=== PATIENT | male | born 1955 | race Hispanic/Latino ===

== ENCOUNTER 2016-05-21 12:16 | Observation (INO) | payer MEDICAID ==
[2016-05-21 12:16] VITALS: BMI 30.2
--- NOTE | 2016-05-21 13:26 | ED PDOC ---
HPI: Abdomen Time Seen by Provider: 05/21/16 12:35 Chief Complaint (Nursing): Abdominal Pain Chief Complaint (Provider): Abdominal Pain History Per: Patient History/Exam Limitations: no limitations Onset/Duration Of Symptoms: Days Current Symptoms Are (Timing): Still Present Severity: Moderate Location Of Pain/Discomfort: Diffuse Quality Of Discomfort: "Pain" Associated Symptoms: denies: Fever, Nausea, Vomiting Exacerbating Factors: None Additional Complaint(s): Patient is a 60 year old male with a history of liver cirrhosis, presents to ED with son for diffuse abdominal pain and swelling for 1 week. As per son symptoms started suddenly 1 week ago, last paracentisis was 3 weeks ago. Patient denies nausea, vomiting, diarrhea, urinary changes or back pain. Past Medical History Reviewed: Historical Data, Nursing Documentation, Vital Signs Vital Signs: Last Vital Signs Temp 98.3 F 05/22/16 08:06 Pulse 96 H 05/22/16 08:48 Resp 20 05/22/16 08:06 BP 118/71 05/22/16 08:48 Pulse Ox 98 05/22/16 08:06 - Medical History PMH: Anemia, CVA, Diabetes, HTN, Hypercholesterolemia, Chronic Kidney Disease Denies: HIV - Surgical History Surgical History: Hernia Repair (umbilical ) - Family History Family History: States: Unknown Family Hx - Living Arrangements Living Arrangements: With Family - Immunization History Hx Tetanus Toxoid Vaccination: Yes Hx Influenza Vaccination: Yes Hx Pneumococcal Vaccination: Yes - Home Medications Home Medications: Ambulatory Orders Medication Instructions Recorded Dipyridamole [Persantine] 50 mg PO DAILY 05/15/15 GlipiZIDE [Glucotrol] 10 mg PO DAILY 05/15/15 Insulin Glargine, Recombina 25 units SC HS 05/15/15 [Lantus] Insulin Lispro [Humalog] 50 units PO BID 05/15/15 Omeprazole [Prilosec] 20 mg PO DAILY 05/15/15 Sucralfate [Carafate] 1 gm PO BID 05/15/15 Ergocalciferol (Vitamin D2) 50,000 unit PO QWK 12/03/15 [Vitamin D2] Folic Acid 1 mg PO DAILY 12/03/15 Metoprolol Succinate [Toprol XL] 50 mg PO DAILY 12/03/15 Simvastatin 10 mg PO DAILY 12/03/15 Lactulose [Generlac] 30 ml PO BID 05/21/16 Spironolactone [Aldactone] 25 mg PO TID 05/21/16 - Allergies Allergies/Adverse Reactions: Allergies Allergy/AdvReac Type Severity Reaction Status Date / Time No Known Allergies Allergy Verified 04/12/16 07:16 Review of Systems ROS Statement: Except As Marked, All Systems Reviewed And Found Negative Constitutional: Negative for: Fever, Chills Cardiovascular: Negative for: Chest Pain, Palpitations Respiratory: Negative for: Shortness of Breath Gastrointestinal: Positive for: Abdominal Pain. Negative for: Nausea, Vomiting , Diarrhea, Constipation Genitourinary Male: Negative for: Dysuria Physical Exam - Reviewed Nursing Documentation Reviewed: Yes Vital Signs Reviewed: Yes - Physical Exam Appears: Positive for: Non-toxic, No Acute Distress Skin: Positive for: Normal Color, Warm Eye Exam: Positive for: Normal appearance Neck: Positive for: Normal, Painless ROM Cardiovascular/Chest: Positive for: Regular Rate, Rhythm. Negative for: Murmur Respiratory: Positive for: Normal Breath Sounds. Negative for: Respiratory Distress Gastrointestinal/Abdominal: Positive for: Tenderness (mild diffuse ), Distended , Asicites. Negative for: Guarding, Rebound Back: Positive for: Normal Inspection Extremity: Positive for: Normal ROM Neurologic/Psych: Positive for: Alert, Oriented - Laboratory Results Result Diagrams: 05/22/16 10:40 05/22/16 10:40 - ECG O2 Sat by Pulse Oximetry: 99 (RA) Pulse Ox Interpretation: Normal Medical Decision Making Medical Decision Making: Time: 1320 Initial impression: Abdominal distention Initial plan: -- CMP -- CBC -- PT/PTT -- Paracentesis Time: 1328 Case discussed with IR who agrees to perform Paracentesis at this time. Plan: -- ED obs Scribe Attestation: Documented by Milly Trujillo acting as a scribe for Jazmin Carreno MD MD Scribe Attestation: All medical record entries made by the Scribe were at my direction and personally dictated by me. I have reviewed the chart and agree that the record accurately reflects my personal performance of the history, physical exam, medical decision making, and the department course for this patient. I have also personally directed, reviewed, and agree with the discharge instructions and disposition. ED OBSERVATION Date of observation admission: 05/21/16 Time of observation admission: 13:30 - Observation admission statement Patient is being placed in observation because:: Pending Paracentesis - Progress Note Progress Note: 05/21/16 15:01 5.6 liters of fluid drained. 05/21/16 17:16 Case discussed with maria del rosario farah covering Dr. Grace, aware of pt with acute anemia and hyperglycemia s/p pericentesis. Patient to be admitted under Dr. Grace 05/21/16 17:51 Pt consent obtained, will give 2 units of blood. 05/21/16 17:54 Pt reports hx of prior surgery few weeks ago by Dr. Tabor, will page Dr. tabor for further consult. dr tabor made aware of patient. dx acute anemia, hyperglycemia, abdominal distention 05/26/16 05:08 Disposition - Clinical Impression Clinical Impression: Abdominal discomfort, Diabetes type 2, uncontrolled, Acute GI bleeding - Patient ED Disposition Is Patient to be Admitted: Yes - Disposition Disposition Time: 14:00 Condition: FAIR
[2016-05-21] MEDS ORDERED: Lidocaine 1% Inj (20ml) ONE (14:06)
[2016-05-21 14:09] LABS: POTASSIUM 4.9 MMOL/L (3.6-5.0)
[2016-05-21 14:12] LABS: ALB/GLOB RATIO 0.7 (1.0-2.1); CALCIUM 8.1 mg/dL (8.4-10.2); TOTAL PROTEIN 6.9 G/DL (6.3-8.2)
[2016-05-21 14:14] LABS: BASO % 0.3 % (0.0-2.0); EOS # 0.2 K/uL (0.0-0.7); EOS % 3.2 % (0.0-4.0); HEMATOCRIT 22.8 % (35.0-51.0); LYMPH # 0.7 K/uL (1.0-4.3); LYMPH % 11.9 % (20.0-40.0); MEAN CELL VOLUME 88.4 fl (80.0-94.0); MEAN CORPUSCULAR HEMOGLOBIN 26.9 pg (27.0-31.0); MEAN CORPUSCULAR HGB CONC 30.4 g/dL (33.0-37.0); MONO # 0.8 K/uL (0.0-0.8); MONO % 13.3 % (0.0-10.0); NEUT # 4.3 K/uL (1.8-7.0); NEUT % 71.3 % (50.0-75.0); RED CELL DISTRIBUTION WIDTH 17.6 % (11.5-14.5); WHITE BLOOD COUNT 6.1 K/uL (4.8-10.8)
[2016-05-21] MEDS ORDERED: Insulin Regular 100 units/ml SC STA ×2 (14:19→18:34)
[2016-05-21 14:26] LABS: PARTIAL THROMBOPLASTIN TIME 25.2 SECONDS (23.3-32.5)
--- NOTE | 2016-05-21 15:10 | PCM.SURG1 ---
Surgeon's Initial Post Op Note - Surgeon's Notes Surgeon: Helena Reliability Technicians: None Type of Anesthesia: Local Pre-Operative Diagnosis: Ascites Operative Findings: Ascites Post-Operative Diagnosis: Ascites Operation Performed: Paracentesis Specimen/Specimens Removed: Approx 5.6L of clear pale yellow fluid aspirated. Estimated Blood Loss: EBL {In ML}: 1 Date of Surgery/Procedure: 05/21/16 Time of Surgery/Procedure: 15:00
[2016-05-21] MEDS ORDERED: Sodium Chloride 0.9% 1,000 ML IV STA (15:23)
[2016-05-21] MEDS ORDERED: Ergocalciferol 50,000 Intl Units Cap PO SCH (18:00)
[2016-05-21] MEDS ORDERED: Insulin Lispro (humaLOG) 100 Units/ml Inj SC STA (18:24)
[2016-05-21] MEDS ORDERED: Insulin Detemir 100 Units/ml Inj SC SCH (22:00)
[2016-05-21] MEDS: Insulin Lispro (humaLOG) 100 Units/ml Inj SC SCH (22:30)
[2016-05-22 08:07] VITALS: BP 118/71; PULSE 96; RESP 20; TEMP 98.3
[2016-05-22] MEDS: Insulin Lispro (humaLOG) 100 Units/ml Inj SC SCH ×2 (08:46→12:39)
[2016-05-22] MEDS ORDERED: Insulin Lispro (humaLOG) 100 Units/ml Inj SC SCH (09:00)
[2016-05-22] MEDS ORDERED: Metoprolol Succinate 50 mg XL Tab PO SCH (09:00)
[2016-05-22] MEDS ORDERED: Pravastatin Sodium 20 MG TAB PO SCH (09:00)
[2016-05-22] MEDS ORDERED: Pantoprazole 40 mg EC Tab PO SCH (09:00)
--- NOTE | 2016-05-22 09:12 | CP.PCM.HP ---
History of Present Illness - History of Present Illness History of Present Illness: admitted for anemia-acute on chronic w/o source and hyperglycemia. has not been compliant w/ meds fo rmd2. recent hernia serugery but is not having any occult bleeding, refused FRANCIA for stool guiac. is now s/p 2 units prb and had paracentesis w/ 5 l removed in ER. no obv bleeding in abd. no pain/distress/ complaints at present. wishes to be dc home. Present on Admission - Present on Admission Any Indicators Present on Admission: Yes History of Uncontrolled Diabetes: Yes Review of Systems - Gastrointestinal Gastrointestinal: As Per HPI, Bloating - Genitourinary Additional comments: scrotal edema-chronic Past Patient History - Infectious Disease Hx of Infectious Diseases: None - Past Medical History & Family History Past Medical History?: Yes - Past Social History Smoking Status: Light Smoker < 10 Cigarettes Daily - CARDIAC Hx Cardiac Disorders: Yes Hx Hypercholesterolemia: Yes Hx Hypertension: Yes - PULMONARY Hx Respiratory Disorders: No - NEUROLOGICAL Hx Neurological Disorder: Yes HX Cerebrovascular Accident: Yes (2006 rt side weak) - HEENT Hx HEENT Problems: No Other/Comment: hard of hearing left ear - RENAL Hx Chronic Kidney Disease: Yes - ENDOCRINE/METABOLIC Hx Endocrine Disorders: Yes - HEMATOLOGICAL/ONCOLOGICAL Hx Blood Disorders: Yes Hx Anemia: Yes Hx Human Immunodeficiency Virus (HIV): No - INTEGUMENTARY Hx Dermatological Problems: No - MUSCULOSKELETAL/RHEUMATOLOGICAL Hx Musculoskeletal Disorders: No Hx Falls: No - GASTROINTESTINAL Hx Gastrointestinal Disorders: Yes Hx Esophageal Varices: Yes Hx Liver Failure: Yes Other/Comment: CIRRHOSIS. ASCITIS - GENITOURINARY/GYNECOLOGICAL Hx Genitourinary Disorders: No - PSYCHIATRIC Hx Psychophysiologic Disorder: No Hx Emotional Abuse: No Hx Physical Abuse: No Hx Substance Use: No - SURGICAL HISTORY Hx Surgeries: Yes Other/Comment: umbilical hernia repair. PARACENTESIS - ANESTHESIA Hx Anesthesia: Yes Hx Anesthesia Reactions: No Meds Allergies/Adverse Reactions: Allergies Allergy/AdvReac Type Severity Reaction Status Date / Time No Known Allergies Allergy Verified 04/12/16 07:16 Physical Exam - Constitutional Appears: Well, Non-toxic, No Acute Distress Additional comments: pale - Head Exam Head Exam: ATRAUMATIC, NORMAL INSPECTION, NORMOCEPHALIC - Eye Exam Eye Exam: EOMI, Normal appearance, PERRL Pupil Exam: NORMAL ACCOMODATION, PERRL - ENT Exam ENT Exam: Mucous Membranes Moist, Normal Exam - Neck Exam Neck exam: Positive for: Normal Inspection - Respiratory Exam Respiratory Exam: Clear to Auscultation Bilateral, NORMAL BREATHING PATTERN - Cardiovascular Exam Cardiovascular Exam: REGULAR RHYTHM, RRR, +S1, +S2 - GI/Abdominal Exam GI & Abdominal Exam: Distended, Normal Bowel Sounds, Soft. absent: Tenderness - Extremities Exam Extremities exam: Positive for: full ROM, normal capillary refill, normal inspection, pedal pulses present - Neurological Exam Neurological exam: Alert, CN II-XII Intact, Normal Gait, Oriented x3, Reflexes Normal - Psychiatric Exam Psychiatric exam: Normal Affect, Normal Mood - Skin Skin Exam: Dry, Intact, Normal Color, Warm Results - Vital Signs Recent Vital Signs: Last Vital Signs Temp 98.3 F 05/22/16 08:06 Pulse 96 H 05/22/16 08:48 Resp 20 05/22/16 08:06 BP 118/71 05/22/16 08:48 Pulse Ox 98 05/22/16 08:06 - Labs Result Diagrams: 05/22/16 10:40 05/22/16 10:40 Labs: Laboratory Results - last 24 hr 05/21/16 05/21/16 05/21/16 13:45 18:06 18:08 WBC 6.1 RBC 2.58 L Hgb 6.9 L D Hct 22.8 L MCV 88.4 D MCH 26.9 L MCHC 30.4 L RDW 17.6 H Plt Count 132 MPV 10.0 Neut % (Auto) 71.3 Lymph % (Auto) 11.9 L [place] % (Auto) 13.3 H Eos % (Auto) 3.2 Baso % (Auto) 0.3 Neut # 4.3 Lymph # 0.7 L [place] # 0.8 Eos # 0.2 Baso # 0.0 PT 13.8 H INR 1.33 H APTT 25.2 Sodium 137 Potassium 4.9 Chloride 107 Carbon Dioxide 19 L Anion Gap 16 BUN 23 H Creatinine 1.7 H Est GFR ( Amer) 50 Est GFR (Non-Af Amer) 41 POC Glucose (mg/dL) 385 H Random Glucose 449 H* D Calcium 8.1 L Total Bilirubin 1.0 AST 30 ALT 26 Alkaline Phosphatase 91 Total Protein 6.9 Albumin 2.9 L Globulin 4.1 H Albumin/Globulin Ratio 0.7 L Blood Type A POSITIVE Antibody Screen Negative Crossmatch See Detail BBK History Checked Patient has bt 05/21/16 05/21/16 05/22/16 20:30 23:06 05:38 WBC RBC Hgb Hct MCV MCH MCHC RDW Plt Count MPV Neut % (Auto) Lymph % (Auto) [place] % (Auto) Eos % (Auto) Baso % (Auto) Neut # Lymph # Noble # Eos # Baso # PT INR APTT Sodium Potassium Chloride Carbon Dioxide Anion Gap BUN Creatinine Est GFR ( Amer) Est GFR (Non-Af Amer) POC Glucose (mg/dL) 347 H 290 H 174 H Random Glucose Calcium Total Bilirubin AST ALT Alkaline Phosphatase Total Protein Albumin Globulin Albumin/Globulin Ratio Blood Type Antibody Screen Crossmatch BBK History Checked Assessment & Plan (1) Anemia Assessment and Plan: s/p 2 units prbc. stool guiac pending hgb now 8.5 will f/u outpt further work up outpt Status: Acute (2) Ascites Assessment and Plan: s/p paracenteis f/u gi outpt Status: Acute (3) DVT prophylaxis Assessment and Plan: scd nad aehose no anticoag r/t anemia Status: Acute (4) Liver cirrhosis Assessment and Plan: chronic-cont meds, outpt f/u Status: Chronic (5) Scrotal edema Assessment and Plan: chronic refused drainaged by surgery Status: Chronic (6) Type 2 diabetes mellitus with hyperglycemia Assessment and Plan: more controleld today pt had not been taking meds as ordered cont home meds fsbg, riss Status: Acute (7) CKD (chronic kidney disease) Status: Chronic - Assessment and Plan (Free Text) Assessment: pt was seen/cleared by surgery Decision To Admit - Pt Status Changed To: Hospital Disposition Of: Observation - . Bed Request Type: Med/Surg Admitting Physician: Helder Grace
[2016-05-22 11:01] LABS: HEMATOCRIT 25.6 % (35.0-51.0); MEAN CELL VOLUME 84.5 fl (80.0-94.0); MEAN CORPUSCULAR HEMOGLOBIN 27.4 pg (27.0-31.0); MEAN CORPUSCULAR HGB CONC 32.4 g/dL (33.0-37.0); RED CELL DISTRIBUTION WIDTH 16.5 % (11.5-14.5); WHITE BLOOD COUNT 6.4 K/uL (4.8-10.8)
[2016-05-22 11:02] LABS: CALCIUM 7.9 mg/dL (8.4-10.2)
--- NOTE | 2016-05-22 18:17 | CP.PCM.DIS ---
Provider - Provider Date of Admission: 05/21/16 13:34 Attending physician: Helder Grace MD Time Spent in preparation of Discharge (in minutes): 15 Diagnosis - Discharge Diagnosis (1) Anemia Status: Acute (2) Ascites Status: Acute (3) DVT prophylaxis Status: Acute (4) Liver cirrhosis Status: Chronic (5) Scrotal edema Status: Chronic (6) Type 2 diabetes mellitus with hyperglycemia Status: Acute (7) CKD (chronic kidney disease) Status: Chronic Hospital Course - Lab Results Lab Results: Most Recent Lab Values WBC 6.4 K/uL (4.8-10.8) 05/22/16 10:40 RBC 3.03 Mil/uL (4.40-5.90) L 05/22/16 10:40 Hgb 8.3 g/dL (12.0-18.0) L 05/22/16 10:40 Hct 25.6 % (35.0-51.0) L 05/22/16 10:40 MCV 84.5 fl (80.0-94.0) D 05/22/16 10:40 MCH 27.4 pg (27.0-31.0) 05/22/16 10:40 MCHC 32.4 g/dL (33.0-37.0) L 05/22/16 10:40 RDW 16.5 % (11.5-14.5) H 05/22/16 10:40 Plt Count 131 K/uL (130-400) 05/22/16 10:40 MPV 10.0 fl (7.2-11.7) 05/21/16 13:45 Neut % (Auto) 71.3 % (50.0-75.0) 05/21/16 13:45 Lymph % (Auto) 11.9 % (20.0-40.0) L 05/21/16 13:45 [place] % (Auto) 13.3 % (0.0-10.0) H 05/21/16 13:45 Eos % (Auto) 3.2 % (0.0-4.0) 05/21/16 13:45 Baso % (Auto) 0.3 % (0.0-2.0) 05/21/16 13:45 Neut # 4.3 K/uL (1.8-7.0) 05/21/16 13:45 Lymph # 0.7 K/uL (1.0-4.3) L 05/21/16 13:45 [place] # 0.8 K/uL (0.0-0.8) 05/21/16 13:45 Eos # 0.2 K/uL (0.0-0.7) 05/21/16 13:45 Baso # 0.0 K/uL (0.0-0.2) 05/21/16 13:45 PT 13.8 SECONDS (9.6-11.2) H 05/21/16 13:45 INR 1.33 (0.92-1.08) H 05/21/16 13:45 APTT 25.2 SECONDS (23.3-32.5) 05/21/16 13:45 Sodium 137 mmol/l (132-148) 05/22/16 10:40 Potassium 4.0 MMOL/L (3.6-5.0) 05/22/16 10:40 Chloride 108 mmol/L (98-107) H 05/22/16 10:40 Carbon Dioxide 22 mmol/L (22-30) 05/22/16 10:40 Anion Gap 11 (10-20) 05/22/16 10:40 BUN 20 mg/dl (9-20) 05/22/16 10:40 Creatinine 1.6 mg/dL (0.8-1.5) H 05/22/16 10:40 Est GFR ( Amer) 53 05/22/16 10:40 Est GFR (Non-Af Amer) 44 05/22/16 10:40 POC Glucose (mg/dL) 166 mg/dL (65-110) H 05/22/16 10:57 Random Glucose 169 mg/dL (75-110) H 05/22/16 10:40 Calcium 7.9 mg/dL (8.4-10.2) L 05/22/16 10:40 Total Bilirubin 1.0 mg/dl (0.2-1.3) 05/21/16 13:45 AST 30 U/L (17-59) 05/21/16 13:45 ALT 26 U/L (21-72) 05/21/16 13:45 Alkaline Phosphatase 91 U/L (38-126) 05/21/16 13:45 Total Protein 6.9 G/DL (6.3-8.2) 05/21/16 13:45 Albumin 2.9 g/dL (3.5-5.0) L 05/21/16 13:45 Globulin 4.1 gm/dL (2.2-3.9) H 05/21/16 13:45 Albumin/Globulin Ratio 0.7 (1.0-2.1) L 05/21/16 13:45 Stool Occult Blood Negative (NEGATIVE) 05/22/16 12:15 Blood Type A POSITIVE 05/21/16 18:06 Antibody Screen Negative 05/21/16 18:06 Crossmatch See Detail 05/21/16 18:06 BBK History Checked Patient has bt 05/21/16 18:06 Discharge Exam - Head Exam Head Exam: ATRAUMATIC, NORMAL INSPECTION, NORMOCEPHALIC Discharge Plan - Follow Up Plan Condition: FAIR Disposition: HOME/ ROUTINE Instructions: Abdominal Paracentesis (DC), Ascites (GEN) Additional Instructions: pt doing well, stool guiac negative. anemia ?? acute on chronic related to anemia of chronic disease spoke to pts primary to f/u in am, rted prn, meds per med rec pt to take all meds as directed f/u gi and surgery fianl [id number] on chronic, uncontrolled dm2 Referrals: Helder Grace MD [Staff Provider] -
--- NOTE | 2016-05-25 16:27 | US ---
Ultrasound guided paracentesis. Clinical History: Ascites with abdominal pain and distension. Technique: The relative risks and indications for the procedure were explained to the patient and informed written consent obtained. Sonography of the abdomen was performed in a supine position. This revealed a small amount of non-loculated ascites, greatest in the right lower quadrant. A puncture site was selected and the area was prepped and draped in the usual sterile fashion. 1% lidocaine was used to anesthetize the skin and soft tissues. A 5 [place] paracentesis catheter was trocared into the right lower quadrant under real time ultrasound guidance. A permanent image was stored. Approximately 5600 cc of gabriela fluid aspirated. Impression: Ultrasound-guided paracentesis in the right lower quadrant. Approximately 5600 cc of gabriela colored fluid was aspirated.
[2016-05-26 05:10] VITALS: O2SAT 99
== END 2016-05-22 14:58 | disposition home or self-care (01) ==
LOC: H.ER 12:16 → H.EROBSV 13:34 → H.ERHOLD 17:33 → H.MEDSURG1 19:08
PROVIDERS: ADMIT Family Medicine; ATTEND Family Medicine
DX: K74.60 Unspecified cirrhosis of liver (principal); R18.8 Other ascites; E11.22 Type 2 diabetes mellitus with diabetic chronic kidney disease; I12.9 Hypertensive chronic kidney disease with stage 1 through stage 4 chronic kidney disease, or unspecified chronic kidney disease; N18.9 Chronic kidney disease, unspecified; D64.9 Anemia, unspecified; E11.65 Type 2 diabetes mellitus with hyperglycemia; K92.2 Gastrointestinal hemorrhage, unspecified; E78.00 Pure hypercholesterolemia, unspecified; N50.89 Other specified disorders of the male genital organs; Z86.73 Personal history of transient ischemic attack (TIA), and cerebral infarction without residual deficits

== ENCOUNTER 2016-06-15 09:39 | Emergency (ER) | payer MEDICAID ==
[2016-06-15 09:39] VITALS: BMI 30.2
[2016-06-15 11:29] LABS: PARTIAL THROMBOPLASTIN TIME 25.9 SECONDS (23.3-32.5)
[2016-06-15 11:33] LABS: ALB/GLOB RATIO 0.6 (1.0-2.1); BILIRUBIN,TOTAL 1.3 mg/dl (0.2-1.3); TOTAL PROTEIN 7.3 G/DL (6.3-8.2)
[2016-06-15 11:36] LABS: BASO % 0.7 % (0.0-2.0); EOS # 0.2 K/uL (0.0-0.7); EOS % 3.8 % (0.0-4.0); HEMATOCRIT 25.8 % (35.0-51.0); LYMPH # 0.8 K/uL (1.0-4.3); LYMPH % 13.7 % (20.0-40.0); MEAN CELL VOLUME 83.3 fl (80.0-94.0); MEAN CORPUSCULAR HEMOGLOBIN 26.1 pg (27.0-31.0); MEAN CORPUSCULAR HGB CONC 31.4 g/dL (33.0-37.0); MONO # 0.8 K/uL (0.0-0.8); NEUT # 3.8 K/uL (1.8-7.0); NEUT % 66.8 % (50.0-75.0); RED CELL DISTRIBUTION WIDTH 18.4 % (11.5-14.5); WHITE BLOOD COUNT 5.6 K/uL (4.8-10.8)
[2016-06-15 11:38] LABS: POTASSIUM 5.3 MMOL/L (3.6-5.0)
--- NOTE | 2016-06-15 11:53 | RAD ---
HISTORY: SOB COMPARISON: Comparison chest 04/24/2016 FINDINGS: LUNGS: Poor inspiration with low lung volumes, mild crowded bronchovascular markings and mild bibasilar atelectasis. PLEURA: No significant pleural effusion identified, no pneumothorax apparent. CARDIOVASCULAR: Normal. OSSEOUS STRUCTURES: No significant abnormalities. VISUALIZED UPPER ABDOMEN: Normal. OTHER FINDINGS: None. IMPRESSION: Poor inspiration with low lung volumes, mild crowded bronchovascular markings and mild bibasilar atelectasis.
[2016-06-15] MEDS ORDERED: Lidocaine 1% Inj (20ml) ONE (13:47)
[2016-06-15 14:12] VITALS: TEMP 97.6
--- NOTE | 2016-06-15 14:17 | PCM.SURG1 ---
Surgeon's Initial Post Op Note - Surgeon's Notes Surgeon: Stewart Salvador MD Fingerprint Expert: NONE Type of Anesthesia: Local Pre-Operative Diagnosis: Ascites, abdominal pain Operative Findings: US showed a large amount of ascites Post-Operative Diagnosis: Ascites, abdominal pain Operation Performed: US guided paracentesis. Specimen/Specimens Removed: 11 liters of clear fluid Estimated Blood Loss: EBL {In ML}: 0 Blood Products Given: N/A Drains Used: No Drains Post-Op Condition: Fair Date of Surgery/Procedure: 06/15/16 Time of Surgery/Procedure: 15:00
[2016-06-15 16:10] VITALS: BP 141/72; PULSE 98; RESP 19
--- NOTE | 2016-06-15 16:22 | ED PDOC ---
HPI: General Adult Time Seen by Provider: 06/15/16 10:05 Chief Complaint (Nursing): Abdominal Pain Chief Complaint (Provider): Abdominal distension Past Medical History Vital Signs: Last Vital Signs Temp 97.6 F 06/15/16 14:11 Pulse 96 H 06/15/16 15:03 Resp 18 06/15/16 15:03 BP 156/76 H 06/15/16 15:03 Pulse Ox 99 06/15/16 15:03 - Medical History PMH: Anemia, CVA, Diabetes, HTN, Hypercholesterolemia, Chronic Kidney Disease Denies: HIV - Surgical History Surgical History: Hernia Repair (umbilical ) - Family History Family History: States: Unknown Family Hx - Immunization History Hx Tetanus Toxoid Vaccination: Yes Hx Influenza Vaccination: Yes Hx Pneumococcal Vaccination: Yes - Home Medications Home Medications: Ambulatory Orders Medication Instructions Recorded Dipyridamole [Persantine] 50 mg PO DAILY 05/15/15 GlipiZIDE [Glucotrol] 10 mg PO DAILY 05/15/15 Insulin Glargine, Recombina 25 units SC HS 05/15/15 [Lantus] Insulin Lispro [Humalog] 50 units PO BID 05/15/15 Omeprazole [Prilosec] 20 mg PO DAILY 05/15/15 Sucralfate [Carafate] 1 gm PO BID 05/15/15 Ergocalciferol (Vitamin D2) 50,000 unit PO QWK 12/03/15 [Vitamin D2] Folic Acid 1 mg PO DAILY 12/03/15 Metoprolol Succinate [Toprol XL] 50 mg PO DAILY 12/03/15 Simvastatin 10 mg PO DAILY 12/03/15 Lactulose [Generlac] 30 ml PO BID 05/21/16 Spironolactone [Aldactone] 25 mg PO TID 05/21/16 - Allergies Allergies/Adverse Reactions: Allergies Allergy/AdvReac Type Severity Reaction Status Date / Time No Known Allergies Allergy Verified 06/15/16 10:04 - Laboratory Results Result Diagrams: 06/15/16 11:07 06/15/16 11:07 - ECG O2 Sat by Pulse Oximetry: 99 Disposition - Clinical Impression Clinical Impression: Ascites - Patient ED Disposition Is Patient to be Admitted: No Counseled Patient/Family Regarding: Diagnosis, Need For Followup - Disposition Referrals: Jovany Shankar, [facility], [employer] [Advanced Practice Nurse] - Disposition: Routine/Home Disposition Time: 16:10 Condition: GOOD Additional Instructions: Please f/u with pmd. Instructions: Ascites (ED) Print Language: LAO
[2016-06-15 16:26] VITALS: O2SAT 100
--- NOTE | 2016-06-16 11:34 | US ---
Date of Procedure: 06/15/2016 PROCEDURE: Ultrasound-guided paracentesis, CPT 26565 Medications: 1% Lidocaine HISTORY: Ascites, abdominal pain, cirrhosis TECHNIQUE: Following informed consent , the patient was placed supine on the stretcher and the site was marked. A limited abdominal ultrasound was performed that showed a large amount of intra-abdominal fluid. Procedural time out was called and the Pt's abdomen was marked and prepped and draped in the usual sterile fashion. Ultrasound-guided large volume paracentesis performed. A total of 11 liters of straw colored fluid was removed without complication. IMPRESSION: Ultrasound-guided large volume paracentesis.
--- NOTE | 2016-06-16 20:30 | CARD ---
APPROVED REPORT EKG Measurement Heart [id number] <Conclusion> Sinus tachycardia Otherwise normal ECG
== END 2016-06-15 16:22 | disposition home or self-care (01) ==
LOC: H.ER 09:39
DX: R18.8 Other ascites (principal)

== ENCOUNTER 2016-06-29 09:14 | Emergency (ER) | payer MEDICAID ==
[2016-06-29 09:21] VITALS: BMI 29.2
[2016-06-29] MEDS ORDERED: Sodium Chloride 0.9% 500 ML IV STA (09:39)
--- NOTE | 2016-06-29 09:42 | ED PDOC ---
HPI: Abdomen Time Seen by Provider: 06/29/16 09:30 Chief Complaint (Nursing): Abdominal Pain Chief Complaint (Provider): Abdominal Pain History Per: Patient History/Exam Limitations: no limitations Onset/Duration Of Symptoms: Days Current Symptoms Are (Timing): Still Present Severity: Mild Location Of Pain/Discomfort: Diffuse Quality Of Discomfort: "Pain" Associated Symptoms: denies: Fever, Nausea, Vomiting Exacerbating Factors: None Additional Complaint(s): Patient is a 60 year old male with a history of liver cirrhosis, presents to ED for abdominal pain and distention for 10-12 days. Patient had a paracentesis performed 10 days ago with only mild relief. Denies nausea, vomiting or fever. States he took no medication at home. No chest pain, headaches, dyspnea. Past Medical History Reviewed: Historical Data, Nursing Documentation, Vital Signs Vital Signs: Last Vital Signs Temp 97.7 F 06/29/16 13:06 Pulse 116 H 06/29/16 13:06 Resp 20 06/29/16 13:06 BP 140/82 06/29/16 13:06 Pulse Ox 98 06/29/16 14:11 - Medical History PMH: Anemia, CVA, Diabetes, HTN, Hypercholesterolemia, Chronic Kidney Disease Denies: HIV Other PMH: liver cirrhosis - Surgical History Surgical History: Hernia Repair (umbilical ) - Family History Family History: States: Unknown Family Hx - Social History Alcohol: None Drugs: Denies - Immunization History Hx Tetanus Toxoid Vaccination: Yes Hx Influenza Vaccination: Yes Hx Pneumococcal Vaccination: Yes - Home Medications Home Medications: Ambulatory Orders Medication Instructions Recorded Dipyridamole [Persantine] 50 mg PO DAILY 05/15/15 GlipiZIDE [Glucotrol] 10 mg PO DAILY 05/15/15 Insulin Glargine, Recombina 25 units SC HS 05/15/15 [Lantus] Insulin Lispro [Humalog] 50 units PO BID 05/15/15 Omeprazole [Prilosec] 20 mg PO DAILY 05/15/15 Sucralfate [Carafate] 1 gm PO BID 05/15/15 Ergocalciferol (Vitamin D2) 50,000 unit PO QWK 12/03/15 [Vitamin D2] Folic Acid 1 mg PO DAILY 12/03/15 Metoprolol Succinate [Toprol XL] 50 mg PO DAILY 12/03/15 Simvastatin 10 mg PO DAILY 12/03/15 Lactulose [Generlac] 30 ml PO BID 05/21/16 Spironolactone [Aldactone] 25 mg PO TID 05/21/16 - Allergies Allergies/Adverse Reactions: Allergies Allergy/AdvReac Type Severity Reaction Status Date / Time No Known Allergies Allergy Verified 06/15/16 10:04 Review of Systems ROS Statement: Except As Marked, All Systems Reviewed And Found Negative Cardiovascular: Negative for: Chest Pain, Palpitations Respiratory: Negative for: Shortness of Breath, Hemoptysis Gastrointestinal: Positive for: Abdominal Pain. Negative for: Nausea, Vomiting , Diarrhea Musculoskeletal: Negative for: Back Pain Neurological: Negative for: Weakness, Numbness Physical Exam - Reviewed Nursing Documentation Reviewed: Yes Vital Signs Reviewed: Yes - Physical Exam Appears: Positive for: Non-toxic, No Acute Distress Skin: Positive for: Normal Color, Warm Eye Exam: Positive for: Normal appearance ENT: Negative for: Nasal Congestion, Pharyngeal Erythema Neck: Positive for: Normal, Painless ROM, Supple Cardiovascular/Chest: Positive for: Regular Rate, Rhythm. Negative for: Edema, Murmur Respiratory: Positive for: Normal Breath Sounds. Negative for: Respiratory Distress Gastrointestinal/Abdominal: Positive for: Tenderness (mild diffuse ), Distended. Negative for: Guarding, Rebound Back: Positive for: Normal Inspection. Negative for: L CVA Tenderness, R CVA Tenderness Extremity: Positive for: Normal ROM. Negative for: Tenderness, Pedal Edema Neurologic/Psych: Positive for: Alert, Oriented - Laboratory Results Result Diagrams: 06/29/16 10:02 06/29/16 10:02 Interpretation Of Abn Labs: 12.1wbc, elevated glucose, elevated bun/cr - ECG O2 Sat by Pulse Oximetry: 98 (RA) Pulse Ox Interpretation: Normal - Progress ED Course And Treament: 1412: Pt. refusing to stay for further treatment, evaluation, and admission. States the sugar we have is incorrect. Pt. aaox3. Pain free. Got ascites drained. Pt. will go against medical advice. Has capacity to make decision. Mini mental status exam intact. Aware of high risk of or decreased functioning from his elevated blood sugar and other findings seen in the ER. Pt. is aware and is taking his own risk. Sugar reduced some with fluids and insulin given in ED. Ambulated with no issues. Medical Decision Making Medical Decision Making: Time: 929 Initial impression: Abdominal distention Initial plan: -- Ammonia -- CMP -- CBC -- PT/PTT -- NSF and Morphine Dr. Salvador contacted will take patient to IR for paracentisis Scribe Attestation: Documented by Milly Trujillo acting as a scribe for Farzad Guzman MD MD Scribe Attestation: All medical record entries made by the Scribe were at my direction and personally dictated by me. I have reviewed the chart and agree that the record accurately reflects my personal performance of the history, physical exam, medical decision making, and the department course for this patient. I have also personally directed, reviewed, and agree with the discharge instructions and disposition. Disposition - Clinical Impression Clinical Impression: Acute hyperglycemia, Ascites, Renal insufficiency Counseled Patient/Family Regarding: Studies Performed, Diagnosis - Disposition Referrals: Helder Grace MD [Staff Provider] - 06/30/16 Disposition: Against Medical Advice Disposition Time: 14:16 Condition: FAIR Additional Instructions: You are going against medical advice. You are aware of possible or decreased functioning from your high blood sugar, kidney having decreased functioning, and other findings seen in the ER. You are taking your own risk and going home. You are refusing any further treatment or care/admission. Return soon as possible for further evaluation and treatment. Instructions: Abdominal Paracentesis (DC), Ascites (ED), Diabetic Hyperglycemia (ED), Impaired Kidney Function (ED)
[2016-06-29 10:05] VITALS: RESP 20
[2016-06-29 10:11] LABS: BASO # 0.1 K/uL (0.0-0.2); BASO % 0.6 % (0.0-2.0); EOS # 0.2 K/uL (0.0-0.7); EOS % 1.4 % (0.0-4.0); HEMATOCRIT 29.7 % (35.0-51.0); LYMPH # 0.8 K/uL (1.0-4.3); LYMPH % 6.5 % (20.0-40.0); MEAN CELL VOLUME 82.9 fl (80.0-94.0); MEAN CORPUSCULAR HEMOGLOBIN 26.1 pg (27.0-31.0); MEAN CORPUSCULAR HGB CONC 31.5 g/dL (33.0-37.0); MEAN PLATELET VOLUME 10.3 fl (7.2-11.7); MONO # 1.1 K/uL (0.0-0.8); MONO % 8.8 % (0.0-10.0); NEUT % 82.7 % (50.0-75.0); PLATELET COUNT 209 K/uL (130-400); RED CELL DISTRIBUTION WIDTH 21.1 % (11.5-14.5); WHITE BLOOD COUNT 12.1 K/uL (4.8-10.8)
[2016-06-29 10:22] LABS: PARTIAL THROMBOPLASTIN TIME 26.8 SECONDS (23.3-32.5)
[2016-06-29 10:34] LABS: ALB/GLOB RATIO 0.6 (1.0-2.1); BILIRUBIN,TOTAL 1.6 mg/dl (0.2-1.3); CALCIUM 8.4 mg/dL (8.4-10.2); TOTAL PROTEIN 7.4 G/DL (6.3-8.2)
[2016-06-29] MEDS ORDERED: Lidocaine 1% Inj (20ml) ONE (11:19)
[2016-06-29] MEDS ORDERED: Sodium Chloride 0.9% 1,000 ML IV STA (12:57)
[2016-06-29 13:07] VITALS: BP 140/82; PULSE 116; TEMP 97.7
[2016-06-29 14:05] LABS: NEUTROPHIL 91 % (42-75); TOTAL CELLS COUNTED 100
[2016-06-29 14:12] VITALS: O2SAT 98
--- NOTE | 2016-06-29 14:15 | PCM.SURG1 ---
Surgeon's Initial Post Op Note - Surgeon's Notes Surgeon: Stewart Salvador MD Tool Sharpener: NONE Type of Anesthesia: Local Pre-Operative Diagnosis: Ascites Operative Findings: US showed large ascites Post-Operative Diagnosis: Ascites Operation Performed: US guided paracentesis. Specimen/Specimens Removed: 8.4 liters of clear fluid Estimated Blood Loss: EBL {In ML}: 1 Blood Products Given: N/A Drains Used: No Drains Post-Op Condition: Fair Date of Surgery/Procedure: 06/29/16 Time of Surgery/Procedure: 14:05
--- NOTE | 2016-06-29 14:37 | US ---
Date of Procedure: 06/26/2016 PROCEDURE: Ultrasound-guided paracentesis, CPT 40127 Medications: 8cc 1% Lidocaine HISTORY: Ascites, abdominal pain TECHNIQUE: Following informed consent , the patient was placed supine on the stretcher and the site was marked. A limited abdominal ultrasound was performed that showed a large amount of intra-abdominal fluid. Procedural time out was called and the Pt's abdomen was marked and prepped and draped in the usual sterile fashion. Ultrasound-guided large volume paracentesis performed. A total of 8.4 liters of straw colored fluid was removed without complication. IMPRESSION: Ultrasound-guided large volume paracentesis.
--- NOTE | 2016-06-30 08:30 | CARD ---
APPROVED REPORT EKG Measurement Heart [id number] <Conclusion> Sinus tachycardia Otherwise normal ECG
== END 2016-06-29 14:53 | disposition left against medical advice (07) ==
LOC: H.ER 09:14
DX: E11.22 Type 2 diabetes mellitus with diabetic chronic kidney disease (principal); I12.9 Hypertensive chronic kidney disease with stage 1 through stage 4 chronic kidney disease, or unspecified chronic kidney disease; N18.9 Chronic kidney disease, unspecified; R18.8 Other ascites; Z86.73 Personal history of transient ischemic attack (TIA), and cerebral infarction without residual deficits; E78.00 Pure hypercholesterolemia, unspecified; Z79.4 Long term (current) use of insulin

== ENCOUNTER 2016-07-01 09:37 | Inpatient (IN) | payer MEDICAID ==
--- NOTE | 2016-07-01 09:47 | ED PDOC ---
HPI:STROKE - Time Time: 09:40 - Historian Historian: Patient, EMS - Onset Date: 07/01/16 Time: 09:05 Onset: Just prior to presenting (35 minutes prior to arrival per EMS) - Notes: Notes:: 60yo male w/ Hx CVA & right sided weakness is brought in by EMS and Police after being found on the ground outside unresponsive. Per EMS report, a bystander saw patient walking his dog when he collapsed and became unresponsive. On EMS arrival patient was responsive. Patient states the last thing he remembers was being at home and denies walking his dog. No abdominal pain, headache, shortness of breath, chest pain, weakness, numbness, tingling, headache, visual changes. No nausea, vomit. Here several days ago for ascites drainage. NIHSS Stroke Scale - Date/Time Evaluation Performed Date Performed: 07/01/16 Time Performed: 09:44 When Was NIHSS Performed: Baseline - How Severe is the Stroke Level of Consciousness: 0=Alert LOC to Questions: 0=Both comments correct LOC to commands: 0=Obeys both correctly Best Gaze: 0=Normal Visual: 0=No visual loss Facial: 0=Normal Motor Arm - Left: 0=No drift Motor Arm - Right: 0=No drift Motor Leg - Left: 2=Falls before 5 sec Motor Leg - Right: 2=Falls before 5 sec Limb Ataxia: 1=Present Upper or Lower Sensory: 0=Normal Best Language: 0=No aphasia Dysarthia: 0=Normal articulation Extinction & Inattention (Neglect): 0=Normal, no object Score: 5 rTPA Inclusion/Exclusion - Refusal of Treatment Patient Refused Treatment: No - Inclusion Criteria for Altepase Patient is 18 years or Older: Yes The Clinical Diagnosis of Ischemic Stroke That is Causing a Potentially Disabling Neurological Deficit: No Time of Onset is Well Established to be Less Than 270 Minute Before Treatment Would Begin: Yes Risk/Benefit Discussed With Patient/Family Member Present: No - Exclusion Criteria for Altepase Evidence of Major Acute Infarct With Signs Greater Than 1/3 MCA Territory: Yes - Warning to TPA With Conditions Condition: Increase Risk of Bleed Due to Comorbid Condition Past Medical History Reviewed: Historical Data, Nursing Documentation, Vital Signs Vital Signs: Last Vital Signs Temp 98.2 F 07/01/16 09:40 Pulse 135 H 07/01/16 09:40 Resp 24 07/01/16 09:40 BP 138/114 H 07/01/16 09:40 Pulse Ox 100 07/01/16 09:40 - Medical History PMH: Anemia, CVA, Diabetes, HTN, Hypercholesterolemia, Chronic Kidney Disease Denies: HIV Other PMH: liver cirrhosis - Surgical History Surgical History: Hernia Repair (umbilical ) - Family History Family History: States: Unknown Family Hx - Social History Current smoker - smoking cessation education provided: No Alcohol: None Drugs: Denies - Immunization History Hx Tetanus Toxoid Vaccination: Yes Hx Influenza Vaccination: Yes Hx Pneumococcal Vaccination: Yes - Home Medications Home Medications: Ambulatory Orders Medication Instructions Recorded Dipyridamole [Persantine] 50 mg PO DAILY 05/15/15 GlipiZIDE [Glucotrol] 10 mg PO DAILY 05/15/15 Insulin Glargine, Recombina 25 units SC HS 05/15/15 [Lantus] Insulin Lispro [Humalog] 50 units PO BID 05/15/15 Omeprazole [Prilosec] 20 mg PO DAILY 05/15/15 Sucralfate [Carafate] 1 gm PO BID 05/15/15 Ergocalciferol (Vitamin D2) 50,000 unit PO QWK 12/03/15 [Vitamin D2] Folic Acid 1 mg PO DAILY 12/03/15 Metoprolol Succinate [Toprol XL] 50 mg PO DAILY 12/03/15 Simvastatin 10 mg PO DAILY 12/03/15 Lactulose [Generlac] 30 ml PO BID 05/21/16 Spironolactone [Aldactone] 25 mg PO TID 05/21/16 - Allergies Allergies/Adverse Reactions: Allergies Allergy/AdvReac Type Severity Reaction Status Date / Time No Known Allergies Allergy Verified 06/15/16 10:04 Review of Systems ROS Statement: Except As Marked, All Systems Reviewed And Found Negative Eyes: Negative for: Vision Change Cardiovascular: Negative for: Chest Pain Respiratory: Negative for: Shortness of Breath Gastrointestinal: Negative for: Abdominal Pain Neurological: Negative for: Weakness, Numbness, Headache Physical Exam - Reviewed Nursing Documentation Reviewed: Yes Vital Signs Reviewed: Yes - Physical Exam Appears: Positive for: Uncomfortable Head Exam: Negative for: ATRAUMATIC (+small abrasion posterior scalp) Skin: Positive for: Warm, Dry Eye Exam: Positive for: Normal appearance, EOMI, PERRL ENT: Positive for: Normal ENT Inspection. Negative for: Nasal Congestion, Pharyngeal Erythema Neck: Positive for: Normal, Painless ROM, Supple Cardiovascular/Chest: Positive for: Tachycardia. Negative for: Edema Respiratory: Positive for: Normal Breath Sounds. Negative for: Rales, Rhonchi, Wheezing Gastrointestinal/Abdominal: Positive for: Normal Exam, Soft. Negative for: Tenderness Back: Positive for: Normal Inspection. Negative for: L CVA Tenderness, R CVA Tenderness Extremity: Positive for: Other (3/5 strength to all extremities. Moving all extremities. ). Negative for: Tenderness, Pedal Edema Neurologic/Psych: Positive for: Alert, respiratory care practitioner II-XII (intact), Oriented, Other ( Following commands. See NIH Stroke scale. ). Negative for: Facial Droop - Laboratory Results Result Diagrams: 07/01/16 10:00 07/01/16 11:25 - ECG ECG: Positive for: Interpreted By Me, Viewed By Me ECG Rhythm: Positive for: Sinus Tachycardia O2 Sat by Pulse Oximetry: 100 (RA) Pulse Ox Interpretation: Normal - Radiology X-Ray: Read By Radiologist X-Ray Interpretation: No Acute Disease - CT Scan/US ct Other Rad Studies (CT/US): Read By Radiologist Other Rad Interpretation: no acute - Progress ED Course And Treament: 0944: code stroke called. CT Head w/o, accuchek, EKG, CXR, Labs, IV Fluids, swallow screen ordered. 0944: old charts reviewed. Patient was seen by contract technical writer 2 days ago in this ED for US guided paracentesis. At the time patient had abnormal labs including blood glucose >400 however patient refused to stay in the hospital and left against medical advice insisting lab values obtained here were not accurate. 1038: Stable. Spoke with neurologist Dr. Mackenzie. Pt. does not meet criteria for admit as pt. had head injury, liver issues causing increased chance to bleed, ? high risk of sz and could of had that. Pt. back to baseline compared to last visit. Will give keppra, lactulose. 1201: Pt. elevated wbc likely from seizure or acute episode. EKG is sinus tachy. Will need admit for further evaluation. Is not septic and has worsening renal functioning. 1209: Stable. Spoke with Jovany Machadoide. Will admit ICU. AAOx3. New findings today. - Core Measure Core Measure Indicators: Code Stroke - Critical Care Total Time (In Min): 30 Documented Critical Care: Time excludes all time spent performint seperately billable procedures Disposition - Clinical Impression Clinical Impression: Renal insufficiency, Seizure, Syncope, Hepatic encephalopathy, Hyperkalemia - Patient ED Disposition Is Patient to be Admitted: Yes Counseled Patient/Family Regarding: Studies Performed, Diagnosis - Disposition Disposition Time: 12:00 Condition: GUARDED - Pt Status Changed To: Hospital Disposition Of: Inpatient - Admit Certification Admit to Inpatient:: After my assessment, the patient will require hospitalization for at least two midnights. This is because of the severity of symptoms shown, intensity of services needed, and/or the medical risk in this patient being treated as an outpatient. - POA Present On Arrival: Falls Or Trauma, Poor Glycemic Control Additional Comments - Additional Comments Additional Comments: Scribe Attestation: Documented by Jimy Francisco acting as a scribe for Willian Angelo MD. Provider Scribe Attestation: All medical record entries made by the Scribe were at my direction and personally dictated by me. I have reviewed the chart and agree that the record accurately reflects my personal performance of the history, physical exam, medical decision making, and the department course for this patient. I have also personally directed, reviewed, and agree with the discharge instructions and disposition.
[2016-07-01 09:56] VITALS: BMI 30.9
[2016-07-01] MEDS ORDERED: Sodium Chloride 0.9% 500 ML IV SCH (10:00)
[2016-07-01 10:12] LABS: BASO # 0.1 K/uL (0.0-0.2); BASO % 0.4 % (0.0-2.0); EOS # 0.2 K/uL (0.0-0.7); EOS % 0.9 % (0.0-4.0); HEMATOCRIT 32.3 % (35.0-51.0); LYMPH # 1.3 K/uL (1.0-4.3); LYMPH % 6.1 % (20.0-40.0); MEAN CELL VOLUME 83.9 fl (80.0-94.0); MEAN CORPUSCULAR HEMOGLOBIN 25.8 pg (27.0-31.0); MEAN CORPUSCULAR HGB CONC 30.7 g/dL (33.0-37.0); MEAN PLATELET VOLUME 9.4 fl (7.2-11.7); MONO # 1.3 K/uL (0.0-0.8); NEUT # 18.3 K/uL (1.8-7.0); NEUT % 86.6 % (50.0-75.0); RED CELL DISTRIBUTION WIDTH 21.7 % (11.5-14.5)
[2016-07-01 10:13] LABS: WHITE BLOOD COUNT 21.2 K/uL (4.8-10.8)
--- NOTE | 2016-07-01 10:24 | CT ---
PROCEDURE: CT HEAD WITHOUT CONTRAST. HISTORY: code stroke COMPARISON: 12/02/2012 TECHNIQUE: Axial computed tomography images were obtained through the head/brain without intravenous contrast. Radiation dose: Total exam DLP = 880.70 mGy-cm. This CT exam was performed using one or more of the following dose reduction techniques: Automated exposure control, adjustment of the mA and/or kV according to patient size, and/or use of iterative reconstruction technique. FINDINGS: HEMORRHAGE: No intracranial hemorrhage. BRAIN: No mass effect or edema. Old left frontal infarct unchanged in appearance. No evidence of acute infarct. Mild diffuse cerebral atrophy. Mild periventricular patchy deep white matter low attenuation consistent with age-related microvascular ischemic change. VENTRICLES: Unremarkable. No hydrocephalus. CALVARIUM: Unremarkable. PARANASAL SINUSES: Unremarkable as visualized. No significant inflammatory changes. MASTOID AIR CELLS: Unremarkable as visualized. No inflammatory changes. OTHER FINDINGS: None. IMPRESSION: No intracranial mass, hemorrhage or evidence of acute infarct. Old left frontal infarct, unchanged from 12/02/2012. Mild age-appropriate atrophy and chronic white matter ischemic change. The findings in this examination were discussed, by telephone, with Dr. Angelo at 10:15 a.m. on 07/01/2016.
[2016-07-01 10:26] LABS: ALB/GLOB RATIO 0.6 (1.0-2.1); BILIRUBIN,TOTAL 1.5 mg/dl (0.2-1.3); CALCIUM 8.7 mg/dL (8.4-10.2); TOTAL PROTEIN 7.9 G/DL (6.3-8.2)
[2016-07-01 10:27] LABS: POTASSIUM 5.9 MMOL/L (3.6-5.0)
[2016-07-01 10:31] LABS: PARTIAL THROMBOPLASTIN TIME 29.2 SECONDS (23.3-32.5)
[2016-07-01 10:32] LABS: TROPONIN I 0.016 ng/mL (0.00-0.120)
[2016-07-01] MEDS ORDERED: levETIRAcetam 500 MG in Sodium Chloride 0.9% 100 ML IVPB STA (10:33)
--- NOTE | 2016-07-01 11:30 | RAD ---
HISTORY: code stroke COMPARISON: 06/15/2016 FINDINGS: LUNGS: No active pulmonary disease. PLEURA: No significant pleural effusion identified, no pneumothorax apparent. CARDIOVASCULAR: Normal. OSSEOUS STRUCTURES: No significant abnormalities. VISUALIZED UPPER ABDOMEN: Normal. OTHER FINDINGS: None. IMPRESSION: No active disease.
[2016-07-01] MEDS ORDERED: Insulin Regular 100 units/ml SC STA (12:02)
[2016-07-01] MEDS ORDERED: Sod Polystyrene Sulf 15 gm/60 ml Oral Susp PO STA (12:02)
[2016-07-01] MEDS ORDERED: Dextrose 50% SYRINGE Inj (50 ml) IVP STA (12:03)
[2016-07-01] MEDS ORDERED: Dextrose 50% SYRINGE Inj (50 ml) ONE (12:07)
[2016-07-01] MEDS ORDERED: Sod Polystyrene Sulf 15 gm/60 ml Oral Susp ONE (12:08)
--- NOTE | 2016-07-01 13:54 | CP.CCUPN ---
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 Patient stated he remember he was walking with dog however he doesnt remember and recall what happen. Patient was visited [facility] 06/29/2016 for abdominal pain and had paracentesis removed about 8.4 L fluids and sign out AMA. Patient was alert, oriented and answer all the questions and no acute distress upon arrival ER and code stroke was activated. Patient had NIHSS score of 5 no new neurological deficit. Patient is admitted ICU for closed monitor his syncope, hyperkalemia and azotemia.Patient is Afebrile, tachy with HR of 135, BP139/114, RR 24 and Sat O2 100 % room air. Patient denies any Chest pain,no SOB, no fevers, no chills. There is no nausea , no emesis, no diarrhea, no hematochezia, no melena, no dysuria, no frequency or urgency. There are no complaints of myalgia or arthralgias, no URI symptoms , no numbness or tingling or limb weakness. ROS: pertinent positives in HPI, all other 10 ROS are negative by me PMD: PMH: CVA ( 2006) and DM type 2, alcohol abuse, ESLD with cirrhosis PSH: hernia repairment MEDICATIONS: ALLERGIES: NKDA FH: Denies any FH of CAD/NE, HTN, CVA, Cancer, DM II SH: Tobacco cigarettes EtOH - former drinker quit7 years ago Drugs - denies Occupation: [employer]/Surrogate: Son LABS: CBC: WBC/Hg/Hct/Plt: 21.2/9.9/32.3/252 BMP: Na/K/Cl/CO2/BUN/Cr/Gluc: 138/5.9/104/17/37/2.1 COAGULATION: PT/PTT/INR: 15.3/29.2/1.47 CXR: no acute finding ECG: sinus tachycardia with HR of 134 bpm, no ST changes and no T inversion CCU Objective - Vital Signs / Intake & Output Vital Signs (Last 4 hours): Vital Signs Temp Pulse Resp BP Pulse Ox 07/01/16 13:50 97.9 F 102 H 23 108/70 98 07/01/16 13:27 97.9 F 07/01/16 13:25 103 H 22 109/71 99 07/01/16 12:59 102 H 21 109/71 100 07/01/16 12:35 101 H 22 112/72 99 07/01/16 12:25 100 07/01/16 12:21 104 H 20 112/64 99 - Physical Exam Physical Exam Limitations: Positive for: Other (alert and wake, mild difficulty speech) Head: Positive for: Abrasion (posterior occiput) Pupils: Positive for: PERRL Extroacular Muscles: Positive for: EOMI Conjunctiva: Positive for: Normal Mouth: Positive for: Dry, Normal Tounge. Negative for: Drooling Pharnyx: Positive for: Normal Neck: Positive for: Normal Range of Motion, MIDLINE TENDERNESS Respiratory/Chest: Positive for: Clear to Auscultation, Good Air Exchange. Negative for: Respiratory Distress, Accessory Muscle Use Cardiovascular: Positive for: Regular Rate and Rhythm, Normal S1, S2, Tachycardic Abdomen: Positive for: Tenderness (mild tenderness diffusely upon palpation), Normal Bowel Sounds. Negative for: Peritoneal Signs, Rebound Upper Extremity: Positive for: Normal ROM, NORMAL PULSES, Capillary Refill < 2s , Other (3/5 motor strength upper extremities, amuptation on left 4th finger) Lower Extremity: Positive for: Normal Inspection, NORMAL PULSES, Normal ROM, Neurovascularly Intact. Negative for: Edema Neurological: Positive for: Normal Sensory Function. Negative for: Speech Normal (speech not clear) Skin: Positive for: Warm, Dry, Normal Color - Medications Active Medications: Active Medications Generic Name Dose Route Start Last Admin Trade Name Freq PRN Reason Stop Dose Admin Sodium Chloride 500 mls @ 500 mls/hr 07/01/16 10:00 07/01/16 10:25 Sodium Chloride 0.9% IV 500 mls/hr .Q1H FAVIAN Administration - Patient Studies Fingerstick Blood Sugar Results: 328 Assessment/Plan (1) Syncope Current Visit: Yes Status: Acute Comment: -etiology possible from seizure vs syncope (vasovagal vs cardio vs neuro) -CT of head was reviewed and showed No intracranial mass, hemorrhage or evidence of acute infarct. Old left frontal infarct, unchanged from 12/02/2012. Mild age-appropriate atrophy and chronic white matter ischemic change -hx of CVA -consider MRI and EEG -received keppra from ER -continue with keppra -neuro check q4h -HOB elevated (2) Hepatic encephalopathy Current Visit: Yes Status: Acute Comment: -ammonia 106 -hx of alcohol abuse and cirrhosis -continue with lactulose -monitor ammonia (3) Hyperkalemia Current Visit: Yes Status: Acute Comment: -K: 5.9 -Kayexalate was given at ER -f/u BMP (4) Metabolic acidosis Current Visit: Yes Status: Acute Comment: -etiology possible from DKA -anion gap with 23 -bicarb 17 -glucose 417 -f/u serum osmolaity, urine osmolaity, ABG, lactic acid -accucheck ACHS (5) Diabetes type 2, uncontrolled Current Visit: No Status: Acute Comment: -f/u HgA1C -accucheck ACHS -sliding scale insulin (6) Ascites Current Visit: No Status: Acute Comment: -removed 8.4L paracentesis on 2016 -stable -ammonia 106 -continue with spirolactone -continue with lactulose (7) Renal insufficiency Current Visit: Yes Status: Acute Comment: -BUN/Cr: 37/2.1 -monitor I&O -NS IV 100ml/hr (8) DVT prophylaxis Current Visit: No Status: Acute Comment: -SCD for now <SkyChuy Susanna - Last Filed: 07/01/16 23:22> CCU Subjective - Physician Review Subjective (Free Text): Attestation: Patient seen and examined at the bedside with Resident Dr. Christiano Marshall; and I agree with her outline of plans and management documented below as discussed at the bedside, reflecting my review of all applicable clinical data, and participation in the care of the patient throughout the day in ICU; today, July 01, 2016.
[2016-07-01] MEDS: Sodium Chloride 0.9% 1,000 ML IV SCH (14:45)
[2016-07-01 15:51] LABS: VENOUS BLOOD GAS BASE EXCESS -5.4 mmol/L (0.0-2.0); VENOUS BLOOD GAS PCO2 38 mmHg (40-60); VENOUS BLOOD PH 7.33 (7.32-7.43)
--- NOTE | 2016-07-01 16:34 | CP.PCM.CON ---
History of Present Illness - History of Present Illness History of Present Illness: Mr. Clarke is a 60-year-old man with a past medical history of a previous left MCA distribution stroke and multiple previous admissions pertaining to alcoholic hepatic cirrhosis, hepatic encephalopathy and associated co-morbid medical problems, who was brought in to the ED after having an episode of loss of consciousness and subsequent confusion with memory loss. According to the report received by a bystander, the patient was walking his dog, when he suddenly collapsed and became unresponsive. There is no information regarding whether or not the patient had any abnormal movements, tongue biting, or bowel or urinary incontinence. Currently, the patient is at his baseline and denies headache, nausea, chest pain, shortness of breath, new weakness or sensory changes. Review of Systems - Review of Systems All systems: reviewed and no additional remarkable complaints except Past Patient History - Infectious Disease Hx of Infectious Diseases: None - Past Medical History & Family History Past Medical History?: Yes - Past Social History Smoking Status: Light Smoker < 10 Cigarettes Daily - CARDIAC Hx Cardiac Disorders: Yes Hx Hypercholesterolemia: Yes Hx Hypertension: Yes - PULMONARY Hx Respiratory Disorders: No - NEUROLOGICAL Hx Neurological Disorder: Yes HX Cerebrovascular Accident: Yes (2007 rt side weak) - HEENT Hx HEENT Problems: No - RENAL Hx Chronic Kidney Disease: Yes - ENDOCRINE/METABOLIC Hx Endocrine Disorders: Yes Hx Diabetes Mellitus Type 2: Yes - HEMATOLOGICAL/ONCOLOGICAL Hx Anemia: Yes - INTEGUMENTARY Hx Dermatological Problems: No - MUSCULOSKELETAL/RHEUMATOLOGICAL Hx Falls: Yes - GASTROINTESTINAL Hx Gastrointestinal Disorders: Yes Hx Esophageal Varices: Yes Hx Liver Failure: Yes Hx Pancreatitis: Yes - GENITOURINARY/GYNECOLOGICAL Hx Genitourinary Disorders: No - PSYCHIATRIC Hx Substance Use: No - SURGICAL HISTORY Hx Surgeries: Yes Hx Carotid Endarterectomy: Yes Hx Herniorrhaphy: Yes Other/Comment: Paracentesis - ANESTHESIA Hx Anesthesia: Yes Hx Anesthesia Reactions: No Meds Allergies/Adverse Reactions: Allergies Allergy/AdvReac Type Severity Reaction Status Date / Time No Known Allergies Allergy Verified 06/15/16 10:04 - Medications Medications: Current Medications Sodium Chloride (Sodium Chloride 0.9%) 1,000 mls @ 100 mls/hr IV .Q10H [facility] Stop: 07/02/16 14:45 Levetiracetam (Keppra) 250 mg PO Q12 [facility] Physical Exam - Constitutional Appears: Chronically Ill - Head Exam Head Exam: ATRAUMATIC, NORMAL INSPECTION, NORMOCEPHALIC - Eye Exam Eye Exam: EOMI, PERRL, Scleral icterus Pupil Exam: NORMAL ACCOMODATION, PERRL - ENT Exam ENT Exam: Mucous Membranes Moist, Normal Exam - Neck Exam Neck exam: Positive for: Normal Inspection - Respiratory Exam Respiratory Exam: Clear to Auscultation Bilateral, NORMAL BREATHING PATTERN - Cardiovascular Exam Cardiovascular Exam: REGULAR RHYTHM - GI/Abdominal Exam GI & Abdominal Exam: Distended, Organomegaly - Rectal Exam Rectal Exam: Deferred - Neurological Exam Neurological exam: Alert, CN II-XII Intact, Normal Gait, Oriented x3, Reflexes Normal - Expanded Neurological Exam Expanded Neurological exam: Ataxia Patient oriented to: person, place, time Cranial nerves: Gag Reflex: Normal, Nystagmus: Normal Ataxia: Yes Cerebellar Function: Finger to Nose: Abnormal Left, Abnormal Right, Heel to Hernandez : Abnormal Left, Abnormal Right Upper motor neuron: Babinski Sign: Abnormal Right, Pronator Drift: Abnormal Right Sensory exam: Lower Extremity 2 Point Discrimination: Normal, Lower Extremity Light Touch: Normal, Upper Extremity 2 Point Discrimination: Normal, Upper Extremity Light Touch: Normal Neuro motor strength exam: Left Upper Extremity: 5, Right Upper Extremity: 4, Left Lower Extremity: 4, Right Lower Extremity: 5 DTR: Bicep Left: 2+, Bicep Right: 3+, Patellar Left: 2+, Patellar Right: 3+ - Psychiatric Exam Psychiatric exam: Normal Affect, Normal Mood Results - Vital Signs Recent Vital Signs: Last Vital Signs Temp 97.9 F 07/01/16 13:50 Pulse 102 H 07/01/16 13:50 Resp 23 07/01/16 13:50 BP 108/70 07/01/16 13:50 Pulse Ox 98 07/01/16 13:50 - Labs Result Diagrams: 07/01/16 10:00 07/01/16 11:25 Labs: Laboratory Results - last 24 hr 07/01/16 15:35 pO2 21 L VBG pH 7.33 VBG pCO2 38 L VBG HCO3 18.9 VBG Total CO2 21.2 L VBG O2 Sat (Calc) 36.0 L VBG Base Excess -5.4 L VBG Potassium 4.9 Sodium 133.0 Chloride 107.0 Glucose 323 H Lactate 3.1 H FiO2 21.0 Venous Blood Potassium 4.9 - Imaging and Cardiology CT scan - head Status: Image reviewed by me, Report reviewed by me Additional comment: Previous area of left MCA encephalomalacia, no acute findings. Assessment & Plan (1) Hepatic encephalopathy Assessment and Plan: The patient's ammonia level is elevated and he does not seem to be fully lucid, but he may be at his baseline now. Continue medical management per the primary team. Status: Acute (2) Seizure Assessment and Plan: It is difficult to determine by the history if the patient had a seizure; however, the area of cerebral damage from the previous stroke puts him at a higher risk and this is exacerbated by the metabolic derangements. Will start Keppra by loading 500 mg IV today and continuing with 250 mg BID (lower dose due to renal failure). Will obtain an EEG and follow-up. Thank you very much for this consultation. Status: Acute
--- NOTE | 2016-07-01 18:25 | CP.PCM.CON ---
History of Present Illness - History of Present Illness History of Present Illness: I was asked to see patient by Dr. Grace and Jovany Shankar APN. Patient is a 60 year old male with a history of liver failure CVA, HTN who presents with syncope. The patient is a poor historian, and noted to get dizzy and fall. He did not sustain facial trauma. He is unsure if he had palpitations preceding. Review of Systems - Constitutional Constitutional: absent: As Per HPI, Anorexia, Chills, Daytime Sleepiness, Excessive Sweating, Fatigue, Fever, Frequent Falls, Headache, Increased Appetite , Lethargy, Malaise, Night Sweats, Snoring, Sleep Apnea, Weight Gain, Weight Loss, Weakness, Other - EENT Eyes: absent: As Per HPI, Blind Spots, Blurred Vision, Change in Vision, Decreased Night Vision, Diplopia, Discharge, Dry Eye, Exophthalmos, Floaters, Irritation, Itchy Eyes, Loss of Peripheral Vision, Pain, Photophobia, Requires Corrective Lenses, Sees Flashes, Spots in Vision, Tunnel Vision, Other Visual Disturbances, Loss of Vision, Other Ears: absent: As Per HPI, Decreased Hearing, Ear Discharge, Ear Pain, Tinnitus, Abnormal Hearing, Disequilibrium, Dizziness, Other Nose/Mouth/Throat: absent: As Per HPI, Epistaxis, Nasal Congestion, Nasal Discharge, Nasal Obstruction, Nasal Trauma, Nose Pain, Post Nasal Drip, Sinus Pain, Sinus Pressure, Bleeding Gums, Change in Voice, Dental Pain, Dry Mouth, Dysphagia, Halitosis, Hoarsness, Lip Swelling, Mouth Lesions, Mouth Pain, Odynophagia, Sore Throat, Throat Swelling, Tongue Swelling, Facial Pain, Neck Pain, Neck Mass, Other - Cardiovascular Cardiovascular: Syncope - Respiratory Respiratory: absent: As Per HPI, Cough, Dyspnea, Hemoptysis, Dyspnea on Exertion , Wheezing, Snoring, Stridor, Pain on Inspiration, Chest Congestion, Excessive Mucous Production, Change in Mucous Color, Pain with Coughing, Other - Gastrointestinal Gastrointestinal: absent: As Per HPI, Abdominal Pain, Belching, Bloating, Change in Bowel Habits, Change in Stool Character, Coffee Ground Emesis, Constipation, Cramping, Diarrhea, Dyspepsia, Dysphagia, Early Satiety, Excessive Flatus, Fecal Incontinence, Heartburn, Hematemesis, Hematochezia, Loose Stools, Melena, Nausea, Odynophagia, Temesmus, Vomiting, Other - Genitourinary Genitourinary: absent: As Per HPI, Change in Urinary Stream, Difficulty Urinating, Dysuria, Flank Pain, Hematuria, Pyuria, Nocturia, Urinary Incontinence, Urinary Frequency, Urinary Hesitance, Urinary Urgency, Voiding Freq/Small Amts, Freq UTI, Hx Renal/Bladder Calculi, Hx /Renal Surgery, Bladder Distension, Other - Musculoskeletal Musculoskeletal: absent: As Per HPI, Abnormal Gait, Arthralgias, Atrophy, Back Pain, Deformity, Joint Swelling, Limited Range of Motion, Loss of Height, Muscle Cramps, Muscle Weakness, Myalgias, Neck Pain, Numbness, Radiating Pain into Limb, Stiffness, Tingling, Other - Integumentary Integumentary: absent: As Per HPI, Acne, Alopecia, Bleeding Lesions, Change in Hair, Change in Nails, Change in Pigmentation, Changing Lesions, Dry Skin, Erythema, Furuncle, Hirsutism, Lesions, New Lesions, Non-Healing Lesions, Photosensitivity, Pruritus, Rash, Skin Pain, Skin Ulcer, Sores, Striae, Swelling , Unusual Bruising, Wounds, Jaundice, Other - Neurological Neurological: absent: As Per HPI, Abnormal Gait, Abnormal Hearing, Abnormal Movements, Abnormal Speech, Behavioral Changes, Burning Sensations, Confusion, Convulsions, Disequilibrium, Dizziness, Numbness, Focal Weakness, Frequent Falls , Headaches, Lack of Coordination, Loss of Vision, Memory Loss, Paresthesias, Radicular Pain, Restless Legs, Sensory Deficit, Syncope, Tingling, Tremor, Vertigo, Weakness, Other Visual Disturbances, Other - Psychiatric Psychiatric: absent: As Per HPI, Abnormal Sleep Pattern, Anhedonia, Anxiety, Auditory Hallucinations, Behavioral Changes, Change in Appetite, Change in Libido, Confusion, Depression, Difficulty Concentrating, Hallucinations, Homicidal Ideation, Hopelessness, Irritability, Memory Loss, Mood Swings, Panic Attacks, Paranoia, Suicidal Ideation, Visual Hallucinations, Tactile Hallucinations, Other - Endocrine Endocrine: absent: As Per HPI, Change in Body Appearance, Change in Libido, Cold Intolorance, Deepening of Voice, Excessive Sweating, Fatigue, Flushing, Heat Intolorance, Increase in Ring/Shoe/Hat Size, Palpitations, Polydipsia, Polyphagia, Polyuria, Other - Hematologic/Lymphatic Hematologic: absent: As Per HPI, Easy Bleeding, Easy Bruising, Lymphadenopathy, Other Past Patient History - Infectious Disease Hx of Infectious Diseases: None - Past Medical History & Family History Past Medical History?: Yes - Past Social History Smoking Status: Light Smoker < 10 Cigarettes Daily - CARDIAC Hx Cardiac Disorders: Yes Hx Hypercholesterolemia: Yes Hx Hypertension: Yes - PULMONARY Hx Respiratory Disorders: No - NEUROLOGICAL Hx Neurological Disorder: Yes HX Cerebrovascular Accident: Yes (2006 rt side weak) - HEENT Hx HEENT Problems: No - RENAL Hx Chronic Kidney Disease: Yes - ENDOCRINE/METABOLIC Hx Endocrine Disorders: Yes Hx Diabetes Mellitus Type 2: Yes - HEMATOLOGICAL/ONCOLOGICAL Hx Anemia: Yes - INTEGUMENTARY Hx Dermatological Problems: No - MUSCULOSKELETAL/RHEUMATOLOGICAL Hx Falls: Yes - GASTROINTESTINAL Hx Gastrointestinal Disorders: Yes Hx Esophageal Varices: Yes Hx Liver Failure: Yes Hx Pancreatitis: Yes - GENITOURINARY/GYNECOLOGICAL Hx Genitourinary Disorders: No - PSYCHIATRIC Hx Substance Use: No - SURGICAL HISTORY Hx Surgeries: Yes Hx Carotid Endarterectomy: Yes Hx Herniorrhaphy: Yes Other/Comment: Paracentesis - ANESTHESIA Hx Anesthesia: Yes Hx Anesthesia Reactions: No Meds Allergies/Adverse Reactions: Allergies Allergy/AdvReac Type Severity Reaction Status Date / Time No Known Allergies Allergy Verified 06/15/16 10:04 - Medications Medications: Current Medications Aspirin (Ecotrin) 325 mg PO DAILY [facility] Dipyridamole (Persantine) 50 mg PO DAILY [facility] Ergocalciferol (Drisdol 50,000 Intl Units Cap) 1 cap PO QWK [facility] Folic Acid (Folic Acid) 1 mg PO DAILY [facility] Sodium Chloride (Sodium Chloride 0.9%) 1,000 mls @ 100 mls/hr IV .Q10H [facility] Stop: 07/02/16 14:45 Last Admin: 07/01/16 14:45 Dose: 100 mls/hr Insulin Detemir (Levemir) 25 units SC HS [facility] Insulin Human Lispro (Humalog) 50 units SC BID [facility] Levetiracetam (Keppra) 250 mg PO Q12 [facility] Metoprolol Succinate (Toprol Xl) 50 mg PO DAILY [facility] Nicotine (Nicoderm Cq) 1 patch TD DAILY [facility] Pantoprazole Sodium (Protonix Ec Tab) 40 mg PO DAILY [facility] Pravastatin Sodium (Pravachol) 20 mg PO DAILY@1800 [facility] Physical Exam - Constitutional Appears: Non-toxic - Head Exam Head Exam: NORMAL INSPECTION - Eye Exam Eye Exam: Normal appearance - ENT Exam ENT Exam: Mucous Membranes Moist - Neck Exam Neck exam: Positive for: Full Rom - Respiratory Exam Respiratory Exam: Decreased Breath Sounds - Cardiovascular Exam Cardiovascular Exam: REGULAR RHYTHM - GI/Abdominal Exam GI & Abdominal Exam: Normal Bowel Sounds - Rectal Exam Rectal Exam: Deferred - Extremities Exam Extremities exam: Positive for: pedal edema - Back Exam Back exam: NORMAL INSPECTION - Neurological Exam Neurological exam: Alert - Psychiatric Exam Psychiatric exam: Normal Affect - Skin Skin Exam: Normal Color Results - Vital Signs Recent Vital Signs: Last Vital Signs Temp 98.2 F 07/01/16 17:26 Pulse 101 H 07/01/16 17:26 Resp 23 07/01/16 17:26 BP 110/67 07/01/16 17:26 Pulse Ox 100 07/01/16 17:26 - Labs Result Diagrams: 07/01/16 10:00 07/01/16 11:25 Labs: Laboratory Results - last 24 hr 07/01/16 07/01/16 15:35 17:17 pO2 21 L VBG pH 7.33 VBG pCO2 38 L VBG HCO3 18.9 VBG Total CO2 21.2 L VBG O2 Sat (Calc) 36.0 L VBG Base Excess -5.4 L VBG Potassium 4.9 Sodium 133.0 Chloride 107.0 Glucose 323 H Lactate 3.1 H FiO2 21.0 POC Glucose (mg/dL) 325 H Venous Blood Potassium 4.9 - EKG Data EKG Interpreted by: Myself Assessment & Plan (1) Syncope Assessment and Plan: unclear etiology. recommend telemetry monitoring. check echocardiogram. Status: Acute (2) Hepatic encephalopathy Assessment and Plan: monitor LFTs Status: Acute
[2016-07-01] MEDS ORDERED: Ergocalciferol 50,000 Intl Units Cap PO SCH (19:00)
[2016-07-01] MEDS: Pravastatin Sodium 20 MG TAB PO SCH (19:30)
[2016-07-01] MEDS: Insulin Detemir 100 Units/ml Inj SC SCH (21:02)
[2016-07-02] MEDS: Sodium Chloride 0.9% 1,000 ML IV SCH (00:49)
--- NOTE | 2016-07-02 06:51 | CP.PCM.HP ---
History of Present Illness - History of Present Illness History of Present Illness: pt admitted for syncope r/o sz and hepatic encephalopathy w/ arf. pt states was walking down street then passed out. pt is at baseline at present. no f/c, nv//d. all bw and imaging noted. consults appriciated. Present on Admission - Present on Admission Any Indicators Present on Admission: Yes History of Uncontrolled Diabetes: Yes Review of Systems - Gastrointestinal Gastrointestinal: As Per HPI, Bloating Past Patient History - Infectious Disease Hx of Infectious Diseases: None - Past Medical History & Family History Past Medical History?: Yes - Past Social History Smoking Status: Light Smoker < 10 Cigarettes Daily - CARDIAC Hx Cardiac Disorders: Yes Hx Hypercholesterolemia: Yes Hx Hypertension: Yes - PULMONARY Hx Respiratory Disorders: No - NEUROLOGICAL Hx Neurological Disorder: Yes HX Cerebrovascular Accident: Yes (2006 rt side weak) - HEENT Hx HEENT Problems: No - RENAL Hx Chronic Kidney Disease: Yes - ENDOCRINE/METABOLIC Hx Endocrine Disorders: Yes Hx Diabetes Mellitus Type 2: Yes - HEMATOLOGICAL/ONCOLOGICAL Hx Anemia: Yes - INTEGUMENTARY Hx Dermatological Problems: No - MUSCULOSKELETAL/RHEUMATOLOGICAL Hx Falls: Yes - GASTROINTESTINAL Hx Gastrointestinal Disorders: Yes Hx Esophageal Varices: Yes Hx Liver Failure: Yes Hx Pancreatitis: Yes - GENITOURINARY/GYNECOLOGICAL Hx Genitourinary Disorders: No - PSYCHIATRIC Hx Substance Use: No - SURGICAL HISTORY Hx Surgeries: Yes Hx Carotid Endarterectomy: Yes Hx Herniorrhaphy: Yes Other/Comment: Paracentesis - ANESTHESIA Hx Anesthesia: Yes Hx Anesthesia Reactions: No Meds Allergies/Adverse Reactions: Allergies Allergy/AdvReac Type Severity Reaction Status Date / Time No Known Allergies Allergy Verified 06/15/16 10:04 Physical Exam - Constitutional Appears: Well, Non-toxic, No Acute Distress - Head Exam Head Exam: ATRAUMATIC, NORMAL INSPECTION, NORMOCEPHALIC - Eye Exam Eye Exam: EOMI, Normal appearance, PERRL Pupil Exam: NORMAL ACCOMODATION, PERRL - ENT Exam ENT Exam: Mucous Membranes Moist, Normal Exam - Neck Exam Neck exam: Positive for: Normal Inspection - Respiratory Exam Respiratory Exam: Clear to Auscultation Bilateral, NORMAL BREATHING PATTERN - Cardiovascular Exam Cardiovascular Exam: REGULAR RHYTHM, RRR, +S1, +S2 - GI/Abdominal Exam GI & Abdominal Exam: Distended, Normal Bowel Sounds, Soft. absent: Tenderness - Extremities Exam Extremities exam: Positive for: full ROM, normal capillary refill, normal inspection, pedal pulses present - Back Exam Back exam: NORMAL INSPECTION - Neurological Exam Neurological exam: Alert, CN II-XII Intact, Normal Gait, Oriented x3, Reflexes Normal - Psychiatric Exam Psychiatric exam: Normal Affect, Normal Mood - Skin Skin Exam: Dry, Intact, Normal Color, Warm Results - Vital Signs Recent Vital Signs: Last Vital Signs Temp 98.7 F 07/02/16 04:00 Pulse 102 H 07/02/16 06:00 Resp 25 H 07/02/16 06:00 BP 110/70 07/02/16 06:00 Pulse Ox 98 07/02/16 06:00 - Labs Result Diagrams: 07/02/16 06:35 07/02/16 06:35 Labs: Laboratory Results - last 24 hr 07/01/16 07/01/16 07/01/16 13:01 15:35 17:17 pO2 21 L VBG pH 7.33 VBG pCO2 38 L VBG HCO3 18.9 VBG Total CO2 21.2 L VBG O2 Sat (Calc) 36.0 L VBG Base Excess -5.4 L VBG Potassium 4.9 Sodium 133.0 Chloride 107.0 Glucose 323 H Lactate 3.1 H FiO2 21.0 POC Glucose (mg/dL) 328 H 325 H Venous Blood Potassium 4.9 07/01/16 07/02/16 21:56 06:00 pO2 VBG pH VBG pCO2 VBG HCO3 VBG Total CO2 VBG O2 Sat (Calc) VBG Base Excess VBG Potassium Sodium Chloride Glucose Lactate FiO2 POC Glucose (mg/dL) 334 H 208 H Venous Blood Potassium Assessment & Plan (1) Hepatic encephalopathy Assessment and Plan: gi, neuro lactulose monitor ammonia Status: Acute (2) Hyperkalemia Assessment and Plan: lactulose likely r/t hepatorenal syndrome nephro Status: Acute (3) Metabolic acidosis Assessment and Plan: nephro trend cmp Status: Acute (4) Renal insufficiency Status: Acute (5) Seizure Status: Acute (6) Syncope Status: Acute (7) DVT prophylaxis Status: Acute (8) Diabetes type 2, uncontrolled Status: Acute Decision To Admit - Pt Status Changed To: Hospital Disposition Of: Inpatient - Admit Certification Admit to Inpatient:: After my assessment, the patient will require hospitalization for at least two midnights. This is because of the severity of symptoms shown, intensity of services needed, and/or the medical risk in this patient being treated as an outpatient. - . Bed Request Type: Intensive Care Admitting Physician: Helder Grace
[2016-07-02 07:16] LABS: ALB/GLOB RATIO 0.5 (1.0-2.1); BASO % 0.2 % (0.0-2.0); BILIRUBIN,TOTAL 1.2 mg/dl (0.2-1.3); CALCIUM 7.9 mg/dL (8.4-10.2); EOS # 0.2 K/uL (0.0-0.7); EOS % 1.5 % (0.0-4.0); HEMATOCRIT 26.4 % (35.0-51.0); LYMPH # 0.9 K/uL (1.0-4.3); LYMPH % 6.3 % (20.0-40.0); MEAN CELL VOLUME 80.6 fl (80.0-94.0); MEAN CORPUSCULAR HEMOGLOBIN 26.3 pg (27.0-31.0); MEAN CORPUSCULAR HGB CONC 32.6 g/dL (33.0-37.0); MEAN PLATELET VOLUME 8.9 fl (7.2-11.7); MONO # 1.2 K/uL (0.0-0.8); MONO % 8.6 % (0.0-10.0); NEUT # 11.7 K/uL (1.8-7.0); NEUT % 83.4 % (50.0-75.0); POTASSIUM 4.1 MMOL/L (3.6-5.0); RED CELL DISTRIBUTION WIDTH 21.4 % (11.5-14.5); TOTAL PROTEIN 6.4 G/DL (6.3-8.2)
[2016-07-02 07:19] LABS: PARTIAL THROMBOPLASTIN TIME 27.1 SECONDS (23.3-32.5)
[2016-07-02] MEDS: Aspirin 325 mg EC Tablets PO SCH (08:33)
[2016-07-02] MEDS: Pantoprazole 40 mg EC Tab PO SCH (08:33)
[2016-07-02] MEDS: Metoprolol Succinate 50 mg XL Tab PO SCH (08:34)
[2016-07-02] MEDS: Insulin Lispro (humaLOG) 100 Units/ml Inj SC SCH ×2 (08:38→17:01)
--- NOTE | 2016-07-02 08:51 | CARD ---
APPROVED REPORT EKG Measurement Heart [id number] <Conclusion> Sinus tachycardia Nonspecific ST abnormality Abnormal ECG
--- NOTE | 2016-07-02 11:12 | CP.PCM.CON ---
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 Renal consult is requested because of elevated BUN/Creat & hyperkalemia Past Patient History - Infectious Disease Hx of Infectious Diseases: None - Past Medical History & Family History Past Medical History?: Yes - Past Social History Smoking Status: Light Smoker < 10 Cigarettes Daily - CARDIAC Hx Cardiac Disorders: Yes Hx Hypercholesterolemia: Yes Hx Hypertension: Yes - PULMONARY Hx Respiratory Disorders: No - NEUROLOGICAL Hx Neurological Disorder: Yes HX Cerebrovascular Accident: Yes (2007 rt side weak) - HEENT Hx HEENT Problems: No - RENAL Hx Chronic Kidney Disease: Yes - ENDOCRINE/METABOLIC Hx Endocrine Disorders: Yes Hx Diabetes Mellitus Type 2: Yes - HEMATOLOGICAL/ONCOLOGICAL Hx Anemia: Yes - INTEGUMENTARY Hx Dermatological Problems: No - MUSCULOSKELETAL/RHEUMATOLOGICAL Hx Falls: Yes - GASTROINTESTINAL Hx Gastrointestinal Disorders: Yes Hx Esophageal Varices: Yes Hx Liver Failure: Yes Hx Pancreatitis: Yes - GENITOURINARY/GYNECOLOGICAL Hx Genitourinary Disorders: No - PSYCHIATRIC Hx Substance Use: No - SURGICAL HISTORY Hx Surgeries: Yes Hx Carotid Endarterectomy: Yes Hx Herniorrhaphy: Yes Other/Comment: Paracentesis - ANESTHESIA Hx Anesthesia: Yes Hx Anesthesia Reactions: No Meds Allergies/Adverse Reactions: Allergies Allergy/AdvReac Type Severity Reaction Status Date / Time No Known Allergies Allergy Verified 06/15/16 10:04 - Medications Medications: Current Medications Aspirin (Ecotrin) 325 mg PO DAILY [facility] Last Admin: 07/02/16 08:33 Dose: 325 mg Dipyridamole (Persantine) 50 mg PO DAILY [facility] Last Admin: 07/02/16 08:32 Dose: 50 mg Ergocalciferol (Drisdol 50,000 Intl Units Cap) 1 cap PO QWK [facility] Folic Acid (Folic Acid) 1 mg PO DAILY [facility] Last Admin: 07/02/16 08:33 Dose: 1 mg Insulin Detemir (Levemir) 25 units SC HS [facility] Last Admin: 07/01/16 21:02 Dose: 25 units Insulin Human Lispro (Humalog) 50 units SC BID [facility] Last Admin: 07/02/16 08:38 Dose: 50 units Levetiracetam (Keppra) 250 mg PO Q12 [facility] Last Admin: 07/02/16 08:34 Dose: 250 mg Metoprolol Succinate (Toprol Xl) 50 mg PO DAILY [facility] Last Admin: 07/02/16 08:34 Dose: 50 mg Nicotine (Nicoderm Cq) 1 patch TD DAILY [facility] Last Admin: 07/02/16 08:34 Dose: 1 patch Pantoprazole Sodium (Protonix Ec Tab) 40 mg PO DAILY [facility] Last Admin: 07/02/16 08:33 Dose: 40 mg Pravastatin Sodium (Pravachol) 20 mg PO DAILY@1800 [facility] Last Admin: 07/01/16 19:30 Dose: 20 mg Physical Exam - Constitutional Additional comments: Appears weak but no acute distress - Head Exam Head Exam: ATRAUMATIC, NORMOCEPHALIC - Eye Exam Additional comments: No icterus - ENT Exam ENT Exam: Mucous Membranes Dry - Respiratory Exam Additional comments: Lungs clear - Cardiovascular Exam Cardiovascular Exam: REGULAR RHYTHM - GI/Abdominal Exam Additional comments: Large ascitis Nontender - Extremities Exam Additional comments: No edema Results - Vital Signs Recent Vital Signs: Last Vital Signs Temp 98.3 F 07/02/16 08:00 Pulse 103 H 07/02/16 10:00 Resp 24 07/02/16 10:00 BP 136/65 07/02/16 10:00 Pulse Ox 94 L 07/02/16 10:00 - Labs Result Diagrams: 07/02/16 06:35 07/02/16 06:35 Labs: Laboratory Results - last 24 hr 07/01/16 07/01/16 07/01/16 13:01 15:35 17:17 WBC RBC Hgb Hct MCV MCH MCHC RDW Plt Count MPV Neut % (Auto) Lymph % (Auto) Wells % (Auto) Eos % (Auto) Baso % (Auto) Neut # Lymph # Wells # Eos # Baso # PT INR APTT pO2 21 L VBG pH 7.33 VBG pCO2 38 L VBG HCO3 18.9 VBG Total CO2 21.2 L VBG O2 Sat (Calc) 36.0 L VBG Base Excess -5.4 L VBG Potassium 4.9 Sodium 133.0 Chloride 107.0 Glucose 323 H Lactate 3.1 H FiO2 21.0 Potassium Carbon Dioxide Anion Gap BUN Creatinine Est GFR ( Amer) Est GFR (Non-Af Amer) POC Glucose (mg/dL) 328 H 325 H Random Glucose Lactic Acid Calcium Total Bilirubin AST ALT Alkaline Phosphatase Ammonia Total Creatine Kinase Total Protein Albumin Globulin Albumin/Globulin Ratio Venous Blood Potassium 4.9 07/01/16 07/02/16 07/02/16 21:56 06:00 06:35 WBC RBC Hgb Hct MCV MCH MCHC RDW Plt Count MPV Neut % (Auto) Lymph % (Auto) Wells % (Auto) Eos % (Auto) Baso % (Auto) Neut # Lymph # Wells # Eos # Baso # PT INR APTT pO2 VBG pH VBG pCO2 VBG HCO3 VBG Total CO2 VBG O2 Sat (Calc) VBG Base Excess VBG Potassium Sodium Chloride Glucose Lactate FiO2 Potassium Carbon Dioxide Anion Gap BUN Creatinine Est GFR ( Amer) Est GFR (Non-Af Amer) POC Glucose (mg/dL) 334 H 208 H Random Glucose Lactic Acid Calcium Total Bilirubin AST ALT Alkaline Phosphatase Ammonia 34 D Total Creatine Kinase Total Protein Albumin Globulin Albumin/Globulin Ratio Venous Blood Potassium 07/02/16 07/02/16 07/02/16 06:35 06:35 06:35 WBC 14.0 H RBC 3.28 L Hgb 8.6 L Hct 26.4 L MCV 80.6 D MCH 26.3 L MCHC 32.6 L RDW 21.4 H Plt Count 192 MPV 8.9 Neut % (Auto) 83.4 H Lymph % (Auto) 6.3 L Wells % (Auto) 8.6 Eos % (Auto) 1.5 Baso % (Auto) 0.2 Neut # 11.7 H Lymph # 0.9 L Wells # 1.2 H Eos # 0.2 Baso # 0.0 PT INR APTT pO2 VBG pH VBG pCO2 VBG HCO3 VBG Total CO2 VBG O2 Sat (Calc) VBG Base Excess VBG Potassium Sodium 136 Chloride 105 Glucose Lactate FiO2 Potassium 4.1 Carbon Dioxide 20 L Anion Gap 15 BUN 38 H Creatinine 1.9 H Est GFR ( Amer) 44 Est GFR (Non-Af Amer) 36 POC Glucose (mg/dL) Random Glucose 203 H Lactic Acid 1.8 Calcium 7.9 L Total Bilirubin 1.2 AST 53 ALT 24 Alkaline Phosphatase 122 Ammonia Total Creatine Kinase 58 Total Protein 6.4 Albumin 2.3 L Globulin 4.2 H Albumin/Globulin Ratio 0.5 L Venous Blood Potassium 07/02/16 06:35 WBC RBC Hgb Hct MCV MCH MCHC RDW Plt Count MPV Neut % (Auto) Lymph % (Auto) Wells % (Auto) Eos % (Auto) Baso % (Auto) Neut # Lymph # Wells # Eos # Baso # PT 15.4 H INR 1.48 H APTT 27.1 pO2 VBG pH VBG pCO2 VBG HCO3 VBG Total CO2 VBG O2 Sat (Calc) VBG Base Excess VBG Potassium Sodium Chloride Glucose Lactate FiO2 Potassium Carbon Dioxide Anion Gap BUN Creatinine Est GFR ( Amer) Est GFR (Non-Af Amer) POC Glucose (mg/dL) Random Glucose Lactic Acid Calcium Total Bilirubin AST ALT Alkaline Phosphatase Ammonia Total Creatine Kinase Total Protein Albumin Globulin Albumin/Globulin Ratio Venous Blood Potassium Assessment & Plan - Assessment and Plan (Free Text) Assessment: Acute kidney injury improving May be secondary to intravascular volume depletion Hyperkalemia resolved. Pt is on Aldactone which may have contributed to hyperkalemia Syncopy Hx/o CVA Liver cirrhosis & portal hypertension Plan: Continue current Mx Aldactone is temporarily held & pt was given gentle hydration Renal US, urine lytes
--- NOTE | 2016-07-02 14:42 | CARD ---
APPROVED REPORT EXAM: Two-dimensional and M-mode echocardiogram with Doppler and color Doppler. Other Information Quality : FairRhythm : NSR Technically limited study due to Asites INDICATION Syncope 2D DIMENSIONS IVSd1.13 (0.7-1.1cm)LVDd3.97 (3.9-5.9cm) LVOT Diameter2.12 (1.8-2.4cm)PWd0.90 (0.7-1.1cm) IVSs1.06 (0.8-1.2cm)LVDs2.57 (2.5-4.0cm) FS (%) 35.1 %PWs1.19 (0.8-1.2cm) M-Mode DIMENSIONS Left Atrium (MM)4.47 (2.5-4.0cm)Aortic Root3.94 (2.2-3.7cm) Aortic Cusp Exc.2.32 (1.5-2.0cm) Mitral Valve E/A ratio0.0 TDI E/Lateral E'0.0E/Medial E'0.0 LEFT VENTRICLE The left ventricle is normal size. There is normal left ventricular wall thickness. Left ventricle systolic function is normal. The Ejection Fraction is 60-65%. There is normal LV segmental wall motion. An adequate doppler evaluation of the mitral inflow could not be done. RIGHT VENTRICLE The right ventricle is mildly dilated. There is normal right ventricular wall thickness. The right ventricular systolic function is normal. ATRIA The left atrium is mildly dilated. The right atrium size is normal. AORTIC VALVE The aortic valve is normal in structure and function. No aortic regurgitation is present. There is no aortic valvular stenosis. MITRAL VALVE The mitral valve is normal in structure and function. There is no evidence of mitral valve prolapse. There is no mitral valve stenosis. There is no mitral valve regurgitation noted. TRICUSPID VALVE The tricuspid valve is normal in structure and function. There is no tricuspid valve regurgitation noted. PULMONIC VALVE The pulmonic valve is not well visualized. There is no pulmonic valvular regurgitation. GREAT VESSELS The aortic root is mildly to moderately enlarged.(AO root diameter was 4.47cm.) Due to poor image quality, the IVC could not be assessed. PERICARDIAL EFFUSION The pericardium appears normal. <Conclusion> Quality of images was poor due to poor echo window. The left ventricle is normal size. There is normal left ventricular wall thickness. There is normal LV segmental wall motion. Left ventricle systolic function is normal. The Ejection Fraction is 60-65%. The aortic root is mildly to moderately enlarged. The aortic root is mildly to moderately enlarged.(AO root diameter was 4.47cm.)
[2016-07-02 16:11] LABS: RBC URINE 2 /hpf (0-3); URINE BILIRUBIN NEGATIVE (NEGATIVE); URINE BLOOD NEGATIVE (NEGATIVE); URINE COLOR YELLOW (YELLOW); URINE GLUCOSE (UA) NEG (Normal); URINE KETONE NEGATIVE (NEGATIVE); URINE LEUKOCYTE ESTERASE TRACE Leu/uL (Negative); URINE PROTEIN NEGATIVE (NEGATIVE); WBC URINE 11 /hpf (0-5)
[2016-07-02 16:20] LABS: CREATININE, RANDOM URINE 185.7 mg/dL
[2016-07-02] MEDS: Pravastatin Sodium 20 MG TAB PO SCH (17:04)
[2016-07-02] MEDS: Insulin Detemir 100 Units/ml Inj SC SCH (21:23)
--- NOTE | 2016-07-03 07:01 | CON ---
DATE: 07/02/2016 REFERRING PHYSICIAN: Dr. Shankar. REASON FOR CONSULTATION: Near syncope, encephalopathy. HISTORY OF PRESENT ILLNESS: This is a pleasant 60-year-old male with history of encephalopathy in e past, brought in for near syncope and almost passed out. He feels better at this point and has no pain, no ____ symptoms, no lethargy, at baseline, lying in bed, comfortable, in no apparent distress. PAST MEDICAL HISTORY: As above. PAST SURGICAL HISTORY: As above. MEDICATIONS: Have been reviewed. REVIEW OF SYSTEMS: All other systems have been reviewed and negative apart from the HPI. PHYSICAL EXAMINATION: VITAL SIGNS: Here in the hospital are grossly unremarkable. GENERAL: A pleasant ____ no apparent distress. HEAD: Normocephalic, atraumatic. EYES: Pupils equally reactive to light bilaterally. No conjunctival pallor or icterus. NECK: Supple, normal range of motion. No lymphadenopathy appreciated. LUNGS: Coarse breath sounds bilaterally. HEART: S1, S2. Regular rate and rhythm. No murmurs appreciated. ABDOMEN: Soft, nontender, ____. Bowel sounds present. No ____. RECTAL: Deferred. EXTREMITIES: Pulses present bilaterally. SKIN: Warm, dry and intact. NEUROLOGIC: Alert and oriented x 3. LABORATORY DATA AND RADIOLOGY: Have been reviewed. WBC is ____, hemoglobin 8.6, hematocrit ____ INR 1.5. Ammonia was 106, now normal. ASSESSMENT AND PLAN: This is a 60-year-old with cirrhosis. Ultrasound to rule out ascites ____ for now. Thank you for the consult. Chencho Guzman MD, PhD cc:Kalpesh Shankar DPM [id number] TT: 07/02/2016 16:43:12 Confirmation # [id number] Dictation # [id number] cullen
--- NOTE | 2016-07-03 07:48 | CP.PCM.PN ---
Subjective - Date & Time of Evaluation Date of Evaluation: 07/03/16 Time of Evaluation: 07:47 - Subjective Subjective: pt in EEG at time of eval. cont all meds and consults, downgrade to m/s per icu. will follow pt Objective - Vital Signs/Intake and Output Vital Signs (last 24 hours): Temp Pulse Resp BP Pulse Ox 98.4 F 77 21 99/67 L 98 07/03/16 05:00 07/03/16 05:00 07/03/16 05:00 07/03/16 05:00 07/03/16 05:00 Intake and Output: 07/03/16 07/03/16 06:59 18:59 Intake Total 50 Output Total 250 Balance -200 - Medications Medications: Current Medications Aspirin (Ecotrin) 325 mg PO DAILY [facility] Last Admin: 07/02/16 08:33 Dose: 325 mg Dipyridamole (Persantine) 50 mg PO DAILY [facility] Last Admin: 07/02/16 08:32 Dose: 50 mg Ergocalciferol (Drisdol 50,000 Intl Units Cap) 1 cap PO QWK [facility] Folic Acid (Folic Acid) 1 mg PO DAILY [facility] Last Admin: 07/02/16 08:33 Dose: 1 mg Insulin Detemir (Levemir) 25 units SC HS [facility] Last Admin: 07/02/16 21:23 Dose: 25 units Insulin Human Lispro (Humalog) 50 units SC BID [facility] Last Admin: 07/02/16 17:01 Dose: 50 units Levetiracetam (Keppra) 250 mg PO Q12 [facility] Last Admin: 07/02/16 21:23 Dose: 250 mg Metoprolol Succinate (Toprol Xl) 50 mg PO DAILY [facility] Last Admin: 07/02/16 08:34 Dose: 50 mg Morphine Sulfate (Morphine) 2 mg IVP Q4 PRN PRN Reason: Pain, Mild (1-3) Nicotine (Nicoderm Cq) 1 patch TD DAILY [facility] Last Admin: 07/02/16 08:34 Dose: 1 patch Pantoprazole Sodium (Protonix Ec Tab) 40 mg PO DAILY [facility] Last Admin: 07/02/16 08:33 Dose: 40 mg Pravastatin Sodium (Pravachol) 20 mg PO DAILY@1800 [facility] Last Admin: 07/02/16 17:04 Dose: 20 mg Spironolactone (Aldactone) 25 mg PO TID [facility] - Labs Labs: 07/02/16 06:35 07/02/16 06:35 PT 15.4 SECONDS (9.6-11.2) H 07/02/16 06:35 INR 1.48 (0.92-1.08) H 07/02/16 06:35 APTT 27.1 SECONDS (23.3-32.5) 07/02/16 06:35 Assessment and Plan (1) Hepatic encephalopathy Status: Acute (2) Hyperkalemia Status: Acute (3) Metabolic acidosis Status: Acute (4) Renal insufficiency Status: Acute (5) Seizure Status: Acute (6) Syncope Status: Acute (7) DVT prophylaxis Status: Acute (8) Diabetes type 2, uncontrolled Status: Acute
[2016-07-03] MEDS: Aspirin 325 mg EC Tablets PO SCH (09:59)
[2016-07-03] MEDS: Metoprolol Succinate 50 mg XL Tab PO SCH (09:59)
[2016-07-03] MEDS: Pantoprazole 40 mg EC Tab PO SCH (09:59)
[2016-07-03] MEDS: Insulin Lispro (humaLOG) 100 Units/ml Inj SC SCH ×2 (10:00→17:28)
--- NOTE | 2016-07-03 11:43 | US ---
HISTORY: Intra-abdominal ascites. COMPARISON: 04/06/2016. CT abdomen and pelvis. TECHNIQUE: Sonographic evaluation of the abdomen. FINDINGS: LIVER: Measures 14.1 cm. Lobular contour. Patent portal vein. Portal venous flow: Hepatopetal. Unremarkeable Echogenicity of the liver parenchyma. No mass. No intrahepatic bile duct dilatation. GALLBLADDER: Cholelithiasis. Negative study for gallbladder wall thickening, pericholecystic fluid, sonographic Patterson's sign. COMMON BILE DUCT: Obscured by overlying bowel gas. Non diagnostic assessment of common bile duct diameter PANCREAS: Obscured by overlying bowel gas. RIGHT KIDNEY: Measures 4.9 x 10.1cm. Normal echogenicity. No calculus, mass, or hydronephrosis. LEFT KIDNEY: Measures 5.5 x 11.1cm. Normal echogenicity. No calculus, mass, or hydronephrosis. SPLEEN: Splenomegaly. Orthogonal measurements 19.1 x 7.5 cm. AORTA: No aneurysmal dilatation. IVC: Unremarkable. OTHER FINDINGS: None. IMPRESSION: Cirrhotic liver without focal abnormality. Massive splenomegaly. Cholelithiasis. No sonographic evidence of acute cholecystitis. Large volume ascites incompletely visualize. .
--- NOTE | 2016-07-03 13:35 | PQF ANEMIA ---
This form is a permanent part of the medical record 07/03/16 Jovany Shankar APN, Please clarify the type of anemia if known. Documentation of a history of Anemia. H&H 9.9/32.3, MCV 83.9, MCH 25.8 . Treated with folic acid. Clarification of your documentation is requested to better reflect the severity of illness and intensity of treatment of your patient. Indicators present [x] Anemia [] Drop in H&H from []___ to []___ [] Hypotension [] GI Bleed [] Transfusion(s) [] Acute bleed other sites [] Tachycardia [] Surgical Procedure Blood Loss (expected not a complication) Other:[] Location in the medical record that reflects the above clinical findings: [] Treatment Provided: [x] PHYSICIAN'S RESPONSE Based on your medical judgment of the clinical indicators outlined above, are you treating this patient for a known or suspected: [] Acute blood loss anemia [] Chronic blood loss anemia [x] Acute on Chronic anemia r/t liver disease [] Anemia due to malignancy [] Anemia due to chemotherapy or radiation therapy [] Anemia of Chronic Disease, please specify: [] [] Other, please indicate type of anemia []____ [] If Unable to Determine, please check the box, sign and date. Present On Admission (POA) Indicator: [] Present at the time of admission [] Not present at the time of admission [] Clinically Undetermined In responding to this query, please exercise your independent professional judgment. The fact that a question is asked does not imply that any particular answer is desired or expected. Thank you for your clarification on this documentation. If you have any questions please call:[phone] * Thank you, Dinora Carcamo RN CDMP MTDD
--- NOTE | 2016-07-03 15:12 | CP.PCM.PN ---
Subjective - Date & Time of Evaluation Date of Evaluation: 07/03/16 Time of Evaluation: 15:05 - Subjective Subjective: PT. appeared confotable no new event noted eating well Objective - Vital Signs/Intake and Output Vital Signs (last 24 hours): Temp Pulse Resp BP Pulse Ox 98.4 F 92 H 18 123/67 100 07/03/16 05:00 07/03/16 09:59 07/03/16 13:00 07/03/16 09:00 07/03/16 09:00 Intake and Output: 07/03/16 07/03/16 06:59 18:59 Intake Total 50 Output Total 250 Balance -200 - Medications Medications: Current Medications Aspirin (Ecotrin) 325 mg PO DAILY [facility] Last Admin: 07/03/16 09:59 Dose: 325 mg Dipyridamole (Persantine) 50 mg PO DAILY [facility] Last Admin: 07/03/16 09:59 Dose: 50 mg Ergocalciferol (Drisdol 50,000 Intl Units Cap) 1 cap PO QWK [facility] Folic Acid (Folic Acid) 1 mg PO DAILY [facility] Last Admin: 07/03/16 09:59 Dose: 1 mg Insulin Detemir (Levemir) 25 units SC HS [facility] Last Admin: 07/02/16 21:23 Dose: 25 units Insulin Human Lispro (Humalog) 25 units SC BID [facility] Levetiracetam (Keppra) 250 mg PO Q12 [facility] Last Admin: 07/03/16 09:59 Dose: 250 mg Metoprolol Succinate (Toprol Xl) 50 mg PO DAILY [facility] Last Admin: 07/03/16 09:59 Dose: 50 mg Morphine Sulfate (Morphine) 2 mg IVP Q4 PRN PRN Reason: Pain, Mild (1-3) Last Admin: 07/03/16 12:07 Dose: 2 mg Nicotine (Nicoderm Cq) 1 patch TD DAILY [facility] Last Admin: 07/03/16 09:59 Dose: 1 patch Pantoprazole Sodium (Protonix Ec Tab) 40 mg PO DAILY [facility] Last Admin: 07/03/16 09:59 Dose: 40 mg Pravastatin Sodium (Pravachol) 20 mg PO DAILY@1800 [facility] Last Admin: 07/02/16 17:04 Dose: 20 mg Spironolactone (Aldactone) 25 mg PO TID [facility] Last Admin: 07/03/16 13:08 Dose: 25 mg - Labs Labs: 07/02/16 06:35 07/02/16 06:35 PT 15.4 SECONDS (9.6-11.2) H 07/02/16 06:35 INR 1.48 (0.92-1.08) H 07/02/16 06:35 APTT 27.1 SECONDS (23.3-32.5) 07/02/16 06:35 - Constitutional Appears: No Acute Distress - Eye Exam Eye Exam: Normal appearance - ENT Exam ENT Exam: Mucous Membranes Moist - Respiratory Exam Respiratory Exam: NORMAL BREATHING PATTERN. absent: Chest Wall Tenderness - Cardiovascular Exam Cardiovascular Exam: REGULAR RHYTHM. absent: Rubs - GI/Abdominal Exam GI & Abdominal Exam: Normal Bowel Sounds - Extremities Exam Extremities Exam: absent: Calf Tenderness - Back Exam Back Exam: absent: CVA tenderness (L), CVA tenderness (R) - Neurological Exam Neurological Exam: Alert Assessment and Plan (1) VICENTE (acute kidney injury) Assessment & Plan: recovering from VICENTE no new test available repeat BMP f/up lytes Status: Acute
[2016-07-03 16:10] LABS: CALCIUM 7.8 mg/dL (8.4-10.2); POTASSIUM 4.4 MMOL/L (3.6-5.0)
[2016-07-03] MEDS: Pravastatin Sodium 20 MG TAB PO SCH (18:57)
[2016-07-03] MEDS: Insulin Detemir 100 Units/ml Inj SC SCH (21:56)
--- NOTE | 2016-07-04 07:09 | CP.PCM.PN ---
Subjective - Date & Time of Evaluation Date of Evaluation: 07/04/16 Time of Evaluation: 07:09 - Subjective Subjective: no complaints/distress had eeg and abd us yesterday. mental status at baseline. route specialist and strenght at baseline (slight weakness to right from cva) no distress. pendign labs. Objective - Vital Signs/Intake and Output Vital Signs (last 24 hours): Temp Pulse Resp BP Pulse Ox 97.8 F 87 18 114/73 100 07/03/16 20:51 07/03/16 20:51 07/03/16 20:51 07/03/16 20:51 07/03/16 20:51 - Medications Medications: Current Medications Aspirin (Ecotrin) 325 mg PO DAILY [facility] Last Admin: 07/03/16 09:59 Dose: 325 mg Dipyridamole (Persantine) 50 mg PO DAILY [facility] Last Admin: 07/03/16 09:59 Dose: 50 mg Ergocalciferol (Drisdol 50,000 Intl Units Cap) 1 cap PO QWK [facility] Folic Acid (Folic Acid) 1 mg PO DAILY [facility] Last Admin: 07/03/16 09:59 Dose: 1 mg Insulin Detemir (Levemir) 25 units SC HS [facility] Last Admin: 07/03/16 21:56 Dose: 25 units Insulin Human Lispro (Humalog) 25 units SC BID [facility] Last Admin: 07/03/16 17:28 Dose: 25 units Levetiracetam (Keppra) 250 mg PO Q12 [facility] Last Admin: 07/03/16 21:55 Dose: 250 mg Metoprolol Succinate (Toprol Xl) 50 mg PO DAILY [facility] Last Admin: 07/03/16 09:59 Dose: 50 mg Morphine Sulfate (Morphine) 2 mg IVP Q4 PRN PRN Reason: Pain, Mild (1-3) Last Admin: 07/03/16 12:07 Dose: 2 mg Nicotine (Nicoderm Cq) 1 patch TD DAILY [facility] Last Admin: 07/03/16 09:59 Dose: 1 patch Pantoprazole Sodium (Protonix Ec Tab) 40 mg PO DAILY [facility] Last Admin: 07/03/16 09:59 Dose: 40 mg Pravastatin Sodium (Pravachol) 20 mg PO DAILY@1800 [facility] Last Admin: 07/03/16 18:57 Dose: 20 mg Spironolactone (Aldactone) 25 mg PO TID [facility] Last Admin: 07/03/16 17:28 Dose: 25 mg - Labs Labs: 07/02/16 06:35 07/03/16 15:35 PT 15.4 SECONDS (9.6-11.2) H 07/02/16 06:35 INR 1.48 (0.92-1.08) H 07/02/16 06:35 APTT 27.1 SECONDS (23.3-32.5) 07/02/16 06:35 - Constitutional Appears: Well, Non-toxic, No Acute Distress - Head Exam Head Exam: ATRAUMATIC, NORMAL INSPECTION, NORMOCEPHALIC - Eye Exam Eye Exam: EOMI, Normal appearance, PERRL Pupil Exam: NORMAL ACCOMODATION, PERRL - ENT Exam ENT Exam: Mucous Membranes Moist, Normal Exam - Neck Exam Neck Exam: Full ROM, Normal Inspection. absent: Lymphadenopathy - Respiratory Exam Respiratory Exam: Clear to Ausculation Bilateral, NORMAL BREATHING PATTERN - Cardiovascular Exam Cardiovascular Exam: REGULAR RHYTHM, RRR, +S1, +S2. absent: Murmur - GI/Abdominal Exam GI & Abdominal Exam: Soft, Normal Bowel Sounds. absent: Tenderness - Extremities Exam Extremities Exam: Full ROM, Normal Capillary Refill, Normal Inspection. absent : Joint Swelling, Pedal Edema - Back Exam Back Exam: Full ROM, NORMAL INSPECTION - Neurological Exam Neurological Exam: Alert, Awake, CN II-XII Intact, Normal Gait, Oriented x3 - Psychiatric Exam Psychiatric exam: Normal Affect, Normal Mood - Skin Skin Exam: Dry, Intact, Normal Color, Warm Assessment and Plan (1) Hepatic encephalopathy Assessment & Plan: ammiona trending down neuro and gi monitor eeg Status: Acute (2) Hyperkalemia Assessment & Plan: trend k, am labs pending Status: Acute (3) Metabolic acidosis Assessment & Plan: nephro, trend labs ivf Status: Acute (4) Renal insufficiency Assessment & Plan: hepatorenal syndrome matheus nd nephro trend labs, ivf Status: Acute (5) Seizure Assessment & Plan: ?? if proven zahraa adkins for now neuro eeg completed pending results Status: Acute (6) Syncope Assessment & Plan: unkn etiology likley hepatic encephalopathy, ammonia normal now, neuro and cardio Status: Acute (7) DVT prophylaxis Assessment & Plan: scd nad aehose Status: Acute (8) Diabetes type 2, uncontrolled Assessment & Plan: riss, home meds, dietary r/t obesity-diet/exercise Status: Acute
[2016-07-04 09:40] LABS: BASO # 0.1 K/uL (0.0-0.2); BASO % 0.4 % (0.0-2.0); EOS # 0.2 K/uL (0.0-0.7); EOS % 1.2 % (0.0-4.0); HEMATOCRIT 30.6 % (35.0-51.0); LYMPH % 6.7 % (20.0-40.0); MEAN CORPUSCULAR HEMOGLOBIN 25.4 pg (27.0-31.0); MEAN CORPUSCULAR HGB CONC 30.4 g/dL (33.0-37.0); MEAN PLATELET VOLUME 9.2 fl (7.2-11.7); MONO # 1.4 K/uL (0.0-0.8); MONO % 9.3 % (0.0-10.0); NEUT # 12.6 K/uL (1.8-7.0); NEUT % 82.4 % (50.0-75.0); RED CELL DISTRIBUTION WIDTH 21.9 % (11.5-14.5); WHITE BLOOD COUNT 15.2 K/uL (4.8-10.8)
[2016-07-04 09:44] LABS: MEAN CELL VOLUME 83.7 fl (80.0-94.0)
[2016-07-04 09:46] LABS: ALB/GLOB RATIO 0.5 (1.0-2.1); BILIRUBIN,TOTAL 1.3 mg/dl (0.2-1.3); CALCIUM 8.1 mg/dL (8.4-10.2); POTASSIUM 4.5 MMOL/L (3.6-5.0); TOTAL PROTEIN 6.9 G/DL (6.3-8.2)
[2016-07-04] MEDS: Aspirin 325 mg EC Tablets PO SCH (09:58)
[2016-07-04] MEDS: Metoprolol Succinate 50 mg XL Tab PO SCH (09:58)
[2016-07-04] MEDS: Pantoprazole 40 mg EC Tab PO SCH (09:58)
[2016-07-04] MEDS: Insulin Lispro (humaLOG) 100 Units/ml Inj SC SCH ×3 (09:59→18:26)
[2016-07-04] MEDS: Pravastatin Sodium 20 MG TAB PO SCH (18:25)
[2016-07-04] MEDS: Insulin Detemir 100 Units/ml Inj SC SCH (22:57)
[2016-07-05] MEDS: Metoprolol Succinate 50 mg XL Tab PO SCH (08:34)
[2016-07-05] MEDS: Pantoprazole 40 mg EC Tab PO SCH (08:34)
[2016-07-05] MEDS: Aspirin 325 mg EC Tablets PO SCH (08:34)
[2016-07-05] MEDS: Insulin Lispro (humaLOG) 100 Units/ml Inj SC SCH ×2 (08:36→17:35)
--- NOTE | 2016-07-05 09:19 | CP.PCM.PN ---
Subjective - Date & Time of Evaluation Date of Evaluation: 07/05/16 Time of Evaluation: 09:19 - Subjective Subjective: pt calm and cooperative. no distress/complaints. no sz/syncope. pending sw for mayuri tomorrow. bw noted. ammonia pending Objective - Vital Signs/Intake and Output Vital Signs (last 24 hours): Temp Pulse Resp BP Pulse Ox 98.9 F 90 20 108/72 99 07/05/16 08:05 07/05/16 08:34 07/05/16 08:05 07/05/16 08:34 07/05/16 08:05 Intake and Output: 07/05/16 07/05/16 06:59 18:59 Intake Total 50 Output Total 200 Balance -150 - Medications Medications: Current Medications Aspirin (Ecotrin) 325 mg PO DAILY [facility] Last Admin: 07/05/16 08:34 Dose: 325 mg Dipyridamole (Persantine) 50 mg PO DAILY [facility] Last Admin: 07/05/16 08:34 Dose: 50 mg Ergocalciferol (Drisdol 50,000 Intl Units Cap) 1 cap PO QWK [facility] Folic Acid (Folic Acid) 1 mg PO DAILY [facility] Last Admin: 07/05/16 08:34 Dose: 1 mg Insulin Detemir (Levemir) 25 units SC HS [facility] Last Admin: 07/04/16 22:57 Dose: 25 units Insulin Human Lispro (Humalog) 25 units SC BID [facility] Last Admin: 07/05/16 08:36 Dose: 25 units Levetiracetam (Keppra) 250 mg PO Q12 [facility] Last Admin: 07/05/16 08:34 Dose: 250 mg Metoprolol Succinate (Toprol Xl) 50 mg PO DAILY [facility] Last Admin: 07/05/16 08:34 Dose: 50 mg Morphine Sulfate (Morphine) 2 mg IVP Q4 PRN PRN Reason: Pain, Mild (1-3) Last Admin: 07/04/16 13:27 Dose: 2 mg Nicotine (Nicoderm Cq) 1 patch TD DAILY [facility] Last Admin: 07/05/16 08:34 Dose: 1 patch Pantoprazole Sodium (Protonix Ec Tab) 40 mg PO DAILY [facility] Last Admin: 07/05/16 08:34 Dose: 40 mg Pravastatin Sodium (Pravachol) 20 mg PO DAILY@1800 [facility] Last Admin: 07/04/16 18:25 Dose: 20 mg Spironolactone (Aldactone) 25 mg PO TID [facility] Last Admin: 07/05/16 08:33 Dose: 25 mg - Labs Labs: 07/04/16 09:00 07/04/16 09:00 PT 15.4 SECONDS (9.6-11.2) H 07/02/16 06:35 INR 1.48 (0.92-1.08) H 07/02/16 06:35 APTT 27.1 SECONDS (23.3-32.5) 07/02/16 06:35 - Constitutional Appears: Well, Non-toxic, No Acute Distress - Head Exam Head Exam: ATRAUMATIC, NORMAL INSPECTION, NORMOCEPHALIC - Eye Exam Eye Exam: EOMI, Normal appearance, PERRL Pupil Exam: NORMAL ACCOMODATION, PERRL - ENT Exam ENT Exam: Mucous Membranes Moist, Normal Exam - Neck Exam Neck Exam: Full ROM, Normal Inspection. absent: Lymphadenopathy - Respiratory Exam Respiratory Exam: Clear to Ausculation Bilateral, NORMAL BREATHING PATTERN - Cardiovascular Exam Cardiovascular Exam: REGULAR RHYTHM, RRR, +S1, +S2. absent: Murmur - GI/Abdominal Exam GI & Abdominal Exam: Soft, Normal Bowel Sounds. absent: Tenderness - Extremities Exam Extremities Exam: Full ROM, Normal Capillary Refill, Normal Inspection. absent : Joint Swelling, Pedal Edema - Back Exam Back Exam: NORMAL INSPECTION - Neurological Exam Neurological Exam: Alert, Awake, CN II-XII Intact, Normal Gait, Oriented x3 - Psychiatric Exam Psychiatric exam: Normal Affect, Normal Mood - Skin Skin Exam: Dry, Intact, Normal Color, Warm Assessment and Plan (1) Hepatic encephalopathy Status: Acute (2) Hyperkalemia Status: Acute (3) Metabolic acidosis Status: Acute (4) Renal insufficiency Status: Acute (5) Seizure Status: Acute (6) Syncope Status: Acute (7) DVT prophylaxis Status: Acute (8) Diabetes type 2, uncontrolled Status: Acute - Assessment and Plan (Free Text) Assessment: (1) Hepatic encephalopathy Assessment & Plan: ammiona trending down neuro and gi monitor eeg Status: Acute (2) Hyperkalemia Assessment & Plan: trend k, am labs pending Status: Acute (3) Metabolic acidosis Assessment & Plan: nephro, trend labs ivf Status: Acute (4) Renal insufficiency Assessment & Plan: hepatorenal syndrome matheus nd nephro trend labs, ivf Status: Acute (5) Seizure Assessment & Plan: ?? if proven zahraa adkins for now neuro eeg completed pending results Status: Acute (6) Syncope Assessment & Plan: unkn etiology likley hepatic encephalopathy, ammonia normal now, neuro and cardio Status: Acute (7) DVT prophylaxis Assessment & Plan: scd nad aehose Status: Acute (8) Diabetes type 2, uncontrolled Assessment & Plan: riss, home meds, dietary r/t obesity-diet/exercise Status: Acute
[2016-07-05 11:02] LABS: ALB/GLOB RATIO 0.5 (1.0-2.1); BILIRUBIN,TOTAL 1.7 mg/dl (0.2-1.3); CALCIUM 8.2 mg/dL (8.4-10.2); POTASSIUM 4.4 MMOL/L (3.6-5.0); TOTAL PROTEIN 6.9 G/DL (6.3-8.2)
[2016-07-05 11:09] LABS: BASO # 0.1 K/uL (0.0-0.2); BASO % 0.4 % (0.0-2.0); EOS # 0.1 K/uL (0.0-0.7); EOS % 0.9 % (0.0-4.0); HEMATOCRIT 30.8 % (35.0-51.0); LYMPH # 0.7 K/uL (1.0-4.3); LYMPH % 4.7 % (20.0-40.0); MEAN CORPUSCULAR HEMOGLOBIN 25.9 pg (27.0-31.0); MEAN CORPUSCULAR HGB CONC 31.8 g/dL (33.0-37.0); MEAN PLATELET VOLUME 9.2 fl (7.2-11.7); MONO # 1.5 K/uL (0.0-0.8); MONO % 9.6 % (0.0-10.0); NEUT # 12.8 K/uL (1.8-7.0); NEUT % 84.4 % (50.0-75.0); PLATELET COUNT 165 K/uL (130-400); RED CELL DISTRIBUTION WIDTH 21.3 % (11.5-14.5); WHITE BLOOD COUNT 15.2 K/uL (4.8-10.8)
[2016-07-05 11:11] LABS: MEAN CELL VOLUME 81.6 fl (80.0-94.0)
[2016-07-05 12:32] LABS: NEUTROPHIL 87 % (42-75); TOTAL CELLS COUNTED 100
[2016-07-05 12:33] LABS: LARGE PLATELETS PRESENT; PLATELET CLUMPS PRESENT
--- NOTE | 2016-07-05 17:43 | CP.PCM.PN ---
Subjective - Date & Time of Evaluation Date of Evaluation: 07/05/16 Time of Evaluation: 11:30 - Subjective Subjective: no overnight events Objective - Vital Signs/Intake and Output Vital Signs (last 24 hours): Temp Pulse Resp BP Pulse Ox 98.9 F 90 20 108/72 99 07/05/16 08:05 07/05/16 08:34 07/05/16 08:05 07/05/16 08:34 07/05/16 08:05 Intake and Output: 07/05/16 07/05/16 06:59 18:59 Intake Total 50 Output Total 200 Balance -150 - Medications Medications: Current Medications Aspirin (Ecotrin) 325 mg PO DAILY [facility] Last Admin: 07/05/16 08:34 Dose: 325 mg Dipyridamole (Persantine) 50 mg PO DAILY [facility] Last Admin: 07/05/16 08:34 Dose: 50 mg Ergocalciferol (Drisdol 50,000 Intl Units Cap) 1 cap PO QWK [facility] Folic Acid (Folic Acid) 1 mg PO DAILY [facility] Last Admin: 07/05/16 08:34 Dose: 1 mg Insulin Detemir (Levemir) 25 units SC HS [facility] Last Admin: 07/04/16 22:57 Dose: 25 units Insulin Human Lispro (Humalog) 25 units SC BID [facility] Last Admin: 07/05/16 08:36 Dose: 25 units Levetiracetam (Keppra) 250 mg PO Q12 [facility] Last Admin: 07/05/16 08:34 Dose: 250 mg Metoprolol Succinate (Toprol Xl) 50 mg PO DAILY [facility] Last Admin: 07/05/16 08:34 Dose: 50 mg Nicotine (Nicoderm Cq) 1 patch TD DAILY [facility] Last Admin: 07/05/16 08:34 Dose: 1 patch Pantoprazole Sodium (Protonix Ec Tab) 40 mg PO DAILY [facility] Last Admin: 07/05/16 08:34 Dose: 40 mg Pravastatin Sodium (Pravachol) 20 mg PO DAILY@1800 [facility] Last Admin: 07/04/16 18:25 Dose: 20 mg Spironolactone (Aldactone) 25 mg PO TID [facility] Last Admin: 07/05/16 13:03 Dose: 25 mg - Labs Labs: 07/05/16 10:45 07/05/16 10:45 PT 15.4 SECONDS (9.6-11.2) H 07/02/16 06:35 INR 1.48 (0.92-1.08) H 07/02/16 06:35 APTT 27.1 SECONDS (23.3-32.5) 07/02/16 06:35 - Head Exam Head Exam: NORMAL INSPECTION - Respiratory Exam Respiratory Exam: Clear to Ausculation Bilateral - GI/Abdominal Exam GI & Abdominal Exam: Soft, Normal Bowel Sounds Assessment and Plan - Assessment and Plan (Free Text) Assessment: 60 yo with cirrhosis doing well dc planning 40 mg lasix/100 mg aldactone daily if potassium and Cr can tolerate
[2016-07-05] MEDS: Pravastatin Sodium 20 MG TAB PO SCH (18:10)
[2016-07-05] MEDS: Insulin Detemir 100 Units/ml Inj SC SCH (22:20)
--- NOTE | 2016-07-06 07:18 | CP.PCM.PN ---
Subjective - Date & Time of Evaluation Date of Evaluation: 07/06/16 Time of Evaluation: 07:18 - Subjective Subjective: pt remains as assessed. no f/c, n/v/d. ammonia wnl. no seizure activity no distress. for dispo Objective - Vital Signs/Intake and Output Vital Signs (last 24 hours): Temp Pulse Resp BP Pulse Ox 98.2 F 89 20 103/69 97 07/05/16 17:50 07/05/16 17:50 07/05/16 17:50 07/05/16 17:50 07/05/16 17:50 - Medications Medications: Current Medications Aspirin (Ecotrin) 325 mg PO DAILY [facility] Last Admin: 07/05/16 08:34 Dose: 325 mg Dipyridamole (Persantine) 50 mg PO DAILY [facility] Last Admin: 07/05/16 08:34 Dose: 50 mg Ergocalciferol (Drisdol 50,000 Intl Units Cap) 1 cap PO QWK [facility] Folic Acid (Folic Acid) 1 mg PO DAILY [facility] Last Admin: 07/05/16 08:34 Dose: 1 mg Insulin Detemir (Levemir) 25 units SC HS [facility] Last Admin: 07/05/16 22:20 Dose: 25 units Insulin Human Lispro (Humalog) 25 units SC BID [facility] Last Admin: 07/05/16 17:35 Dose: 25 units Levetiracetam (Keppra) 250 mg PO Q12 [facility] Last Admin: 07/05/16 22:20 Dose: 250 mg Metoprolol Succinate (Toprol Xl) 50 mg PO DAILY [facility] Last Admin: 07/05/16 08:34 Dose: 50 mg Nicotine (Nicoderm Cq) 1 patch TD DAILY [facility] Last Admin: 07/05/16 08:34 Dose: 1 patch Pantoprazole Sodium (Protonix Ec Tab) 40 mg PO DAILY [facility] Last Admin: 07/05/16 08:34 Dose: 40 mg Pravastatin Sodium (Pravachol) 20 mg PO DAILY@1800 [facility] Last Admin: 07/05/16 18:10 Dose: 20 mg Spironolactone (Aldactone) 25 mg PO TID [facility] Last Admin: 07/05/16 18:11 Dose: 25 mg - Labs Labs: 07/05/16 10:45 07/05/16 10:45 PT 15.4 SECONDS (9.6-11.2) H 07/02/16 06:35 INR 1.48 (0.92-1.08) H 07/02/16 06:35 APTT 27.1 SECONDS (23.3-32.5) 07/02/16 06:35 - Constitutional Appears: Well, Non-toxic, No Acute Distress - Head Exam Head Exam: ATRAUMATIC, NORMAL INSPECTION, NORMOCEPHALIC - Eye Exam Eye Exam: EOMI, Normal appearance, PERRL Pupil Exam: NORMAL ACCOMODATION, PERRL - ENT Exam ENT Exam: Mucous Membranes Moist, Normal Exam - Neck Exam Neck Exam: Full ROM, Normal Inspection. absent: Lymphadenopathy - Respiratory Exam Respiratory Exam: Clear to Ausculation Bilateral, NORMAL BREATHING PATTERN - Cardiovascular Exam Cardiovascular Exam: REGULAR RHYTHM, RRR, +S1, +S2. absent: Murmur - GI/Abdominal Exam GI & Abdominal Exam: Soft, Normal Bowel Sounds. absent: Tenderness - Extremities Exam Extremities Exam: Full ROM, Normal Capillary Refill, Normal Inspection. absent : Joint Swelling, Pedal Edema - Back Exam Back Exam: NORMAL INSPECTION - Neurological Exam Neurological Exam: Alert, Awake, CN II-XII Intact, Normal Gait, Oriented x3 - Psychiatric Exam Psychiatric exam: Normal Affect, Normal Mood - Skin Skin Exam: Dry, Intact, Normal Color, Warm Assessment and Plan (1) Hepatic encephalopathy Status: Acute (2) Hyperkalemia Status: Acute (3) Metabolic acidosis Status: Acute (4) Renal insufficiency Status: Acute (5) Seizure Status: Acute (6) Syncope Status: Acute (7) DVT prophylaxis Status: Acute (8) Diabetes type 2, uncontrolled Status: Acute - Assessment and Plan (Free Text) Assessment: (1) Hepatic encephalopathy Assessment & Plan: ammiona trending down neuro and gi monitor eeg Status: Acute (2) Hyperkalemia Assessment & Plan: trend k, am labs pending Status: Acute (3) Metabolic acidosis Assessment & Plan: nephro, trend labs ivf Status: Acute (4) Renal insufficiency Assessment & Plan: hepatorenal syndrome matheus nd nephro trend labs, ivf Status: Acute (5) Seizure Assessment & Plan: ?? if proven zahraa adkins for now neuro eeg completed pending results Status: Acute (6) Syncope Assessment & Plan: unkn etiology likley hepatic encephalopathy, ammonia normal now, neuro and cardio Status: Acute (7) DVT prophylaxis Assessment & Plan: scd nad aehose Status: Acute (8) Diabetes type 2, uncontrolled Assessment & Plan: riss, home meds, dietary r/t obesity-diet/exercise Status: Acute pendign am labs. for dispo today
[2016-07-06 07:43] LABS: BASO % 0.3 % (0.0-2.0); EOS # 0.2 K/uL (0.0-0.7); EOS % 1.4 % (0.0-4.0); LYMPH # 0.7 K/uL (1.0-4.3); LYMPH % 5.7 % (20.0-40.0); MEAN CELL VOLUME 81.7 fl (80.0-94.0); MEAN CORPUSCULAR HEMOGLOBIN 25.7 pg (27.0-31.0); MEAN CORPUSCULAR HGB CONC 31.4 g/dL (33.0-37.0); MEAN PLATELET VOLUME 9.3 fl (7.2-11.7); MONO # 1.2 K/uL (0.0-0.8); MONO % 8.8 % (0.0-10.0); NEUT % 83.8 % (50.0-75.0); RED CELL DISTRIBUTION WIDTH 21.7 % (11.5-14.5); WHITE BLOOD COUNT 13.1 K/uL (4.8-10.8)
[2016-07-06 08:08] LABS: ALB/GLOB RATIO 0.5 (1.0-2.1); BILIRUBIN,TOTAL 1.8 mg/dl (0.2-1.3); CALCIUM 8.3 mg/dL (8.4-10.2); TOTAL PROTEIN 6.9 G/DL (6.3-8.2)
[2016-07-06] MEDS: Aspirin 325 mg EC Tablets PO SCH (09:16)
[2016-07-06] MEDS: Pantoprazole 40 mg EC Tab PO SCH (09:16)
[2016-07-06] MEDS: Metoprolol Succinate 50 mg XL Tab PO SCH (09:16)
[2016-07-06] MEDS: Insulin Lispro (humaLOG) 100 Units/ml Inj SC SCH ×2 (09:16→17:41)
[2016-07-06] MEDS: Insulin Regular 100 units/ml SC SCH ×2 (17:00→22:53)
[2016-07-06] MEDS: Pravastatin Sodium 20 MG TAB PO SCH (17:42)
--- NOTE | 2016-07-06 21:55 | EEG ---
DATE: 07/06/2016 INTRODUCTION: This is a digitally recorded EEG monitoring using standard EEG montages. BACKGROUND RHYTHM: The EEG shows a background activity of 8-9 Hz alpha activity in parietooccipital region. The EEG activity is bilaterally symmetrical and synchronous. There is attenuation of the ba ckground activity on eye opening. No sleep recording was noted. PHOTIC STIMULATION AND HYPERVENTILATION: Photic stimulation did not reveal any abnormality. Hyperve ntilation was not performed. IMPRESSION: Normal EEG. No epileptiform activity seen in this EEG recording. Haydee Urias MD cc: [id number] TT: 07/06/2016 21:55:20 Confirmation # [id number] Dictation # [id number]
--- NOTE | 2016-07-06 22:55 | CP.PCM.PN ---
Subjective - Date & Time of Evaluation Date of Evaluation: 07/06/16 Time of Evaluation: 10:00 - Subjective Subjective: no new event reported over night cret. still about 2 will need f/up as outpatient Objective - Vital Signs/Intake and Output Vital Signs (last 24 hours): Temp Pulse Resp BP Pulse Ox 98.5 F 82 18 104/67 99 07/06/16 17:01 07/06/16 17:01 07/06/16 17:01 07/06/16 17:01 07/06/16 17:01 - Medications Medications: Current Medications Aspirin (Ecotrin) 325 mg PO DAILY [facility] Last Admin: 07/06/16 09:16 Dose: 325 mg Dipyridamole (Persantine) 50 mg PO DAILY [facility] Last Admin: 07/06/16 09:16 Dose: 50 mg Ergocalciferol (Drisdol 50,000 Intl Units Cap) 1 cap PO QWK [facility] Folic Acid (Folic Acid) 1 mg PO DAILY [facility] Last Admin: 07/06/16 09:16 Dose: 1 mg Insulin Detemir (Levemir) 25 units SC HS [facility] Last Admin: 07/05/16 22:20 Dose: 25 units Insulin Human Lispro (Humalog) 25 units SC BID [facility] Last Admin: 07/06/16 17:41 Dose: 25 units Insulin Human Regular (Humulin R) 0 units SC ACHS [facility] PRN Reason: Protocol Last Admin: 07/06/16 22:53 Dose: Not Given Levetiracetam (Keppra) 250 mg PO Q12 [facility] Last Admin: 07/06/16 09:15 Dose: 250 mg Metoprolol Succinate (Toprol Xl) 50 mg PO DAILY [facility] Last Admin: 07/06/16 09:16 Dose: 50 mg Nicotine (Nicoderm Cq) 1 patch TD DAILY [facility] Last Admin: 07/06/16 09:16 Dose: 1 patch Pantoprazole Sodium (Protonix Ec Tab) 40 mg PO DAILY [facility] Last Admin: 07/06/16 09:16 Dose: 40 mg Pravastatin Sodium (Pravachol) 20 mg PO DAILY@1800 [facility] Last Admin: 07/06/16 17:42 Dose: 20 mg Spironolactone (Aldactone) 25 mg PO TID [facility] Last Admin: 07/06/16 17:41 Dose: 25 mg - Labs Labs: 07/06/16 07:20 07/06/16 07:20 PT 15.4 SECONDS (9.6-11.2) H 07/02/16 06:35 INR 1.48 (0.92-1.08) H 07/02/16 06:35 APTT 27.1 SECONDS (23.3-32.5) 07/02/16 06:35 Assessment and Plan (1) VICENTE (acute kidney injury) Status: Acute
[2016-07-06] MEDS: Insulin Detemir 100 Units/ml Inj SC SCH (23:02)
[2016-07-07] MEDS: Insulin Regular 100 units/ml SC SCH ×3 (06:39→16:56)
--- NOTE | 2016-07-07 07:23 | CP.PCM.PN ---
Subjective - Date & Time of Evaluation Date of Evaluation: 07/07/16 Time of Evaluation: 07:23 - Subjective Subjective: no complaints/distress no distress/compalitns. no f/c, n/v/d. bw noted Objective - Vital Signs/Intake and Output Vital Signs (last 24 hours): Temp Pulse Resp BP Pulse Ox 98.7 F 85 18 105/65 98 07/07/16 00:15 07/07/16 00:15 07/07/16 00:15 07/07/16 00:15 07/07/16 00:15 - Medications Medications: Current Medications Aspirin (Ecotrin) 325 mg PO DAILY [facility] Last Admin: 07/06/16 09:16 Dose: 325 mg Dipyridamole (Persantine) 50 mg PO DAILY [facility] Last Admin: 07/06/16 09:16 Dose: 50 mg Ergocalciferol (Drisdol 50,000 Intl Units Cap) 1 cap PO QWK [facility] Folic Acid (Folic Acid) 1 mg PO DAILY [facility] Last Admin: 07/06/16 09:16 Dose: 1 mg Insulin Detemir (Levemir) 25 units SC HS [facility] Last Admin: 07/06/16 23:02 Dose: 25 units Insulin Human Lispro (Humalog) 25 units SC BID [facility] Last Admin: 07/06/16 17:41 Dose: 25 units Insulin Human Regular (Humulin R) 0 units SC ACHS [facility] PRN Reason: Protocol Last Admin: 07/07/16 06:39 Dose: 2 units Levetiracetam (Keppra) 250 mg PO Q12 [facility] Last Admin: 07/06/16 23:02 Dose: 250 mg Metoprolol Succinate (Toprol Xl) 50 mg PO DAILY [facility] Last Admin: 07/06/16 09:16 Dose: 50 mg Nicotine (Nicoderm Cq) 1 patch TD DAILY [facility] Last Admin: 07/06/16 09:16 Dose: 1 patch Pantoprazole Sodium (Protonix Ec Tab) 40 mg PO DAILY [facility] Last Admin: 07/06/16 09:16 Dose: 40 mg Pravastatin Sodium (Pravachol) 20 mg PO DAILY@1800 [facility] Last Admin: 07/06/16 17:42 Dose: 20 mg Spironolactone (Aldactone) 25 mg PO TID [facility] Last Admin: 07/06/16 17:41 Dose: 25 mg - Labs Labs: 07/06/16 07:20 07/06/16 07:20 PT 15.4 SECONDS (9.6-11.2) H 07/02/16 06:35 INR 1.48 (0.92-1.08) H 07/02/16 06:35 APTT 27.1 SECONDS (23.3-32.5) 07/02/16 06:35 - Constitutional Appears: Well, Non-toxic, No Acute Distress - Head Exam Head Exam: ATRAUMATIC, NORMAL INSPECTION, NORMOCEPHALIC - Eye Exam Eye Exam: EOMI, Normal appearance, PERRL Pupil Exam: NORMAL ACCOMODATION, PERRL - ENT Exam ENT Exam: Mucous Membranes Moist, Normal Exam - Neck Exam Neck Exam: Full ROM, Normal Inspection. absent: Lymphadenopathy - Respiratory Exam Respiratory Exam: Clear to Ausculation Bilateral, NORMAL BREATHING PATTERN - Cardiovascular Exam Cardiovascular Exam: REGULAR RHYTHM, +S1, +S2. absent: Murmur - GI/Abdominal Exam GI & Abdominal Exam: Soft, Normal Bowel Sounds. absent: Tenderness - Extremities Exam Extremities Exam: Full ROM, Normal Capillary Refill, Normal Inspection. absent : Joint Swelling, Pedal Edema - Back Exam Back Exam: NORMAL INSPECTION - Neurological Exam Neurological Exam: Abnormal Gait, Alert, Awake, CN II-XII Intact, Oriented x3 - Psychiatric Exam Psychiatric exam: Normal Affect, Normal Mood - Skin Skin Exam: Dry, Intact, Normal Color, Warm Assessment and Plan (1) Hepatic encephalopathy Status: Acute (2) Hyperkalemia Status: Acute (3) Metabolic acidosis Status: Acute (4) Renal insufficiency Status: Acute (5) Seizure Status: Acute (6) Syncope Status: Acute (7) DVT prophylaxis Status: Acute (8) Diabetes type 2, uncontrolled Status: Acute - Assessment and Plan (Free Text) Assessment: (1) Hepatic encephalopathy Assessment & Plan: ammiona trending down neuro and gi monitor eeg Status: Acute (2) Hyperkalemia Assessment & Plan: trend k, am labs pending Status: Acute (3) Metabolic acidosis Assessment & Plan: nephro, trend labs ivf Status: Acute (4) Renal insufficiency Assessment & Plan: hepatorenal syndrome matheus nd nephro trend labs, ivf Status: Acute (5) Seizure Assessment & Plan: ?? if proven zahraa adkins for now neuro eeg completed pending results Status: Acute (6) Syncope Assessment & Plan: unkn etiology likley hepatic encephalopathy, ammonia normal now, neuro and cardio Status: Acute (7) DVT prophylaxis Assessment & Plan: scd nad aehose Status: Acute (8) Diabetes type 2, uncontrolled Assessment & Plan: riss, home meds, dietary r/t obesity-diet/exercise Status: Acute
[2016-07-07 08:04] LABS: BASO % 0.3 % (0.0-2.0); EOS # 0.2 K/uL (0.0-0.7); EOS % 1.8 % (0.0-4.0); HEMATOCRIT 30.4 % (35.0-51.0); LYMPH # 0.9 K/uL (1.0-4.3); LYMPH % 6.6 % (20.0-40.0); MEAN CELL VOLUME 81.9 fl (80.0-94.0); MEAN CORPUSCULAR HEMOGLOBIN 26.3 pg (27.0-31.0); MEAN CORPUSCULAR HGB CONC 32.2 g/dL (33.0-37.0); MEAN PLATELET VOLUME 9.2 fl (7.2-11.7); MONO # 1.1 K/uL (0.0-0.8); MONO % 8.7 % (0.0-10.0); NEUT # 10.7 K/uL (1.8-7.0); NEUT % 82.6 % (50.0-75.0); RED CELL DISTRIBUTION WIDTH 21.9 % (11.5-14.5); WHITE BLOOD COUNT 12.9 K/uL (4.8-10.8)
[2016-07-07 08:13] LABS: ALB/GLOB RATIO 0.5 (1.0-2.1); BILIRUBIN,TOTAL 1.6 mg/dl (0.2-1.3); CALCIUM 8.2 mg/dL (8.4-10.2); POTASSIUM 4.9 MMOL/L (3.6-5.0); TOTAL PROTEIN 6.8 G/DL (6.3-8.2)
[2016-07-07 08:32] VITALS: O2SAT 99
[2016-07-07] MEDS: Aspirin 325 mg EC Tablets PO SCH (10:30)
[2016-07-07] MEDS: Insulin Lispro (humaLOG) 100 Units/ml Inj SC SCH ×2 (10:30→16:55)
[2016-07-07] MEDS: Metoprolol Succinate 50 mg XL Tab PO SCH (10:33)
[2016-07-07] MEDS: Pantoprazole 40 mg EC Tab PO SCH (10:33)
[2016-07-07 16:29] VITALS: BP 119/68; PULSE 88; RESP 18; TEMP 99.3
[2016-07-07] MEDS: Pravastatin Sodium 20 MG TAB PO SCH (16:59)
--- NOTE | 2016-07-07 18:34 | CP.PCM.DIS ---
Provider - Provider Date of Admission: 07/01/16 12:20 Attending physician: Helder Grace MD Time Spent in preparation of Discharge (in minutes): 15 Diagnosis - Discharge Diagnosis (1) Hepatic encephalopathy Status: Acute (2) Hyperkalemia Status: Acute (3) Metabolic acidosis Status: Acute (4) Renal insufficiency Status: Acute (5) Seizure Status: Acute (6) Syncope Status: Acute (7) DVT prophylaxis Status: Acute (8) Diabetes type 2, uncontrolled Status: Acute Hospital Course - Lab Results Lab Results: Micro Results 07/03/16 07:20 Naris MRSA Culture (Admit) - Final MRSA NOT DETECTED Most Recent Lab Values WBC 12.9 K/uL (4.8-10.8) H 07/07/16 07:30 RBC 3.71 Mil/uL (4.40-5.90) L 07/07/16 07:30 Hgb 9.8 g/dL (12.0-18.0) L 07/07/16 07:30 Hct 30.4 % (35.0-51.0) L 07/07/16 07:30 MCV 81.9 fl (80.0-94.0) 07/07/16 07:30 MCH 26.3 pg (27.0-31.0) L 07/07/16 07:30 MCHC 32.2 g/dL (33.0-37.0) L 07/07/16 07:30 RDW 21.9 % (11.5-14.5) H 07/07/16 07:30 Plt Count 142 K/uL (130-400) 07/07/16 07:30 MPV 9.2 fl (7.2-11.7) 07/07/16 07:30 Neut % (Auto) 82.6 % (50.0-75.0) H 07/07/16 07:30 Lymph % (Auto) 6.6 % (20.0-40.0) L 07/07/16 07:30 [place] % (Auto) 8.7 % (0.0-10.0) 07/07/16 07:30 Eos % (Auto) 1.8 % (0.0-4.0) 07/07/16 07:30 Baso % (Auto) 0.3 % (0.0-2.0) 07/07/16 07:30 Neut # 10.7 K/uL (1.8-7.0) H 07/07/16 07:30 Lymph # 0.9 K/uL (1.0-4.3) L 07/07/16 07:30 [place] # 1.1 K/uL (0.0-0.8) H 07/07/16 07:30 Eos # 0.2 K/uL (0.0-0.7) 07/07/16 07:30 Baso # 0.0 K/uL (0.0-0.2) 07/07/16 07:30 Total Counted Cancelled 07/04/16 09:00 Neutrophils % (Manual) 87 % (42-75) H 07/05/16 10:45 Band Neutrophils % 1 % (0-2) 07/05/16 10:45 Lymphocytes % (Manual) 4 % (20-50) L 07/05/16 10:45 Reactive Lymphs % Cancelled 07/04/16 09:00 Monocytes % (Manual) 8 % (0-10) 07/05/16 10:45 Eosinophils % (Manual) Cancelled 07/04/16 09:00 Basophils % (Manual) Cancelled 07/04/16 09:00 Metamyelocytes % Cancelled 07/04/16 09:00 Myelocytes % Cancelled 07/04/16 09:00 Promyelocytes % Cancelled 07/04/16 09:00 Blast Cells % Cancelled 07/04/16 09:00 Plasma Cell % (Manual) Cancelled 07/04/16 09:00 Nucleated RBC % Cancelled 07/04/16 09:00 Hypersegmented Polys Cancelled 07/04/16 09:00 Smudge Cells Cancelled 07/04/16 09:00 Toxic Granulation Present 07/05/16 10:45 Dohle Bodies Cancelled 07/04/16 09:00 Moise Rods Cancelled 07/04/16 09:00 Platelet Estimate Normal (NORMAL) 07/05/16 10:45 Plt Clumps, EDTA Present 07/05/16 10:45 Large Platelets Present 07/05/16 10:45 Giant Platelets Cancelled 07/04/16 09:00 RBC Morphology Cancelled 07/04/16 09:00 Polychromasia Cancelled 07/04/16 09:00 Hypochromasia (manual) Slight 07/05/16 10:45 Poikilocytosis (manual Slight 07/05/16 10:45 Basophilic Stippling Cancelled 07/04/16 09:00 Anisocytosis (manual) Marked 07/05/16 10:45 Microcytosis (manual) Cancelled 07/04/16 09:00 Macrocytosis (manual) Cancelled 07/04/16 09:00 Spherocytes Cancelled 07/04/16 09:00 Sickle Cells Cancelled 07/04/16 09:00 Target Cells Cancelled 07/04/16 09:00 Tear Drop Cells Slight 07/05/16 10:45 Ovalocytes Slight 07/05/16 10:45 Stomatocytes Cancelled 07/04/16 09:00 Helmet Cells Cancelled 07/04/16 09:00 [place] Bodies Cancelled 07/04/16 09:00 [place] Cells Cancelled 07/04/16 09:00 Acanthocytes (Spur) Cancelled 07/04/16 09:00 Rouleaux Cancelled 07/04/16 09:00 Schistocytes Slight 07/05/16 10:45 PT 15.4 SECONDS (9.6-11.2) H 07/02/16 06:35 INR 1.48 (0.92-1.08) H 07/02/16 06:35 APTT 27.1 SECONDS (23.3-32.5) 07/02/16 06:35 pO2 21 mm/Hg (30-55) L 07/01/16 15:35 VBG pH 7.33 (7.32-7.43) 07/01/16 15:35 VBG pCO2 38 mmHg (40-60) L 07/01/16 15:35 VBG HCO3 18.9 mmol/L 07/01/16 15:35 VBG Total CO2 21.2 mmol/L (22-28) L 07/01/16 15:35 VBG O2 Sat (Calc) 36.0 % (40-65) L 07/01/16 15:35 VBG Base Excess -5.4 mmol/L (0.0-2.0) L 07/01/16 15:35 VBG Potassium 4.9 mmol/L (3.6-5.2) 07/01/16 15:35 Sodium 133.0 mmol/L (132-148) 07/01/16 15:35 Chloride 107.0 mmol/L (98-107) 07/01/16 15:35 Glucose 323 mg/dL (75-110) H 07/01/16 15:35 Lactate 3.1 mmol/L (0.7-2.1) H 07/01/16 15:35 FiO2 21.0 % 07/01/16 15:35 Sodium 135 mmol/l (132-148) 07/07/16 07:30 Potassium 4.9 MMOL/L (3.6-5.0) 07/07/16 07:30 Chloride 106 mmol/L (98-107) 07/07/16 07:30 Carbon Dioxide 21 mmol/L (22-30) L 07/07/16 07:30 Anion Gap 13 (10-20) 07/07/16 07:30 BUN 49 mg/dl (9-20) H 07/07/16 07:30 Creatinine 2.0 mg/dL (0.8-1.5) H 07/07/16 07:30 Est GFR ( Amer) 41 07/07/16 07:30 Est GFR (Non-Af Amer) 34 07/07/16 07:30 POC Glucose (mg/dL) 131 mg/dL (65-110) H 07/07/16 15:46 Random Glucose 145 mg/dL (75-110) H 07/07/16 07:30 Hemoglobin A1c 9.2 % (4.2-6.5) H 07/01/16 10:02 Serum Osmolality 308 mosm/kg (272-300) H 07/01/16 03:00 Lactic Acid 1.8 MMOL/L (0.7-2.1) 07/02/16 06:35 Calcium 8.2 mg/dL (8.4-10.2) L 07/07/16 07:30 Total Bilirubin 1.6 mg/dl (0.2-1.3) H 07/07/16 07:30 AST 32 U/L (17-59) 07/07/16 07:30 ALT 22 U/L (21-72) 07/07/16 07:30 Alkaline Phosphatase 131 U/L (38-126) H 07/07/16 07:30 Ammonia 28 umo/L (16-60) 07/05/16 10:45 Total Creatine Kinase 58 U/L (55-170) 07/02/16 06:35 Troponin I 0.0160 ng/mL (0.00-0.120) 07/01/16 10:02 NT-Pro-B Natriuret Pep 2260 pg/ml (0-900) H 07/01/16 10:02 Total Protein 6.8 G/DL (6.3-8.2) 07/07/16 07:30 Albumin 2.4 g/dL (3.5-5.0) L 07/07/16 07:30 Globulin 4.5 gm/dL (2.2-3.9) H 07/07/16 07:30 Albumin/Globulin Ratio 0.5 (1.0-2.1) L 07/07/16 07:30 Triglycerides 134 mg/DL (0-149) D 07/01/16 10:02 Cholesterol 87 mg/dL (0-199) 07/01/16 10:02 LDL Cholesterol Direct 45 mg/dL (0-129) 07/01/16 10:02 HDL Cholesterol 17 MG/DL (30-70) L 07/01/16 10:02 Alpha Fetoprotein 1.1 IU/mL (0.0-7.22) 07/03/16 04:20 Venous Blood Potassium 4.9 mmol/L (3.6-5.2) 07/01/16 15:35 Urine Color Yellow (YELLOW) 07/02/16 15:00 Urine Clarity Clear (Clear) 07/02/16 15:00 Urine pH 5.0 (5.0-8.0) 07/02/16 15:00 Ur Specific [place] 1.020 (1.003-1.030) 07/02/16 15:00 Urine Protein Negative mg/dL (NEGATIVE) 07/02/16 15:00 Urine Glucose (UA) Neg mg/dL (Normal) 07/02/16 15:00 Urine Ketones Negative mg/dL (NEGATIVE) 07/02/16 15:00 Urine Blood Negative (NEGATIVE) 07/02/16 15:00 Urine Nitrate Negative (NEGATIVE) 07/02/16 15:00 Urine Bilirubin Negative (NEGATIVE) 07/02/16 15:00 Urine Urobilinogen 2.0 mg/dL (0.2-1.0) 07/02/16 15:00 Ur Leukocyte Esterase Trace Inna/uL (Negative) 07/02/16 15:00 Urine RBC (Auto) 2 /hpf (0-3) 07/02/16 15:00 Urine Microscopic WBC 11 /hpf (0-5) H 07/02/16 15:00 Ur Squamous Epith Cells < 1 /hpf (0-5) 07/02/16 15:00 Ur Random Creatinine 185.7 mg/dL 07/02/16 15:15 Ur Random Sodium 7 mmol/L 07/02/16 15:15 Urine Opiates Screen Negative (NEGATIVE) 07/02/16 15:15 Urine Methadone Screen Negative (NEGATIVE) 07/02/16 15:15 Ur Barbiturates Screen Negative (NEGATIVE) 07/02/16 15:15 Ur Phencyclidine Scrn Negative (NEGATIVE) 07/02/16 15:15 Ur Amphetamines Screen Negative (NEGATIVE) 07/02/16 15:15 U Benzodiazepines Scrn Negative (NEGATIVE) 07/02/16 15:15 U Oth Cocaine Metabols Negative (NEGATIVE) 07/02/16 15:15 U Cannabinoids Screen Negative (NEGATIVE) 07/02/16 15:15 Serum Ketones Negative (NEGATIVE) 07/01/16 14:25 Blood Type A POSITIVE 07/01/16 11:32 Antibody Screen Negative 07/01/16 11:32 BBK History Checked Patient has bt 07/01/16 11:32 Discharge Exam - Head Exam Head Exam: ATRAUMATIC, NORMAL INSPECTION, NORMOCEPHALIC - Eye Exam Eye Exam: EOMI, Normal appearance, PERRL Pupil Exam: NORMAL ACCOMODATION, PERRL - Respiratory Exam Respiratory Exam: Clear to PA & Lateral, NORMAL BREATHING PATTERN, UNREMARKABLE - Cardiovascular Exam Cardiovascular Exam: REGULAR RHYTHM, RRR, +S1, +S2 - GI/Abdominal Exam GI & Abdominal Exam: Distended, Normal Bowel Sounds, Soft, Unremarkable - Neurological Exam Neurological exam: Abnormal Gait, Alert, CN II-XII Intact, Oriented x3, Reflexes Normal - Psychiatric Exam Psychiatric exam: Normal Affect, Normal Mood - Skin Skin Exam: Dry, Intact, Normal Color, Warm Discharge Plan - Follow Up Plan Condition: GUARDED Disposition: HOME/ ROUTINE Additional Instructions: pt doing well, for dc home as insurance lapsed, will be transported home by hvac. fianl dx-syncope, hepatic encephalopathy. f/u rmg 1-2 days, rted prn, meds per med rec
== END 2016-07-07 20:00 | disposition home or self-care (01) | DRG 557 ==
LOC: H.ER 09:37 → H.ERHOLD 12:20 → H.ICU/CCU 14:14 → H.MEDSURG1 07-03 11:56
PROVIDERS: ADMIT Family Medicine; ATTEND Family Medicine
DX: K72.00 Acute and subacute hepatic failure without coma (principal); N17.9 Acute kidney failure, unspecified; E87.2 Acidosis; K70.31 Alcoholic cirrhosis of liver with ascites; E11.22 Type 2 diabetes mellitus with diabetic chronic kidney disease; E11.65 Type 2 diabetes mellitus with hyperglycemia; E87.5 Hyperkalemia; R56.9 Unspecified convulsions; N18.9 Chronic kidney disease, unspecified; K76.6 Portal hypertension; D63.8 Anemia in other chronic diseases classified elsewhere; I12.9 Hypertensive chronic kidney disease with stage 1 through stage 4 chronic kidney disease, or unspecified chronic kidney disease; I69.351 Hemiplegia and hemiparesis following cerebral infarction affecting right dominant side; F10.10 Alcohol abuse, uncomplicated; E78.00 Pure hypercholesterolemia, unspecified; E66.9 Obesity, unspecified; Z68.30 Body mass index [BMI] 30.0-30.9, adult; F17.210 Nicotine dependence, cigarettes, uncomplicated; Z79.4 Long term (current) use of insulin

== ENCOUNTER 2016-07-15 21:52 | Inpatient (IN) | payer MEDICAID ==
[2016-07-15 22:30] LABS: ABG ALLEN TEST YES; ARTERIAL BLOOD GAS HCO3 9.8 mmol/L (21-28); ARTERIAL BLOOD GAS PH 7.13 (7.35-7.45); ARTERIAL BLOOD GAS PO2 57 mm/Hg (80-100)
[2016-07-15] MEDS ORDERED: Sodium Chloride 0.9% 2,000 ML IV STA (22:37)
[2016-07-15] MEDS ORDERED: Dextrose 50% SYRINGE Inj (50 ml) IV PRN (22:39)
[2016-07-15] MEDS ORDERED: Glucagon Recombinant 1 mg Inj IM PRN (22:39)
[2016-07-15] MEDS ORDERED: Insulin Regular 100 UNITS in Sodium Chloride 0.9% 100 ML IV SCH ×2 (22:45→23:00)
[2016-07-15] MEDS ORDERED: Sodium Bicarbonate 7.5% (0.9 MEQ/ML) 50ML INJ IV ONE (23:05)
[2016-07-15 23:25] LABS: ALB/GLOB RATIO 0.6 (1.0-2.1); BILIRUBIN,TOTAL 2.1 mg/dl (0.2-1.3); CALCIUM 9.1 mg/dL (8.4-10.2); MAGNESIUM 2.7 MG/DL (1.6-2.3); PHOSPHOROUS 7.3 mg/dl (2.5-4.5); TOTAL PROTEIN 6.7 G/DL (6.3-8.2)
[2016-07-15 23:35] LABS: POTASSIUM 6.8 MMOL/L (3.6-5.0)
[2016-07-15 23:36] LABS: TROPONIN I 0.029 ng/mL (0.00-0.120)
[2016-07-15 23:39] LABS: PARTIAL THROMBOPLASTIN TIME 35.1 SECONDS (23.3-32.5)
[2016-07-15 23:53] LABS: BASO % 0.1 % (0.0-2.0); EOS # 0.1 K/uL (0.0-0.7); EOS % 0.3 % (0.0-4.0); HEMATOCRIT 38.6 % (35.0-51.0); LYMPH # 0.4 K/uL (1.0-4.3); LYMPH % 1.7 % (20.0-40.0); MEAN CELL VOLUME 91.4 fl (80.0-94.0); MEAN CORPUSCULAR HEMOGLOBIN 26.1 pg (27.0-31.0); MEAN CORPUSCULAR HGB CONC 28.6 g/dL (33.0-37.0); MEAN PLATELET VOLUME 10.7 fl (7.2-11.7); MONO # 1.7 K/uL (0.0-0.8); MONO % 7.6 % (0.0-10.0); NEUT # 20.6 K/uL (1.8-7.0); NEUT % 90.3 % (50.0-75.0); NRBC % 0.1 % (0.0-0.0); PLATELET COUNT 119 K/uL (130-400); WHITE BLOOD COUNT 22.9 K/uL (4.8-10.8)
--- NOTE | 2016-07-16 00:08 | ED PDOC ---
HPI: Altered Mental Status Time Seen by Provider: 07/15/16 21:58 Chief Complaint (Nursing): Altered Mental Status Chief Complaint (Provider): altered mental status History Per: Family (son) History/Exam Limitations: Clinical Condition Additional Complaint(s): Altered mental status for 2 days, constant, worsening since onset Pt recently admitted to hospital for encephalopathy. Discharged home and has not been up out of bed since then. Over the last 2 days pt has only been moaning and not eating. Not taking meds for 2 days due to markedly altered mental status. Past Medical History Reviewed: Historical Data, Nursing Documentation, Vital Signs Vital Signs: Last Vital Signs Temp 99.1 F 07/15/16 22:12 Pulse 128 H 07/15/16 21:54 Resp 20 07/15/16 21:54 BP 113/56 L 07/15/16 21:54 Pulse Ox 78 L 07/15/16 21:54 - Medical History PMH: Anemia, CVA, Diabetes, HTN, Hypercholesterolemia, Pancreatitis, Chronic Kidney Disease Denies: HIV - Surgical History Surgical History: Carotid Endarterectomy, Hernia Repair (umbilical ) - Family History Family History: States: Unknown Family Hx - Immunization History Hx Tetanus Toxoid Vaccination: Yes Hx Influenza Vaccination: Yes Hx Pneumococcal Vaccination: Yes - Home Medications Home Medications: Ambulatory Orders Medication Instructions Recorded Dipyridamole [Persantine] 50 mg PO DAILY 05/15/15 GlipiZIDE [Glucotrol] 10 mg PO DAILY 05/15/15 Omeprazole [Prilosec] 20 mg PO DAILY 05/15/15 Sucralfate [Carafate] 1 gm PO BID 05/15/15 Folic Acid 1 mg PO DAILY 12/03/15 Metoprolol Succinate [Toprol XL] 50 mg PO DAILY 12/03/15 Simvastatin 10 mg PO DAILY 12/03/15 Spironolactone [Aldactone] 25 mg PO TID 05/21/16 - Allergies Allergies/Adverse Reactions: Allergies Allergy/AdvReac Type Severity Reaction Status Date / Time No Known Allergies Allergy Verified 07/15/16 23:10 Review of Systems Review Of Systems: ROS cannot be obtained secondary to pt's inabilty to answer questions. Physical Exam - Reviewed Nursing Documentation Reviewed: Yes Vital Signs Reviewed: Yes - Physical Exam Appears: Positive for: In Acute Distress (obtunded) Head Exam: Positive for: ATRAUMATIC, NORMOCEPHALIC Skin: Positive for: Warm, Dry, Pallor Eye Exam: Positive for: EOMI, Scleral icterus ENT: Positive for: Other (dry muc membranes, +gag) Neck: Positive for: Trachea Midline Cardiovascular/Chest: Positive for: Chest Non Tender, Edema, Tachycardia. Negative for: Murmur Respiratory: Positive for: Rhonchi (diffusely), Respiratory Distress (tachypnea) Gastrointestinal/Abdominal: Positive for: Soft, Tenderness (diffuse), Distended Male Genital Exam: Positive for: other (severe scrotal edema with hemostatic abrasion) Back: Positive for: Normal Inspection. Negative for: Decreased ROM Extremity: Positive for: Pedal Edema. Negative for: Deformity Lymphatic: Negative for: Adenopathy Neurologic/Psych: Positive for: Motor/Sensory Deficits. Negative for: Alert ( only moans to painful stimuli, localizing pain), Oriented - Laboratory Results Result Diagrams: 07/21/16 04:50 07/21/16 04:50 Interpretation Of Abn Labs: NOTE: ABOVE LABS ARE NOT LABS AT TIME OF ER EVALUATION. In ER pt demonstrated marked metabolic acidosis, lactic acidosis and diabetic ketoacidosis. Worsening renal insufficiency. Anemia and leukocytosis. Elevated ammonia c/w severe hepatic encephalopathy. - ECG ECG Rhythm: Positive for: Sinus Rhythm, Sinus Tachycardia, Nonspecific Changes O2 Sat by Pulse Oximetry: 78 Pulse Ox Interpretation: Abnormal (improved with 100 NRBM) - Radiology X-Ray Interpretation: Infiltrates (RIGHT side opacities: pneumonia v fluid ( third spacing with dependent RIGHT side preference)) Disposition - Clinical Impression Clinical Impression: Renal insufficiency, Metabolic acidosis, Liver cirrhosis, Scrotal edema, Hepatic encephalopathy Discussed With : Frank Carrillo Comment: Initially d/w Jovanysendy Shankar for pt was hospitalized under Dr Grace previously, as he was a patient of [facility]. However due to insurance lapse, pt is now unassigned a PMD and placed under hospitalist. D/w Dr Carrillo also for ICU placement. Counseled Patient/Family Regarding: Studies Performed, Diagnosis - Disposition Disposition Time: 22:00 Condition: CRITICAL - Pt Status Changed To: Hospital Disposition Of: Inpatient - Admit Certification Admit to Inpatient:: After my assessment, the patient will require hospitalization for at least two midnights. This is because of the severity of symptoms shown, intensity of services needed, and/or the medical risk in this patient being treated as an outpatient. - POA Present On Arrival: Falls Or Trauma, Poor Glycemic Control, Pressure Ulcer
--- NOTE | 2016-07-16 00:49 | CT ---
EXAM: CT Head Without Intravenous Contrast CLINICAL HISTORY: 60 years old, male; Signs and symptoms; Altered mental status/memory loss; Additional info: AMS TECHNIQUE: Axial computed tomography images of the head/brain without intravenous contrast. This CT exam was performed using one or more of the following dose reduction techniques: automated exposure control, adjustment of the mA and/or kV according to patient size, and/or use of iterative reconstruction technique. Coronal and sagittal reformatted images were created and reviewed. COMPARISON: CT - HEAD W/O (CODE STROKE) 07/01/2016 9:52:59 AM FINDINGS: Limitations: Motion artifact - mild. Brain: [id number] atrophy. No definite intracranial hemorrhage. Small subdural, predominantly CSF density, hygroma along RIGHT frontal parietal convexity, new in interval. Apparent minimally increased density along posterior aspect of hygroma vs artifact. Moderate encephalomalacia within LEFT frontal temporal parietal region. Few scattered foci of decreased attenuation within periventricular/subcortical white matter. No definite edema. Ventricles: No hydrocephalus. Bones/joints: No acute fracture. Soft tissues: Unremarkable. Vasculature: Mild atherosclerotic disease of intracranial arteries. Sinuses: No acute sinusitis. Mastoid air cells: No mastoid effusion. Orbits: Unremarkable as visualized. IMPRESSION: 1. RIGHT subdural hygroma. Component of acute or subacute hemorrhage not excluded. Followup is recommended. 2. Nonspecific white matter changes. Acute infarction may be CT occult within first 24 hours. If a focal deficit persists, consider followup CT or MRI for further evaluation. 3. Incidental/non-acute findings are described above.
[2016-07-16 01:25] LABS: MYELOCYTE 1 % (0-0); NEUTROPHIL 80 % (42-75); TOTAL CELLS COUNTED 100
[2016-07-16 01:26] LABS: ACANTHOCYTES SLIGHT
[2016-07-16] MEDS ORDERED: Glucagon Recombinant 1 mg Inj IM PRN ×2 (02:10→22:09)
[2016-07-16] MEDS ORDERED: Dextrose 50% SYRINGE Inj (50 ml) IV PRN ×3 (02:10→22:09)
[2016-07-16] MEDS ORDERED: Sodium Chloride 3% for Inhalation 4 ML VIAL.NEB IH PRN ×2 (02:10→02:59)
[2016-07-16] MEDS ORDERED: Insulin Regular 100 UNITS in Sodium Chloride 0.9% 100 ML IV SCH (02:15)
[2016-07-16] MEDS ORDERED: Midazolam 50 MG in Dextrose 5% In Water 50 ML IV ONE (03:20)
--- NOTE | 2016-07-16 03:21 | PCM.ANES ---
Anesthesia Emergent Intubation - Diagnosis Working Diagnosis:: Sepsis, ARF, DKA - Intubation Attempts Previous Number of Intubation Attempts:: 110 - Pre-Intubation Vital Signs Blood Pressure: 110/60 Heart Rate: 113 Respiratory Rate: 30 O2 Sat: 99 Oxygen Delivery Method: Mask Level Of Consciousness: Lethargic Intubation Meds Given: Propofol - Airway Management PreOxygenation: 5 Inhalation: No (No) Rapid Sequence: No (NO) Cricoid Pressure: Yes (NO) Possible Aspiration: No (NO) - Method of Intubation Intubation Method: Oral ETT ETT Size: 7.5 Easy: Yes (yes) Atramatic: Yes (yes) - Intubation Devices Rosa Blade Size Used: 3 Li Forcepts Used: No (No) [place] Scope Used: No (No) Fiber Optic Scope: No (No) - Placement Confirmation Breath Sounds Present & Equal Bilaterally: Yes (Yes) Positive EtCO2: Yes (Yes) Recommendations: Chest X Ray, ABG - Post-Intubation Vital Signs Blood Pressure: 93/59 Heart Rate: 110 Respiratory Rate: 24 O2 Sat: 100 FIO2: 100
[2016-07-16] MEDS ORDERED: Dextrose 5%/0.9% NS 1,000 ML IV SCH (03:45)
[2016-07-16] MEDS ORDERED: Sodium Chloride 0.9% 1,000 ML IV ONE (04:15)
[2016-07-16] MEDS ORDERED: Midazolam 5 MG/ML 50 MG in Dextrose 5% In Water 90 ML IV ONE (04:30)
[2016-07-16 05:44] LABS: EOS % 0.1 % (0.0-4.0); HEMATOCRIT 37.4 % (35.0-51.0); LYMPH # 0.8 K/uL (1.0-4.3); LYMPH % 4.2 % (20.0-40.0); MEAN CORPUSCULAR HGB CONC 28.3 g/dL (33.0-37.0); MEAN PLATELET VOLUME 10.3 fl (7.2-11.7); MONO # 0.6 K/uL (0.0-0.8); MONO % 3.2 % (0.0-10.0); NEUT % 92.5 % (50.0-75.0); RED CELL DISTRIBUTION WIDTH 23.6 % (11.5-14.5); WHITE BLOOD COUNT 19.4 K/uL (4.8-10.8)
[2016-07-16 05:46] LABS: VENOUS BLOOD GAS BASE EXCESS -17.9 mmol/L (0.0-2.0); VENOUS BLOOD GAS MODE A/C; VENOUS BLOOD GAS PCO2 30 mmHg (40-60); VENOUS BLOOD PH 7.13 (7.32-7.43)
[2016-07-16 05:56] LABS: ALB/GLOB RATIO 0.6 (1.0-2.1); ALKALINE PHOSPHATASE 108 U/L (38-126); ALT/SGPT 36 U/L (21-72); AST/SGOT 109 U/L (17-59); BILIRUBIN,TOTAL 2.1 mg/dl (0.2-1.3); BLOOD UREA NITROGEN 72 mg/dl (9-20); CALCIUM 8.5 mg/dL (8.4-10.2); CHLORIDE 113 mmol/L (98-107); CHOLESTEROL 52 mg/dL (0-199); GFR AFRICAN-AMERICAN 27; GLUCOSE,RANDOM 239 mg/dL (75-110); MAGNESIUM 2.4 MG/DL (1.6-2.3); PHOSPHOROUS 5.2 mg/dl (2.5-4.5); POTASSIUM 5.1 MMOL/L (3.6-5.0); SODIUM 145 mmol/l (132-148); TOTAL PROTEIN 6.2 G/DL (6.3-8.2)
[2016-07-16 05:57] LABS: ABG ALLEN TEST YES; ABG MECHANICAL RATE 12; ARTERIAL BLOOD GAS HCO3 10.9 mmol/L (21-28); ARTERIAL BLOOD GAS MODE A/C; ARTERIAL BLOOD GAS O2 CAPACITY 14.4 mL/dL (16-24); ARTERIAL BLOOD GAS O2 CONTENT 14.2 ML/dL (15-23); ARTERIAL BLOOD GAS PH 7.15 (7.35-7.45); ARTERIAL BLOOD GAS PO2 100 mm/Hg (80-100); CARBOXYHEMOGLOBIN 1.9 % (0.5-1.5); HHB 1.2 % (0.0-5.0); METHEMOGLOBIN 1.9 % (0.0-3.0)
[2016-07-16] MEDS ORDERED: Sodium Bicarbonate 7.5% (0.9 MEQ/ML) 50ML INJ IV ONE (06:17)
[2016-07-16 06:20] LABS: CARBON DIOXIDE 10 mmol/L (22-30)
[2016-07-16 06:22] LABS: PARTIAL THROMBOPLASTIN TIME 44.2 SECONDS (23.3-32.5)
[2016-07-16 06:30] VITALS: BMI 26.4
--- NOTE | 2016-07-16 08:12 | RAD ---
HISTORY: intubation COMPARISON: Comparison is made to 07/15/2016 FINDINGS: LUNGS: Status post intubation. Interval improvement in the right lung since the previous exam. PLEURA: Interval decrease in the size of the right pleural effusion. CARDIOVASCULAR: Normal. OSSEOUS STRUCTURES: No significant abnormalities. VISUALIZED UPPER ABDOMEN: Normal. OTHER FINDINGS: None. IMPRESSION: Status post intubation. The ET tube is seen appropriate position. Interval moderate improvement in the right chest.
--- NOTE | 2016-07-16 08:26 | CP.PCM.HP ---
History of Present Illness - History of Present Illness History of Present Illness: Chief Complaint: AMS/ Labored breathing HPI: PT is a 60 yo gentleman with a pmhx of ESLD with elevated INR, CVA (MCA distribution), DM, HTN, h/o pancreatitis, CKD who comes in after having been found unresponsive and with labored breathing according to the son who was present in the ER. PT in ER was found to be in DKA with an elevated lactic acid and "code Sepsis" called. Pt also has an elevated ammonia levels and found to be "gurgly/congested" in ER with infiltrate in chest xray. PT hypotensive in ED, transferred to ICU where the Pt was intubated and Central Line placed for stabilization. PT of note was recently discharged from Hospital. Pt is uncooperative with taking medication at home. He was hypoxic in the ED. Vital Signs: Last Vital Signs Temp 99.1 F 07/15/16 22:12 Pulse 128 H 07/15/16 21:54 Resp 20 07/15/16 21:54 BP 113/56 L 07/15/16 21:54 Pulse Ox 78 L 07/15/16 21:54 PMH: Anemia, CVA, Diabetes, HTN, Hypercholesterolemia, Pancreatitis, Chronic Kidney Disease, ESLD, Gi Bleeding Surgical History: Carotid Endarterectomy, Hernia Repair (umbilical ) Family History: Unknown at this time Home Medications: Ambulatory Orders Medication Instructions Recorded Dipyridamole [Persantine] 50 mg PO DAILY 05/15/15 GlipiZIDE [Glucotrol] 10 mg PO DAILY 05/15/15 Omeprazole [Prilosec] 20 mg PO DAILY 05/15/15 Sucralfate [Carafate] 1 gm PO BID 05/15/15 Folic Acid 1 mg PO DAILY 12/03/15 Metoprolol Succinate [Toprol XL] 50 mg PO DAILY 12/03/15 Simvastatin 10 mg PO DAILY 12/03/15 Spironolactone [Aldactone] 25 mg PO TID 05/21/16 Allergies/Adverse Reactions: Allergies Allergy/AdvReac Type Severity Reaction Status Date / Time No Known Allergies Allergy Verified 07/15/16 23:10 Review Of Systems: ROS cannot be obtained secondary to pt's inabilty to answer questions. Present on Admission - Present on Admission Any Indicators Present on Admission: No History of DVT/PE: No History of Uncontrolled Diabetes: Yes Urinary Catheter: Yes Decubitus Ulcer Present: Yes Decubitus Ulcer Stage: II Review of Systems - Review of Systems Systems not reviewed;Unavailable: Unstable Vital Signs, Respiratory Distress, Dementia, Altered Mental Status, Intoxicated, Uncooperative, Intubated - Constitutional Constitutional: Lethargy - EENT Eyes: As Per HPI Ears: As Per HPI Nose/Mouth/Throat: As Per HPI - Cardiovascular Cardiovascular: As Per HPI - Respiratory Respiratory: Excessive Mucous Production - Gastrointestinal Gastrointestinal: absent: As Per HPI, Abdominal Pain, Belching, Bloating, Change in Bowel Habits, Change in Stool Character, Coffee Ground Emesis, Constipation, Cramping, Diarrhea, Dyspepsia, Dysphagia, Early Satiety, Excessive Flatus, Fecal Incontinence, Heartburn, Hematemesis, Hematochezia, Loose Stools, Melena, Nausea, Odynophagia, Temesmus, Vomiting, Other - Genitourinary Genitourinary: absent: As Per HPI, Change in Urinary Stream, Difficulty Urinating, Dysuria, Flank Pain, Hematuria, Pyuria, Nocturia, Urinary Incontinence, Urinary Frequency, Urinary Hesitance, Urinary Urgency, Voiding Freq/Small Amts, Freq UTI, Hx Renal/Bladder Calculi, Hx /Renal Surgery, Bladder Distension, Other - Musculoskeletal Musculoskeletal: As Per HPI - Integumentary Integumentary: As Per HPI - Neurological Neurological: absent: As Per HPI, Abnormal Gait, Abnormal Hearing, Abnormal Movements, Abnormal Speech, Behavioral Changes, Burning Sensations, Confusion, Convulsions, Disequilibrium, Dizziness, Numbness, Focal Weakness, Frequent Falls , Headaches, Lack of Coordination, Loss of Vision, Memory Loss, Paresthesias, Radicular Pain, Restless Legs, Sensory Deficit, Syncope, Tingling, Tremor, Vertigo, Weakness, Other Visual Disturbances, Other - Psychiatric Psychiatric: absent: As Per HPI, Abnormal Sleep Pattern, Anhedonia, Anxiety, Auditory Hallucinations, Behavioral Changes, Change in Appetite, Change in Libido, Confusion, Depression, Difficulty Concentrating, Hallucinations, Homicidal Ideation, Hopelessness, Irritability, Memory Loss, Mood Swings, Panic Attacks, Paranoia, Suicidal Ideation, Visual Hallucinations, Tactile Hallucinations, Other - Endocrine Endocrine: absent: As Per HPI, Change in Body Appearance, Change in Libido, Cold Intolorance, Deepening of Voice, Excessive Sweating, Fatigue, Flushing, Heat Intolorance, Increase in Ring/Shoe/Hat Size, Palpitations, Polydipsia, Polyphagia, Polyuria, Other - Hematologic/Lymphatic Hematologic: As Per HPI Past Patient History - Infectious Disease Hx of Infectious Diseases: None - Past Medical History & Family History Past Medical History?: Yes Past Family History: Reviewed and not pertinent - Past Social History Smoking Status: Unknown If Ever Smoked Chewing Tobacco Use: No Cigar Use: No - CARDIAC Hx Hypercholesterolemia: Yes Hx Hypertension: Yes - PULMONARY Hx Respiratory Disorders: No - NEUROLOGICAL Hx Neurological Disorder: Yes - HEENT Hx HEENT Problems: No - RENAL Hx Chronic Kidney Disease: Yes - ENDOCRINE/METABOLIC Hx Endocrine Disorders: Yes - HEMATOLOGICAL/ONCOLOGICAL Hx Anemia: Yes Hx Human Immunodeficiency Virus (HIV): No - INTEGUMENTARY Hx Dermatological Problems: No - MUSCULOSKELETAL/RHEUMATOLOGICAL Hx Falls: Yes - GASTROINTESTINAL Hx Pancreatitis: Yes - GENITOURINARY/GYNECOLOGICAL Hx Genitourinary Disorders: No - PSYCHIATRIC Hx Substance Use: No - SURGICAL HISTORY Hx Carotid Endarterectomy: Yes - ANESTHESIA Hx Anesthesia: Yes Hx Anesthesia Reactions: No Has any member of the family had a problem w/ anesthesia?: No Meds Allergies/Adverse Reactions: Allergies Allergy/AdvReac Type Severity Reaction Status Date / Time No Known Allergies Allergy Verified 07/15/16 23:10 Physical Exam - Constitutional Appears: Toxic, In Acute Distress, Confused - Head Exam Head Exam: ATRAUMATIC, NORMAL INSPECTION, NORMOCEPHALIC - Eye Exam Pupil Exam: Irregular - ENT Exam ENT Exam: Mucous Membranes Dry - Respiratory Exam Respiratory Exam: Accessory Muscle Use, Rales, Rhonchi - Cardiovascular Exam Cardiovascular Exam: REGULAR RHYTHM, +S1, +S2 - GI/Abdominal Exam GI & Abdominal Exam: Normal Bowel Sounds, Soft - Exam Exam: Scrotal Swelling, Bladder Distension - Back Exam Back exam: NORMAL INSPECTION - Neurological Exam Neurological exam: Altered - Skin Skin Exam: Diaphoretic, Intact, Normal Color Results - Vital Signs Recent Vital Signs: Last Vital Signs Temp 97.4 F L 07/16/16 01:55 Pulse 117 H 07/16/16 07:00 Resp 22 07/16/16 07:00 BP 93/53 L 07/16/16 07:00 Pulse Ox 99 07/16/16 07:00 - Labs Result Diagrams: 07/16/16 04:35 07/16/16 04:35 Labs: Laboratory Results - last 24 hr 07/16/16 07/16/16 07/16/16 02:30 04:07 04:35 WBC RBC Hgb Hct MCV MCH MCHC RDW Plt Count MPV Neut % (Auto) Lymph % (Auto) Amelia % (Auto) Eos % (Auto) Baso % (Auto) Neut # Lymph # Amelia # Eos # Baso # PT INR APTT pCO2 pO2 HCO3 ABG pH ABG Total CO2 ABG O2 Saturation ABG O2 Content ABG Base Excess ABG Hemoglobin ABG Carboxyhemoglobin POC ABG HHb (Measured) ABG Methemoglobin ABG O2 Capacity [place] Test VBG pH VBG pCO2 VBG HCO3 VBG Total CO2 VBG O2 Sat (Calc) VBG Base Excess VBG Potassium A-a O2 Difference Hgb O2 Saturation Glucose Lactate Vent Mode Mechanical Rate FiO2 Tidal Volume Crit Value Called To Crit Value Called By Crit Value Read Back Blood Gas Notified Time Sodium 145 Potassium 5.1 H Chloride 113 H Carbon Dioxide 10 L* D Anion Gap 27 H BUN 72 H Creatinine 2.9 H Est GFR ( Amer) 27 Est GFR (Non-Af Amer) 22 POC Glucose (mg/dL) 238 H 235 H Random Glucose 239 H Lactic Acid Calcium 8.5 Phosphorus 5.2 H Magnesium 2.4 H Total Bilirubin 2.1 H AST 109 H D ALT 36 Alkaline Phosphatase 108 Troponin I 0.0500 Total Protein 6.2 L Albumin 2.3 L Globulin 3.9 Albumin/Globulin Ratio 0.6 L Triglycerides 101 D Cholesterol 52 LDL Cholesterol Direct < 30 HDL Cholesterol 11 L Venous Blood Potassium 07/16/16 07/16/16 07/16/16 04:35 04:35 04:35 WBC 19.4 H RBC 4.07 L Hgb 10.6 L Hct 37.4 MCV 92.0 MCH 26.0 L MCHC 28.3 L RDW 23.6 H Plt Count 71 L D MPV 10.3 Neut % (Auto) 92.5 H Lymph % (Auto) 4.2 L Amelia % (Auto) 3.2 Eos % (Auto) 0.1 Baso % (Auto) 0.0 Neut # 18.0 H Lymph # 0.8 L Amelia # 0.6 Eos # 0.0 Baso # 0.0 PT 30.4 H* D INR 2.92 H APTT 44.2 H pCO2 pO2 HCO3 ABG pH ABG Total CO2 ABG O2 Saturation ABG O2 Content ABG Base Excess ABG Hemoglobin ABG Carboxyhemoglobin POC ABG HHb (Measured) ABG Methemoglobin ABG O2 Capacity [place] Test VBG pH VBG pCO2 VBG HCO3 VBG Total CO2 VBG O2 Sat (Calc) VBG Base Excess VBG Potassium A-a O2 Difference Hgb O2 Saturation Glucose Lactate Vent Mode Mechanical Rate FiO2 Tidal Volume Crit Value Called To Crit Value Called By Crit Value Read Back Blood Gas Notified Time Sodium Potassium Chloride Carbon Dioxide Anion Gap BUN Creatinine Est GFR ( Amer) Est GFR (Non-Af Amer) POC Glucose (mg/dL) Random Glucose Lactic Acid 14.3 H* Calcium Phosphorus Magnesium Total Bilirubin AST ALT Alkaline Phosphatase Troponin I Total Protein Albumin Globulin Albumin/Globulin Ratio Triglycerides Cholesterol LDL Cholesterol Direct HDL Cholesterol Venous Blood Potassium 07/16/16 07/16/16 07/16/16 05:17 05:29 05:40 WBC RBC Hgb Hct MCV MCH MCHC RDW Plt Count MPV Neut % (Auto) Lymph % (Auto) Amelia % (Auto) Eos % (Auto) Baso % (Auto) Neut # Lymph # Amelia # Eos # Baso # PT INR APTT pCO2 27 L pO2 100 55 HCO3 10.9 L ABG pH 7.15 L* ABG Total CO2 10.2 L ABG O2 Saturation 98.8 H ABG O2 Content 14.2 L ABG Base Excess -18.0 L ABG Hemoglobin 10.5 L ABG Carboxyhemoglobin 1.9 H POC ABG HHb (Measured) 1.2 ABG Methemoglobin 1.9 ABG O2 Capacity 14.4 L [place] Test Yes VBG pH 7.13 L* VBG pCO2 30 L VBG HCO3 10.4 VBG Total CO2 10.9 L VBG O2 Sat (Calc) 89.1 H VBG Base Excess -17.9 L VBG Potassium 5.3 H A-a O2 Difference 294.0 Hgb O2 Saturation 95.0 Glucose 258 H Lactate 14.6 H* Vent Mode A/c Mechanical Rate 12 FiO2 60.0 50.0 Tidal Volume 500 Crit Value Called To Frank dean md Crit Value Called By 333 333 Crit Value Read Back Y Y Blood Gas Notified Time 555 550 Sodium 143.0 Potassium Chloride 110.0 H Carbon Dioxide Anion Gap BUN Creatinine Est GFR ( Amer) Est GFR (Non-Af Amer) POC Glucose (mg/dL) 228 H Random Glucose Lactic Acid Calcium Phosphorus Magnesium Total Bilirubin AST ALT Alkaline Phosphatase Troponin I Total Protein Albumin Globulin Albumin/Globulin Ratio Triglycerides Cholesterol LDL Cholesterol Direct HDL Cholesterol Venous Blood Potassium 5.3 H 07/16/16 06:27 WBC RBC Hgb Hct MCV MCH MCHC RDW Plt Count MPV Neut % (Auto) Lymph % (Auto) Amelia % (Auto) Eos % (Auto) Baso % (Auto) Neut # Lymph # Amelia # Eos # Baso # PT INR APTT pCO2 pO2 HCO3 ABG pH ABG Total CO2 ABG O2 Saturation ABG O2 Content ABG Base Excess ABG Hemoglobin ABG Carboxyhemoglobin POC ABG HHb (Measured) ABG Methemoglobin ABG O2 Capacity [place] Test VBG pH VBG pCO2 VBG HCO3 VBG Total CO2 VBG O2 Sat (Calc) VBG Base Excess VBG Potassium A-a O2 Difference Hgb O2 Saturation Glucose Lactate Vent Mode Mechanical Rate FiO2 Tidal Volume Crit Value Called To Crit Value Called By Crit Value Read Back Blood Gas Notified Time Sodium Potassium Chloride Carbon Dioxide Anion Gap BUN Creatinine Est GFR ( Amer) Est GFR (Non-Af Amer) POC Glucose (mg/dL) 261 H Random Glucose Lactic Acid Calcium Phosphorus Magnesium Total Bilirubin AST ALT Alkaline Phosphatase Troponin I Total Protein Albumin Globulin Albumin/Globulin Ratio Triglycerides Cholesterol LDL Cholesterol Direct HDL Cholesterol Venous Blood Potassium Assessment & Plan - Assessment and Plan (Free Text) Assessment: PT who comes in with AMS with ESLD and elevated INR with DKA and in respiratory failure and "code sepsis" being hypotensive. Plan: Admit to MICU 1) Code sepsis- pt started on Zosyn with loading dose of vanco - Central Line started in ICU - ID consult to be called - repeat lactic acid levels increasing - pancultures pending 2) DKA- pt started on insulin Drip - 2 Liter Fluid bolus with agressive fluid hydration 3) respiratory failure- intubated in the MICU - accessory muscle use and hypoxic - AMS unable to clear secretions 4) AMS secondary to acute infection and elevated Ammonia levels - pt has hygroma on ct scan findings 5) Hyperammonemia- secondary to ESLD and CKD 6) acute on chronic renal failure- worsening renal functions nephrology- pt septic started on iv fluids agressive 7) elevated INR- secondary to ESLD 8) Hypotension- currently normotensive after 3 liter bolus 9)GI prophylxis with protonix and Anticoagulation held secondary to elevated INR 10) Liver Cirrhosis-ascites present, pt on iv abx - gi consult to be called - Date & Time Date: 07/16/16 Time: 08:53
[2016-07-16] MEDS ORDERED: Phytonadione 10 mg/ml Inj (Adult) IV ONE (08:31)
--- NOTE | 2016-07-16 08:53 | CP.CCUPN ---
CCU Subjective - Physician Review Subjective (Free Text): BUSINESS INTELLIGENCE ANALYST PROCEDURE NOTE CENTRAL LINE INSERTION Indications: Poor peripheral IV access Under emergent conditions in ICU: After standard Time-Out procedure / protocol, using sterile technique and full barrier precautions, attempts to cannulate R IJ vein and R subclavian vein unsuccessful. Multiple fluids and drips presently running thru L EJ vein line. Arrow Triple Lumen Catheter inserted into Right Femoral Vein without any complications. All ports with good venous blood return and flushed with sterile saline. Patient tolerated the procedure well. Femoral site chosen under other following conditions including coagulopathy and thrombocytopenia.
[2016-07-16] MEDS ORDERED: PHYTONADIONE IV ONE (09:15)
[2016-07-16] MEDS ORDERED: DEXTROSE 5% IV ONE (09:15)
[2016-07-16] MEDS ORDERED: WATER IV ONE (09:15)
[2016-07-16 09:20] LABS: METAMYELOCYTE 1 % (0-0); NEUTROPHIL 74 % (42-75); TOTAL CELLS COUNTED 100
[2016-07-16 09:23] LABS: GIANT PLATELETS PRESENT; LARGE PLATELETS PRESENT
[2016-07-16 09:41] LABS: PLATELET COUNT 71 K/uL (130-400)
--- NOTE | 2016-07-16 10:03 | CARD ---
APPROVED REPORT EKG Measurement Heart [id number] <Conclusion> Sinus tachycardia Otherwise normal ECG
--- NOTE | 2016-07-16 10:05 | CARD ---
APPROVED REPORT EKG Measurement Heart [id number] <Conclusion> Sinus tachycardia Possible Left atrial enlargement Low voltage EKG Abnormal ECG
[2016-07-16] MEDS: Dextrose 5%/0.45% NS 1,000 ML IV SCH ×2 (10:06→16:31)
--- NOTE | 2016-07-16 10:46 | RAD ---
HISTORY: sob COMPARISON: Comparison is made to 07/01/2016 FINDINGS: LUNGS: Interval appearance of diffuse heterogeneous opacity at the right chest since the previous exam PLEURA: Suspicious for small to moderate size right pleural effusion. CARDIOVASCULAR: Normal. OSSEOUS STRUCTURES: No significant abnormalities. VISUALIZED UPPER ABDOMEN: Normal. OTHER FINDINGS: None. IMPRESSION: Heterogeneous opacity at the right lung likely associated with moderate pleural effusion.
--- NOTE | 2016-07-16 11:37 | CP.CCUPN ---
CCU Subjective - Physician Review Subjective (Free Text): DOCK PUMPER PROGRESS NOTE Patient examined, interim events reviewed, discussed with Night Hospitalist: No information obntainable from patient nor Son, 60M with PMH: DM II, ETOH abuse but quit 2009, ESLD, chronic ascites, testicular swelling/enlargement, Anemia with UGIBs, CVA with R hemiparesis, smoker In ER, admitted overnight for AMS for 2 days [employer] according to son, mostly sleeping but responsive to tactile stimuli from paramedics, brought into ER disoriented with labored breathing, subsequently orally intubated and placed on MV support. Initial eval in ER noted for treatment for DKA, remains on insulin drip and IVFs, recd 3 liters in ER before transfer to ICU, now on 100ml/hr [id number]. H is sedated on versed infusion. Hemodynamics appear stable, on no vasopressors, elevated lactate of 14 noted. vitals T max so far= 99.1F, BP 100/60, HR 119, RR 22. SPo2 97% on AC12, 60%. 500ml TV and PEEP 5. ROS: All pertinent Nursing notes, 10+ systems review unobtainable: otherwise as above. PMSFH: No other new pertinent information relative to current medical problems; otherwise as noted in Nursing documentation. EXAM- HEENT: no icterus, pupils midline, equal and reactive, no nystagmus NECK: no visible JVD, supple, carotids equal upstroke bilat/no bruits CHEST: decreased BS bases, no wheezes audible. HEART: regular, distant, S1S2, no murmur audible, no rubs. ABD: soft, + fluid wave, no increased distention, no tenderness, no guarding ; no HSM. BS hypoactive. GENITALIA: +marked scrotal edema with redness and firmness over dependent testicular skin areas. No signs of [place] gangrene. EXT: ++LE edema, no peripheral/ digital cyanosis, no calf tenderness or palpable cords, distal pulses intact and symmetrical NEURO: flaccid x 4 extremities SKIN: no rashes LABS: Lactate = 14.6 WBC= 19.4 HGB= 10.6 PLTs = 71K PT/INR/PTT= 30.4/29.2/44.2 ABG= 7.15/27/100 Na= 145 K= 5.1 HCO3= 10 BUN/Cr= 72/2.9 BS= 239 AST / ALT/ Alk Phos = 179/339/301 TBili= 2.1 Lipase= 55 CXR: asymmetric haziness with Infiltrative interstitial changes R lung worse than L. ETT position ok above william. (my interp) Assessment: 1. Acute resp insuff 2 Pneumonitis -underwent Code Sepsis eval in ER. 2. DKA, r/o HHS. 3. Chronic ascites 4. AMS 2 Occult Seizure activity, r/o recurrent CVA vs. Toxic / Metabolic Encephalopathy 5. Acute on Chronic Kidney Disease III, r/I ATN / Dehydration 6. Chronic Disease Anemia 7. Chronic Thrombocytopenia 8. Chronic Coagulopathy. PLAN: 1. MV support, sputum C&S, check repeat ABG, keep present vent settings, empiric abx coverage , to also cover for [id number] organisms; and cover for possible scrotal infection. ( Zosyn / Clinda / Vanco 2. Will change Versed drip to Ativan / morphine prn. 3. IVF hydration , maintain insulin drip for now, keep NPO. Monitor anion gap for resolution. 4. Check serum osmo. 5. Serial lactates or unless normalized. 6. Scrotal CT imaging, consider Urology eval. 7. Reverse INR a bit with FFP, give Vit K. 8. Clarify any Advance Directives
[2016-07-16 12:55] LABS: BASO % 0.1 % (0.0-2.0); LYMPH # 0.9 K/uL (1.0-4.3); LYMPH % 4.1 % (20.0-40.0)
[2016-07-16 13:05] LABS: EOS % 0.1 % (0.0-4.0); HEMATOCRIT 32.2 % (35.0-51.0); MEAN CORPUSCULAR HEMOGLOBIN 26.5 pg (27.0-31.0); MEAN CORPUSCULAR HGB CONC 30.3 g/dL (33.0-37.0); MEAN PLATELET VOLUME 10.1 fl (7.2-11.7); MONO # 1.1 K/uL (0.0-0.8); MONO % 5.1 % (0.0-10.0); NEUT # 19.5 K/uL (1.8-7.0); NEUT % 90.6 % (50.0-75.0); NRBC % 0.1 % (0.0-0.0); RED CELL DISTRIBUTION WIDTH 23.2 % (11.5-14.5); WHITE BLOOD COUNT 21.5 K/uL (4.8-10.8)
[2016-07-16 13:06] LABS: ALB/GLOB RATIO 0.5 (1.0-2.1); BILIRUBIN,TOTAL 1.9 mg/dl (0.2-1.3); CALCIUM 8.4 mg/dL (8.4-10.2); POTASSIUM 5.2 MMOL/L (3.6-5.0); TOTAL PROTEIN 5.7 G/DL (6.3-8.2)
[2016-07-16 13:09] LABS: MEAN CELL VOLUME 87.5 fl (80.0-94.0)
[2016-07-16] MEDS ORDERED: Sod Polystyrene Sulf 15 gm/60 ml Oral Susp GT ONE (13:42)
[2016-07-16 15:06] LABS: ABG ALLEN TEST YES; ABG MECHANICAL RATE 12; ARTERIAL BLOOD GAS HCO3 15.7 mmol/L (21-28); ARTERIAL BLOOD GAS MODE A/C; ARTERIAL BLOOD GAS O2 CAPACITY 13.9 mL/dL (16-24); ARTERIAL BLOOD GAS O2 CONTENT 13.7 ML/dL (15-23); ARTERIAL BLOOD GAS PH 7.24 (7.35-7.45); ARTERIAL BLOOD GAS PO2 87 mm/Hg (80-100); ARTERIAL BLOOD HGB O2 SAT 95.3 % (95.0-98.0); CARBOXYHEMOGLOBIN 1.9 % (0.5-1.5); HHB 1.3 % (0.0-5.0); METHEMOGLOBIN 1.5 % (0.0-3.0)
--- NOTE | 2016-07-16 15:30 | CP.PCM.CON ---
History of Present Illness - History of Present Illness History of Present Illness: Mr. Clarke is a 60-year-old man with a past medical history of a previous left MCA distribution stroke and multiple previous admissions pertaining to alcoholic hepatic cirrhosis, hepatic encephalopathy. associated co-morbid medical problems and non-compliance with medications. The patient is currently admitted for altered mental status from his baseline. I had seen him for a similar episode in the past, at which point there was concern for epileptiform activity and he was started on Keppra 250 mg BID. The patient has not been taking his medications, and presents with elevated ammonia levels, encephalopathy and respiratory distress requiring intubation and ventilator support. He is currently unresponsive and unable to provide any more information. Review of Systems - Review of Systems Systems not reviewed;Unavailable: Acuity of Condition, Unstable Vital Signs, Respiratory Distress, Altered Mental Status, Intubated All systems: reviewed and no additional remarkable complaints except Past Patient History - Infectious Disease Hx of Infectious Diseases: None - Past Medical History & Family History Past Medical History?: Yes Past Family History: Reviewed and not pertinent - Past Social History Smoking Status: Unknown If Ever Smoked Chewing Tobacco Use: No Cigar Use: No - CARDIAC Hx Hypercholesterolemia: Yes Hx Hypertension: Yes - PULMONARY Hx Respiratory Disorders: No - NEUROLOGICAL Hx Neurological Disorder: Yes - HEENT Hx HEENT Problems: No - RENAL Hx Chronic Kidney Disease: Yes - ENDOCRINE/METABOLIC Hx Endocrine Disorders: Yes - HEMATOLOGICAL/ONCOLOGICAL Hx Anemia: Yes Hx Human Immunodeficiency Virus (HIV): No - INTEGUMENTARY Hx Dermatological Problems: No - MUSCULOSKELETAL/RHEUMATOLOGICAL Hx Falls: Yes - GASTROINTESTINAL Hx Pancreatitis: Yes - GENITOURINARY/GYNECOLOGICAL Hx Genitourinary Disorders: No - PSYCHIATRIC Hx Substance Use: No - SURGICAL HISTORY Hx Carotid Endarterectomy: Yes - ANESTHESIA Hx Anesthesia: Yes Hx Anesthesia Reactions: No Has any member of the family had a problem w/ anesthesia?: No Meds Allergies/Adverse Reactions: Allergies Allergy/AdvReac Type Severity Reaction Status Date / Time No Known Allergies Allergy Verified 07/15/16 23:10 - Medications Medications: Current Medications Dextrose (Dextrose 50% Inj) 0 ml IV STAT PRN; Protocol PRN Reason: Hyglycemia Protocol Dextrose (Glutose 15) 0 gm PO ONCE PRN; Protocol PRN Reason: Hypoglycemia Protocol Dextrose (Dextrose 50% Inj) 0 ml IV STAT PRN; Protocol PRN Reason: Hyglycemia Protocol Dextrose (Glutose 15) 0 gm PO ONCE PRN; Protocol PRN Reason: Hypoglycemia Protocol Glucagon (Glucagen Diagnostic Kit) 0 mg IM STAT PRN; Protocol PRN Reason: Hypoglycemia Protocol Glucagon (Glucagen Diagnostic Kit) 0 mg IM STAT PRN; Protocol PRN Reason: Hypoglycemia Protocol Insulin Human Regular 100 (units/ Sodium Chloride) 101 mls @ 10.53 mls/hr IV .Q9H36M [facility]; 0.1 UNITS/KG/HR PRN Reason: Protocol Piperacillin Sod/Tazobactam (Sod 2.25 gm/ Sodium Chloride) 100 mls @ 100 mls/ hr IVPB Q6 [facility] Last Admin: 07/16/16 10:10 Dose: 100 mls/hr Dextrose/Sodium Chloride (Dextrose 5%/0.45% Ns 1000 Ml) 1,000 mls @ 200 mls/hr IV .Q5H [facility] Stop: 07/17/16 08:56 Last Admin: 07/16/16 10:06 Dose: 200 mls/hr Clindamycin Phosphate 600 mg/ (Sodium Chloride) 104 mls @ 104 mls/hr IVPB Q8 [facility] Vancomycin HCl 1 gm/ Sodium (Chloride) 250 mls @ 166.667 mls/hr IVPB DAILY [facility] Lactulose (Enulose) 20 gm PO BID [facility] Last Admin: 07/16/16 10:08 Dose: 20 gm Lorazepam (Ativan) 1 mg IVP Q4 PRN PRN Reason: Agitation Morphine Sulfate (Morphine) 4 mg IVP Q4 PRN PRN Reason: Pain, Mild (1-3) Pantoprazole Sodium (Protonix Inj) 40 mg IVP DAILY [facility] Last Admin: 07/16/16 10:09 Dose: 40 mg Physical Exam - Constitutional Appears: Toxic, In Acute Distress, Cachectic - Head Exam Head Exam: ATRAUMATIC, NORMAL INSPECTION, NORMOCEPHALIC - Eye Exam Eye Exam: PERRL, Scleral icterus Pupil Exam: PERRL - ENT Exam ENT Exam: Mucous Membranes Moist, Normal Exam - Neck Exam Neck exam: Positive for: Normal Inspection - Respiratory Exam Respiratory Exam: Accessory Muscle Use, Prolonged Expiratory Phase, Rhonchi, Wheezes, Respiratory Distress, Stridor - Cardiovascular Exam Cardiovascular Exam: +S1, +S2 - GI/Abdominal Exam GI & Abdominal Exam: Distended, Organomegaly, Soft. absent: Tenderness - Rectal Exam Rectal Exam: Deferred - Neurological Exam Additional comments: Intubated, off sedation, not following commands, brainstem responses are intact , withdraws to pain in all extremities, reflexes are brisk, plantar responses are upgoing: GCS= 6T - Skin Skin Exam: Dry, Intact, Normal Color, Warm Results - Vital Signs Recent Vital Signs: Last Vital Signs Temp 96.7 F L 07/16/16 12:00 Pulse 121 H 07/16/16 14:00 Resp 24 07/16/16 14:00 BP 98/56 L 07/16/16 14:00 Pulse Ox 100 07/16/16 14:00 - Labs Result Diagrams: 07/16/16 12:15 07/16/16 12:15 Labs: Laboratory Results - last 24 hr 07/16/16 07/16/16 07/16/16 02:30 04:07 04:35 WBC RBC Hgb Hct MCV MCH MCHC RDW Plt Count MPV Neut % (Auto) Lymph % (Auto) Mills % (Auto) Eos % (Auto) Baso % (Auto) Neut # Lymph # Mills # Eos # Baso # Total Counted Neutrophils % (Manual) Band Neutrophils % Lymphocytes % (Manual) Reactive Lymphs % Monocytes % (Manual) Eosinophils % (Manual) Basophils % (Manual) Metamyelocytes % Myelocytes % Promyelocytes % Blast Cells % Plasma Cell % (Manual) Nucleated RBC % Hypersegmented Polys Smudge Cells Toxic Granulation Dohle Bodies Moise Rods Platelet Estimate Plt Clumps, EDTA Large Platelets Giant Platelets RBC Morphology Polychromasia Hypochromasia (manual) Poikilocytosis (manual Basophilic Stippling Anisocytosis (manual) Microcytosis (manual) Macrocytosis (manual) Spherocytes Sickle Cells Target Cells Tear Drop Cells Ovalocytes Stomatocytes Helmet Cells Garcia-[place] Bodies Michael Cells Acanthocytes (Spur) Rouleaux Schistocytes PT INR APTT pCO2 pO2 HCO3 ABG pH ABG Total CO2 ABG O2 Saturation ABG O2 Content ABG Base Excess ABG Hemoglobin ABG Carboxyhemoglobin POC ABG HHb (Measured) ABG Methemoglobin ABG O2 Capacity [place] Test VBG pH VBG pCO2 VBG HCO3 VBG Total CO2 VBG O2 Sat (Calc) VBG Base Excess VBG Potassium A-a O2 Difference Hgb O2 Saturation Glucose Lactate Vent Mode Mechanical Rate FiO2 Tidal Volume Crit Value Called To Crit Value Called By Crit Value Read Back Blood Gas Notified Time Sodium 145 Potassium 5.1 H Chloride 113 H Carbon Dioxide 10 L* D Anion Gap 27 H BUN 72 H Creatinine 2.9 H Est GFR ( Amer) 27 Est GFR (Non-Af Amer) 22 POC Glucose (mg/dL) 238 H 235 H Random Glucose 239 H Serum Osmolality Lactic Acid Calcium 8.5 Phosphorus 5.2 H Magnesium 2.4 H Total Bilirubin 2.1 H AST 109 H D ALT 36 Alkaline Phosphatase 108 Total Creatine Kinase Troponin I 0.0500 Total Protein 6.2 L Albumin 2.3 L Globulin 3.9 Albumin/Globulin Ratio 0.6 L Triglycerides 101 D Cholesterol 52 LDL Cholesterol Direct < 30 HDL Cholesterol 11 L Venous Blood Potassium 07/16/16 07/16/16 07/16/16 04:35 04:35 04:35 WBC 19.4 H RBC 4.07 L Hgb 10.6 L Hct 37.4 MCV 92.0 MCH 26.0 L MCHC 28.3 L RDW 23.6 H Plt Count 71 L D MPV 10.3 Neut % (Auto) 92.5 H Lymph % (Auto) 4.2 L Mills % (Auto) 3.2 Eos % (Auto) 0.1 Baso % (Auto) 0.0 Neut # 18.0 H Lymph # 0.8 L Mills # 0.6 Eos # 0.0 Baso # 0.0 Total Counted Neutrophils % (Manual) 74 Band Neutrophils % 19 H* Lymphocytes % (Manual) 1 L Reactive Lymphs % Monocytes % (Manual) 5 Eosinophils % (Manual) Basophils % (Manual) Metamyelocytes % 1 H Myelocytes % Promyelocytes % Blast Cells % Plasma Cell % (Manual) Nucleated RBC % Hypersegmented Polys Smudge Cells Toxic Granulation Dohle Bodies Moise Rods Platelet Estimate Decreased L Plt Clumps, EDTA Large Platelets Present Giant Platelets Present RBC Morphology Polychromasia Hypochromasia (manual) Poikilocytosis (manual Moderate Basophilic Stippling Anisocytosis (manual) Slight Microcytosis (manual) Macrocytosis (manual) Spherocytes Sickle Cells Target Cells Tear Drop Cells Slight Ovalocytes Stomatocytes Helmet Cells Garcia-[place] Bodies Michael Cells Moderate Acanthocytes (Spur) Rouleaux Schistocytes Slight PT 30.4 H* D INR 2.92 H APTT 44.2 H pCO2 pO2 HCO3 ABG pH ABG Total CO2 ABG O2 Saturation ABG O2 Content ABG Base Excess ABG Hemoglobin ABG Carboxyhemoglobin POC ABG HHb (Measured) ABG Methemoglobin ABG O2 Capacity [place] Test VBG pH VBG pCO2 VBG HCO3 VBG Total CO2 VBG O2 Sat (Calc) VBG Base Excess VBG Potassium A-a O2 Difference Hgb O2 Saturation Glucose Lactate Vent Mode Mechanical Rate FiO2 Tidal Volume Crit Value Called To Crit Value Called By Crit Value Read Back Blood Gas Notified Time Sodium Potassium Chloride Carbon Dioxide Anion Gap BUN Creatinine Est GFR ( Amer) Est GFR (Non-Af Amer) POC Glucose (mg/dL) Random Glucose Serum Osmolality Lactic Acid 14.3 H* Calcium Phosphorus Magnesium Total Bilirubin AST ALT Alkaline Phosphatase Total Creatine Kinase Troponin I Total Protein Albumin Globulin Albumin/Globulin Ratio Triglycerides Cholesterol LDL Cholesterol Direct HDL Cholesterol Venous Blood Potassium 07/16/16 07/16/16 07/16/16 05:17 05:29 05:40 WBC RBC Hgb Hct MCV MCH MCHC RDW Plt Count MPV Neut % (Auto) Lymph % (Auto) Mills % (Auto) Eos % (Auto) Baso % (Auto) Neut # Lymph # Mills # Eos # Baso # Total Counted Neutrophils % (Manual) Band Neutrophils % Lymphocytes % (Manual) Reactive Lymphs % Monocytes % (Manual) Eosinophils % (Manual) Basophils % (Manual) Metamyelocytes % Myelocytes % Promyelocytes % Blast Cells % Plasma Cell % (Manual) Nucleated RBC % Hypersegmented Polys Smudge Cells Toxic Granulation Dohle Bodies Moise Rods Platelet Estimate Plt Clumps, EDTA Large Platelets Giant Platelets RBC Morphology Polychromasia Hypochromasia (manual) Poikilocytosis (manual Basophilic Stippling Anisocytosis (manual) Microcytosis (manual) Macrocytosis (manual) Spherocytes Sickle Cells Target Cells Tear Drop Cells Ovalocytes Stomatocytes Helmet Cells Garcia-[place] Bodies Michael Cells Acanthocytes (Spur) Rouleaux Schistocytes PT INR APTT pCO2 27 L pO2 100 55 HCO3 10.9 L ABG pH 7.15 L* ABG Total CO2 10.2 L ABG O2 Saturation 98.8 H ABG O2 Content 14.2 L ABG Base Excess -18.0 L ABG Hemoglobin 10.5 L ABG Carboxyhemoglobin 1.9 H POC ABG HHb (Measured) 1.2 ABG Methemoglobin 1.9 ABG O2 Capacity 14.4 L [place] Test Yes VBG pH 7.13 L* VBG pCO2 30 L VBG HCO3 10.4 VBG Total CO2 10.9 L VBG O2 Sat (Calc) 89.1 H VBG Base Excess -17.9 L VBG Potassium 5.3 H A-a O2 Difference 294.0 Hgb O2 Saturation 95.0 Glucose 258 H Lactate 14.6 H* Vent Mode A/c Mechanical Rate 12 FiO2 60.0 50.0 Tidal Volume 500 Crit Value Called To Frank dean md Crit Value Called By 333 333 Crit Value Read Back Y Y Blood Gas Notified Time 555 550 Sodium 143.0 Potassium Chloride 110.0 H Carbon Dioxide Anion Gap BUN Creatinine Est GFR ( Amer) Est GFR (Non-Af Amer) POC Glucose (mg/dL) 228 H Random Glucose Serum Osmolality Lactic Acid Calcium Phosphorus Magnesium Total Bilirubin AST ALT Alkaline Phosphatase Total Creatine Kinase Troponin I Total Protein Albumin Globulin Albumin/Globulin Ratio Triglycerides Cholesterol LDL Cholesterol Direct HDL Cholesterol Venous Blood Potassium 5.3 H 07/16/16 07/16/16 07/16/16 06:27 08:10 08:33 WBC RBC Hgb Hct MCV MCH MCHC RDW Plt Count MPV Neut % (Auto) Lymph % (Auto) Mills % (Auto) Eos % (Auto) Baso % (Auto) Neut # Lymph # Mills # Eos # Baso # Total Counted Neutrophils % (Manual) Band Neutrophils % Lymphocytes % (Manual) Reactive Lymphs % Monocytes % (Manual) Eosinophils % (Manual) Basophils % (Manual) Metamyelocytes % Myelocytes % Promyelocytes % Blast Cells % Plasma Cell % (Manual) Nucleated RBC % Hypersegmented Polys Smudge Cells Toxic Granulation Dohle Bodies Moise Rods Platelet Estimate Plt Clumps, EDTA Large Platelets Giant Platelets RBC Morphology Polychromasia Hypochromasia (manual) Poikilocytosis (manual Basophilic Stippling Anisocytosis (manual) Microcytosis (manual) Macrocytosis (manual) Spherocytes Sickle Cells Target Cells Tear Drop Cells Ovalocytes Stomatocytes Helmet Cells Garcia-[place] Bodies Michael Cells Acanthocytes (Spur) Rouleaux Schistocytes PT INR APTT pCO2 pO2 HCO3 ABG pH ABG Total CO2 ABG O2 Saturation ABG O2 Content ABG Base Excess ABG Hemoglobin ABG Carboxyhemoglobin POC ABG HHb (Measured) ABG Methemoglobin ABG O2 Capacity [place] Test VBG pH VBG pCO2 VBG HCO3 VBG Total CO2 VBG O2 Sat (Calc) VBG Base Excess VBG Potassium A-a O2 Difference Hgb O2 Saturation Glucose Lactate Vent Mode Mechanical Rate FiO2 Tidal Volume Crit Value Called To Crit Value Called By Crit Value Read Back Blood Gas Notified Time Sodium Potassium Chloride Carbon Dioxide Anion Gap BUN Creatinine Est GFR ( Amer) Est GFR (Non-Af Amer) POC Glucose (mg/dL) 261 H 257 H 241 H Random Glucose Serum Osmolality Lactic Acid Calcium Phosphorus Magnesium Total Bilirubin AST ALT Alkaline Phosphatase Total Creatine Kinase Troponin I Total Protein Albumin Globulin Albumin/Globulin Ratio Triglycerides Cholesterol LDL Cholesterol Direct HDL Cholesterol Venous Blood Potassium 07/16/16 07/16/16 07/16/16 08:46 09:31 12:15 WBC 21.5 H RBC 3.68 L Hgb 9.7 L Hct 32.2 L MCV 87.5 D MCH 26.5 L MCHC 30.3 L RDW 23.2 H Plt Count 67 L MPV 10.1 Neut % (Auto) 90.6 H Lymph % (Auto) 4.1 L Mills % (Auto) 5.1 Eos % (Auto) 0.1 Baso % (Auto) 0.1 Neut # 19.5 H Lymph # 0.9 L Mills # 1.1 H Eos # 0.0 Baso # 0.0 Total Counted Cancelled Neutrophils % (Manual) Cancelled Band Neutrophils % Cancelled Lymphocytes % (Manual) Cancelled Reactive Lymphs % Cancelled Monocytes % (Manual) Cancelled Eosinophils % (Manual) Cancelled Basophils % (Manual) Cancelled Metamyelocytes % Cancelled Myelocytes % Cancelled Promyelocytes % Cancelled Blast Cells % Cancelled Plasma Cell % (Manual) Cancelled Nucleated RBC % Cancelled Hypersegmented Polys Cancelled Smudge Cells Cancelled Toxic Granulation Cancelled Dohle Bodies Cancelled Moise Rods Cancelled Platelet Estimate Cancelled Plt Clumps, EDTA Cancelled Large Platelets Cancelled Giant Platelets Cancelled RBC Morphology Cancelled Polychromasia Cancelled Hypochromasia (manual) Cancelled Poikilocytosis (manual Cancelled Basophilic Stippling Cancelled Anisocytosis (manual) Cancelled Microcytosis (manual) Cancelled Macrocytosis (manual) Cancelled Spherocytes Cancelled Sickle Cells Cancelled Target Cells Cancelled Tear Drop Cells Cancelled Ovalocytes Cancelled Stomatocytes Cancelled Helmet Cells Cancelled Garcia-[place] Bodies Cancelled Michael Cells Cancelled Acanthocytes (Spur) Cancelled Rouleaux Cancelled Schistocytes Cancelled PT INR APTT pCO2 pO2 HCO3 ABG pH ABG Total CO2 ABG O2 Saturation ABG O2 Content ABG Base Excess ABG Hemoglobin ABG Carboxyhemoglobin POC ABG HHb (Measured) ABG Methemoglobin ABG O2 Capacity [place] Test VBG pH VBG pCO2 VBG HCO3 VBG Total CO2 VBG O2 Sat (Calc) VBG Base Excess VBG Potassium A-a O2 Difference Hgb O2 Saturation Glucose Lactate Vent Mode Mechanical Rate FiO2 Tidal Volume Crit Value Called To Crit Value Called By Crit Value Read Back Blood Gas Notified Time Sodium Potassium Chloride Carbon Dioxide Anion Gap BUN Creatinine Est GFR ( Amer) Est GFR (Non-Af Amer) POC Glucose (mg/dL) 226 H 265 H Random Glucose Serum Osmolality Lactic Acid Calcium Phosphorus Magnesium Total Bilirubin AST ALT Alkaline Phosphatase Total Creatine Kinase Troponin I Total Protein Albumin Globulin Albumin/Globulin Ratio Triglycerides Cholesterol LDL Cholesterol Direct HDL Cholesterol Venous Blood Potassium 07/16/16 07/16/16 07/16/16 12:15 12:15 12:15 WBC RBC Hgb Hct MCV MCH MCHC RDW Plt Count MPV Neut % (Auto) Lymph % (Auto) Mills % (Auto) Eos % (Auto) Baso % (Auto) Neut # Lymph # Mills # Eos # Baso # Total Counted Neutrophils % (Manual) Band Neutrophils % Lymphocytes % (Manual) Reactive Lymphs % Monocytes % (Manual) Eosinophils % (Manual) Basophils % (Manual) Metamyelocytes % Myelocytes % Promyelocytes % Blast Cells % Plasma Cell % (Manual) Nucleated RBC % Hypersegmented Polys Smudge Cells Toxic Granulation Dohle Bodies Moise Rods Platelet Estimate Plt Clumps, EDTA Large Platelets Giant Platelets RBC Morphology Polychromasia Hypochromasia (manual) Poikilocytosis (manual Basophilic Stippling Anisocytosis (manual) Microcytosis (manual) Macrocytosis (manual) Spherocytes Sickle Cells Target Cells Tear Drop Cells Ovalocytes Stomatocytes Helmet Cells Garcia-[place] Bodies Rewey Cells Acanthocytes (Spur) Rouleaux Schistocytes PT INR APTT pCO2 pO2 HCO3 ABG pH ABG Total CO2 ABG O2 Saturation ABG O2 Content ABG Base Excess ABG Hemoglobin ABG Carboxyhemoglobin POC ABG HHb (Measured) ABG Methemoglobin ABG O2 Capacity [place] Test VBG pH VBG pCO2 VBG HCO3 VBG Total CO2 VBG O2 Sat (Calc) VBG Base Excess VBG Potassium A-a O2 Difference Hgb O2 Saturation Glucose Lactate Vent Mode Mechanical Rate FiO2 Tidal Volume Crit Value Called To Crit Value Called By Crit Value Read Back Blood Gas Notified Time Sodium 146 Potassium 5.2 H Chloride 112 H Carbon Dioxide 15 L Anion Gap 24 H BUN 75 H Creatinine 3.1 H Est GFR ( Amer) 25 Est GFR (Non-Af Amer) 21 POC Glucose (mg/dL) Random Glucose 235 H Serum Osmolality 332 H Lactic Acid 7.9 H* Calcium 8.4 Phosphorus Magnesium Total Bilirubin 1.9 H AST 124 H ALT 42 Alkaline Phosphatase 81 Total Creatine Kinase 53 L Troponin I Total Protein 5.7 L Albumin 2.0 L Globulin 3.7 Albumin/Globulin Ratio 0.5 L Triglycerides Cholesterol LDL Cholesterol Direct HDL Cholesterol Venous Blood Potassium 07/16/16 15:00 WBC RBC Hgb Hct MCV MCH MCHC RDW Plt Count MPV Neut % (Auto) Lymph % (Auto) Mills % (Auto) Eos % (Auto) Baso % (Auto) Neut # Lymph # Mills # Eos # Baso # Total Counted Neutrophils % (Manual) Band Neutrophils % Lymphocytes % (Manual) Reactive Lymphs % Monocytes % (Manual) Eosinophils % (Manual) Basophils % (Manual) Metamyelocytes % Myelocytes % Promyelocytes % Blast Cells % Plasma Cell % (Manual) Nucleated RBC % Hypersegmented Polys Smudge Cells Toxic Granulation Dohle Bodies Moise Rods Platelet Estimate Plt Clumps, EDTA Large Platelets Giant Platelets RBC Morphology Polychromasia Hypochromasia (manual) Poikilocytosis (manual Basophilic Stippling Anisocytosis (manual) Microcytosis (manual) Macrocytosis (manual) Spherocytes Sickle Cells Target Cells Tear Drop Cells Ovalocytes Stomatocytes Helmet Cells Garcia-[place] Bodies Rewey Cells Acanthocytes (Spur) Rouleaux Schistocytes PT INR APTT pCO2 34 L pO2 87 HCO3 15.7 L ABG pH 7.24 L ABG Total CO2 15.6 L ABG O2 Saturation 98.7 H ABG O2 Content 13.7 L ABG Base Excess -11.8 L ABG Hemoglobin 10.1 L ABG Carboxyhemoglobin 1.9 H POC ABG HHb (Measured) 1.3 ABG Methemoglobin 1.5 ABG O2 Capacity 13.9 L [place] Test Yes VBG pH VBG pCO2 VBG HCO3 VBG Total CO2 VBG O2 Sat (Calc) VBG Base Excess VBG Potassium A-a O2 Difference 298.0 Hgb O2 Saturation 95.3 Glucose Lactate Vent Mode A/c Mechanical Rate 12 FiO2 60.0 Tidal Volume 500 Crit Value Called To Crit Value Called By Crit Value Read Back Blood Gas Notified Time Sodium Potassium Chloride Carbon Dioxide Anion Gap BUN Creatinine Est GFR ( Amer) Est GFR (Non-Af Amer) POC Glucose (mg/dL) Random Glucose Serum Osmolality Lactic Acid Calcium Phosphorus Magnesium Total Bilirubin AST ALT Alkaline Phosphatase Total Creatine Kinase Troponin I Total Protein Albumin Globulin Albumin/Globulin Ratio Triglycerides Cholesterol LDL Cholesterol Direct HDL Cholesterol Venous Blood Potassium - Imaging and Cardiology CT scan - head Status: Image reviewed by me, Report reviewed by me (Evidence of right sided subdural hygroma and chronic left MCA infarct with encephalomalacia.) Assessment & Plan (1) Toxic metabolic encephalopathy Assessment and Plan: Continue management of underlying metabolic and/or infectious process. May resume Keppra at 250 mg Q12 for seizure prophylaxis. May consider an EEG if he does not improve. An MRI can be done if there are any new focal deficits if/ when he is more alert. Thank you very much for this consultation. Status: Acute Priority: High
[2016-07-16] MEDS: Clindamycin 600 MG in Sodium Chloride 0.9% 100 ML IVPB SCH (16:42)
--- NOTE | 2016-07-16 19:01 | CP.PCM.PN ---
Subjective - Date & Time of Evaluation Date of Evaluation: 07/16/16 Time of Evaluation: 16:55 - Subjective Subjective: I D NOTE PATIENT EXAMINED ,CHART REVIEWED CASE DISCUSSED C SUPERVISOR EXTRUSION FOR PRESENT AGREE C ANTIBIOTIC TEWATMENT MAY CONSIDER CHANGING CLINDAMYCIN C FLAGYL AWAIT CULTURE RESULTS AND EVALUATION Objective - Vital Signs/Intake and Output Vital Signs (last 24 hours): Temp Pulse Resp BP Pulse Ox 97.4 F L 126 H 24 95/60 L 98 07/16/16 16:00 07/16/16 17:00 07/16/16 17:00 07/16/16 17:00 07/16/16 17:00 Intake and Output: 07/16/16 07/16/16 06:59 18:59 Intake Total 3235 1910 Balance 3235 1910 - Medications Medications: Current Medications Dextrose (Dextrose 50% Inj) 0 ml IV STAT PRN; Protocol PRN Reason: Hyglycemia Protocol Dextrose (Glutose 15) 0 gm PO ONCE PRN; Protocol PRN Reason: Hypoglycemia Protocol Dextrose (Dextrose 50% Inj) 0 ml IV STAT PRN; Protocol PRN Reason: Hyglycemia Protocol Dextrose (Glutose 15) 0 gm PO ONCE PRN; Protocol PRN Reason: Hypoglycemia Protocol Glucagon (Glucagen Diagnostic Kit) 0 mg IM STAT PRN; Protocol PRN Reason: Hypoglycemia Protocol Glucagon (Glucagen Diagnostic Kit) 0 mg IM STAT PRN; Protocol PRN Reason: Hypoglycemia Protocol Insulin Human Regular 100 (units/ Sodium Chloride) 101 mls @ 10.53 mls/hr IV .Q9H36M [facility]; 0.1 UNITS/KG/HR PRN Reason: Protocol Piperacillin Sod/Tazobactam (Sod 2.25 gm/ Sodium Chloride) 100 mls @ 100 mls/ hr IVPB Q6 [facility] Last Admin: 07/16/16 16:40 Dose: 100 mls/hr Dextrose/Sodium Chloride (Dextrose 5%/0.45% Ns 1000 Ml) 1,000 mls @ 200 mls/hr IV .Q5H [facility] Stop: 07/17/16 08:56 Last Admin: 07/16/16 16:31 Dose: 200 mls/hr Clindamycin Phosphate 600 mg/ (Sodium Chloride) 104 mls @ 104 mls/hr IVPB Q8 [facility] Last Admin: 07/16/16 16:42 Dose: 104 mls/hr Vancomycin HCl 1 gm/ Sodium (Chloride) 250 mls @ 166.667 mls/hr IVPB DAILY [facility] Last Admin: 07/16/16 16:39 Dose: 166.667 mls/hr Lactulose (Enulose) 20 gm PO BID [facility] Last Admin: 07/16/16 16:35 Dose: 20 gm Lorazepam (Ativan) 1 mg IVP Q4 PRN PRN Reason: Agitation Morphine Sulfate (Morphine) 4 mg IVP Q4 PRN PRN Reason: Pain, Mild (1-3) Pantoprazole Sodium (Protonix Inj) 40 mg IVP DAILY [facility] Last Admin: 07/16/16 10:09 Dose: 40 mg - Labs Labs: 07/16/16 12:15 07/16/16 12:15 PT 30.4 SECONDS (9.6-11.2) H* D 07/16/16 04:35 INR 2.92 (0.92-1.08) H 07/16/16 04:35 APTT 44.2 SECONDS (23.3-32.5) H 07/16/16 04:35
--- NOTE | 2016-07-16 23:29 | CON ---
DATE: 07/16/2016 REFERRING PHYSICIAN: Dr. Shankar. REASON FOR CONSULTATION: Encephalopathy, sepsis, history of cirrhosis. HISTORY OF PRESENT ILLNESS: This is a 60-year-old man with history of end-stage liver disease, old C VA, diabetes, hypertension, CKD, who comes in basically unresponsive and code sepsis was called. The patient was intubated in the ICU . As per the son, the patient was found in his apartment unre sponsive for which ambulance was called. The patient is noncompliant with medications in the outpati ent setting, currently on the vent and cannot give a history. PAST MEDICAL HISTORY: As above. PAST SURGICAL HISTORY: As above. MEDICATIONS: Have been reviewed. REVIEW OF SYSTEMS: All other systems unable to obtain. PHYSICAL EXAMINATION: VITAL SIGNS: Grossly unremarkable. GENERAL: This is a pleasant, elderly-appearing male, unresponsive. HEAD: Normocephalic, atraumatic. EYES: Pupils equally reactive to light bilaterally. LUNGS: Clear to auscultation bilaterally. HEART: S1, S2. Regular rate and rhythm. No murmur appreciated. ABDOMEN: Soft, nondistended, nontender. Bowel sounds present. No rebound, no guarding. RECTAL: Deferred. EXTREMITIES: Pulses present bilaterally. SKIN: Warm, dry and intact. NEUROLOGIC: Alert and oriented x 0; he responds to pain. LABORATORY DATA: Labs reviewed. WBC is 21.5, hemoglobin of 9.7, hematocrit of 32.2, platelet count is . There is a left shift on the CBC. INR is 2.92. Sugars of 500, now 258. Lactic acid is c urrently 14.6. Potassium is 6.8, down to 5.2. were over 100. AST/ALT 124/42, total bilirubin 1.9. ASSESSMENT AND PLAN: This is a 60-year-old man with cirrhosis and unresponsive and sepsis. ICU leve l care. Antibiotics as indicated. From a GI standpoint, lactulose to q.i.d. and Xifaxan. Prognosis is guarded. We will follow the patient with you. Thank you for the consult. Chencho Guzman MD, PhD cc:Jovany SERRANO [id number] TT: 07/16/2016 23:28:59 Confirmation # [id number] Dictation # [id number] mn
[2016-07-17] MEDS: Clindamycin 600 MG in Sodium Chloride 0.9% 100 ML IVPB SCH ×3 (00:51→18:12)
[2016-07-17] MEDS: Dextrose 5%/0.45% NS 1,000 ML IV SCH (03:05)
[2016-07-17 05:43] LABS: ABG ALLEN TEST YES; ABG MECHANICAL RATE 12; ARTERIAL BLOOD GAS HCO3 12.2 mmol/L (21-28); ARTERIAL BLOOD GAS MODE A/C; ARTERIAL BLOOD GAS PH 7.16 (7.35-7.45); ARTERIAL BLOOD GAS PO2 75 mm/Hg (80-100)
[2016-07-17 06:55] LABS: BASO # 0.1 K/uL (0.0-0.2); BASO % 0.3 % (0.0-2.0); EOS % 0.1 % (0.0-4.0); HEMATOCRIT 30.6 % (35.0-51.0); LYMPH # 0.3 K/uL (1.0-4.3); LYMPH % 1.1 % (20.0-40.0); MEAN CELL VOLUME 89.6 fl (80.0-94.0); MEAN PLATELET VOLUME 9.6 fl (7.2-11.7); MONO # 1.5 K/uL (0.0-0.8); MONO % 5.3 % (0.0-10.0); NEUT # 25.8 K/uL (1.8-7.0); NEUT % 93.2 % (50.0-75.0); NRBC % 0.1 % (0.0-0.0); RED CELL DISTRIBUTION WIDTH 24.3 % (11.5-14.5); WHITE BLOOD COUNT 27.7 K/uL (4.8-10.8)
[2016-07-17 07:14] LABS: PARTIAL THROMBOPLASTIN TIME 45.3 SECONDS (23.3-32.5)
--- NOTE | 2016-07-17 07:43 | CP.PCM.PN ---
Subjective - Date & Time of Evaluation Date of Evaluation: 07/17/16 Time of Evaluation: 07:42 - Subjective Subjective: pt on vent. no distress. on pressors for bp control. on insulin gtt for glucose control. vent support noted. pt on anbx. all consults noted. bw noted. case d/c w/ principal electrical engineer. Objective - Vital Signs/Intake and Output Vital Signs (last 24 hours): Temp Pulse Resp BP Pulse Ox 98.3 F 128 H 30 H 92/54 L 97 07/17/16 04:00 07/17/16 07:00 07/17/16 07:00 07/17/16 07:00 07/17/16 06:00 Intake and Output: 07/17/16 07/17/16 06:59 18:59 Intake Total 2400 Balance 2400 - Medications Medications: Current Medications Dextrose (Dextrose 50% Inj) 0 ml IV STAT PRN; Protocol PRN Reason: Hyglycemia Protocol Dextrose (Glutose 15) 0 gm PO ONCE PRN; Protocol PRN Reason: Hypoglycemia Protocol Glucagon (Glucagen Diagnostic Kit) 0 mg IM STAT PRN; Protocol PRN Reason: Hypoglycemia Protocol Piperacillin Sod/Tazobactam (Sod 2.25 gm/ Sodium Chloride) 100 mls @ 100 mls/ hr IVPB Q6 [facility] Last Admin: 07/17/16 04:09 Dose: 100 mls/hr Dextrose/Sodium Chloride (Dextrose 5%/0.45% Ns 1000 Ml) 1,000 mls @ 200 mls/hr IV .Q5H [facility] Stop: 07/17/16 08:56 Last Admin: 07/17/16 03:05 Dose: 200 mls/hr Clindamycin Phosphate 600 mg/ (Sodium Chloride) 104 mls @ 104 mls/hr IVPB Q8 [facility] Last Admin: 07/17/16 00:51 Dose: 104 mls/hr Vancomycin HCl 1 gm/ Sodium (Chloride) 250 mls @ 166.667 mls/hr IVPB DAILY [facility] Last Admin: 07/16/16 16:39 Dose: 166.667 mls/hr Insulin Human Regular 100 (units/ Sodium Chloride) 101 mls @ 2.02 mls/hr IVPB .Q24H [facility]; 2 UNITS/HR PRN Reason: Protocol Phenylephrine HCl 10 mg/ (Sodium Chloride) 251 mls @ 30.12 mls/hr IV .Q8H20M [facility]; 20 MCG/MIN PRN Reason: Protocol Last Admin: 07/17/16 01:19 Dose: 20 mcg/min, 30.12 mls/hr Lactulose (Enulose) 20 gm PO BID [facility] Last Admin: 07/16/16 16:35 Dose: 20 gm Lorazepam (Ativan) 1 mg IVP Q4 PRN PRN Reason: Agitation Morphine Sulfate (Morphine) 4 mg IVP Q4 PRN PRN Reason: Pain, Mild (1-3) Pantoprazole Sodium (Protonix Inj) 40 mg IVP DAILY [facility] Last Admin: 07/16/16 10:09 Dose: 40 mg - Labs Labs: 07/16/16 12:15 07/16/16 12:15 PT 25.9 SECONDS (9.6-11.2) H 07/17/16 06:32 INR 2.49 (0.92-1.08) H 07/17/16 06:32 APTT 45.3 SECONDS (23.3-32.5) H 07/17/16 06:32 - Constitutional Appears: No Acute Distress, Chronically Ill - Head Exam Head Exam: ATRAUMATIC, NORMAL INSPECTION, NORMOCEPHALIC - Eye Exam Eye Exam: EOMI, Normal appearance, PERRL Pupil Exam: NORMAL ACCOMODATION, PERRL - ENT Exam ENT Exam: Mucous Membranes Moist, Normal Exam - Neck Exam Neck Exam: Full ROM, Normal Inspection. absent: Lymphadenopathy - Respiratory Exam Respiratory Exam: Clear to Ausculation Bilateral Additional comments: vented - Cardiovascular Exam Cardiovascular Exam: REGULAR RHYTHM, RRR, +S1, +S2. absent: Murmur - GI/Abdominal Exam GI & Abdominal Exam: Soft, Normal Bowel Sounds. absent: Tenderness - Extremities Exam Extremities Exam: Full ROM, Normal Capillary Refill, Normal Inspection. absent : Joint Swelling, Pedal Edema - Back Exam Back Exam: NORMAL INSPECTION - Neurological Exam Neurological Exam: Alert, Awake, CN II-XII Intact, Normal Gait, Oriented x3 - Psychiatric Exam Psychiatric exam: Normal Affect, Normal Mood - Skin Skin Exam: Dry, Intact, Normal Color, Warm Assessment and Plan (1) Toxic metabolic encephalopathy Assessment & Plan: icu care neuro regulate lytes vent support pt is comatose, son made pt dnr today supportive but aggressive care extensive discussion w/ icu team Status: Acute (2) VICENTE (acute kidney injury) Assessment & Plan: nephro ivf regulate acid/base balance ?? dialysis ca gluconate, insulin, dextrose given bicarb given for metabolic acidosis Status: Acute (3) DVT prophylaxis Assessment & Plan: scd and aehose ?? dic so hold anticoag Status: Acute (4) Diabetes type 2, uncontrolled Assessment & Plan: insulin gtt, pt in dka, glucose q1h. icu care Status: Acute (5) Hyperkalemia Status: Acute (6) Old cerebrovascular accident (CVA) without late effect Assessment & Plan: neuro ct head, neuro checks Status: Chronic (7) Scrotal edema Assessment & Plan: uro scrotal edema elevate testes Status: Chronic - Assessment and Plan (Free Text) Assessment: pt in serious condition. son aware of all. case d/c w/ consultants pt made dnr by son will follow closely. poor prognosis
[2016-07-17 08:17] LABS: ALB/GLOB RATIO 0.6 (1.0-2.1); BILIRUBIN,TOTAL 2.2 mg/dl (0.2-1.3); CALCIUM 8.3 mg/dL (8.4-10.2); TOTAL PROTEIN 5.5 G/DL (6.3-8.2)
[2016-07-17 08:21] LABS: PLATELET COUNT 41 K/uL (130-400)
[2016-07-17 08:28] LABS: POTASSIUM 5.5 MMOL/L (3.6-5.0)
[2016-07-17] MEDS ORDERED: Sodium Chloride 0.9% 500 ML IV ONE (08:38)
[2016-07-17] MEDS ORDERED: Sodium Bicarbonate 7.5% (0.9 MEQ/ML) 50ML INJ IV ONE ×2 (08:38→08:40)
[2016-07-17] MEDS ORDERED: Midazolam 50 MG in Sodium Chloride 0.9% 50 ML IV ONE (08:40)
[2016-07-17] MEDS ORDERED: Dextrose 50% SYRINGE Inj (50 ml) IVP ONE (08:41)
[2016-07-17] MEDS ORDERED: Insulin Lispro (humaLOG) 100 Units/ml Inj IVP ONE (08:43)
--- NOTE | 2016-07-17 09:09 | RAD ---
HISTORY: Intubated. Portable upright study 04:45. COMPARISON: July 16, 2016. FINDINGS: LUNGS: Stable consolidative changes right lung. PLEURA: No significant interval change compared to the prior examination(s). CARDIOVASCULAR: No radiographic findings to suggest acute or significant cardiovascular disease. OSSEOUS STRUCTURES: No significant abnormalities. VISUALIZED UPPER ABDOMEN: Normal. OTHER FINDINGS: Satisfactory position endotracheal tube. No interval change. IMPRESSION: No significant interval change compared to the prior examination(s).
[2016-07-17] MEDS ORDERED: Calcium Gluconate 4.65 mEq/10 ml Inj IV ONE (09:30)
[2016-07-17] MEDS ORDERED: Insulin Regular 100 units/ml IV ONE (10:20)
[2016-07-17] MEDS ORDERED: Calcium Gluconate 4.6 MEQ in Sodium Chloride 0.9% 100 ML IV ONE (10:30)
--- NOTE | 2016-07-17 10:48 | CP.CCUPN ---
<Aixa Palumbo - Last Filed: 07/17/16 12:17> CCU Subjective - Physician Review Subjective (Free Text): 07/17/16 11:02 Patient seen and examined at bedside and discussed with ICU attending during morning rounds. He remains intubated and sedated on mechanical ventilation. He does not respond to verbal or painful stimuli and continues to require pressors (currently receiving phenylephrine at 20mcg/min). Patient remains afebrile. CCU Objective - Vital Signs / Intake & Output Vital Signs (Last 4 hours): Vital Signs Temp Pulse Resp BP Pulse Ox 07/17/16 08:45 98.6 F 128 H 29 H 89/55 L 97 07/17/16 07:00 128 H 30 H 92/54 L 07/17/16 06:00 129 H 32 H 101/56 L 97 Intake and Output (Last 8hrs): Intake & Output 07/16/16 07/17/16 07/17/16 22:59 06:59 14:59 Intake Total 1250 1600 Balance 1250 1600 Intake: IV 700 1400 Intake, Piggyback 550 200 - Physical Exam Head: Positive for: Atraumatic, Normocephalic Mouth: Positive for: Dry Respiratory/Chest: Positive for: Other (B/L air entry present however markedly decreased in right lung doran, particuluarly right base. Occasional course breath sounds appreciated with no wheezes audbile. Abdominal breathing present.) . Negative for: Wheezes Cardiovascular: Positive for: Tachycardic, Other (Regular rhythm.). Negative for: Murmurs Abdomen: Positive for: Distention (Slightly distended), Normal Bowel Sounds, Other (Abdomen soft) Genitourinary Male: Positive for: Other (Marked scrotal edema present which is firm and erythematous. No signs of gangrene or skin breakdown present. Right groin TLC present with no erythema or signs of infection. ) Upper Extremity: Negative for: Edema Lower Extremity: Positive for: Edema (2+ pitting edema present up to the knees b /l) - Medications Active Medications: Active Medications Generic Name Dose Route Start Last Admin Trade Name Freq PRN Reason Stop Dose Admin Dextrose 0 ml 07/16/16 22:09 Dextrose 50% Inj IV STAT PRN Hyglycemia Protocol Protocol Dextrose 0 gm 07/16/16 22:09 Glutose 15 PO ONCE PRN Hypoglycemia Protocol Protocol Glucagon 0 mg 07/16/16 22:09 Glucagen Diagnostic Kit IM STAT PRN Hypoglycemia Protocol Protocol Piperacillin Sod/Tazobactam 100 mls @ 100 mls/hr 07/16/16 04:00 07/17/16 09: 25 Sod 2.25 gm/ Sodium Chloride IVPB 100 mls/hr Q6 FAVIAN Administration Clindamycin Phosphate 600 mg/ 104 mls @ 104 mls/hr 07/16/16 17:00 07/17/16 09 :25 Sodium Chloride IVPB 104 mls/hr Q8 FAVIAN Administration Vancomycin HCl 1 gm/ Sodium 250 mls @ 166.667 mls/hr 07/16/16 13:45 07/17/16 09:25 Chloride IVPB 166.667 mls/hr DAILY FAVIAN Administration Insulin Human Regular 100 101 mls @ 2.02 mls/hr 07/16/16 19:40 units/ Sodium Chloride IVPB .Q24H FAVIAN Protocol 2 UNITS/HR Phenylephrine HCl 10 mg/ 251 mls @ 30.12 mls/hr 07/17/16 00:45 07/17/16 01:19 Sodium Chloride IV 20 mcg/min .Q8H20M FAVIAN 30.12 mls/hr Protocol Administration 20 MCG/MIN Midazolam HCl 50 mg/ Sodium 100 mls @ 4 mls/hr 07/17/16 08:40 Chloride IV 07/18/16 08:39 .Q24H ONE Protocol 2 MG/HR Lactulose 20 gm 07/16/16 09:00 07/16/16 16:35 Enulose PO 20 gm BID FAVIAN Administration Lorazepam 1 mg 07/16/16 09:00 Ativan IVP Q4 PRN Agitation Morphine Sulfate 4 mg 07/16/16 09:01 Morphine IVP Q4 PRN Pain, Mild (1-3) Pantoprazole Sodium 40 mg 07/16/16 09:00 07/16/16 10:09 Protonix Inj IVP 40 mg DAILY FAVIAN Administration - Patient Studies Lab Studies: Microbiology Studies 07/16/16 04:35 Blood Culture - Preliminary Blood NO GROWTH AFTER 24 HOURS 07/16/16 04:35 Blood Culture - Preliminary Blood NO GROWTH AFTER 24 HOURS 07/16/16 13:11 Gram Stain - Final Trachasp 07/16/16 10:59 Gram Stain - Final Trachasp Lab Studies 0507/17/16 07/17/16 Range/Units 08:11 06:59 06:32 WBC (4.8-10.8) K/uL RBC (4.40-5.90) Mil/uL Hgb (12.0-18.0) g/dL Hct (35.0-51.0) % MCV (80.0-94.0) fl MCH (27.0-31.0) pg MCHC (33.0-37.0) g/dL RDW (11.5-14.5) % Plt Count (130-400) K/uL MPV (7.2-11.7) fl Neut % (Auto) (50.0-75.0) % Lymph % (Auto) (20.0-40.0) % [place] % (Auto) (0.0-10.0) % Eos % (Auto) (0.0-4.0) % Baso % (Auto) (0.0-2.0) % Neut # (1.8-7.0) K/uL Lymph # (1.0-4.3) K/uL [place] # (0.0-0.8) K/uL Eos # (0.0-0.7) K/uL Baso # (0.0-0.2) K/uL Total Counted Neutrophils % (Manual) Band Neutrophils % Lymphocytes % (Manual) Reactive Lymphs % Monocytes % (Manual) Eosinophils % (Manual) Basophils % (Manual) Metamyelocytes % Myelocytes % Promyelocytes % Blast Cells % Plasma Cell % (Manual) Nucleated RBC % Hypersegmented Polys Smudge Cells Toxic Granulation Dohle Bodies Moise Rods Platelet Estimate Plt Clumps, EDTA Large Platelets Giant Platelets RBC Morphology Polychromasia Hypochromasia (manual) Poikilocytosis (manual Basophilic Stippling Anisocytosis (manual) Microcytosis (manual) Macrocytosis (manual) Spherocytes Sickle Cells Target Cells Tear Drop Cells Ovalocytes Stomatocytes Helmet Cells [place] Bodies [place] Cells Acanthocytes (Spur) Rouleaux Schistocytes PT (9.6-11.2) SECONDS INR (0.92-1.08) APTT (23.3-32.5) SECONDS pCO2 (35-45) mm/Hg pO2 (80-100) mm/Hg HCO3 (21-28) mmol/L ABG pH (7.35-7.45) ABG Total CO2 (22-28) mmol/L ABG O2 Saturation (95-98) % ABG O2 Content (15-23) ML/dL ABG Base Excess (-2.0-3.0) mmol/L ABG Hemoglobin (11.7-17.4) g/dL ABG Carboxyhemoglobin (0.5-1.5) % POC ABG HHb (Measured) (0.0-5.0) % ABG Methemoglobin (0.0-3.0) % ABG O2 Capacity (16-24) mL/dL [place] Test ABG Potassium (3.6-5.2) mmol/L A-a O2 Difference mm/Hg Hgb O2 Saturation (95.0-98.0) % Glucose (75-110) mg/dL Lactate (0.7-2.1) mmol/L Vent Mode Mechanical Rate FiO2 % Tidal Volume Crit Value Called To Crit Value Called By Crit Value Read Back Blood Gas Notified Time Sodium (132-148) mmol/l Potassium (3.6-5.0) MMOL/L Chloride (98-107) mmol/L Carbon Dioxide (22-30) mmol/L Anion Gap (10-20) BUN (9-20) mg/dl Creatinine (0.8-1.5) mg/dL Est GFR ( Amer) Est GFR (Non-Af Amer) POC Glucose (mg/dL) 221 H 192 H (65-110) mg/dL Random Glucose (75-110) mg/dL Hemoglobin A1c (4.2-6.5) % Serum Osmolality 340 H (272-300) mosm/kg Lactic Acid (0.7-2.1) MMOL/L Calcium (8.4-10.2) mg/dL Total Bilirubin (0.2-1.3) mg/dl AST (17-59) U/L ALT (21-72) U/L Alkaline Phosphatase (38-126) U/L Total Creatine Kinase (55-170) U/L Total Protein (6.3-8.2) G/DL Albumin (3.5-5.0) g/dL Globulin (2.2-3.9) gm/dL Albumin/Globulin Ratio (1.0-2.1) Procalcitonin (0.19-0.49) NG/ML Arterial Blood Potassium (3.6-5.2) mmol/L 07/17/16 07/17/16 07/17/16 Range/Units 06:32 06:32 06:32 WBC 27.7 H (4.8-10.8) K/uL RBC 3.42 L (4.40-5.90) Mil/uL Hgb 8.9 L (12.0-18.0) g/dL Hct 30.6 L (35.0-51.0) % MCV 89.6 D (80.0-94.0) fl MCH 26.0 L (27.0-31.0) pg MCHC 29.0 L (33.0-37.0) g/dL RDW 24.3 H (11.5-14.5) % Plt Count 41 L D (130-400) K/uL MPV 9.6 (7.2-11.7) fl Neut % (Auto) 93.2 H (50.0-75.0) % Lymph % (Auto) 1.1 L (20.0-40.0) % [place] % (Auto) 5.3 (0.0-10.0) % Eos % (Auto) 0.1 (0.0-4.0) % Baso % (Auto) 0.3 (0.0-2.0) % Neut # 25.8 H (1.8-7.0) K/uL Lymph # 0.3 L (1.0-4.3) K/uL [place] # 1.5 H (0.0-0.8) K/uL Eos # 0.0 (0.0-0.7) K/uL Baso # 0.1 (0.0-0.2) K/uL Total Counted Neutrophils % (Manual) Band Neutrophils % Lymphocytes % (Manual) Reactive Lymphs % Monocytes % (Manual) Eosinophils % (Manual) Basophils % (Manual) Metamyelocytes % Myelocytes % Promyelocytes % Blast Cells % Plasma Cell % (Manual) Nucleated RBC % Hypersegmented Polys Smudge Cells Toxic Granulation Dohle Bodies Moise Rods Platelet Estimate Plt Clumps, EDTA Large Platelets Giant Platelets RBC Morphology Polychromasia Hypochromasia (manual) Poikilocytosis (manual Basophilic Stippling Anisocytosis (manual) Microcytosis (manual) Macrocytosis (manual) Spherocytes Sickle Cells Target Cells Tear Drop Cells Ovalocytes Stomatocytes Helmet Cells [place] Bodies Michael Cells Acanthocytes (Spur) Rouleaux Schistocytes PT 25.9 H (9.6-11.2) SECONDS INR 2.49 H (0.92-1.08) APTT 45.3 H (23.3-32.5) SECONDS pCO2 (35-45) mm/Hg pO2 (80-100) mm/Hg HCO3 (21-28) mmol/L ABG pH (7.35-7.45) ABG Total CO2 (22-28) mmol/L ABG O2 Saturation (95-98) % ABG O2 Content (15-23) ML/dL ABG Base Excess (-2.0-3.0) mmol/L ABG Hemoglobin (11.7-17.4) g/dL ABG Carboxyhemoglobin (0.5-1.5) % POC ABG HHb (Measured) (0.0-5.0) % ABG Methemoglobin (0.0-3.0) % ABG O2 Capacity (16-24) mL/dL [place] Test ABG Potassium (3.6-5.2) mmol/L A-a O2 Difference mm/Hg Hgb O2 Saturation (95.0-98.0) % Glucose (75-110) mg/dL Lactate (0.7-2.1) mmol/L Vent Mode Mechanical Rate FiO2 % Tidal Volume Crit Value Called To Crit Value Called By Crit Value Read Back Blood Gas Notified Time Sodium 144 (132-148) mmol/l Potassium 5.5 H (3.6-5.0) MMOL/L Chloride 113 H (98-107) mmol/L Carbon Dioxide 13 L (22-30) mmol/L Anion Gap 24 H (10-20) BUN 81 H (9-20) mg/dl Creatinine 3.8 H (0.8-1.5) mg/dL Est GFR ( Amer) 20 Est GFR (Non-Af Amer) 16 POC Glucose (mg/dL) (65-110) mg/dL Random Glucose 167 H (75-110) mg/dL Hemoglobin A1c (4.2-6.5) % Serum Osmolality (272-300) mosm/kg Lactic Acid (0.7-2.1) MMOL/L Calcium 8.3 L (8.4-10.2) mg/dL Total Bilirubin 2.2 H (0.2-1.3) mg/dl AST 124 H (17-59) U/L ALT 50 (21-72) U/L Alkaline Phosphatase 91 (38-126) U/L Total Creatine Kinase (55-170) U/L Total Protein 5.5 L (6.3-8.2) G/DL Albumin 2.0 L (3.5-5.0) g/dL Globulin 3.5 (2.2-3.9) gm/dL Albumin/Globulin Ratio 0.6 L (1.0-2.1) Procalcitonin (0.19-0.49) NG/ML Arterial Blood Potassium (3.6-5.2) mmol/L 07/17/16 07/17/16 07/17/16 Range/Units 05:54 05:32 05:00 WBC (4.8-10.8) K/uL RBC (4.40-5.90) Mil/uL Hgb (12.0-18.0) g/dL Hct (35.0-51.0) % MCV (80.0-94.0) fl MCH (27.0-31.0) pg MCHC (33.0-37.0) g/dL RDW (11.5-14.5) % Plt Count (130-400) K/uL MPV (7.2-11.7) fl Neut % (Auto) (50.0-75.0) % Lymph % (Auto) (20.0-40.0) % [place] % (Auto) (0.0-10.0) % Eos % (Auto) (0.0-4.0) % Baso % (Auto) (0.0-2.0) % Neut # (1.8-7.0) K/uL Lymph # (1.0-4.3) K/uL [place] # (0.0-0.8) K/uL Eos # (0.0-0.7) K/uL Baso # (0.0-0.2) K/uL Total Counted Neutrophils % (Manual) Band Neutrophils % Lymphocytes % (Manual) Reactive Lymphs % Monocytes % (Manual) Eosinophils % (Manual) Basophils % (Manual) Metamyelocytes % Myelocytes % Promyelocytes % Blast Cells % Plasma Cell % (Manual) Nucleated RBC % Hypersegmented Polys Smudge Cells Toxic Granulation Dohle Bodies Moise Rods Platelet Estimate Plt Clumps, EDTA Large Platelets Giant Platelets RBC Morphology Polychromasia Hypochromasia (manual) Poikilocytosis (manual Basophilic Stippling Anisocytosis (manual) Microcytosis (manual) Macrocytosis (manual) Spherocytes Sickle Cells Target Cells Tear Drop Cells Ovalocytes Stomatocytes Helmet Cells [place] Bodies [place] Cells Acanthocytes (Spur) Rouleaux Schistocytes PT (9.6-11.2) SECONDS INR (0.92-1.08) APTT (23.3-32.5) SECONDS pCO2 32 L (35-45) mm/Hg pO2 75 L (80-100) mm/Hg HCO3 12.2 L (21-28) mmol/L ABG pH 7.16 L* (7.35-7.45) ABG Total CO2 12.4 L (22-28) mmol/L ABG O2 Saturation 97.2 (95-98) % ABG O2 Content (15-23) ML/dL ABG Base Excess -16.1 L (-2.0-3.0) mmol/L ABG Hemoglobin (11.7-17.4) g/dL ABG Carboxyhemoglobin (0.5-1.5) % POC ABG HHb (Measured) (0.0-5.0) % ABG Methemoglobin (0.0-3.0) % ABG O2 Capacity (16-24) mL/dL [place] Test Yes ABG Potassium 5.7 H (3.6-5.2) mmol/L A-a O2 Difference 313.0 mm/Hg Hgb O2 Saturation (95.0-98.0) % Glucose 182 H (75-110) mg/dL Lactate 9.7 H* (0.7-2.1) mmol/L Vent Mode A/c Mechanical Rate 12 FiO2 60.0 % Tidal Volume 500 Crit Value Called To [place] garcia rn Crit Value Called By 6005 Crit Value Read Back Y Blood Gas Notified Time 535 Sodium 141.0 (132-148) mmol/l Potassium (3.6-5.0) MMOL/L Chloride 111.0 H (98-107) mmol/L Carbon Dioxide (22-30) mmol/L Anion Gap (10-20) BUN (9-20) mg/dl Creatinine (0.8-1.5) mg/dL Est GFR ( Amer) Est GFR (Non-Af Amer) POC Glucose (mg/dL) 190 H 191 H (65-110) mg/dL Random Glucose (75-110) mg/dL Hemoglobin A1c (4.2-6.5) % Serum Osmolality (272-300) mosm/kg Lactic Acid (0.7-2.1) MMOL/L Calcium (8.4-10.2) mg/dL Total Bilirubin (0.2-1.3) mg/dl AST (17-59) U/L ALT (21-72) U/L Alkaline Phosphatase (38-126) U/L Total Creatine Kinase (55-170) U/L Total Protein (6.3-8.2) G/DL Albumin (3.5-5.0) g/dL Globulin (2.2-3.9) gm/dL Albumin/Globulin Ratio (1.0-2.1) Procalcitonin (0.19-0.49) NG/ML Arterial Blood Potassium 5.7 H (3.6-5.2) mmol/L 07/17/16 07/17/16 07/17/16 Range/Units 04:06 02:52 02:03 WBC (4.8-10.8) K/uL RBC (4.40-5.90) Mil/uL Hgb (12.0-18.0) g/dL Hct (35.0-51.0) % MCV (80.0-94.0) fl MCH (27.0-31.0) pg MCHC (33.0-37.0) g/dL RDW (11.5-14.5) % Plt Count (130-400) K/uL MPV (7.2-11.7) fl Neut % (Auto) (50.0-75.0) % Lymph % (Auto) (20.0-40.0) % [place] % (Auto) (0.0-10.0) % Eos % (Auto) (0.0-4.0) % Baso % (Auto) (0.0-2.0) % Neut # (1.8-7.0) K/uL Lymph # (1.0-4.3) K/uL [place] # (0.0-0.8) K/uL Eos # (0.0-0.7) K/uL Baso # (0.0-0.2) K/uL Total Counted Neutrophils % (Manual) Band Neutrophils % Lymphocytes % (Manual) Reactive Lymphs % Monocytes % (Manual) Eosinophils % (Manual) Basophils % (Manual) Metamyelocytes % Myelocytes % Promyelocytes % Blast Cells % Plasma Cell % (Manual) Nucleated RBC % Hypersegmented Polys Smudge Cells Toxic Granulation Dohle Bodies Moise Rods Platelet Estimate Plt Clumps, EDTA Large Platelets Giant Platelets RBC Morphology Polychromasia Hypochromasia (manual) Poikilocytosis (manual Basophilic Stippling Anisocytosis (manual) Microcytosis (manual) Macrocytosis (manual) Spherocytes Sickle Cells Target Cells Tear Drop Cells Ovalocytes Stomatocytes Helmet Cells [place] Bodies [place] Cells Acanthocytes (Spur) Rouleaux Schistocytes PT (9.6-11.2) SECONDS INR (0.92-1.08) APTT (23.3-32.5) SECONDS pCO2 (35-45) mm/Hg pO2 (80-100) mm/Hg HCO3 (21-28) mmol/L ABG pH (7.35-7.45) ABG Total CO2 (22-28) mmol/L ABG O2 Saturation (95-98) % ABG O2 Content (15-23) ML/dL ABG Base Excess (-2.0-3.0) mmol/L ABG Hemoglobin (11.7-17.4) g/dL ABG Carboxyhemoglobin (0.5-1.5) % POC ABG HHb (Measured) (0.0-5.0) % ABG Methemoglobin (0.0-3.0) % ABG O2 Capacity (16-24) mL/dL [place] Test ABG Potassium (3.6-5.2) mmol/L A-a O2 Difference mm/Hg Hgb O2 Saturation (95.0-98.0) % Glucose (75-110) mg/dL Lactate (0.7-2.1) mmol/L Vent Mode Mechanical Rate FiO2 % Tidal Volume Crit Value Called To Crit Value Called By Crit Value Read Back Blood Gas Notified Time Sodium (132-148) mmol/l Potassium (3.6-5.0) MMOL/L Chloride (98-107) mmol/L Carbon Dioxide (22-30) mmol/L Anion Gap (10-20) BUN (9-20) mg/dl Creatinine (0.8-1.5) mg/dL Est GFR ( Amer) Est GFR (Non-Af Amer) POC Glucose (mg/dL) 233 H 190 H 196 H (65-110) mg/dL Random Glucose (75-110) mg/dL Hemoglobin A1c (4.2-6.5) % Serum Osmolality (272-300) mosm/kg Lactic Acid (0.7-2.1) MMOL/L Calcium (8.4-10.2) mg/dL Total Bilirubin (0.2-1.3) mg/dl AST (17-59) U/L ALT (21-72) U/L Alkaline Phosphatase (38-126) U/L Total Creatine Kinase (55-170) U/L Total Protein (6.3-8.2) G/DL Albumin (3.5-5.0) g/dL Globulin (2.2-3.9) gm/dL Albumin/Globulin Ratio (1.0-2.1) Procalcitonin (0.19-0.49) NG/ML Arterial Blood Potassium (3.6-5.2) mmol/L 07/17/16 07/16/16 07/16/16 Range/Units 01:03 23:53 22:59 WBC (4.8-10.8) K/uL RBC (4.40-5.90) Mil/uL Hgb (12.0-18.0) g/dL Hct (35.0-51.0) % MCV (80.0-94.0) fl MCH (27.0-31.0) pg MCHC (33.0-37.0) g/dL RDW (11.5-14.5) % Plt Count (130-400) K/uL MPV (7.2-11.7) fl Neut % (Auto) (50.0-75.0) % Lymph % (Auto) (20.0-40.0) % [place] % (Auto) (0.0-10.0) % Eos % (Auto) (0.0-4.0) % Baso % (Auto) (0.0-2.0) % Neut # (1.8-7.0) K/uL Lymph # (1.0-4.3) K/uL [place] # (0.0-0.8) K/uL Eos # (0.0-0.7) K/uL Baso # (0.0-0.2) K/uL Total Counted Neutrophils % (Manual) Band Neutrophils % Lymphocytes % (Manual) Reactive Lymphs % Monocytes % (Manual) Eosinophils % (Manual) Basophils % (Manual) Metamyelocytes % Myelocytes % Promyelocytes % Blast Cells % Plasma Cell % (Manual) Nucleated RBC % Hypersegmented Polys Smudge Cells Toxic Granulation Dohle Bodies Moise Rods Platelet Estimate Plt Clumps, EDTA Large Platelets Giant Platelets RBC Morphology Polychromasia Hypochromasia (manual) Poikilocytosis (manual Basophilic Stippling Anisocytosis (manual) Microcytosis (manual) Macrocytosis (manual) Spherocytes Sickle Cells Target Cells Tear Drop Cells Ovalocytes Stomatocytes Helmet Cells [place] Bodies [place] Cells Acanthocytes (Spur) Rouleaux Schistocytes PT (9.6-11.2) SECONDS INR (0.92-1.08) APTT (23.3-32.5) SECONDS pCO2 (35-45) mm/Hg pO2 (80-100) mm/Hg HCO3 (21-28) mmol/L ABG pH (7.35-7.45) ABG Total CO2 (22-28) mmol/L ABG O2 Saturation (95-98) % ABG O2 Content (15-23) ML/dL ABG Base Excess (-2.0-3.0) mmol/L ABG Hemoglobin (11.7-17.4) g/dL ABG Carboxyhemoglobin (0.5-1.5) % POC ABG HHb (Measured) (0.0-5.0) % ABG Methemoglobin (0.0-3.0) % ABG O2 Capacity (16-24) mL/dL [place] Test ABG Potassium (3.6-5.2) mmol/L A-a O2 Difference mm/Hg Hgb O2 Saturation (95.0-98.0) % Glucose (75-110) mg/dL Lactate (0.7-2.1) mmol/L Vent Mode Mechanical Rate FiO2 % Tidal Volume Crit Value Called To Crit Value Called By Crit Value Read Back Blood Gas Notified Time Sodium (132-148) mmol/l Potassium (3.6-5.0) MMOL/L Chloride (98-107) mmol/L Carbon Dioxide (22-30) mmol/L Anion Gap (10-20) BUN (9-20) mg/dl Creatinine (0.8-1.5) mg/dL Est GFR ( Amer) Est GFR (Non-Af Amer) POC Glucose (mg/dL) 204 H 205 H 216 H (65-110) mg/dL Random Glucose (75-110) mg/dL Hemoglobin A1c (4.2-6.5) % Serum Osmolality (272-300) mosm/kg Lactic Acid (0.7-2.1) MMOL/L Calcium (8.4-10.2) mg/dL Total Bilirubin (0.2-1.3) mg/dl AST (17-59) U/L ALT (21-72) U/L Alkaline Phosphatase (38-126) U/L Total Creatine Kinase (55-170) U/L Total Protein (6.3-8.2) G/DL Albumin (3.5-5.0) g/dL Globulin (2.2-3.9) gm/dL Albumin/Globulin Ratio (1.0-2.1) Procalcitonin (0.19-0.49) NG/ML Arterial Blood Potassium (3.6-5.2) mmol/L 07/16/16 07/16/16 07/16/16 Range/Units 21:23 20:24 19:41 WBC (4.8-10.8) K/uL RBC (4.40-5.90) Mil/uL Hgb (12.0-18.0) g/dL Hct (35.0-51.0) % MCV (80.0-94.0) fl MCH (27.0-31.0) pg MCHC (33.0-37.0) g/dL RDW (11.5-14.5) % Plt Count (130-400) K/uL MPV (7.2-11.7) fl Neut % (Auto) (50.0-75.0) % Lymph % (Auto) (20.0-40.0) % [place] % (Auto) (0.0-10.0) % Eos % (Auto) (0.0-4.0) % Baso % (Auto) (0.0-2.0) % Neut # (1.8-7.0) K/uL Lymph # (1.0-4.3) K/uL [place] # (0.0-0.8) K/uL Eos # (0.0-0.7) K/uL Baso # (0.0-0.2) K/uL Total Counted Neutrophils % (Manual) Band Neutrophils % Lymphocytes % (Manual) Reactive Lymphs % Monocytes % (Manual) Eosinophils % (Manual) Basophils % (Manual) Metamyelocytes % Myelocytes % Promyelocytes % Blast Cells % Plasma Cell % (Manual) Nucleated RBC % Hypersegmented Polys Smudge Cells Toxic Granulation Dohle Bodies Moise Rods Platelet Estimate Plt Clumps, EDTA Large Platelets Giant Platelets RBC Morphology Polychromasia Hypochromasia (manual) Poikilocytosis (manual Basophilic Stippling Anisocytosis (manual) Microcytosis (manual) Macrocytosis (manual) Spherocytes Sickle Cells Target Cells Tear Drop Cells Ovalocytes Stomatocytes Helmet Cells [place] Bodies Michael Cells Acanthocytes (Spur) Rouleaux Schistocytes PT (9.6-11.2) SECONDS INR (0.92-1.08) APTT (23.3-32.5) SECONDS pCO2 (35-45) mm/Hg pO2 (80-100) mm/Hg HCO3 (21-28) mmol/L ABG pH (7.35-7.45) ABG Total CO2 (22-28) mmol/L ABG O2 Saturation (95-98) % ABG O2 Content (15-23) ML/dL ABG Base Excess (-2.0-3.0) mmol/L ABG Hemoglobin (11.7-17.4) g/dL ABG Carboxyhemoglobin (0.5-1.5) % POC ABG HHb (Measured) (0.0-5.0) % ABG Methemoglobin (0.0-3.0) % ABG O2 Capacity (16-24) mL/dL [place] Test ABG Potassium (3.6-5.2) mmol/L A-a O2 Difference mm/Hg Hgb O2 Saturation (95.0-98.0) % Glucose (75-110) mg/dL Lactate (0.7-2.1) mmol/L Vent Mode Mechanical Rate FiO2 % Tidal Volume Crit Value Called To Crit Value Called By Crit Value Read Back Blood Gas Notified Time Sodium (132-148) mmol/l Potassium (3.6-5.0) MMOL/L Chloride (98-107) mmol/L Carbon Dioxide (22-30) mmol/L Anion Gap (10-20) BUN (9-20) mg/dl Creatinine (0.8-1.5) mg/dL Est GFR ( Amer) Est GFR (Non-Af Amer) POC Glucose (mg/dL) 203 H 190 H 195 H (65-110) mg/dL Random Glucose (75-110) mg/dL Hemoglobin A1c (4.2-6.5) % Serum Osmolality (272-300) mosm/kg Lactic Acid (0.7-2.1) MMOL/L Calcium (8.4-10.2) mg/dL Total Bilirubin (0.2-1.3) mg/dl AST (17-59) U/L ALT (21-72) U/L Alkaline Phosphatase (38-126) U/L Total Creatine Kinase (55-170) U/L Total Protein (6.3-8.2) G/DL Albumin (3.5-5.0) g/dL Globulin (2.2-3.9) gm/dL Albumin/Globulin Ratio (1.0-2.1) Procalcitonin (0.19-0.49) NG/ML Arterial Blood Potassium (3.6-5.2) mmol/L 07/16/16 07/16/16 07/16/16 Range/Units 18:35 17:32 16:37 WBC (4.8-10.8) K/uL RBC (4.40-5.90) Mil/uL Hgb (12.0-18.0) g/dL Hct (35.0-51.0) % MCV (80.0-94.0) fl MCH (27.0-31.0) pg MCHC (33.0-37.0) g/dL RDW (11.5-14.5) % Plt Count (130-400) K/uL MPV (7.2-11.7) fl Neut % (Auto) (50.0-75.0) % Lymph % (Auto) (20.0-40.0) % [place] % (Auto) (0.0-10.0) % Eos % (Auto) (0.0-4.0) % Baso % (Auto) (0.0-2.0) % Neut # (1.8-7.0) K/uL Lymph # (1.0-4.3) K/uL [place]ion # (0.0-0.8) K/uL Eos # (0.0-0.7) K/uL Baso # (0.0-0.2) K/uL Total Counted Neutrophils % (Manual) Band Neutrophils % Lymphocytes % (Manual) Reactive Lymphs % Monocytes % (Manual) Eosinophils % (Manual) Basophils % (Manual) Metamyelocytes % Myelocytes % Promyelocytes % Blast Cells % Plasma Cell % (Manual) Nucleated RBC % Hypersegmented Polys Smudge Cells Toxic Granulation Dohle Bodies Moise Rods Platelet Estimate Plt Clumps, EDTA Large Platelets Giant Platelets RBC Morphology Polychromasia Hypochromasia (manual) Poikilocytosis (manual Basophilic Stippling Anisocytosis (manual) Microcytosis (manual) Macrocytosis (manual) Spherocytes Sickle Cells Target Cells Tear Drop Cells Ovalocytes Stomatocytes Helmet Cells [place] Bodies [place] Cells Acanthocytes (Spur) Rouleaux Schistocytes PT (9.6-11.2) SECONDS INR (0.92-1.08) APTT (23.3-32.5) SECONDS pCO2 (35-45) mm/Hg pO2 (80-100) mm/Hg HCO3 (21-28) mmol/L ABG pH (7.35-7.45) ABG Total CO2 (22-28) mmol/L ABG O2 Saturation (95-98) % ABG O2 Content (15-23) ML/dL ABG Base Excess (-2.0-3.0) mmol/L ABG Hemoglobin (11.7-17.4) g/dL ABG Carboxyhemoglobin (0.5-1.5) % POC ABG HHb (Measured) (0.0-5.0) % ABG Methemoglobin (0.0-3.0) % ABG O2 Capacity (16-24) mL/dL [place] Test ABG Potassium (3.6-5.2) mmol/L A-a O2 Difference mm/Hg Hgb O2 Saturation (95.0-98.0) % Glucose (75-110) mg/dL Lactate (0.7-2.1) mmol/L Vent Mode Mechanical Rate FiO2 % Tidal Volume Crit Value Called To Crit Value Called By Crit Value Read Back Blood Gas Notified Time Sodium (132-148) mmol/l Potassium (3.6-5.0) MMOL/L Chloride (98-107) mmol/L Carbon Dioxide (22-30) mmol/L Anion Gap (10-20) BUN (9-20) mg/dl Creatinine (0.8-1.5) mg/dL Est GFR ( Amer) Est GFR (Non-Af Amer) POC Glucose (mg/dL) 204 H 202 H 228 H (65-110) mg/dL Random Glucose (75-110) mg/dL Hemoglobin A1c (4.2-6.5) % Serum Osmolality (272-300) mosm/kg Lactic Acid (0.7-2.1) MMOL/L Calcium (8.4-10.2) mg/dL Total Bilirubin (0.2-1.3) mg/dl AST (17-59) U/L ALT (21-72) U/L Alkaline Phosphatase (38-126) U/L Total Creatine Kinase (55-170) U/L Total Protein (6.3-8.2) G/DL Albumin (3.5-5.0) g/dL Globulin (2.2-3.9) gm/dL Albumin/Globulin Ratio (1.0-2.1) Procalcitonin (0.19-0.49) NG/ML Arterial Blood Potassium (3.6-5.2) mmol/L 07/16/16 07/16/16 07/16/16 Range/Units 15:36 15:00 14:33 WBC (4.8-10.8) K/uL RBC (4.40-5.90) Mil/uL Hgb (12.0-18.0) g/dL Hct (35.0-51.0) % MCV (80.0-94.0) fl MCH (27.0-31.0) pg MCHC (33.0-37.0) g/dL RDW (11.5-14.5) % Plt Count (130-400) K/uL MPV (7.2-11.7) fl Neut % (Auto) (50.0-75.0) % Lymph % (Auto) (20.0-40.0) % [place] % (Auto) (0.0-10.0) % Eos % (Auto) (0.0-4.0) % Baso % (Auto) (0.0-2.0) % Neut # (1.8-7.0) K/uL Lymph # (1.0-4.3) K/uL [place] # (0.0-0.8) K/uL Eos # (0.0-0.7) K/uL Baso # (0.0-0.2) K/uL Total Counted Neutrophils % (Manual) Band Neutrophils % Lymphocytes % (Manual) Reactive Lymphs % Monocytes % (Manual) Eosinophils % (Manual) Basophils % (Manual) Metamyelocytes % Myelocytes % Promyelocytes % Blast Cells % Plasma Cell % (Manual) Nucleated RBC % Hypersegmented Polys Smudge Cells Toxic Granulation Dohle Bodies Moise Rods Platelet Estimate Plt Clumps, EDTA Large Platelets Giant Platelets RBC Morphology Polychromasia Hypochromasia (manual) Poikilocytosis (manual Basophilic Stippling Anisocytosis (manual) Microcytosis (manual) Macrocytosis (manual) Spherocytes Sickle Cells Target Cells Tear Drop Cells Ovalocytes Stomatocytes Helmet Cells [place] Bodies [place] Cells Acanthocytes (Spur) Rouleaux Schistocytes PT (9.6-11.2) SECONDS INR (0.92-1.08) APTT (23.3-32.5) SECONDS pCO2 34 L (35-45) mm/Hg pO2 87 (80-100) mm/Hg HCO3 15.7 L (21-28) mmol/L ABG pH 7.24 L (7.35-7.45) ABG Total CO2 15.6 L (22-28) mmol/L ABG O2 Saturation 98.7 H (95-98) % ABG O2 Content 13.7 L (15-23) ML/dL ABG Base Excess -11.8 L (-2.0-3.0) mmol/L ABG Hemoglobin 10.1 L (11.7-17.4) g/dL ABG Carboxyhemoglobin 1.9 H (0.5-1.5) % POC ABG HHb (Measured) 1.3 (0.0-5.0) % ABG Methemoglobin 1.5 (0.0-3.0) % ABG O2 Capacity 13.9 L (16-24) mL/dL [place] Test Yes ABG Potassium (3.6-5.2) mmol/L A-a O2 Difference 298.0 mm/Hg Hgb O2 Saturation 95.3 (95.0-98.0) % Glucose (75-110) mg/dL Lactate (0.7-2.1) mmol/L Vent Mode A/c Mechanical Rate 12 FiO2 60.0 % Tidal Volume 500 Crit Value Called To Crit Value Called By Crit Value Read Back Blood Gas Notified Time Sodium (132-148) mmol/l Potassium (3.6-5.0) MMOL/L Chloride (98-107) mmol/L Carbon Dioxide (22-30) mmol/L Anion Gap (10-20) BUN (9-20) mg/dl Creatinine (0.8-1.5) mg/dL Est GFR ( Amer) Est GFR (Non-Af Amer) POC Glucose (mg/dL) 237 H 255 H (65-110) mg/dL Random Glucose (75-110) mg/dL Hemoglobin A1c (4.2-6.5) % Serum Osmolality (272-300) mosm/kg Lactic Acid (0.7-2.1) MMOL/L Calcium (8.4-10.2) mg/dL Total Bilirubin (0.2-1.3) mg/dl AST (17-59) U/L ALT (21-72) U/L Alkaline Phosphatase (38-126) U/L Total Creatine Kinase (55-170) U/L Total Protein (6.3-8.2) G/DL Albumin (3.5-5.0) g/dL Globulin (2.2-3.9) gm/dL Albumin/Globulin Ratio (1.0-2.1) Procalcitonin (0.19-0.49) NG/ML Arterial Blood Potassium (3.6-5.2) mmol/L 07/16/16 07/16/16 07/16/16 Range/Units 13:59 12:37 12:15 WBC (4.8-10.8) K/uL RBC (4.40-5.90) Mil/uL Hgb (12.0-18.0) g/dL Hct (35.0-51.0) % MCV (80.0-94.0) fl MCH (27.0-31.0) pg MCHC (33.0-37.0) g/dL RDW (11.5-14.5) % Plt Count (130-400) K/uL MPV (7.2-11.7) fl Neut % (Auto) (50.0-75.0) % Lymph % (Auto) (20.0-40.0) % [place] % (Auto) (0.0-10.0) % Eos % (Auto) (0.0-4.0) % Baso % (Auto) (0.0-2.0) % Neut # (1.8-7.0) K/uL Lymph # (1.0-4.3) K/uL [place] # (0.0-0.8) K/uL Eos # (0.0-0.7) K/uL Baso # (0.0-0.2) K/uL Total Counted Neutrophils % (Manual) Band Neutrophils % Lymphocytes % (Manual) Reactive Lymphs % Monocytes % (Manual) Eosinophils % (Manual) Basophils % (Manual) Metamyelocytes % Myelocytes % Promyelocytes % Blast Cells % Plasma Cell % (Manual) Nucleated RBC % Hypersegmented Polys Smudge Cells Toxic Granulation Dohle Bodies Moise Rods Platelet Estimate Plt Clumps, EDTA Large Platelets Giant Platelets RBC Morphology Polychromasia Hypochromasia (manual) Poikilocytosis (manual Basophilic Stippling Anisocytosis (manual) Microcytosis (manual) Macrocytosis (manual) Spherocytes Sickle Cells Target Cells Tear Drop Cells Ovalocytes Stomatocytes Helmet Cells [place] Bodies Michael Cells Acanthocytes (Spur) Rouleaux Schistocytes PT (9.6-11.2) SECONDS INR (0.92-1.08) APTT (23.3-32.5) SECONDS pCO2 (35-45) mm/Hg pO2 (80-100) mm/Hg HCO3 (21-28) mmol/L ABG pH (7.35-7.45) ABG Total CO2 (22-28) mmol/L ABG O2 Saturation (95-98) % ABG O2 Content (15-23) ML/dL ABG Base Excess (-2.0-3.0) mmol/L ABG Hemoglobin (11.7-17.4) g/dL ABG Carboxyhemoglobin (0.5-1.5) % POC ABG HHb (Measured) (0.0-5.0) % ABG Methemoglobin (0.0-3.0) % ABG O2 Capacity (16-24) mL/dL [place] Test ABG Potassium (3.6-5.2) mmol/L A-a O2 Difference mm/Hg Hgb O2 Saturation (95.0-98.0) % Glucose (75-110) mg/dL Lactate (0.7-2.1) mmol/L Vent Mode Mechanical Rate FiO2 % Tidal Volume Crit Value Called To Crit Value Called By Crit Value Read Back Blood Gas Notified Time Sodium (132-148) mmol/l Potassium (3.6-5.0) MMOL/L Chloride (98-107) mmol/L Carbon Dioxide (22-30) mmol/L Anion Gap (10-20) BUN (9-20) mg/dl Creatinine (0.8-1.5) mg/dL Est GFR ( Amer) Est GFR (Non-Af Amer) POC Glucose (mg/dL) 242 H 236 H (65-110) mg/dL Random Glucose (75-110) mg/dL Hemoglobin A1c (4.2-6.5) % Serum Osmolality (272-300) mosm/kg Lactic Acid (0.7-2.1) MMOL/L Calcium (8.4-10.2) mg/dL Total Bilirubin (0.2-1.3) mg/dl AST (17-59) U/L ALT (21-72) U/L Alkaline Phosphatase (38-126) U/L Total Creatine Kinase (55-170) U/L Total Protein (6.3-8.2) G/DL Albumin (3.5-5.0) g/dL Globulin (2.2-3.9) gm/dL Albumin/Globulin Ratio (1.0-2.1) Procalcitonin 4.24 H (0.19-0.49) NG/ML Arterial Blood Potassium (3.6-5.2) mmol/L 07/16/16 07/16/16 07/16/16 Range/Units 12:15 12:15 12:15 WBC (4.8-10.8) K/uL RBC (4.40-5.90) Mil/uL Hgb (12.0-18.0) g/dL Hct (35.0-51.0) % MCV (80.0-94.0) fl MCH (27.0-31.0) pg MCHC (33.0-37.0) g/dL RDW (11.5-14.5) % Plt Count (130-400) K/uL MPV (7.2-11.7) fl Neut % (Auto) (50.0-75.0) % Lymph % (Auto) (20.0-40.0) % [place] % (Auto) (0.0-10.0) % Eos % (Auto) (0.0-4.0) % Baso % (Auto) (0.0-2.0) % Neut # (1.8-7.0) K/uL Lymph # (1.0-4.3) K/uL [place] # (0.0-0.8) K/uL Eos # (0.0-0.7) K/uL Baso # (0.0-0.2) K/uL Total Counted Neutrophils % (Manual) Band Neutrophils % Lymphocytes % (Manual) Reactive Lymphs % Monocytes % (Manual) Eosinophils % (Manual) Basophils % (Manual) Metamyelocytes % Myelocytes % Promyelocytes % Blast Cells % Plasma Cell % (Manual) Nucleated RBC % Hypersegmented Polys Smudge Cells Toxic Granulation Dohle Bodies Moise Rods Platelet Estimate Plt Clumps, EDTA Large Platelets Giant Platelets RBC Morphology Polychromasia Hypochromasia (manual) Poikilocytosis (manual Basophilic Stippling Anisocytosis (manual) Microcytosis (manual) Macrocytosis (manual) Spherocytes Sickle Cells Target Cells Tear Drop Cells Ovalocytes Stomatocytes Helmet Cells [place] Bodies Michael Cells Acanthocytes (Spur) Rouleaux Schistocytes PT (9.6-11.2) SECONDS INR (0.92-1.08) APTT (23.3-32.5) SECONDS pCO2 (35-45) mm/Hg pO2 (80-100) mm/Hg HCO3 (21-28) mmol/L ABG pH (7.35-7.45) ABG Total CO2 (22-28) mmol/L ABG O2 Saturation (95-98) % ABG O2 Content (15-23) ML/dL ABG Base Excess (-2.0-3.0) mmol/L ABG Hemoglobin (11.7-17.4) g/dL ABG Carboxyhemoglobin (0.5-1.5) % POC ABG HHb (Measured) (0.0-5.0) % ABG Methemoglobin (0.0-3.0) % ABG O2 Capacity (16-24) mL/dL [place] Test ABG Potassium (3.6-5.2) mmol/L A-a O2 Difference mm/Hg Hgb O2 Saturation (95.0-98.0) % Glucose (75-110) mg/dL Lactate (0.7-2.1) mmol/L Vent Mode Mechanical Rate FiO2 % Tidal Volume Crit Value Called To Crit Value Called By Crit Value Read Back Blood Gas Notified Time Sodium 146 (132-148) mmol/l Potassium 5.2 H (3.6-5.0) MMOL/L Chloride 112 H (98-107) mmol/L Carbon Dioxide 15 L (22-30) mmol/L Anion Gap 24 H (10-20) BUN 75 H (9-20) mg/dl Creatinine 3.1 H (0.8-1.5) mg/dL Est GFR ( Amer) 25 Est GFR (Non-Af Amer) 21 POC Glucose (mg/dL) (65-110) mg/dL Random Glucose 235 H (75-110) mg/dL Hemoglobin A1c (4.2-6.5) % Serum Osmolality 332 H (272-300) mosm/kg Lactic Acid 7.9 H* (0.7-2.1) MMOL/L Calcium 8.4 (8.4-10.2) mg/dL Total Bilirubin 1.9 H (0.2-1.3) mg/dl AST 124 H (17-59) U/L ALT 42 (21-72) U/L Alkaline Phosphatase 81 (38-126) U/L Total Creatine Kinase 53 L (55-170) U/L Total Protein 5.7 L (6.3-8.2) G/DL Albumin 2.0 L (3.5-5.0) g/dL Globulin 3.7 (2.2-3.9) gm/dL Albumin/Globulin Ratio 0.5 L (1.0-2.1) Procalcitonin (0.19-0.49) NG/ML Arterial Blood Potassium (3.6-5.2) mmol/L 07/16/16 07/16/16 07/16/16 Range/Units 12:15 12:15 09:31 WBC 21.5 H (4.8-10.8) K/uL RBC 3.68 L (4.40-5.90) Mil/uL Hgb 9.7 L (12.0-18.0) g/dL Hct 32.2 L (35.0-51.0) % MCV 87.5 D (80.0-94.0) fl MCH 26.5 L (27.0-31.0) pg MCHC 30.3 L (33.0-37.0) g/dL RDW 23.2 H (11.5-14.5) % Plt Count 67 L (130-400) K/uL MPV 10.1 (7.2-11.7) fl Neut % (Auto) 90.6 H (50.0-75.0) % Lymph % (Auto) 4.1 L (20.0-40.0) % [place] % (Auto) 5.1 (0.0-10.0) % Eos % (Auto) 0.1 (0.0-4.0) % Baso % (Auto) 0.1 (0.0-2.0) % Neut # 19.5 H (1.8-7.0) K/uL Lymph # 0.9 L (1.0-4.3) K/uL [place] # 1.1 H (0.0-0.8) K/uL Eos # 0.0 (0.0-0.7) K/uL Baso # 0.0 (0.0-0.2) K/uL Total Counted Cancelled Neutrophils % (Manual) Cancelled Band Neutrophils % Cancelled Lymphocytes % (Manual) Cancelled Reactive Lymphs % Cancelled Monocytes % (Manual) Cancelled Eosinophils % (Manual) Cancelled Basophils % (Manual) Cancelled Metamyelocytes % Cancelled Myelocytes % Cancelled Promyelocytes % Cancelled Blast Cells % Cancelled Plasma Cell % (Manual) Cancelled Nucleated RBC % Cancelled Hypersegmented Polys Cancelled Smudge Cells Cancelled Toxic Granulation Cancelled Dohle Bodies Cancelled Moise Rods Cancelled Platelet Estimate Cancelled Plt Clumps, EDTA Cancelled Large Platelets Cancelled Giant Platelets Cancelled RBC Morphology Cancelled Polychromasia Cancelled Hypochromasia (manual) Cancelled Poikilocytosis (manual Cancelled Basophilic Stippling Cancelled Anisocytosis (manual) Cancelled Microcytosis (manual) Cancelled Macrocytosis (manual) Cancelled Spherocytes Cancelled Sickle Cells Cancelled Target Cells Cancelled Tear Drop Cells Cancelled Ovalocytes Cancelled Stomatocytes Cancelled Helmet Cells Cancelled [place] Bodies Cancelled Michael Cells Cancelled Acanthocytes (Spur) Cancelled Rouleaux Cancelled Schistocytes Cancelled PT (9.6-11.2) SECONDS INR (0.92-1.08) APTT (23.3-32.5) SECONDS pCO2 (35-45) mm/Hg pO2 (80-100) mm/Hg HCO3 (21-28) mmol/L ABG pH (7.35-7.45) ABG Total CO2 (22-28) mmol/L ABG O2 Saturation (95-98) % ABG O2 Content (15-23) ML/dL ABG Base Excess (-2.0-3.0) mmol/L ABG Hemoglobin (11.7-17.4) g/dL ABG Carboxyhemoglobin (0.5-1.5) % POC ABG HHb (Measured) (0.0-5.0) % ABG Methemoglobin (0.0-3.0) % ABG O2 Capacity (16-24) mL/dL [place] Test ABG Potassium (3.6-5.2) mmol/L A-a O2 Difference mm/Hg Hgb O2 Saturation (95.0-98.0) % Glucose (75-110) mg/dL Lactate (0.7-2.1) mmol/L Vent Mode Mechanical Rate FiO2 % Tidal Volume Crit Value Called To Crit Value Called By Crit Value Read Back Blood Gas Notified Time Sodium (132-148) mmol/l Potassium (3.6-5.0) MMOL/L Chloride (98-107) mmol/L Carbon Dioxide (22-30) mmol/L Anion Gap (10-20) BUN (9-20) mg/dl Creatinine (0.8-1.5) mg/dL Est GFR ( Amer) Est GFR (Non-Af Amer) POC Glucose (mg/dL) 265 H (65-110) mg/dL Random Glucose (75-110) mg/dL Hemoglobin A1c 9.8 H (4.2-6.5) % Serum Osmolality (272-300) mosm/kg Lactic Acid (0.7-2.1) MMOL/L Calcium (8.4-10.2) mg/dL Total Bilirubin (0.2-1.3) mg/dl AST (17-59) U/L ALT (21-72) U/L Alkaline Phosphatase (38-126) U/L Total Creatine Kinase (55-170) U/L Total Protein (6.3-8.2) G/DL Albumin (3.5-5.0) g/dL Globulin (2.2-3.9) gm/dL Albumin/Globulin Ratio (1.0-2.1) Procalcitonin (0.19-0.49) NG/ML Arterial Blood Potassium (3.6-5.2) mmol/L 07/16/16 07/16/16 07/16/16 Range/Units 08:46 08:33 08:10 WBC (4.8-10.8) K/uL RBC (4.40-5.90) Mil/uL Hgb (12.0-18.0) g/dL Hct (35.0-51.0) % MCV (80.0-94.0) fl MCH (27.0-31.0) pg MCHC (33.0-37.0) g/dL RDW (11.5-14.5) % Plt Count (130-400) K/uL MPV (7.2-11.7) fl Neut % (Auto) (50.0-75.0) % Lymph % (Auto) (20.0-40.0) % [place] % (Auto) (0.0-10.0) % Eos % (Auto) (0.0-4.0) % Baso % (Auto) (0.0-2.0) % Neut # (1.8-7.0) K/uL Lymph # (1.0-4.3) K/uL [place] # (0.0-0.8) K/uL Eos # (0.0-0.7) K/uL Baso # (0.0-0.2) K/uL Total Counted Neutrophils % (Manual) Band Neutrophils % Lymphocytes % (Manual) Reactive Lymphs % Monocytes % (Manual) Eosinophils % (Manual) Basophils % (Manual) Metamyelocytes % Myelocytes % Promyelocytes % Blast Cells % Plasma Cell % (Manual) Nucleated RBC % Hypersegmented Polys Smudge Cells Toxic Granulation Dohle Bodies Moise Rods Platelet Estimate Plt Clumps, EDTA Large Platelets Giant Platelets RBC Morphology Polychromasia Hypochromasia (manual) Poikilocytosis (manual Basophilic Stippling Anisocytosis (manual) Microcytosis (manual) Macrocytosis (manual) Spherocytes Sickle Cells Target Cells Tear Drop Cells Ovalocytes Stomatocytes Helmet Cells [place] Bodies [place] Cells Acanthocytes (Spur) Rouleaux Schistocytes PT (9.6-11.2) SECONDS INR (0.92-1.08) APTT (23.3-32.5) SECONDS pCO2 (35-45) mm/Hg pO2 (80-100) mm/Hg HCO3 (21-28) mmol/L ABG pH (7.35-7.45) ABG Total CO2 (22-28) mmol/L ABG O2 Saturation (95-98) % ABG O2 Content (15-23) ML/dL ABG Base Excess (-2.0-3.0) mmol/L ABG Hemoglobin (11.7-17.4) g/dL ABG Carboxyhemoglobin (0.5-1.5) % POC ABG HHb (Measured) (0.0-5.0) % ABG Methemoglobin (0.0-3.0) % ABG O2 Capacity (16-24) mL/dL [place] Test ABG Potassium (3.6-5.2) mmol/L A-a O2 Difference mm/Hg Hgb O2 Saturation (95.0-98.0) % Glucose (75-110) mg/dL Lactate (0.7-2.1) mmol/L Vent Mode Mechanical Rate FiO2 % Tidal Volume Crit Value Called To Crit Value Called By Crit Value Read Back Blood Gas Notified Time Sodium (132-148) mmol/l Potassium (3.6-5.0) MMOL/L Chloride (98-107) mmol/L Carbon Dioxide (22-30) mmol/L Anion Gap (10-20) BUN (9-20) mg/dl Creatinine (0.8-1.5) mg/dL Est GFR ( Amer) Est GFR (Non-Af Amer) POC Glucose (mg/dL) 226 H 241 H 257 H (65-110) mg/dL Random Glucose (75-110) mg/dL Hemoglobin A1c (4.2-6.5) % Serum Osmolality (272-300) mosm/kg Lactic Acid (0.7-2.1) MMOL/L Calcium (8.4-10.2) mg/dL Total Bilirubin (0.2-1.3) mg/dl AST (17-59) U/L ALT (21-72) U/L Alkaline Phosphatase (38-126) U/L Total Creatine Kinase (55-170) U/L Total Protein (6.3-8.2) G/DL Albumin (3.5-5.0) g/dL Globulin (2.2-3.9) gm/dL Albumin/Globulin Ratio (1.0-2.1) Procalcitonin (0.19-0.49) NG/ML Arterial Blood Potassium (3.6-5.2) mmol/L 07/16/16 Range/Units 04:35 WBC (4.8-10.8) K/uL RBC (4.40-5.90) Mil/uL Hgb (12.0-18.0) g/dL Hct (35.0-51.0) % MCV (80.0-94.0) fl MCH (27.0-31.0) pg MCHC (33.0-37.0) g/dL RDW (11.5-14.5) % Plt Count 71 L D (130-400) K/uL MPV (7.2-11.7) fl Neut % (Auto) (50.0-75.0) % Lymph % (Auto) (20.0-40.0) % [place] % (Auto) (0.0-10.0) % Eos % (Auto) (0.0-4.0) % Baso % (Auto) (0.0-2.0) % Neut # (1.8-7.0) K/uL Lymph # (1.0-4.3) K/uL [place] # (0.0-0.8) K/uL Eos # (0.0-0.7) K/uL Baso # (0.0-0.2) K/uL Total Counted Neutrophils % (Manual) Band Neutrophils % Lymphocytes % (Manual) Reactive Lymphs % Monocytes % (Manual) Eosinophils % (Manual) Basophils % (Manual) Metamyelocytes % Myelocytes % Promyelocytes % Blast Cells % Plasma Cell % (Manual) Nucleated RBC % Hypersegmented Polys Smudge Cells Toxic Granulation Dohle Bodies Moise Rods Platelet Estimate Plt Clumps, EDTA Large Platelets Giant Platelets RBC Morphology Polychromasia Hypochromasia (manual) Poikilocytosis (manual Basophilic Stippling Anisocytosis (manual) Microcytosis (manual) Macrocytosis (manual) Spherocytes Sickle Cells Target Cells Tear Drop Cells Ovalocytes Stomatocytes Helmet Cells [place] Bodies Michael Cells Acanthocytes (Spur) Rouleaux Schistocytes Slight PT (9.6-11.2) SECONDS INR (0.92-1.08) APTT (23.3-32.5) SECONDS pCO2 (35-45) mm/Hg pO2 (80-100) mm/Hg HCO3 (21-28) mmol/L ABG pH (7.35-7.45) ABG Total CO2 (22-28) mmol/L ABG O2 Saturation (95-98) % ABG O2 Content (15-23) ML/dL ABG Base Excess (-2.0-3.0) mmol/L ABG Hemoglobin (11.7-17.4) g/dL ABG Carboxyhemoglobin (0.5-1.5) % POC ABG HHb (Measured) (0.0-5.0) % ABG Methemoglobin (0.0-3.0) % ABG O2 Capacity (16-24) mL/dL [place] Test ABG Potassium (3.6-5.2) mmol/L A-a O2 Difference mm/Hg Hgb O2 Saturation (95.0-98.0) % Glucose (75-110) mg/dL Lactate (0.7-2.1) mmol/L Vent Mode Mechanical Rate FiO2 % Tidal Volume Crit Value Called To Crit Value Called By Crit Value Read Back Blood Gas Notified Time Sodium (132-148) mmol/l Potassium (3.6-5.0) MMOL/L Chloride (98-107) mmol/L Carbon Dioxide (22-30) mmol/L Anion Gap (10-20) BUN (9-20) mg/dl Creatinine (0.8-1.5) mg/dL Est GFR ( Amer) Est GFR (Non-Af Amer) POC Glucose (mg/dL) (65-110) mg/dL Random Glucose (75-110) mg/dL Hemoglobin A1c (4.2-6.5) % Serum Osmolality (272-300) mosm/kg Lactic Acid (0.7-2.1) MMOL/L Calcium (8.4-10.2) mg/dL Total Bilirubin (0.2-1.3) mg/dl AST (17-59) U/L ALT (21-72) U/L Alkaline Phosphatase (38-126) U/L Total Creatine Kinase (55-170) U/L Total Protein (6.3-8.2) G/DL Albumin (3.5-5.0) g/dL Globulin (2.2-3.9) gm/dL Albumin/Globulin Ratio (1.0-2.1) Procalcitonin (0.19-0.49) NG/ML Arterial Blood Potassium (3.6-5.2) mmol/L Laboratory Results - last 24 hr 07/16/16 07/16/16 07/16/16 04:35 08:10 08:33 WBC RBC Hgb Hct MCV MCH MCHC RDW Plt Count 71 L D MPV Neut % (Auto) Lymph % (Auto) [place] % (Auto) Eos % (Auto) Baso % (Auto) Neut # Lymph # [place] # Eos # Baso # Total Counted Neutrophils % (Manual) Band Neutrophils % Lymphocytes % (Manual) Reactive Lymphs % Monocytes % (Manual) Eosinophils % (Manual) Basophils % (Manual) Metamyelocytes % Myelocytes % Promyelocytes % Blast Cells % Plasma Cell % (Manual) Nucleated RBC % Hypersegmented Polys Smudge Cells Toxic Granulation Dohle Bodies Moise Rods Platelet Estimate Plt Clumps, EDTA Large Platelets Giant Platelets RBC Morphology Polychromasia Hypochromasia (manual) Poikilocytosis (manual Basophilic Stippling Anisocytosis (manual) Microcytosis (manual) Macrocytosis (manual) Spherocytes Sickle Cells Target Cells Tear Drop Cells Ovalocytes Stomatocytes Helmet Cells [place] Bodies [place] Cells Acanthocytes (Spur) Rouleaux Schistocytes Slight PT INR APTT pCO2 pO2 HCO3 ABG pH ABG Total CO2 ABG O2 Saturation ABG O2 Content ABG Base Excess ABG Hemoglobin ABG Carboxyhemoglobin POC ABG HHb (Measured) ABG Methemoglobin ABG O2 Capacity [place] Test ABG Potassium A-a O2 Difference Hgb O2 Saturation Glucose Lactate Vent Mode Mechanical Rate FiO2 Tidal Volume Crit Value Called To Crit Value Called By Crit Value Read Back Blood Gas Notified Time Sodium Potassium Chloride Carbon Dioxide Anion Gap BUN Creatinine Est GFR ( Amer) Est GFR (Non-Af Amer) POC Glucose (mg/dL) 257 H 241 H Random Glucose Hemoglobin A1c Serum Osmolality Lactic Acid Calcium Total Bilirubin AST ALT Alkaline Phosphatase Total Creatine Kinase Total Protein Albumin Globulin Albumin/Globulin Ratio Procalcitonin Arterial Blood Potassium 07/16/16 07/16/16 07/16/16 08:46 09:31 12:15 WBC RBC Hgb Hct MCV MCH MCHC RDW Plt Count MPV Neut % (Auto) Lymph % (Auto) [place] % (Auto) Eos % (Auto) Baso % (Auto) Neut # Lymph # [place] # Eos # Baso # Total Counted Neutrophils % (Manual) Band Neutrophils % Lymphocytes % (Manual) Reactive Lymphs % Monocytes % (Manual) Eosinophils % (Manual) Basophils % (Manual) Metamyelocytes % Myelocytes % Promyelocytes % Blast Cells % Plasma Cell % (Manual) Nucleated RBC % Hypersegmented Polys Smudge Cells Toxic Granulation Dohle Bodies Moise Rods Platelet Estimate Plt Clumps, EDTA Large Platelets Giant Platelets RBC Morphology Polychromasia Hypochromasia (manual) Poikilocytosis (manual Basophilic Stippling Anisocytosis (manual) Microcytosis (manual) Macrocytosis (manual) Spherocytes Sickle Cells Target Cells Tear Drop Cells Ovalocytes Stomatocytes Helmet Cells [place] Bodies Michael Cells Acanthocytes (Spur) Rouleaux Schistocytes PT INR APTT pCO2 pO2 HCO3 ABG pH ABG Total CO2 ABG O2 Saturation ABG O2 Content ABG Base Excess ABG Hemoglobin ABG Carboxyhemoglobin POC ABG HHb (Measured) ABG Methemoglobin ABG O2 Capacity [place] Test ABG Potassium A-a O2 Difference Hgb O2 Saturation Glucose Lactate Vent Mode Mechanical Rate FiO2 Tidal Volume Crit Value Called To Crit Value Called By Crit Value Read Back Blood Gas Notified Time Sodium Potassium Chloride Carbon Dioxide Anion Gap BUN Creatinine Est GFR ( Amer) Est GFR (Non-Af Amer) POC Glucose (mg/dL) 226 H 265 H Random Glucose Hemoglobin A1c 9.8 H Serum Osmolality Lactic Acid Calcium Total Bilirubin AST ALT Alkaline Phosphatase Total Creatine Kinase Total Protein Albumin Globulin Albumin/Globulin Ratio Procalcitonin Arterial Blood Potassium 07/16/16 07/16/16 07/16/16 12:15 12:15 12:15 WBC 21.5 H RBC 3.68 L Hgb 9.7 L Hct 32.2 L MCV 87.5 D MCH 26.5 L MCHC 30.3 L RDW 23.2 H Plt Count 67 L MPV 10.1 Neut % (Auto) 90.6 H Lymph % (Auto) 4.1 L [place] % (Auto) 5.1 Eos % (Auto) 0.1 Baso % (Auto) 0.1 Neut # 19.5 H Lymph # 0.9 L [place] # 1.1 H Eos # 0.0 Baso # 0.0 Total Counted Cancelled Neutrophils % (Manual) Cancelled Band Neutrophils % Cancelled Lymphocytes % (Manual) Cancelled Reactive Lymphs % Cancelled Monocytes % (Manual) Cancelled Eosinophils % (Manual) Cancelled Basophils % (Manual) Cancelled Metamyelocytes % Cancelled Myelocytes % Cancelled Promyelocytes % Cancelled Blast Cells % Cancelled Plasma Cell % (Manual) Cancelled Nucleated RBC % Cancelled Hypersegmented Polys Cancelled Smudge Cells Cancelled Toxic Granulation Cancelled Dohle Bodies Cancelled Moise Rods Cancelled Platelet Estimate Cancelled Plt Clumps, EDTA Cancelled Large Platelets Cancelled Giant Platelets Cancelled RBC Morphology Cancelled Polychromasia Cancelled Hypochromasia (manual) Cancelled Poikilocytosis (manual Cancelled Basophilic Stippling Cancelled Anisocytosis (manual) Cancelled Microcytosis (manual) Cancelled Macrocytosis (manual) Cancelled Spherocytes Cancelled Sickle Cells Cancelled Target Cells Cancelled Tear Drop Cells Cancelled Ovalocytes Cancelled Stomatocytes Cancelled Helmet Cells Cancelled [place] Bodies Cancelled [place] Cells Cancelled Acanthocytes (Spur) Cancelled Rouleaux Cancelled Schistocytes Cancelled PT INR APTT pCO2 pO2 HCO3 ABG pH ABG Total CO2 ABG O2 Saturation ABG O2 Content ABG Base Excess ABG Hemoglobin ABG Carboxyhemoglobin POC ABG HHb (Measured) ABG Methemoglobin ABG O2 Capacity [place] Test ABG Potassium A-a O2 Difference Hgb O2 Saturation Glucose Lactate Vent Mode Mechanical Rate FiO2 [place] Volume Crit Value Called To Crit Value Called By Crit Value Read Back Blood Gas Notified Time Sodium 146 Potassium 5.2 H Chloride 112 H Carbon Dioxide 15 L Anion Gap 24 H BUN 75 H Creatinine 3.1 H Est GFR ( Amer) 25 Est GFR (Non-Af Amer) 21 POC Glucose (mg/dL) Random Glucose 235 H Hemoglobin A1c Serum Osmolality Lactic Acid 7.9 H* Calcium 8.4 Total Bilirubin 1.9 H AST 124 H ALT 42 Alkaline Phosphatase 81 Total Creatine Kinase 53 L Total Protein 5.7 L Albumin 2.0 L Globulin 3.7 Albumin/Globulin Ratio 0.5 L Procalcitonin Arterial Blood Potassium 07/16/16 07/16/16 07/16/16 12:15 12:15 12:37 WBC RBC Hgb Hct MCV MCH MCHC RDW Plt Count MPV Neut % (Auto) Lymph % (Auto) [place] % (Auto) Eos % (Auto) Baso % (Auto) Neut # Lymph # [place] # Eos # Baso # Total Counted Neutrophils % (Manual) Band Neutrophils % Lymphocytes % (Manual) Reactive Lymphs % Monocytes % (Manual) Eosinophils % (Manual) Basophils % (Manual) Metamyelocytes % Myelocytes % Promyelocytes % Blast Cells % Plasma Cell % (Manual) Nucleated RBC % Hypersegmented Polys Smudge Cells Toxic Granulation Dohle Bodies Moise Rods Platelet Estimate Plt Clumps, EDTA Large Platelets Giant Platelets RBC Morphology Polychromasia Hypochromasia (manual) Poikilocytosis (manual Basophilic Stippling Anisocytosis (manual) Microcytosis (manual) Macrocytosis (manual) Spherocytes Sickle Cells Target Cells Tear Drop Cells Ovalocytes Stomatocytes Helmet Cells [place] Bodies [place] Cells Acanthocytes (Spur) Rouleaux Schistocytes PT INR APTT pCO2 pO2 HCO3 ABG pH ABG Total CO2 ABG O2 Saturation ABG O2 Content ABG Base Excess ABG Hemoglobin ABG Carboxyhemoglobin POC ABG HHb (Measured) ABG Methemoglobin ABG O2 Capacity [place] Test ABG Potassium A-a O2 Difference Hgb O2 Saturation Glucose Lactate Vent Mode Mechanical Rate FiO2 [place] Volume Crit Value Called To Crit Value Called By Crit Value Read Back Blood Gas Notified Time Sodium Potassium Chloride Carbon Dioxide Anion Gap BUN Creatinine Est GFR ( Amer) Est GFR (Non-Af Amer) POC Glucose (mg/dL) 236 H Random Glucose Hemoglobin A1c Serum Osmolality 332 H Lactic Acid Calcium Total Bilirubin AST ALT Alkaline Phosphatase Total Creatine Kinase Total Protein Albumin Globulin Albumin/Globulin Ratio Procalcitonin 4.24 H Arterial Blood Potassium 07/16/16 07/16/16 07/16/16 13:59 14:33 15:00 WBC RBC Hgb Hct MCV MCH MCHC RDW Plt Count MPV Neut % (Auto) Lymph % (Auto) [place] % (Auto) Eos % (Auto) Baso % (Auto) Neut # Lymph # [place] # Eos # Baso # Total Counted Neutrophils % (Manual) Band Neutrophils % Lymphocytes % (Manual) Reactive Lymphs % Monocytes % (Manual) Eosinophils % (Manual) Basophils % (Manual) Metamyelocytes % Myelocytes % Promyelocytes % Blast Cells % Plasma Cell % (Manual) Nucleated RBC % Hypersegmented Polys Smudge Cells Toxic Granulation Dohle Bodies Moise Rods Platelet Estimate Plt Clumps, EDTA Large Platelets Giant Platelets RBC Morphology Polychromasia Hypochromasia (manual) Poikilocytosis (manual Basophilic Stippling Anisocytosis (manual) Microcytosis (manual) Macrocytosis (manual) Spherocytes Sickle Cells Target Cells Tear Drop Cells Ovalocytes Stomatocytes Helmet Cells [place] Bodies [place] Cells Acanthocytes (Spur) Rouleaux Schistocytes PT INR APTT pCO2 34 L pO2 87 HCO3 15.7 L ABG pH 7.24 L ABG Total CO2 15.6 L ABG O2 Saturation 98.7 H ABG O2 Content 13.7 L ABG Base Excess -11.8 L ABG Hemoglobin 10.1 L ABG Carboxyhemoglobin 1.9 H POC ABG HHb (Measured) 1.3 ABG Methemoglobin 1.5 ABG O2 Capacity 13.9 L [place] Test Yes ABG Potassium A-a O2 Difference 298.0 Hgb O2 Saturation 95.3 Glucose Lactate Vent Mode A/c Mechanical Rate 12 FiO2 60.0 Tidal Volume 500 Crit Value Called To Crit Value Called By Crit Value Read Back Blood Gas Notified Time Sodium Potassium Chloride Carbon Dioxide Anion Gap BUN Creatinine Est GFR ( Amer) Est GFR (Non-Af Amer) POC Glucose (mg/dL) 242 H 255 H Random Glucose Hemoglobin A1c Serum Osmolality Lactic Acid Calcium Total Bilirubin AST ALT Alkaline Phosphatase Total Creatine Kinase Total Protein Albumin Globulin Albumin/Globulin Ratio Procalcitonin Arterial Blood Potassium 07/16/16 07/16/16 07/16/16 15:36 16:37 17:32 WBC RBC Hgb Hct MCV MCH MCHC RDW Plt Count MPV Neut % (Auto) Lymph % (Auto) [place] % (Auto) Eos % (Auto) Baso % (Auto) Neut # Lymph # [place] # Eos # Baso # Total Counted Neutrophils % (Manual) Band Neutrophils % Lymphocytes % (Manual) Reactive Lymphs % Monocytes % (Manual) Eosinophils % (Manual) Basophils % (Manual) Metamyelocytes % Myelocytes % Promyelocytes % Blast Cells % Plasma Cell % (Manual) Nucleated RBC % Hypersegmented Polys Smudge Cells Toxic Granulation Dohle Bodies Moise Rods Platelet Estimate Plt Clumps, EDTA Large Platelets Giant Platelets RBC Morphology Polychromasia Hypochromasia (manual) Poikilocytosis (manual Basophilic Stippling Anisocytosis (manual) Microcytosis (manual) Macrocytosis (manual) Spherocytes Sickle Cells Target Cells Tear Drop Cells Ovalocytes Stomatocytes Helmet Cells [place] Bodies [place] Cells Acanthocytes (Spur) Rouleaux Schistocytes PT INR APTT pCO2 pO2 HCO3 ABG pH ABG Total CO2 ABG O2 Saturation ABG O2 Content ABG Base Excess ABG Hemoglobin ABG Carboxyhemoglobin POC ABG HHb (Measured) ABG Methemoglobin ABG O2 Capacity [place] Test ABG Potassium A-a O2 Difference Hgb O2 Saturation Glucose Lactate Vent Mode Mechanical Rate FiO2 Tidal Volume Crit Value Called To Crit Value Called By Crit Value Read Back Blood Gas Notified Time Sodium Potassium Chloride Carbon Dioxide Anion Gap BUN Creatinine Est GFR ( Amer) Est GFR (Non-Af Amer) POC Glucose (mg/dL) 237 H 228 H 202 H Random Glucose Hemoglobin A1c Serum Osmolality Lactic Acid Calcium Total Bilirubin AST ALT Alkaline Phosphatase Total Creatine Kinase Total Protein Albumin Globulin Albumin/Globulin Ratio Procalcitonin Arterial Blood Potassium 07/16/16 07/16/16 07/16/16 18:35 19:41 20:24 WBC RBC Hgb Hct MCV MCH MCHC RDW Plt Count MPV Neut % (Auto) Lymph % (Auto) [place] % (Auto) Eos % (Auto) Baso % (Auto) Neut # Lymph # [place] # Eos # Baso # Total Counted Neutrophils % (Manual) Band Neutrophils % Lymphocytes % (Manual) Reactive Lymphs % Monocytes % (Manual) Eosinophils % (Manual) Basophils % (Manual) Metamyelocytes % Myelocytes % Promyelocytes % Blast Cells % Plasma Cell % (Manual) Nucleated RBC % Hypersegmented Polys Smudge Cells Toxic Granulation Dohle Bodies Moise Rods Platelet Estimate Plt Clumps, EDTA Large Platelets Giant Platelets RBC Morphology Polychromasia Hypochromasia (manual) Poikilocytosis (manual Basophilic Stippling Anisocytosis (manual) Microcytosis (manual) Macrocytosis (manual) Spherocytes Sickle Cells Target Cells Tear Drop Cells Ovalocytes Stomatocytes Helmet Cells [place] Bodies Michael Cells Acanthocytes (Spur) Rouleaux Schistocytes PT INR APTT pCO2 pO2 HCO3 ABG pH ABG Total CO2 ABG O2 Saturation ABG O2 Content ABG Base Excess ABG Hemoglobin ABG Carboxyhemoglobin POC ABG HHb (Measured) ABG Methemoglobin ABG O2 Capacity [place] Test ABG Potassium A-a O2 Difference Hgb O2 Saturation Glucose Lactate Vent Mode Mechanical Rate FiO2 Tidal Volume Crit Value Called To Crit Value Called By Crit Value Read Back Blood Gas Notified Time Sodium Potassium Chloride Carbon Dioxide Anion Gap BUN Creatinine Est GFR ( Amer) Est GFR (Non-Af Amer) POC Glucose (mg/dL) 204 H 195 H 190 H Random Glucose Hemoglobin A1c Serum Osmolality Lactic Acid Calcium Total Bilirubin AST ALT Alkaline Phosphatase Total Creatine Kinase Total Protein Albumin Globulin Albumin/Globulin Ratio Procalcitonin Arterial Blood Potassium 07/16/16 07/16/16 07/16/16 21:23 22:59 23:53 WBC RBC Hgb Hct MCV MCH MCHC RDW Plt Count MPV Neut % (Auto) Lymph % (Auto) [place] % (Auto) Eos % (Auto) Baso % (Auto) Neut # Lymph # [place] # Eos # Baso # Total Counted Neutrophils % (Manual) Band Neutrophils % Lymphocytes % (Manual) Reactive Lymphs % Monocytes % (Manual) Eosinophils % (Manual) Basophils % (Manual) Metamyelocytes % Myelocytes % Promyelocytes % Blast Cells % Plasma Cell % (Manual) Nucleated RBC % Hypersegmented Polys Smudge Cells Toxic Granulation Dohle Bodies Moise Rods Platelet Estimate Plt Clumps, EDTA Large Platelets Giant Platelets RBC Morphology Polychromasia Hypochromasia (manual) Poikilocytosis (manual Basophilic Stippling Anisocytosis (manual) Microcytosis (manual) Macrocytosis (manual) Spherocytes Sickle Cells Target Cells Tear Drop Cells Ovalocytes Stomatocytes Helmet Cells [place] Bodies Michael Cells Acanthocytes (Spur) Rouleaux Schistocytes PT INR APTT pCO2 pO2 HCO3 ABG pH ABG Total CO2 ABG O2 Saturation ABG O2 Content ABG Base Excess ABG Hemoglobin ABG Carboxyhemoglobin POC ABG HHb (Measured) ABG Methemoglobin ABG O2 Capacity [place] Test ABG Potassium A-a O2 Difference Hgb O2 Saturation Glucose Lactate Vent Mode Mechanical Rate FiO2 Tidal Volume Crit Value Called To Crit Value Called By Crit Value Read Back Blood Gas Notified Time Sodium Potassium Chloride Carbon Dioxide Anion Gap BUN Creatinine Est GFR ( Amer) Est GFR (Non-Af Amer) POC Glucose (mg/dL) 203 H 216 H 205 H Random Glucose Hemoglobin A1c Serum Osmolality Lactic Acid Calcium Total Bilirubin AST ALT Alkaline Phosphatase Total Creatine Kinase Total Protein Albumin Globulin Albumin/Globulin Ratio Procalcitonin Arterial Blood Potassium 07/17/16 07/17/16 07/17/16 01:03 02:03 02:52 WBC RBC Hgb Hct MCV MCH MCHC RDW Plt Count MPV Neut % (Auto) Lymph % (Auto) [place] % (Auto) Eos % (Auto) Baso % (Auto) Neut # Lymph # [place] # Eos # Baso # Total Counted Neutrophils % (Manual) Band Neutrophils % Lymphocytes % (Manual) Reactive Lymphs % Monocytes % (Manual) Eosinophils % (Manual) Basophils % (Manual) Metamyelocytes % Myelocytes % Promyelocytes % Blast Cells % Plasma Cell % (Manual) Nucleated RBC % Hypersegmented Polys Smudge Cells Toxic Granulation Dohle Bodies Moise Rods Platelet Estimate Plt Clumps, EDTA Large Platelets Giant Platelets RBC Morphology Polychromasia Hypochromasia (manual) Poikilocytosis (manual Basophilic Stippling Anisocytosis (manual) Microcytosis (manual) Macrocytosis (manual) Spherocytes Sickle Cells Target Cells Tear Drop Cells Ovalocytes Stomatocytes Helmet Cells [place] Bodies [place] Cells Acanthocytes (Spur) Rouleaux Schistocytes PT INR APTT pCO2 pO2 HCO3 ABG pH ABG Total CO2 ABG O2 Saturation ABG O2 Content ABG Base Excess ABG Hemoglobin ABG Carboxyhemoglobin POC ABG HHb (Measured) ABG Methemoglobin ABG O2 Capacity [place] Test ABG Potassium A-a O2 Difference Hgb O2 Saturation Glucose Lactate Vent Mode Mechanical Rate FiO2 Tidal Volume Crit Value Called To Crit Value Called By Crit Value Read Back Blood Gas Notified Time Sodium Potassium Chloride Carbon Dioxide Anion Gap BUN Creatinine Est GFR ( Amer) Est GFR (Non-Af Amer) POC Glucose (mg/dL) 204 H 196 H 190 H Random Glucose Hemoglobin A1c Serum Osmolality Lactic Acid Calcium Total Bilirubin AST ALT Alkaline Phosphatase Total Creatine Kinase Total Protein Albumin Globulin Albumin/Globulin Ratio Procalcitonin Arterial Blood Potassium 07/17/16 07/17/16 07/17/16 04:06 05:00 05:32 WBC RBC Hgb Hct MCV MCH MCHC RDW Plt Count MPV Neut % (Auto) Lymph % (Auto) [place] % (Auto) Eos % (Auto) Baso % (Auto) Neut # Lymph # [place] # Eos # Baso # Total Counted Neutrophils % (Manual) Band Neutrophils % Lymphocytes % (Manual) Reactive Lymphs % Monocytes % (Manual) Eosinophils % (Manual) Basophils % (Manual) Metamyelocytes % Myelocytes % Promyelocytes % Blast Cells % Plasma Cell % (Manual) Nucleated RBC % Hypersegmented Polys Smudge Cells Toxic Granulation Dohle Bodies Moise Rods Platelet Estimate Plt Clumps, EDTA Large Platelets Giant Platelets RBC Morphology Polychromasia Hypochromasia (manual) Poikilocytosis (manual Basophilic Stippling Anisocytosis (manual) Microcytosis (manual) Macrocytosis (manual) Spherocytes Sickle Cells Target Cells Tear Drop Cells Ovalocytes Stomatocytes Helmet Cells [place] Bodies [place] Cells Acanthocytes (Spur) Rouleaux Schistocytes PT INR APTT pCO2 32 L pO2 75 L HCO3 12.2 L ABG pH 7.16 L* ABG Total CO2 12.4 L ABG O2 Saturation 97.2 ABG O2 Content ABG Base Excess -16.1 L ABG Hemoglobin ABG Carboxyhemoglobin POC ABG HHb (Measured) ABG Methemoglobin ABG O2 Capacity [place] Test Yes ABG Potassium 5.7 H A-a O2 Difference 313.0 Hgb O2 Saturation Glucose 182 H Lactate 9.7 H* Vent Mode A/c Mechanical Rate 12 FiO2 60.0 Tidal Volume 500 Crit Value Called To [place] garcia rn Crit Value Called By 6075 Crit Value Read Back Y Blood Gas Notified Time 535 Sodium 141.0 Potassium Chloride 111.0 H Carbon Dioxide Anion Gap BUN Creatinine Est GFR ( Amer) Est GFR (Non-Af Amer) POC Glucose (mg/dL) 233 H 191 H Random Glucose Hemoglobin A1c Serum Osmolality Lactic Acid Calcium Total Bilirubin AST ALT Alkaline Phosphatase Total Creatine Kinase Total Protein Albumin Globulin Albumin/Globulin Ratio Procalcitonin Arterial Blood Potassium 5.7 H 07/17/16 07/17/16 07/17/16 05:54 06:32 06:32 WBC 27.7 H RBC 3.42 L Hgb 8.9 L Hct 30.6 L MCV 89.6 D MCH 26.0 L MCHC 29.0 L RDW 24.3 H Plt Count 41 L D MPV 9.6 Neut % (Auto) 93.2 H Lymph % (Auto) 1.1 L [place] % (Auto) 5.3 Eos % (Auto) 0.1 Baso % (Auto) 0.3 Neut # 25.8 H Lymph # 0.3 L [place] # 1.5 H Eos # 0.0 Baso # 0.1 Total Counted Neutrophils % (Manual) Band Neutrophils % Lymphocytes % (Manual) Reactive Lymphs % Monocytes % (Manual) Eosinophils % (Manual) Basophils % (Manual) Metamyelocytes % Myelocytes % Promyelocytes % Blast Cells % Plasma Cell % (Manual) Nucleated RBC % Hypersegmented Polys Smudge Cells Toxic Granulation Dohle Bodies Moise Rods Platelet Estimate Plt Clumps, EDTA Large Platelets Giant Platelets RBC Morphology Polychromasia Hypochromasia (manual) Poikilocytosis (manual Basophilic Stippling Anisocytosis (manual) Microcytosis (manual) Macrocytosis (manual) Spherocytes Sickle Cells Target Cells Tear Drop Cells Ovalocytes Stomatocytes Helmet Cells [place] Bodies [place] Cells Acanthocytes (Spur) Rouleaux Schistocytes PT INR APTT pCO2 pO2 HCO3 ABG pH ABG Total CO2 ABG O2 Saturation ABG O2 Content ABG Base Excess ABG Hemoglobin ABG Carboxyhemoglobin POC ABG HHb (Measured) ABG Methemoglobin ABG O2 Capacity [place] Test ABG Potassium A-a O2 Difference Hgb O2 Saturation Glucose Lactate Vent Mode Mechanical Rate FiO2 Tidal Volume Crit Value Called To Crit Value Called By Crit Value Read Back Blood Gas Notified Time Sodium 144 Potassium 5.5 H Chloride 113 H Carbon Dioxide 13 L Anion Gap 24 H BUN 81 H Creatinine 3.8 H Est GFR ( Amer) 20 Est GFR (Non-Af Amer) 16 POC Glucose (mg/dL) 190 H Random Glucose 167 H Hemoglobin A1c Serum Osmolality Lactic Acid Calcium 8.3 L Total Bilirubin 2.2 H AST 124 H ALT 50 Alkaline Phosphatase 91 Total Creatine Kinase Total Protein 5.5 L Albumin 2.0 L Globulin 3.5 Albumin/Globulin Ratio 0.6 L Procalcitonin Arterial Blood Potassium 07/17/16 07/17/16 07/17/16 06:32 06:32 06:59 WBC RBC Hgb Hct MCV MCH MCHC RDW Plt Count MPV Neut % (Auto) Lymph % (Auto) [place] % (Auto) Eos % (Auto) Baso % (Auto) Neut # Lymph # [place] # Eos # Baso # Total Counted Neutrophils % (Manual) Band Neutrophils % Lymphocytes % (Manual) Reactive Lymphs % Monocytes % (Manual) Eosinophils % (Manual) Basophils % (Manual) Metamyelocytes % Myelocytes % Promyelocytes % Blast Cells % Plasma Cell % (Manual) Nucleated RBC % Hypersegmented Polys Smudge Cells Toxic Granulation Dohle Bodies Moise Rods Platelet Estimate Plt Clumps, EDTA Large Platelets Giant Platelets RBC Morphology Polychromasia Hypochromasia (manual) Poikilocytosis (manual Basophilic Stippling Anisocytosis (manual) Microcytosis (manual) Macrocytosis (manual) Spherocytes Sickle Cells Target Cells Tear Drop Cells Ovalocytes Stomatocytes Helmet Cells [place] Bodies [place] Cells Acanthocytes (Spur) Rouleaux Schistocytes PT 25.9 H INR 2.49 H APTT 45.3 H pCO2 pO2 HCO3 ABG pH ABG Total CO2 ABG O2 Saturation ABG O2 Content ABG Base Excess ABG Hemoglobin ABG Carboxyhemoglobin POC ABG HHb (Measured) ABG Methemoglobin ABG O2 Capacity [place] Test ABG Potassium A-a O2 Difference Hgb O2 Saturation Glucose Lactate Vent Mode Mechanical Rate FiO2 Tidal Volume Crit Value Called To Crit Value Called By Crit Value Read Back Blood Gas Notified Time Sodium Potassium Chloride Carbon Dioxide Anion Gap BUN Creatinine Est GFR ( Amer) Est GFR (Non-Af Amer) POC Glucose (mg/dL) 192 H Random Glucose Hemoglobin A1c Serum Osmolality 340 H Lactic Acid Calcium Total Bilirubin AST ALT Alkaline Phosphatase Total Creatine Kinase Total Protein Albumin Globulin Albumin/Globulin Ratio Procalcitonin Arterial Blood Potassium 07/17/16 08:11 WBC RBC Hgb Hct MCV MCH MCHC RDW Plt Count MPV Neut % (Auto) Lymph % (Auto) [place] % (Auto) Eos % (Auto) Baso % (Auto) Neut # Lymph # [place] # Eos # Baso # Total Counted Neutrophils % (Manual) Band Neutrophils % Lymphocytes % (Manual) Reactive Lymphs % Monocytes % (Manual) Eosinophils % (Manual) Basophils % (Manual) Metamyelocytes % Myelocytes % Promyelocytes % Blast Cells % Plasma Cell % (Manual) Nucleated RBC % Hypersegmented Polys Smudge Cells Toxic Granulation Dohle Bodies Moise Rods Platelet Estimate Plt Clumps, EDTA Large Platelets Giant Platelets RBC Morphology Polychromasia Hypochromasia (manual) Poikilocytosis (manual Basophilic Stippling Anisocytosis (manual) Microcytosis (manual) Macrocytosis (manual) Spherocytes Sickle Cells Target Cells Tear Drop Cells Ovalocytes Stomatocytes Helmet Cells [place] Bodies Michael Cells Acanthocytes (Spur) Rouleaux Schistocytes PT INR APTT pCO2 pO2 HCO3 ABG pH ABG Total CO2 ABG O2 Saturation ABG O2 Content ABG Base Excess ABG Hemoglobin ABG Carboxyhemoglobin POC ABG HHb (Measured) ABG Methemoglobin ABG O2 Capacity [place] Test ABG Potassium A-a O2 Difference Hgb O2 Saturation Glucose Lactate Vent Mode Mechanical Rate FiO2 Tidal Volume Crit Value Called To Crit Value Called By Crit Value Read Back Blood Gas Notified Time Sodium Potassium Chloride Carbon Dioxide Anion Gap BUN Creatinine Est GFR ( Amer) Est GFR (Non-Af Amer) POC Glucose (mg/dL) 221 H Random Glucose Hemoglobin A1c Serum Osmolality Lactic Acid Calcium Total Bilirubin AST ALT Alkaline Phosphatase Total Creatine Kinase Total Protein Albumin Globulin Albumin/Globulin Ratio Procalcitonin Arterial Blood Potassium Fingerstick Blood Sugar Results: 192 Review of Systems - Review of Systems Systems not reviewed;Unavailable: Intubated Assessment/Plan - Assessment and Plan (Free Text) Assessment: 60 y/o M with PMH of HTN, DM2, Hepatic cirrhosis secondary to ETOH abuse, CKD, CVA presented to ED after son found patient unresponsive at home with labored breathing. As per son, patient had preceding 2 days of AMS, where he had been sleeping most of the day. Patient found to be in DKA in ER with associated hypotension and an elevated lactate, so a code sepsis was called. He had associated elevations in serum ammonia and respiratory distress. Patient was intubated on 07/16/16 and admitted to ICU for further management. Plan: Acute respiratory insufficiency -Respiratory distress secondary to hypoxia in the stting of extensive Right lower lung pneumonia with associated AMS -On mechanical ventilation, day 2 -Current settings RR: 12/TV: 500/PEEP: 5/FiO2: 60% -Tracheal aspirate sputum cultures: preliminary positive for gram positive cocci -CXR this morning re-demonstrates consolidations in right lung -ABG reviewed -Pulmonary consulted, Dr Cain Sepstic shock -Secondary to pneumonia/gram positive bacteremia -Afebrie, WBC: 27.7 -Procalcitonin 4.24 on 07/16 -Lactate trending downward: 14.6 > 9.7 -Blood culture from 07/16/16 reveals preliminary Gram positive cocci in clusters -Phenylephrine at 20mcg/min. Will titrate to a SBP of 110. -On empiric antibiotics: -Zosyn 2.25gm IV Q6h (Started 07/16, current day 2) -Vancomycin 1gm IV daily (Started 07/16, current day 2) DKA -Patient has been non-adherent to medical management as prescribed -Exacerbated by likely pneumonia, bacteremia -Remains on insulin drip -Anion gap: 24 Hyperkalemia -Potassium 5.5 -Calcium gluconate, insulin, D5 administered -Will follow Altered Mental Status -Secondary to toxic metabolic encephalopathy vs recurrent cva vs occult seizure activity -Patient has history of previous left MCA stroke -There has been concern for epileptiform activity in the past -Will continue managing acute underlying metabolic/infectious processes -Neurology consulted, recommends resuming keppra 250mg Q12h for seizure prophylaxis -Will repeat CT Head w/o contrast -Will consider EEG if no improvement Acute on chronic kidney disease -BUN/Cr: 81/3.8 -Baseline Cr between 1.7-2.0 -Will consult nephrology Chronic hepatic cirrhosis -With ascites, chronic coagulopathy and thrombocytopenia which has decreased further compared to baseline -Ammonia level 131 at admission -MELD score 32 -GI consulted, Dr Guzman -Recommended lactulose, xifaxin -Will consult heme/onc for progressive thrombocytopenia Scrotal swelling -Undetermined etiology. No signs of [place] gangrene -Consider Scrotal CT imaging -Pending urology evaluation, Dr Van Anemia of chronic disease -H/H: 8.9/30.6 Feeding -Will start feeds today via OGT -Suplena to start at 20ml/hr with a goal rate of 55ml/hr GI Prophylaxis -Protonix 40mg IV daily DVT Prophylaxis -LEILAs <Wing Schmitz - Last Filed: 07/17/16 15:26> CCU Objective - Vital Signs / Intake & Output Vital Signs (Last 4 hours): Vital Signs Temp Pulse Resp BP Pulse Ox 07/17/16 14:00 132 H 26 H 102/54 L 97 07/17/16 13:30 122 H 24 99/55 L 98 07/17/16 13:00 122 H 24 93/56 L 98 07/17/16 12:29 98.6 F 123 H 25 H 90/55 L 98 07/17/16 11:30 125 H 27 H 89/53 L 98 Intake and Output (Last 8hrs): Intake & Output 07/17/16 07/17/16 07/17/16 06:59 14:59 22:59 Intake Total 1600 296 Balance 1600 296 Weight 214 lb Intake: IV 1400 296 Intake, Piggyback 200 - Medications Active Medications: Active Medications Generic Name Dose Route Start Last Admin Trade Name Freq PRN Reason Stop Dose Admin Dextrose 0 ml 07/16/16 22:09 Dextrose 50% Inj IV STAT PRN Hyglycemia Protocol Protocol Dextrose 0 gm 07/16/16 22:09 Glutose 15 PO ONCE PRN Hypoglycemia Protocol Protocol Glucagon 0 mg 07/16/16 22:09 Glucagen Diagnostic Kit IM STAT PRN Hypoglycemia Protocol Protocol Piperacillin Sod/Tazobactam 100 mls @ 100 mls/hr 07/16/16 04:00 07/17/16 09: 25 Sod 2.25 gm/ Sodium Chloride IVPB 100 mls/hr Q6 FAVIAN Administration Clindamycin Phosphate 600 mg/ 104 mls @ 104 mls/hr 07/16/16 17:00 07/17/16 09 :25 Sodium Chloride IVPB 104 mls/hr Q8 FAVIAN Administration Vancomycin HCl 1 gm/ Sodium 250 mls @ 166.667 mls/hr 07/16/16 13:45 07/17/16 09:25 Chloride IVPB 166.667 mls/hr DAILY FAVIAN Administration Insulin Human Regular 100 101 mls @ 2.02 mls/hr 07/16/16 19:40 units/ Sodium Chloride IVPB .Q24H FAVIAN Protocol 2 UNITS/HR Phenylephrine HCl 10 mg/ 251 mls @ 30.12 mls/hr 07/17/16 00:45 07/17/16 11:53 Sodium Chloride IV 30 mcg/min .Q8H20M FAVIAN 45.18 mls/hr Protocol Titration 20 MCG/MIN Sodium Bicarbonate 150 meq/ 1,150 mls @ 150 mls/hr 07/17/16 10:15 07/17/16 10 :56 Dextrose/Sodium Chloride IV 07/18/16 10:14 150 mls/hr .Q7H40M FAVIAN Administration Midazolam HCl 50 mg/ Sodium 100 mls @ 4 mls/hr 07/17/16 15:00 Chloride IV 07/18/16 14:59 .Q24H ONE Protocol 2 MG/HR Lactulose 20 gm 07/17/16 13:00 Enulose PO QID FAVIAN Lorazepam 1 mg 07/16/16 09:00 Ativan IVP Q4 PRN Agitation Morphine Sulfate 4 mg 07/16/16 09:01 07/17/16 14:47 Morphine IVP 4 mg Q4 PRN Administration Pain, Mild (1-3) Pantoprazole Sodium 40 mg 07/16/16 09:00 07/17/16 11:22 Protonix Inj IVP 40 mg DAILY FAVAIN Administration - Patient Studies Lab Studies: Microbiology Studies 07/16/16 04:35 S.aureus & Coag-Neg Staph PNA FISH - Final Blood Blood Culture - Preliminary Gram Positive Cocci Gram Stain - Final 07/16/16 10:59 Gram Stain - Final Trachasp Sputum Culture - Preliminary Gram Positive Cocci 07/16/16 13:11 Gram Stain - Final Trachasp Sputum Culture - Preliminary Gram Positive Cocci 07/16/16 04:35 Blood Culture - Preliminary Blood NO GROWTH AFTER 24 HOURS Lab Studies 07/17/16 07/17/16 07/17/16 Range/Units 14:46 12:06 10:06 WBC (4.8-10.8) K/uL RBC (4.40-5.90) Mil/uL Hgb (12.0-18.0) g/dL Hct (35.0-51.0) % MCV (80.0-94.0) fl MCH (27.0-31.0) pg MCHC (33.0-37.0) g/dL RDW (11.5-14.5) % Plt Count (130-400) K/uL MPV (7.2-11.7) fl Neut % (Auto) (50.0-75.0) % Lymph % (Auto) (20.0-40.0) % [place] % (Auto) (0.0-10.0) % Eos % (Auto) (0.0-4.0) % Baso % (Auto) (0.0-2.0) % Neut # (1.8-7.0) K/uL Lymph # (1.0-4.3) K/uL [place] # (0.0-0.8) K/uL Eos # (0.0-0.7) K/uL Baso # (0.0-0.2) K/uL Neutrophils % (Manual) (42-75) % Band Neutrophils % (0-2) % Lymphocytes % (Manual) (20-50) % Monocytes % (Manual) (0-10) % Metamyelocytes % (0-0) % Platelet Estimate (NORMAL) Large Platelets Poikilocytosis (manual Anisocytosis (manual) Microcytosis (manual) Macrocytosis (manual) Spherocytes Tear Drop Cells Michael Cells Schistocytes PT (9.6-11.2) SECONDS INR (0.92-1.08) APTT (23.3-32.5) SECONDS pCO2 (35-45) mm/Hg pO2 (80-100) mm/Hg HCO3 (21-28) mmol/L ABG pH (7.35-7.45) ABG Total CO2 (22-28) mmol/L ABG O2 Saturation (95-98) % ABG Base Excess (-2.0-3.0) mmol/L [place] Test ABG Potassium (3.6-5.2) mmol/L A-a O2 Difference mm/Hg Sodium (132-148) mmol/L Chloride (98-107) mmol/L Glucose (75-110) mg/dL Lactate (0.7-2.1) mmol/L Vent Mode Mechanical Rate FiO2 % Tidal Volume Crit Value Called To Crit Value Called By Crit Value Read Back Blood Gas Notified Time Potassium (3.6-5.0) MMOL/L Carbon Dioxide (22-30) mmol/L Anion Gap (10-20) BUN (9-20) mg/dl Creatinine (0.8-1.5) mg/dL Est GFR ( Amer) Est GFR (Non-Af Amer) POC Glucose (mg/dL) 270 H 261 H 249 H (65-110) mg/dL Random Glucose (75-110) mg/dL Hemoglobin A1c (4.2-6.5) % Serum Osmolality (272-300) mosm/kg Calcium (8.4-10.2) mg/dL Total Bilirubin (0.2-1.3) mg/dl AST (17-59) U/L ALT (21-72) U/L Alkaline Phosphatase (38-126) U/L Total Protein (6.3-8.2) G/DL Albumin (3.5-5.0) g/dL Globulin (2.2-3.9) gm/dL Albumin/Globulin Ratio (1.0-2.1) Procalcitonin (0.19-0.49) NG/ML Arterial Blood Potassium (3.6-5.2) mmol/L 07/17/16 07/17/16 07/17/16 Range/Units 08:11 06:59 06:32 WBC (4.8-10.8) K/uL RBC (4.40-5.90) Mil/uL Hgb (12.0-18.0) g/dL Hct (35.0-51.0) % MCV (80.0-94.0) fl MCH (27.0-31.0) pg MCHC (33.0-37.0) g/dL RDW (11.5-14.5) % Plt Count (130-400) K/uL MPV (7.2-11.7) fl Neut % (Auto) (50.0-75.0) % Lymph % (Auto) (20.0-40.0) % [place] % (Auto) (0.0-10.0) % Eos % (Auto) (0.0-4.0) % Baso % (Auto) (0.0-2.0) % Neut # (1.8-7.0) K/uL Lymph # (1.0-4.3) K/uL [place] # (0.0-0.8) K/uL Eos # (0.0-0.7) K/uL Baso # (0.0-0.2) K/uL Neutrophils % (Manual) (42-75) % Band Neutrophils % (0-2) % Lymphocytes % (Manual) (20-50) % Monocytes % (Manual) (0-10) % Metamyelocytes % (0-0) % Platelet Estimate (NORMAL) Large Platelets Poikilocytosis (manual Anisocytosis (manual) Microcytosis (manual) Macrocytosis (manual) Spherocytes Tear Drop Cells [place] Cells Schistocytes PT (9.6-11.2) SECONDS INR (0.92-1.08) APTT (23.3-32.5) SECONDS pCO2 (35-45) mm/Hg pO2 (80-100) mm/Hg HCO3 (21-28) mmol/L ABG pH (7.35-7.45) ABG Total CO2 (22-28) mmol/L ABG O2 Saturation (95-98) % ABG Base Excess (-2.0-3.0) mmol/L [place] Test ABG Potassium (3.6-5.2) mmol/L A-a O2 Difference mm/Hg Sodium (132-148) mmol/L Chloride (98-107) mmol/L Glucose (75-110) mg/dL Lactate (0.7-2.1) mmol/L Vent Mode Mechanical Rate FiO2 % Tidal Volume Crit Value Called To Crit Value Called By Crit Value Read Back Blood Gas Notified Time Potassium (3.6-5.0) MMOL/L Carbon Dioxide (22-30) mmol/L Anion Gap (10-20) BUN (9-20) mg/dl Creatinine (0.8-1.5) mg/dL Est GFR ( Amer) Est GFR (Non-Af Amer) POC Glucose (mg/dL) 221 H 192 H (65-110) mg/dL Random Glucose (75-110) mg/dL Hemoglobin A1c (4.2-6.5) % Serum Osmolality 340 H (272-300) mosm/kg Calcium (8.4-10.2) mg/dL Total Bilirubin (0.2-1.3) mg/dl AST (17-59) U/L ALT (21-72) U/L Alkaline Phosphatase (38-126) U/L Total Protein (6.3-8.2) G/DL Albumin (3.5-5.0) g/dL Globulin (2.2-3.9) gm/dL Albumin/Globulin Ratio (1.0-2.1) Procalcitonin (0.19-0.49) NG/ML Arterial Blood Potassium (3.6-5.2) mmol/L 07/17/16 07/17/16 07/17/16 Range/Units 06:32 06:32 06:32 WBC 27.7 H (4.8-10.8) K/uL RBC 3.42 L (4.40-5.90) Mil/uL Hgb 8.9 L (12.0-18.0) g/dL Hct 30.6 L (35.0-51.0) % MCV 89.6 D (80.0-94.0) fl MCH 26.0 L (27.0-31.0) pg MCHC 29.0 L (33.0-37.0) g/dL RDW 24.3 H (11.5-14.5) % Plt Count 41 L D (130-400) K/uL MPV 9.6 (7.2-11.7) fl Neut % (Auto) 93.2 H (50.0-75.0) % Lymph % (Auto) 1.1 L (20.0-40.0) % [place] % (Auto) 5.3 (0.0-10.0) % Eos % (Auto) 0.1 (0.0-4.0) % Baso % (Auto) 0.3 (0.0-2.0) % Neut # 25.8 H (1.8-7.0) K/uL Lymph # 0.3 L (1.0-4.3) K/uL [place] # 1.5 H (0.0-0.8) K/uL Eos # 0.0 (0.0-0.7) K/uL Baso # 0.1 (0.0-0.2) K/uL Neutrophils % (Manual) 70 (42-75) % Band Neutrophils % 20 H* (0-2) % Lymphocytes % (Manual) 1 L (20-50) % Monocytes % (Manual) 7 (0-10) % Metamyelocytes % 2 H (0-0) % Platelet Estimate Markedly decreased L (NORMAL) Large Platelets Present Poikilocytosis (manual Moderate Anisocytosis (manual) Moderate Microcytosis (manual) Slight Macrocytosis (manual) Slight Spherocytes Slight Tear Drop Cells Slight [place] Cells Moderate Schistocytes Slight PT 25.9 H (9.6-11.2) SECONDS INR 2.49 H (0.92-1.08) APTT 45.3 H (23.3-32.5) SECONDS pCO2 (35-45) mm/Hg pO2 (80-100) mm/Hg HCO3 (21-28) mmol/L ABG pH (7.35-7.45) ABG Total CO2 (22-28) mmol/L ABG O2 Saturation (95-98) % ABG Base Excess (-2.0-3.0) mmol/L [place] Test ABG Potassium (3.6-5.2) mmol/L A-a O2 Difference mm/Hg Sodium 144 (132-148) mmol/L Chloride 113 H (98-107) mmol/L Glucose (75-110) mg/dL Lactate (0.7-2.1) mmol/L Vent Mode Mechanical Rate FiO2 % Tidal Volume Crit Value Called To Crit Value Called By Crit Value Read Back Blood Gas Notified Time Potassium 5.5 H (3.6-5.0) MMOL/L Carbon Dioxide 13 L (22-30) mmol/L Anion Gap 24 H (10-20) BUN 81 H (9-20) mg/dl Creatinine 3.8 H (0.8-1.5) mg/dL Est GFR ( Amer) 20 Est GFR (Non-Af Amer) 16 POC Glucose (mg/dL) (65-110) mg/dL Random Glucose 167 H (75-110) mg/dL Hemoglobin A1c (4.2-6.5) % Serum Osmolality (272-300) mosm/kg Calcium 8.3 L (8.4-10.2) mg/dL Total Bilirubin 2.2 H (0.2-1.3) mg/dl AST 124 H (17-59) U/L ALT 50 (21-72) U/L Alkaline Phosphatase 91 (38-126) U/L Total Protein 5.5 L (6.3-8.2) G/DL Albumin 2.0 L (3.5-5.0) g/dL Globulin 3.5 (2.2-3.9) gm/dL Albumin/Globulin Ratio 0.6 L (1.0-2.1) Procalcitonin (0.19-0.49) NG/ML Arterial Blood Potassium (3.6-5.2) mmol/L 07/17/16 07/17/16 07/17/16 Range/Units 05:54 05:32 05:00 WBC (4.8-10.8) K/uL RBC (4.40-5.90) Mil/uL Hgb (12.0-18.0) g/dL Hct (35.0-51.0) % MCV (80.0-94.0) fl MCH (27.0-31.0) pg MCHC (33.0-37.0) g/dL RDW (11.5-14.5) % Plt Count (130-400) K/uL MPV (7.2-11.7) fl Neut % (Auto) (50.0-75.0) % Lymph % (Auto) (20.0-40.0) % [place] % (Auto) (0.0-10.0) % Eos % (Auto) (0.0-4.0) % Baso % (Auto) (0.0-2.0) % Neut # (1.8-7.0) K/uL Lymph # (1.0-4.3) K/uL [place] # (0.0-0.8) K/uL Eos # (0.0-0.7) K/uL Baso # (0.0-0.2) K/uL Neutrophils % (Manual) (42-75) % Band Neutrophils % (0-2) % Lymphocytes % (Manual) (20-50) % Monocytes % (Manual) (0-10) % Metamyelocytes % (0-0) % Platelet Estimate (NORMAL) Large Platelets Poikilocytosis (manual Anisocytosis (manual) Microcytosis (manual) Macrocytosis (manual) Spherocytes Tear Drop Cells [place] Cells Schistocytes PT (9.6-11.2) SECONDS INR (0.92-1.08) APTT (23.3-32.5) SECONDS pCO2 32 L (35-45) mm/Hg pO2 75 L (80-100) mm/Hg HCO3 12.2 L (21-28) mmol/L ABG pH 7.16 L* (7.35-7.45) ABG Total CO2 12.4 L (22-28) mmol/L ABG O2 Saturation 97.2 (95-98) % ABG Base Excess -16.1 L (-2.0-3.0) mmol/L [place] Test Yes ABG Potassium 5.7 H (3.6-5.2) mmol/L A-a O2 Difference 313.0 mm/Hg Sodium 141.0 (132-148) mmol/L Chloride 111.0 H (98-107) mmol/L Glucose 182 H (75-110) mg/dL Lactate 9.7 H* (0.7-2.1) mmol/L Vent Mode A/c Mechanical Rate 12 FiO2 60.0 % Tidal Volume 500 Crit Value Called To Palma garcia rn Crit Value Called By 6075 Crit Value Read Back Y Blood Gas Notified Time 535 Potassium (3.6-5.0) MMOL/L Carbon Dioxide (22-30) mmol/L Anion Gap (10-20) BUN (9-20) mg/dl Creatinine (0.8-1.5) mg/dL Est GFR ( Amer) Est GFR (Non-Af Amer) POC Glucose (mg/dL) 190 H 191 H (65-110) mg/dL Random Glucose (75-110) mg/dL Hemoglobin A1c (4.2-6.5) % Serum Osmolality (272-300) mosm/kg Calcium (8.4-10.2) mg/dL Total Bilirubin (0.2-1.3) mg/dl AST (17-59) U/L ALT (21-72) U/L Alkaline Phosphatase (38-126) U/L Total Protein (6.3-8.2) G/DL Albumin (3.5-5.0) g/dL Globulin (2.2-3.9) gm/dL Albumin/Globulin Ratio (1.0-2.1) Procalcitonin (0.19-0.49) NG/ML Arterial Blood Potassium 5.7 H (3.6-5.2) mmol/L 07/17/16 07/17/16 07/17/16 Range/Units 04:06 02:52 02:03 WBC (4.8-10.8) K/uL RBC (4.40-5.90) Mil/uL Hgb (12.0-18.0) g/dL Hct (35.0-51.0) % MCV (80.0-94.0) fl MCH (27.0-31.0) pg MCHC (33.0-37.0) g/dL RDW (11.5-14.5) % Plt Count (130-400) K/uL MPV (7.2-11.7) fl Neut % (Auto) (50.0-75.0) % Lymph % (Auto) (20.0-40.0) % [place] % (Auto) (0.0-10.0) % Eos % (Auto) (0.0-4.0) % Baso % (Auto) (0.0-2.0) % Neut # (1.8-7.0) K/uL Lymph # (1.0-4.3) K/uL [place] # (0.0-0.8) K/uL Eos # (0.0-0.7) K/uL Baso # (0.0-0.2) K/uL Neutrophils % (Manual) (42-75) % Band Neutrophils % (0-2) % Lymphocytes % (Manual) (20-50) % Monocytes % (Manual) (0-10) % Metamyelocytes % (0-0) % Platelet Estimate (NORMAL) Large Platelets Poikilocytosis (manual Anisocytosis (manual) Microcytosis (manual) Macrocytosis (manual) Spherocytes Tear Drop Cells [place] Cells Schistocytes PT (9.6-11.2) SECONDS INR (0.92-1.08) APTT (23.3-32.5) SECONDS pCO2 (35-45) mm/Hg pO2 (80-100) mm/Hg HCO3 (21-28) mmol/L ABG pH (7.35-7.45) ABG Total CO2 (22-28) mmol/L ABG O2 Saturation (95-98) % ABG Base Excess (-2.0-3.0) mmol/L [place] Test ABG Potassium (3.6-5.2) mmol/L A-a O2 Difference mm/Hg Sodium (132-148) mmol/L Chloride (98-107) mmol/L Glucose (75-110) mg/dL Lactate (0.7-2.1) mmol/L Vent Mode Mechanical Rate FiO2 % Tidal Volume Crit Value Called To Crit Value Called By Crit Value Read Back Blood Gas Notified Time Potassium (3.6-5.0) MMOL/L Carbon Dioxide (22-30) mmol/L Anion Gap (10-20) BUN (9-20) mg/dl Creatinine (0.8-1.5) mg/dL Est GFR ( Amer) Est GFR (Non-Af Amer) POC Glucose (mg/dL) 233 H 190 H 196 H (65-110) mg/dL Random Glucose (75-110) mg/dL Hemoglobin A1c (4.2-6.5) % Serum Osmolality (272-300) mosm/kg Calcium (8.4-10.2) mg/dL Total Bilirubin (0.2-1.3) mg/dl AST (17-59) U/L ALT (21-72) U/L Alkaline Phosphatase (38-126) U/L Total Protein (6.3-8.2) G/DL Albumin (3.5-5.0) g/dL Globulin (2.2-3.9) gm/dL Albumin/Globulin Ratio (1.0-2.1) Procalcitonin (0.19-0.49) NG/ML Arterial Blood Potassium (3.6-5.2) mmol/L 07/17/16 07/16/16 07/16/16 Range/Units 01:03 23:53 22:59 WBC (4.8-10.8) K/uL RBC (4.40-5.90) Mil/uL Hgb (12.0-18.0) g/dL Hct (35.0-51.0) % MCV (80.0-94.0) fl MCH (27.0-31.0) pg MCHC (33.0-37.0) g/dL RDW (11.5-14.5) % Plt Count (130-400) K/uL MPV (7.2-11.7) fl Neut % (Auto) (50.0-75.0) % Lymph % (Auto) (20.0-40.0) % [place] % (Auto) (0.0-10.0) % Eos % (Auto) (0.0-4.0) % Baso % (Auto) (0.0-2.0) % Neut # (1.8-7.0) K/uL Lymph # (1.0-4.3) K/uL [place] # (0.0-0.8) K/uL Eos # (0.0-0.7) K/uL Baso # (0.0-0.2) K/uL Neutrophils % (Manual) (42-75) % Band Neutrophils % (0-2) % Lymphocytes % (Manual) (20-50) % Monocytes % (Manual) (0-10) % Metamyelocytes % (0-0) % Platelet Estimate (NORMAL) Large Platelets Poikilocytosis (manual Anisocytosis (manual) Microcytosis (manual) Macrocytosis (manual) Spherocytes Tear Drop Cells [place] Cells Schistocytes PT (9.6-11.2) SECONDS INR (0.92-1.08) APTT (23.3-32.5) SECONDS pCO2 (35-45) mm/Hg pO2 (80-100) mm/Hg HCO3 (21-28) mmol/L ABG pH (7.35-7.45) ABG Total CO2 (22-28) mmol/L ABG O2 Saturation (95-98) % ABG Base Excess (-2.0-3.0) mmol/L [place] Test ABG Potassium (3.6-5.2) mmol/L A-a O2 Difference mm/Hg Sodium (132-148) mmol/L Chloride (98-107) mmol/L Glucose (75-110) mg/dL Lactate (0.7-2.1) mmol/L Vent Mode Mechanical Rate FiO2 % Tidal Volume Crit Value Called To Crit Value Called By Crit Value Read Back Blood Gas Notified Time Potassium (3.6-5.0) MMOL/L Carbon Dioxide (22-30) mmol/L Anion Gap (10-20) BUN (9-20) mg/dl Creatinine (0.8-1.5) mg/dL Est GFR ( Amer) Est GFR (Non-Af Amer) POC Glucose (mg/dL) 204 H 205 H 216 H (65-110) mg/dL Random Glucose (75-110) mg/dL Hemoglobin A1c (4.2-6.5) % Serum Osmolality (272-300) mosm/kg Calcium (8.4-10.2) mg/dL Total Bilirubin (0.2-1.3) mg/dl AST (17-59) U/L ALT (21-72) U/L Alkaline Phosphatase (38-126) U/L Total Protein (6.3-8.2) G/DL Albumin (3.5-5.0) g/dL Globulin (2.2-3.9) gm/dL Albumin/Globulin Ratio (1.0-2.1) Procalcitonin (0.19-0.49) NG/ML Arterial Blood Potassium (3.6-5.2) mmol/L 07/16/16 07/16/16 07/16/16 Range/Units 21:23 20:24 19:41 WBC (4.8-10.8) K/uL RBC (4.40-5.90) Mil/uL Hgb (12.0-18.0) g/dL Hct (35.0-51.0) % MCV (80.0-94.0) fl MCH (27.0-31.0) pg MCHC (33.0-37.0) g/dL RDW (11.5-14.5) % Plt Count (130-400) K/uL MPV (7.2-11.7) fl Neut % (Auto) (50.0-75.0) % Lymph % (Auto) (20.0-40.0) % [place] % (Auto) (0.0-10.0) % Eos % (Auto) (0.0-4.0) % Baso % (Auto) (0.0-2.0) % Neut # (1.8-7.0) K/uL Lymph # (1.0-4.3) K/uL [place] # (0.0-0.8) K/uL Eos # (0.0-0.7) K/uL Baso # (0.0-0.2) K/uL Neutrophils % (Manual) (42-75) % Band Neutrophils % (0-2) % Lymphocytes % (Manual) (20-50) % Monocytes % (Manual) (0-10) % Metamyelocytes % (0-0) % Platelet Estimate (NORMAL) Large Platelets Poikilocytosis (manual Anisocytosis (manual) Microcytosis (manual) Macrocytosis (manual) Spherocytes Tear Drop Cells [place] Cells Schistocytes PT (9.6-11.2) SECONDS INR (0.92-1.08) APTT (23.3-32.5) SECONDS pCO2 (35-45) mm/Hg pO2 (80-100) mm/Hg HCO3 (21-28) mmol/L ABG pH (7.35-7.45) ABG Total CO2 (22-28) mmol/L ABG O2 Saturation (95-98) % ABG Base Excess (-2.0-3.0) mmol/L [place] Test ABG Potassium (3.6-5.2) mmol/L A-a O2 Difference mm/Hg Sodium (132-148) mmol/L Chloride (98-107) mmol/L Glucose (75-110) mg/dL Lactate (0.7-2.1) mmol/L Vent Mode Mechanical Rate FiO2 % Tidal Volume Crit Value Called To Crit Value Called By Crit Value Read Back Blood Gas Notified Time Potassium (3.6-5.0) MMOL/L Carbon Dioxide (22-30) mmol/L Anion Gap (10-20) BUN (9-20) mg/dl Creatinine (0.8-1.5) mg/dL Est GFR ( Amer) Est GFR (Non-Af Amer) POC Glucose (mg/dL) 203 H 190 H 195 H (65-110) mg/dL Random Glucose (75-110) mg/dL Hemoglobin A1c (4.2-6.5) % Serum Osmolality (272-300) mosm/kg Calcium (8.4-10.2) mg/dL Total Bilirubin (0.2-1.3) mg/dl AST (17-59) U/L ALT (21-72) U/L Alkaline Phosphatase (38-126) U/L Total Protein (6.3-8.2) G/DL Albumin (3.5-5.0) g/dL Globulin (2.2-3.9) gm/dL Albumin/Globulin Ratio (1.0-2.1) Procalcitonin (0.19-0.49) NG/ML Arterial Blood Potassium (3.6-5.2) mmol/L 07/16/16 07/16/16 07/16/16 Range/Units 18:35 17:32 16:37 WBC (4.8-10.8) K/uL RBC (4.40-5.90) Mil/uL Hgb (12.0-18.0) g/dL Hct (35.0-51.0) % MCV (80.0-94.0) fl MCH (27.0-31.0) pg MCHC (33.0-37.0) g/dL RDW (11.5-14.5) % Plt Count (130-400) K/uL MPV (7.2-11.7) fl Neut % (Auto) (50.0-75.0) % Lymph % (Auto) (20.0-40.0) % [place] % (Auto) (0.0-10.0) % Eos % (Auto) (0.0-4.0) % Baso % (Auto) (0.0-2.0) % Neut # (1.8-7.0) K/uL Lymph # (1.0-4.3) K/uL [place] # (0.0-0.8) K/uL Eos # (0.0-0.7) K/uL Baso # (0.0-0.2) K/uL Neutrophils % (Manual) (42-75) % Band Neutrophils % (0-2) % Lymphocytes % (Manual) (20-50) % Monocytes % (Manual) (0-10) % Metamyelocytes % (0-0) % Platelet Estimate (NORMAL) Large Platelets Poikilocytosis (manual Anisocytosis (manual) Microcytosis (manual) Macrocytosis (manual) Spherocytes Tear Drop Cells [place] Cells Schistocytes PT (9.6-11.2) SECONDS INR (0.92-1.08) APTT (23.3-32.5) SECONDS pCO2 (35-45) mm/Hg pO2 (80-100) mm/Hg HCO3 (21-28) mmol/L ABG pH (7.35-7.45) ABG Total CO2 (22-28) mmol/L ABG O2 Saturation (95-98) % ABG Base Excess (-2.0-3.0) mmol/L [place] Test ABG Potassium (3.6-5.2) mmol/L A-a O2 Difference mm/Hg Sodium (132-148) mmol/L Chloride (98-107) mmol/L Glucose (75-110) mg/dL Lactate (0.7-2.1) mmol/L Vent Mode Mechanical Rate FiO2 % Tidal Volume Crit Value Called To Crit Value Called By Crit Value Read Back Blood Gas Notified Time Potassium (3.6-5.0) MMOL/L Carbon Dioxide (22-30) mmol/L Anion Gap (10-20) BUN (9-20) mg/dl Creatinine (0.8-1.5) mg/dL Est GFR ( Amer) Est GFR (Non-Af Amer) POC Glucose (mg/dL) 204 H 202 H 228 H (65-110) mg/dL Random Glucose (75-110) mg/dL Hemoglobin A1c (4.2-6.5) % Serum Osmolality (272-300) mosm/kg Calcium (8.4-10.2) mg/dL Total Bilirubin (0.2-1.3) mg/dl AST (17-59) U/L ALT (21-72) U/L Alkaline Phosphatase (38-126) U/L Total Protein (6.3-8.2) G/DL Albumin (3.5-5.0) g/dL Globulin (2.2-3.9) gm/dL Albumin/Globulin Ratio (1.0-2.1) Procalcitonin (0.19-0.49) NG/ML Arterial Blood Potassium (3.6-5.2) mmol/L 07/16/16 07/16/16 07/16/16 Range/Units 15:36 14:33 13:59 WBC (4.8-10.8) K/uL RBC (4.40-5.90) Mil/uL Hgb (12.0-18.0) g/dL Hct (35.0-51.0) % MCV (80.0-94.0) fl MCH (27.0-31.0) pg MCHC (33.0-37.0) g/dL RDW (11.5-14.5) % Plt Count (130-400) K/uL MPV (7.2-11.7) fl Neut % (Auto) (50.0-75.0) % Lymph % (Auto) (20.0-40.0) % [place] % (Auto) (0.0-10.0) % Eos % (Auto) (0.0-4.0) % Baso % (Auto) (0.0-2.0) % Neut # (1.8-7.0) K/uL Lymph # (1.0-4.3) K/uL [place] # (0.0-0.8) K/uL Eos # (0.0-0.7) K/uL Baso # (0.0-0.2) K/uL Neutrophils % (Manual) (42-75) % Band Neutrophils % (0-2) % Lymphocytes % (Manual) (20-50) % Monocytes % (Manual) (0-10) % Metamyelocytes % (0-0) % Platelet Estimate (NORMAL) Large Platelets Poikilocytosis (manual Anisocytosis (manual) Microcytosis (manual) Macrocytosis (manual) Spherocytes Tear Drop Cells Michael Cells Schistocytes PT (9.6-11.2) SECONDS INR (0.92-1.08) APTT (23.3-32.5) SECONDS pCO2 (35-45) mm/Hg pO2 (80-100) mm/Hg HCO3 (21-28) mmol/L ABG pH (7.35-7.45) ABG Total CO2 (22-28) mmol/L ABG O2 Saturation (95-98) % ABG Base Excess (-2.0-3.0) mmol/L [place] Test ABG Potassium (3.6-5.2) mmol/L A-a O2 Difference mm/Hg Sodium (132-148) mmol/L Chloride (98-107) mmol/L Glucose (75-110) mg/dL Lactate (0.7-2.1) mmol/L Vent Mode Mechanical Rate FiO2 % Tidal Volume Crit Value Called To Crit Value Called By Crit Value Read Back Blood Gas Notified Time Potassium (3.6-5.0) MMOL/L Carbon Dioxide (22-30) mmol/L Anion Gap (10-20) BUN (9-20) mg/dl Creatinine (0.8-1.5) mg/dL Est GFR ( Amer) Est GFR (Non-Af Amer) POC Glucose (mg/dL) 237 H 255 H 242 H (65-110) mg/dL Random Glucose (75-110) mg/dL Hemoglobin A1c (4.2-6.5) % Serum Osmolality (272-300) mosm/kg Calcium (8.4-10.2) mg/dL Total Bilirubin (0.2-1.3) mg/dl AST (17-59) U/L ALT (21-72) U/L Alkaline Phosphatase (38-126) U/L Total Protein (6.3-8.2) G/DL Albumin (3.5-5.0) g/dL Globulin (2.2-3.9) gm/dL Albumin/Globulin Ratio (1.0-2.1) Procalcitonin (0.19-0.49) NG/ML Arterial Blood Potassium (3.6-5.2) mmol/L 07/16/16 07/16/16 07/16/16 Range/Units 12:37 12:15 12:15 WBC (4.8-10.8) K/uL RBC (4.40-5.90) Mil/uL Hgb (12.0-18.0) g/dL Hct (35.0-51.0) % MCV (80.0-94.0) fl MCH (27.0-31.0) pg MCHC (33.0-37.0) g/dL RDW (11.5-14.5) % Plt Count (130-400) K/uL MPV (7.2-11.7) fl Neut % (Auto) (50.0-75.0) % Lymph % (Auto) (20.0-40.0) % [place] % (Auto) (0.0-10.0) % Eos % (Auto) (0.0-4.0) % Baso % (Auto) (0.0-2.0) % Neut # (1.8-7.0) K/uL Lymph # (1.0-4.3) K/uL [place] # (0.0-0.8) K/uL Eos # (0.0-0.7) K/uL Baso # (0.0-0.2) K/uL Neutrophils % (Manual) (42-75) % Band Neutrophils % (0-2) % Lymphocytes % (Manual) (20-50) % Monocytes % (Manual) (0-10) % Metamyelocytes % (0-0) % Platelet Estimate (NORMAL) Large Platelets Poikilocytosis (manual Anisocytosis (manual) Microcytosis (manual) Macrocytosis (manual) Spherocytes Tear Drop Cells Michael Cells Schistocytes PT (9.6-11.2) SECONDS INR (0.92-1.08) APTT (23.3-32.5) SECONDS pCO2 (35-45) mm/Hg pO2 (80-100) mm/Hg HCO3 (21-28) mmol/L ABG pH (7.35-7.45) ABG Total CO2 (22-28) mmol/L ABG O2 Saturation (95-98) % ABG Base Excess (-2.0-3.0) mmol/L [place] Test ABG Potassium (3.6-5.2) mmol/L A-a O2 Difference mm/Hg Sodium (132-148) mmol/L Chloride (98-107) mmol/L Glucose (75-110) mg/dL Lactate (0.7-2.1) mmol/L Vent Mode Mechanical Rate FiO2 % Tidal Volume Crit Value Called To Crit Value Called By Crit Value Read Back Blood Gas Notified Time Potassium (3.6-5.0) MMOL/L Carbon Dioxide (22-30) mmol/L Anion Gap (10-20) BUN (9-20) mg/dl Creatinine (0.8-1.5) mg/dL Est GFR ( Amer) Est GFR (Non-Af Amer) POC Glucose (mg/dL) 236 H (65-110) mg/dL Random Glucose (75-110) mg/dL Hemoglobin A1c 9.8 H (4.2-6.5) % Serum Osmolality (272-300) mosm/kg Calcium (8.4-10.2) mg/dL Total Bilirubin (0.2-1.3) mg/dl AST (17-59) U/L ALT (21-72) U/L Alkaline Phosphatase (38-126) U/L Total Protein (6.3-8.2) G/DL Albumin (3.5-5.0) g/dL Globulin (2.2-3.9) gm/dL Albumin/Globulin Ratio (1.0-2.1) Procalcitonin 4.24 H (0.19-0.49) NG/ML Arterial Blood Potassium (3.6-5.2) mmol/L Laboratory Results - last 24 hr 07/16/16 07/16/16 07/16/16 12:15 12:15 12:37 WBC RBC Hgb Hct MCV MCH MCHC RDW Plt Count MPV Neut % (Auto) Lymph % (Auto) [place] % (Auto) Eos % (Auto) Baso % (Auto) Neut # Lymph # [place] # Eos # Baso # Neutrophils % (Manual) Band Neutrophils % Lymphocytes % (Manual) Monocytes % (Manual) Metamyelocytes % Platelet Estimate Large Platelets Poikilocytosis (manual Anisocytosis (manual) Microcytosis (manual) Macrocytosis (manual) Spherocytes Tear Drop Cells [place] Cells Schistocytes PT INR APTT pCO2 pO2 HCO3 ABG pH ABG Total CO2 ABG O2 Saturation ABG Base Excess [place] Test ABG Potassium A-a O2 Difference Sodium Chloride Glucose Lactate Vent Mode Mechanical Rate FiO2 Tidal Volume Crit Value Called To Crit Value Called By Crit Value Read Back Blood Gas Notified Time Potassium Carbon Dioxide Anion Gap BUN Creatinine Est GFR ( Amer) Est GFR (Non-Af Amer) POC Glucose (mg/dL) 236 H Random Glucose Hemoglobin A1c 9.8 H Serum Osmolality Calcium Total Bilirubin AST ALT Alkaline Phosphatase Total Protein Albumin Globulin Albumin/Globulin Ratio Procalcitonin 4.24 H Arterial Blood Potassium 07/16/16 07/16/16 07/16/16 13:59 14:33 15:36 WBC RBC Hgb Hct MCV MCH MCHC RDW Plt Count MPV Neut % (Auto) Lymph % (Auto) [place] % (Auto) Eos % (Auto) Baso % (Auto) Neut # Lymph # [place] # Eos # Baso # Neutrophils % (Manual) Band Neutrophils % Lymphocytes % (Manual) Monocytes % (Manual) Metamyelocytes % Platelet Estimate Large Platelets Poikilocytosis (manual Anisocytosis (manual) Microcytosis (manual) Macrocytosis (manual) Spherocytes Tear Drop Cells [place] Cells Schistocytes PT INR APTT pCO2 pO2 HCO3 ABG pH ABG Total CO2 ABG O2 Saturation ABG Base Excess [place] Test ABG Potassium A-a O2 Difference Sodium Chloride Glucose Lactate Vent Mode Mechanical Rate FiO2 Tidal Volume Crit Value Called To Crit Value Called By Crit Value Read Back Blood Gas Notified Time Potassium Carbon Dioxide Anion Gap BUN Creatinine Est GFR ( Amer) Est GFR (Non-Af Amer) POC Glucose (mg/dL) 242 H 255 H 237 H Random Glucose Hemoglobin A1c Serum Osmolality Calcium Total Bilirubin AST ALT Alkaline Phosphatase Total Protein Albumin Globulin Albumin/Globulin Ratio Procalcitonin Arterial Blood Potassium 07/16/16 07/16/16 07/16/16 16:37 17:32 18:35 WBC RBC Hgb Hct MCV MCH MCHC RDW Plt Count MPV Neut % (Auto) Lymph % (Auto) [place] % (Auto) Eos % (Auto) Baso % (Auto) Neut # Lymph # [place] # Eos # Baso # Neutrophils % (Manual) Band Neutrophils % Lymphocytes % (Manual) Monocytes % (Manual) Metamyelocytes % Platelet Estimate Large Platelets Poikilocytosis (manual Anisocytosis (manual) Microcytosis (manual) Macrocytosis (manual) Spherocytes Tear Drop Cells [place] Cells Schistocytes PT INR APTT pCO2 pO2 HCO3 ABG pH ABG Total CO2 ABG O2 Saturation ABG Base Excess [place] Test ABG Potassium A-a O2 Difference Sodium Chloride Glucose Lactate Vent Mode Mechanical Rate FiO2 Tidal Volume Crit Value Called To Crit Value Called By Crit Value Read Back Blood Gas Notified Time Potassium Carbon Dioxide Anion Gap BUN Creatinine Est GFR ( Amer) Est GFR (Non-Af Amer) POC Glucose (mg/dL) 228 H 202 H 204 H Random Glucose Hemoglobin A1c Serum Osmolality Calcium Total Bilirubin AST ALT Alkaline Phosphatase Total Protein Albumin Globulin Albumin/Globulin Ratio Procalcitonin Arterial Blood Potassium 07/16/16 07/16/16 07/16/16 19:41 20:24 21:23 WBC RBC Hgb Hct MCV MCH MCHC RDW Plt Count MPV Neut % (Auto) Lymph % (Auto) [place] % (Auto) Eos % (Auto) Baso % (Auto) Neut # Lymph # [place] # Eos # Baso # Neutrophils % (Manual) Band Neutrophils % Lymphocytes % (Manual) Monocytes % (Manual) Metamyelocytes % Platelet Estimate Large Platelets Poikilocytosis (manual Anisocytosis (manual) Microcytosis (manual) Macrocytosis (manual) Spherocytes Tear Drop Cells [place] Cells Schistocytes PT INR APTT pCO2 pO2 HCO3 ABG pH ABG Total CO2 ABG O2 Saturation ABG Base Excess [place] Test ABG Potassium A-a O2 Difference Sodium Chloride Glucose Lactate Vent Mode Mechanical Rate FiO2 Tidal Volume Crit Value Called To Crit Value Called By Crit Value Read Back Blood Gas Notified Time Potassium Carbon Dioxide Anion Gap BUN Creatinine Est GFR ( Amer) Est GFR (Non-Af Amer) POC Glucose (mg/dL) 195 H 190 H 203 H Random Glucose Hemoglobin A1c Serum Osmolality Calcium Total Bilirubin AST ALT Alkaline Phosphatase Total Protein Albumin Globulin Albumin/Globulin Ratio Procalcitonin Arterial Blood Potassium 07/16/16 07/16/16 07/17/16 22:59 23:53 01:03 WBC RBC Hgb Hct MCV MCH MCHC RDW Plt Count MPV Neut % (Auto) Lymph % (Auto) [place] % (Auto) Eos % (Auto) Baso % (Auto) Neut # Lymph # [place] # Eos # Baso # Neutrophils % (Manual) Band Neutrophils % Lymphocytes % (Manual) Monocytes % (Manual) Metamyelocytes % Platelet Estimate Large Platelets Poikilocytosis (manual Anisocytosis (manual) Microcytosis (manual) Macrocytosis (manual) Spherocytes Tear Drop Cells [place] Cells Schistocytes PT INR APTT pCO2 pO2 HCO3 ABG pH ABG Total CO2 ABG O2 Saturation ABG Base Excess [place] Test ABG Potassium A-a O2 Difference Sodium Chloride Glucose Lactate Vent Mode Mechanical Rate FiO2 Tidal Volume Crit Value Called To Crit Value Called By Crit Value Read Back Blood Gas Notified Time Potassium Carbon Dioxide Anion Gap BUN Creatinine Est GFR ( Amer) Est GFR (Non-Af Amer) POC Glucose (mg/dL) 216 H 205 H 204 H Random Glucose Hemoglobin A1c Serum Osmolality Calcium Total Bilirubin AST ALT Alkaline Phosphatase Total Protein Albumin Globulin Albumin/Globulin Ratio Procalcitonin Arterial Blood Potassium 07/17/16 07/17/16 07/17/16 02:03 02:52 04:06 WBC RBC Hgb Hct MCV MCH MCHC RDW Plt Count MPV Neut % (Auto) Lymph % (Auto) [place] % (Auto) Eos % (Auto) Baso % (Auto) Neut # Lymph # [place] # Eos # Baso # Neutrophils % (Manual) Band Neutrophils % Lymphocytes % (Manual) Monocytes % (Manual) Metamyelocytes % Platelet Estimate Large Platelets Poikilocytosis (manual Anisocytosis (manual) Microcytosis (manual) Macrocytosis (manual) Spherocytes Tear Drop Cells [place] Cells Schistocytes PT INR APTT pCO2 pO2 HCO3 ABG pH ABG Total CO2 ABG O2 Saturation ABG Base Excess [place] Test ABG Potassium A-a O2 Difference Sodium Chloride Glucose Lactate Vent Mode Mechanical Rate FiO2 T[place] Volume Crit Value Called To Crit Value Called By Crit Value Read Back Blood Gas Notified Time Potassium Carbon Dioxide Anion Gap BUN Creatinine Est GFR ( Amer) Est GFR (Non-Af Amer) POC Glucose (mg/dL) 196 H 190 H 233 H Random Glucose Hemoglobin A1c Serum Osmolality Calcium Total Bilirubin AST ALT Alkaline Phosphatase Total Protein Albumin Globulin Albumin/Globulin Ratio Procalcitonin Arterial Blood Potassium 07/17/16 07/17/16 07/17/16 05:00 05:32 05:54 WBC RBC Hgb Hct MCV MCH MCHC RDW Plt Count MPV Neut % (Auto) Lymph % (Auto) [place] % (Auto) Eos % (Auto) Baso % (Auto) Neut # Lymph # [place] # Eos # Baso # Neutrophils % (Manual) Band Neutrophils % Lymphocytes % (Manual) Monocytes % (Manual) Metamyelocytes % Platelet Estimate Large Platelets Poikilocytosis (manual Anisocytosis (manual) Microcytosis (manual) Macrocytosis (manual) Spherocytes Tear Drop Cells [place] Cells Schistocytes PT INR APTT pCO2 32 L pO2 75 L HCO3 12.2 L ABG pH 7.16 L* ABG Total CO2 12.4 L ABG O2 Saturation 97.2 ABG Base Excess -16.1 L [place] Test Yes ABG Potassium 5.7 H A-a O2 Difference 313.0 Sodium 141.0 Chloride 111.0 H Glucose 182 H Lactate 9.7 H* Vent Mode A/c Mechanical Rate 12 FiO2 60.0 Tidal Volume 500 Crit Value Called To Palma garcia rn Crit Value Called By 6075 Crit Value Read Back Y Blood Gas Notified Time 535 Potassium Carbon Dioxide Anion Gap BUN Creatinine Est GFR ( Amer) Est GFR (Non-Af Amer) POC Glucose (mg/dL) 191 H 190 H Random Glucose Hemoglobin A1c Serum Osmolality Calcium Total Bilirubin AST ALT Alkaline Phosphatase Total Protein Albumin Globulin Albumin/Globulin Ratio Procalcitonin Arterial Blood Potassium 5.7 H 07/17/16 07/17/16 07/17/16 06:32 06:32 06:32 WBC 27.7 H RBC 3.42 L Hgb 8.9 L Hct 30.6 L MCV 89.6 D MCH 26.0 L MCHC 29.0 L RDW 24.3 H Plt Count 41 L D MPV 9.6 Neut % (Auto) 93.2 H Lymph % (Auto) 1.1 L Irion % (Auto) 5.3 Eos % (Auto) 0.1 Baso % (Auto) 0.3 Neut # 25.8 H Lymph # 0.3 L Irion # 1.5 H Eos # 0.0 Baso # 0.1 Neutrophils % (Manual) 70 Band Neutrophils % 20 H* Lymphocytes % (Manual) 1 L Monocytes % (Manual) 7 Metamyelocytes % 2 H Platelet Estimate Markedly decreased L Large Platelets Present Poikilocytosis (manual Moderate Anisocytosis (manual) Moderate Microcytosis (manual) Slight Macrocytosis (manual) Slight Spherocytes Slight Tear Drop Cells Slight Michael Cells Moderate Schistocytes Slight PT 25.9 H INR 2.49 H APTT 45.3 H pCO2 pO2 HCO3 ABG pH ABG Total CO2 ABG O2 Saturation ABG Base Excess [place] Test ABG Potassium A-a O2 Difference Sodium 144 Chloride 113 H Glucose Lactate Vent Mode Mechanical Rate FiO2 Tidal Volume Crit Value Called To Crit Value Called By Crit Value Read Back Blood Gas Notified Time Potassium 5.5 H Carbon Dioxide 13 L Anion Gap 24 H BUN 81 H Creatinine 3.8 H Est GFR ( Amer) 20 Est GFR (Non-Af Amer) 16 POC Glucose (mg/dL) Random Glucose 167 H Hemoglobin A1c Serum Osmolality Calcium 8.3 L Total Bilirubin 2.2 H AST 124 H ALT 50 Alkaline Phosphatase 91 Total Protein 5.5 L Albumin 2.0 L Globulin 3.5 Albumin/Globulin Ratio 0.6 L Procalcitonin Arterial Blood Potassium 07/17/16 07/17/16 07/17/16 06:32 06:59 08:11 WBC RBC Hgb Hct MCV MCH MCHC RDW Plt Count MPV Neut % (Auto) Lymph % (Auto) [place] % (Auto) Eos % (Auto) Baso % (Auto) Neut # Lymph # [place] # Eos # Baso # Neutrophils % (Manual) Band Neutrophils % Lymphocytes % (Manual) Monocytes % (Manual) Metamyelocytes % Platelet Estimate Large Platelets Poikilocytosis (manual Anisocytosis (manual) Microcytosis (manual) Macrocytosis (manual) Spherocytes Tear Drop Cells Michael Cells Schistocytes PT INR APTT pCO2 pO2 HCO3 ABG pH ABG Total CO2 ABG O2 Saturation ABG Base Excess [place] Test ABG Potassium A-a O2 Difference Sodium Chloride Glucose Lactate Vent Mode Mechanical Rate FiO2 Tidal Volume Crit Value Called To Crit Value Called By Crit Value Read Back Blood Gas Notified Time Potassium Carbon Dioxide Anion Gap BUN Creatinine Est GFR ( Amer) Est GFR (Non-Af Amer) POC Glucose (mg/dL) 192 H 221 H Random Glucose Hemoglobin A1c Serum Osmolality 340 H Calcium Total Bilirubin AST ALT Alkaline Phosphatase Total Protein Albumin Globulin Albumin/Globulin Ratio Procalcitonin Arterial Blood Potassium 07/17/16 07/17/16 07/17/16 10:06 12:06 14:46 WBC RBC Hgb Hct MCV MCH MCHC RDW Plt Count MPV Neut % (Auto) Lymph % (Auto) [place] % (Auto) Eos % (Auto) Baso % (Auto) Neut # Lymph # [place] # Eos # Baso # Neutrophils % (Manual) Band Neutrophils % Lymphocytes % (Manual) Monocytes % (Manual) Metamyelocytes % Platelet Estimate Large Platelets Poikilocytosis (manual Anisocytosis (manual) Microcytosis (manual) Macrocytosis (manual) Spherocytes Tear Drop Cells [place] Cells Schistocytes PT INR APTT pCO2 pO2 HCO3 ABG pH ABG Total CO2 ABG O2 Saturation ABG Base Excess [place] Test ABG Potassium A-a O2 Difference Sodium Chloride Glucose Lactate Vent Mode Mechanical Rate FiO2 Tidal Volume Crit Value Called To Crit Value Called By Crit Value Read Back Blood Gas Notified Time Potassium Carbon Dioxide Anion Gap BUN Creatinine Est GFR ( Amer) Est GFR (Non-Af Amer) POC Glucose (mg/dL) 249 H 261 H 270 H Random Glucose Hemoglobin A1c Serum Osmolality Calcium Total Bilirubin AST ALT Alkaline Phosphatase Total Protein Albumin Globulin Albumin/Globulin Ratio Procalcitonin Arterial Blood Potassium Attending/Attestation - Attestation I have personally seen and examined this patient.: Yes I have fully participated in the care of the patient.: Yes I have reviewed all pertinent clinical information: Yes Notes (Text): 07/17/16 15:19 Today: Sunday, July 17, 2016 The Patient was seen and examined at the bedside, Medical records reviewed, all clinical/lab/hemodynamic/radiographic data were reviewed and management issues were discussed and formulated, Events reviewed Critically ill patient with Acute respiratory failure with hypoxia Aggressive Pulmonary toilets, duonebs Q 6H, percussive bed. (Septic shock Neosynephrine, Keep MAP 65-75 Frequent LABS/LYTES/CBC, XR, EKG IV hydration Continue IV Anx Metabolic acidosis Secondary to septic shock, VICENTE, DKA, and elevated lactate Hydrations Hemodynamic monitoring Altered mental status Multifacrorial, Toxic/Metabolic encephalopathy Neurocheck Head CT scan EEG Pain issues, skin care, head of the bed elevation, GI/DVT prophylaxis, glycemic control were addressed. Agree with above treatment plans as transcribed in Dr. Palumbo note
[2016-07-17] MEDS: Sodium Bicarbonate 8.4% 150 MEQ in Dextrose 5%/0.9% NS 1,000 ML IV SCH ×2 (10:56→20:31)
[2016-07-17 10:57] LABS: METAMYELOCYTE 2 % (0-0); NEUTROPHIL 70 % (42-75); TOTAL CELLS COUNTED 100
[2016-07-17 11:01] LABS: LARGE PLATELETS PRESENT; SPHEROCYTES SLIGHT
--- NOTE | 2016-07-17 13:31 | CP.PCM.PN ---
Subjective - Date & Time of Evaluation Date of Evaluation: 07/17/16 Time of Evaluation: 13:30 - Subjective Subjective: no overnight events Objective - Vital Signs/Intake and Output Vital Signs (last 24 hours): Temp Pulse Resp BP Pulse Ox 98.6 F 123 H 26 H 97/66 L 98 07/17/16 12:29 07/17/16 12:29 07/17/16 12:29 07/17/16 12:29 07/17/16 12:29 Intake and Output: 07/17/16 07/17/16 06:59 18:59 Intake Total 2400 296 Balance 2400 296 - Medications Medications: Current Medications Dextrose (Dextrose 50% Inj) 0 ml IV STAT PRN; Protocol PRN Reason: Hyglycemia Protocol Dextrose (Glutose 15) 0 gm PO ONCE PRN; Protocol PRN Reason: Hypoglycemia Protocol Glucagon (Glucagen Diagnostic Kit) 0 mg IM STAT PRN; Protocol PRN Reason: Hypoglycemia Protocol Piperacillin Sod/Tazobactam (Sod 2.25 gm/ Sodium Chloride) 100 mls @ 100 mls/ hr IVPB Q6 [facility] Last Admin: 07/17/16 09:25 Dose: 100 mls/hr Clindamycin Phosphate 600 mg/ (Sodium Chloride) 104 mls @ 104 mls/hr IVPB Q8 [facility] Last Admin: 07/17/16 09:25 Dose: 104 mls/hr Vancomycin HCl 1 gm/ Sodium (Chloride) 250 mls @ 166.667 mls/hr IVPB DAILY [facility] Last Admin: 07/17/16 09:25 Dose: 166.667 mls/hr Insulin Human Regular 100 (units/ Sodium Chloride) 101 mls @ 2.02 mls/hr IVPB .Q24H [facility]; 2 UNITS/HR PRN Reason: Protocol Phenylephrine HCl 10 mg/ (Sodium Chloride) 251 mls @ 30.12 mls/hr IV .Q8H20M [facility]; 20 MCG/MIN PRN Reason: Protocol Last Titration: 07/17/16 11:53 Dose: 30 mcg/min, 45.18 mls/hr Midazolam HCl 50 mg/ Sodium (Chloride) 100 mls @ 4 mls/hr IV .Q24H ONE; 2 MG/HR PRN Reason: Protocol Stop: 07/18/16 08:39 Sodium Bicarbonate 150 meq/ (Dextrose/Sodium Chloride) 1,150 mls @ 150 mls/hr IV .Q7H40M [facility] Stop: 07/18/16 10:14 Last Admin: 07/17/16 10:56 Dose: 150 mls/hr Lactulose (Enulose) 20 gm PO QID [facility] Lorazepam (Ativan) 1 mg IVP Q4 PRN PRN Reason: Agitation Morphine Sulfate (Morphine) 4 mg IVP Q4 PRN PRN Reason: Pain, Mild (1-3) Pantoprazole Sodium (Protonix Inj) 40 mg IVP DAILY [facility] Last Admin: 07/17/16 11:22 Dose: 40 mg - Labs Labs: 07/17/16 06:32 07/17/16 06:32 PT 25.9 SECONDS (9.6-11.2) H 07/17/16 06:32 INR 2.49 (0.92-1.08) H 07/17/16 06:32 APTT 45.3 SECONDS (23.3-32.5) H 07/17/16 06:32 - Respiratory Exam Respiratory Exam: Rales - GI/Abdominal Exam GI & Abdominal Exam: Soft, Normal Bowel Sounds Assessment and Plan - Assessment and Plan (Free Text) Assessment: 60 yo male with cirrhosis and sepsis icu level care abx lactulose xifaxan prognosis guarded
--- NOTE | 2016-07-17 14:54 | CON ---
DATE: 07/17/2016 HISTORY OF PRESENT ILLNESS: The patient is a 60-year-old male who was referred for pulmonary evaluation following endotracheal intubation and ventilation. He is admitted with toxic metabolic encephalopathy, acute kidney failure and intubated for airway management and referred for pulmonary evaluation. He is unable to give any history but appears chronically ill. He is presently on the ventilator with ET tube in place. PHYSICAL EXAMINATION: VITAL SIGNS: Remarkable for blood pressure of 95/55, pulse 122; respiratory rate is on the ventilator, spontaneous rate is about 26 per minute; O2 sat 98% on present ventilator settings. He is barely responsive to deep painful stimuli. HEENT: Pupils barely reactive with scleral icterus. Mouth shows poor hygiene. NECK: JVP flat. LUNGS: Poor aeration bilaterally with coarse bilateral rales. HEART: Tachycardic. ABDOMEN: Distended with ascites. EXTREMITIES: Scrotum shows 4+ edema. CENTRAL NERVOUS SYSTEM: Could not be evaluated because the patient is comatose. LABORATORY DATA: Remarkable for WBC of 27.7, hemoglobin 8.9, platelet count 41, 000. Bands 20, neutrophils 93, lymphocytes 1.1. Sodium 144, potassium 5.5, BUN 81, creatinine 3.8. Lactate is pending. ABGs: pH 7.1 pCO2 32, pO2 of 75; this is on assist control rate of 12, FiO2 60%, tidal volume 500. Chest x-ray is remarkable for consolidative changes, right lung. IMPRESSION: Severe sepsis with metabolic encephalopathy, cirrhosis of the liver , renal failure and respiratory failure. PLAN: The patient's condition appears critical. Prognosis for recovery, at best, is poor. agree with present management. Palliative care might be more in order. Will continue to follow with you. Will presently obtain CT scan of the head, chest, and abdomen to further evaluate medical condition. Prognosis is extremely poor. Bennett Carrillo MD cc: [id number] TT: 07/17/2016 14:53:20 Confirmation # [id number] Dictation # [id number] harsha TOMLIN
[2016-07-17] MEDS ORDERED: Midazolam 5 MG/ML 50 MG in Sodium Chloride 0.9% 90 ML IV ONE (15:00)
[2016-07-17 15:18] LABS: BASO # 0.9 K/uL (0.0-0.2); LYMPH # 0.6 K/uL (1.0-4.3); RETIC% 1.8 % (0.5-1.5)
[2016-07-17 15:29] LABS: ALB/GLOB RATIO 0.6 (1.0-2.1); BILIRUBIN,TOTAL 2.2 mg/dl (0.2-1.3); CALCIUM 7.9 mg/dL (8.4-10.2); POTASSIUM 4.9 MMOL/L (3.6-5.0)
--- NOTE | 2016-07-17 15:38 | CP.PCM.PN ---
Subjective - Date & Time of Evaluation Date of Evaluation: 07/17/16 Time of Evaluation: 15:35 - Subjective Subjective: 60 year old male with end stage liver disease with scrotal Edema. Scrotum does not appear infected,A scrotal edema. Elevate scrotum Get scrotal us to R/O intrascrotal pathology. Carlota Objective - Vital Signs/Intake and Output Vital Signs (last 24 hours): Temp Pulse Resp BP Pulse Ox 98.6 F 132 H 26 H 102/54 L 97 07/17/16 12:29 07/17/16 14:00 07/17/16 14:00 07/17/16 14:00 07/17/16 14:00 Intake and Output: 07/17/16 07/17/16 06:59 18:59 Intake Total 2400 296 Balance 2400 296 - Medications Medications: Current Medications Dextrose (Dextrose 50% Inj) 0 ml IV STAT PRN; Protocol PRN Reason: Hyglycemia Protocol Dextrose (Glutose 15) 0 gm PO ONCE PRN; Protocol PRN Reason: Hypoglycemia Protocol Glucagon (Glucagen Diagnostic Kit) 0 mg IM STAT PRN; Protocol PRN Reason: Hypoglycemia Protocol Piperacillin Sod/Tazobactam (Sod 2.25 gm/ Sodium Chloride) 100 mls @ 100 mls/ hr IVPB Q6 [facility] Last Admin: 07/17/16 09:25 Dose: 100 mls/hr Clindamycin Phosphate 600 mg/ (Sodium Chloride) 104 mls @ 104 mls/hr IVPB Q8 [facility] Last Admin: 07/17/16 09:25 Dose: 104 mls/hr Vancomycin HCl 1 gm/ Sodium (Chloride) 250 mls @ 166.667 mls/hr IVPB DAILY [facility] Last Admin: 07/17/16 09:25 Dose: 166.667 mls/hr Insulin Human Regular 100 (units/ Sodium Chloride) 101 mls @ 2.02 mls/hr IVPB .Q24H [facility]; 2 UNITS/HR PRN Reason: Protocol Phenylephrine HCl 10 mg/ (Sodium Chloride) 251 mls @ 30.12 mls/hr IV .Q8H20M [facility]; 20 MCG/MIN PRN Reason: Protocol Last Titration: 07/17/16 11:53 Dose: 30 mcg/min, 45.18 mls/hr Sodium Bicarbonate 150 meq/ (Dextrose/Sodium Chloride) 1,150 mls @ 150 mls/hr IV .Q7H40M [facility] Stop: 07/18/16 10:14 Last Admin: 07/17/16 10:56 Dose: 150 mls/hr Midazolam HCl 50 mg/ Sodium (Chloride) 100 mls @ 4 mls/hr IV .Q24H ONE; 2 MG/HR PRN Reason: Protocol Stop: 07/18/16 14:59 Lactulose (Enulose) 20 gm PO QID [facility] Lorazepam (Ativan) 1 mg IVP Q4 PRN PRN Reason: Agitation Morphine Sulfate (Morphine) 4 mg IVP Q4 PRN PRN Reason: Pain, Mild (1-3) Last Admin: 07/17/16 14:47 Dose: 4 mg Pantoprazole Sodium (Protonix Inj) 40 mg IVP DAILY [facility] Last Admin: 07/17/16 11:22 Dose: 40 mg - Labs Labs: 07/17/16 06:32 07/17/16 15:00 PT 25.9 SECONDS (9.6-11.2) H 07/17/16 06:32 INR 2.49 (0.92-1.08) H 07/17/16 06:32 APTT 45.3 SECONDS (23.3-32.5) H 07/17/16 06:32
[2016-07-17] MEDS: Insulin Detemir 100 Units/ml Inj SC SCH ×2 (15:54→22:37)
[2016-07-17 15:59] LABS: ABG ALLEN TEST YES; ABG MECHANICAL RATE 12; ARTERIAL BLOOD GAS MODE A/C; ARTERIAL BLOOD GAS O2 CAPACITY 11.4 mL/dL (16-24); ARTERIAL BLOOD GAS O2 CONTENT 11.5 ML/dL (15-23); ARTERIAL BLOOD GAS PH 7.29 (7.35-7.45); ARTERIAL BLOOD GAS PO2 109 mm/Hg (80-100); ARTERIAL BLOOD HGB O2 SAT 97.7 % (95.0-98.0); ATERIAL BLOOD GAS PEEP 5; HHB -0.8 % (0.0-5.0); METHEMOGLOBIN 1.1 % (0.0-3.0)
[2016-07-17 16:43] LABS: METAMYELOCYTE 1 % (0-0); NEUTROPHIL 73 % (42-75); TOTAL CELLS COUNTED 100
[2016-07-17 16:45] LABS: LARGE PLATELETS PRESENT
[2016-07-17 16:53] LABS: WHITE BLOOD COUNT 21.1 K/uL (4.8-10.8)
[2016-07-17 16:54] LABS: HEMATOCRIT 25.7 % (35.0-51.0); MEAN CELL VOLUME 85.9 fl (80.0-94.0)
[2016-07-17 16:55] LABS: MEAN CORPUSCULAR HEMOGLOBIN 26.3 pg (27.0-31.0); MEAN CORPUSCULAR HGB CONC 30.6 g/dL (33.0-37.0); RED CELL DISTRIBUTION WIDTH 24.5 % (11.5-14.5)
[2016-07-17 16:56] LABS: NEUT % 92.4 % (50.0-75.0); PLATELET COUNT 23 K/uL (130-400)
[2016-07-17 16:57] LABS: BASO % 0.1 % (0.0-2.0); LYMPH % 2.7 % (20.0-40.0); MONO % 4.8 % (0.0-10.0)
[2016-07-17 16:58] LABS: NEUT # 19.4 K/uL (1.8-7.0); NRBC % 0.1 % (0.0-0.0)
--- NOTE | 2016-07-17 18:03 | CT ---
PROCEDURE: CT HEAD WITHOUT CONTRAST. HISTORY: AMS R/O intracranial hemorrhage COMPARISON: Comparison made with prior CT scan brain 07/16/2016 TECHNIQUE: Axial computed tomography images were obtained through the head/brain without intravenous contrast. Study is limited by motion artifact. Radiation dose: Total exam DLP = 1247.73 mGy-cm. This CT exam was performed using one or more of the following dose reduction techniques: Automated exposure control, adjustment of the mA and/or kV according to patient size, and/or use of iterative reconstruction technique. FINDINGS: HEMORRHAGE: No acute parenchymal, subarachnoid or extra-axial hemorrhage. BRAIN: Re- demonstrated is a large left MCA territory infarct which also involves the lateral basal ganglia extending superiorly into the left coronal radiata and left centrum semiovale as well as subcortical white matter of the left frontal and posterior frontal lobe. Mild chronic periventricular white matter ischemic changes right cerebral hemisphere. There is associated mild ex vacuo dilatation of the left lateral ventricle. Wallerian degeneration left cerebral cerebral peduncle. Mild vascular calcifications both carotid siphons. Moderate generalized volume loss also present not withstanding the encephalomalacia left cerebral hemisphere enlargement of the left lateral ventricle. VENTRICLES: As above CALVARIUM: No acute calvarial fractures. PARANASAL SINUSES: Minor mucosal thickening seen within a few ethmoid air cells MASTOID AIR CELLS: Unremarkable as visualized. No inflammatory changes. OTHER FINDINGS: None. IMPRESSION: Limited motion degraded study. No acute intracranial hemorrhage. Re- demonstrated is a large left MCA territory infarct which also involves the lateral basal ganglia extending superiorly into the left coronal radiata and left centrum semiovale as well as subcortical white matter of the left frontal and posterior frontal lobe. Mild chronic periventricular white matter ischemic changes right cerebral hemisphere. Moderate generalized volume loss. See above discussion for additional findings and details.
[2016-07-17] MEDS: Insulin Regular 100 units/ml SC SCH ×2 (18:12→22:37)
--- NOTE | 2016-07-17 18:48 | CT ---
PROCEDURE: CT Chest, Abdomen and Pelvis without intravenous contrast HISTORY: Sepsis COMPARISON: Comparison made with CT scan abdomen and pelvis dated 04/06/2016. TECHNIQUE: Radiation dose: Total exam DLP = 2051.55 mGy-cm. This CT exam was performed using one or more of the following dose reduction techniques: Automated exposure control, adjustment of the mA and/or kV according to patient size, and/or use of iterative reconstruction technique. FINDINGS: CT CHEST WITHOUT CONTRAST: LUNGS: Right lower lobe atelectasis/infiltrate. Right lower lobe bronchus is not visualized and may be occluded. There also appear to be patchy infiltrate changes in the right upper lobe as well. Several nodular opacities in the aerated portion of the anterior aspect right upper lobe. Several nodular opacities in the left lung base/lower lobe associated with mild left basilar atelectasis. There may also be some zone atelectasis/ scarring in the left lingular region. No evidence of pneumothorax. No significant effusion. In situ NGT, the tip of which lies within the distal stomach. MEDIASTINUM: Heart size within range of normal. No significant pericardial effusion. Ascending thoracic aorta measures approximately 3.6 cm and descending thoracic aorta measures approximately 3.2 cm. Pulmonary trunk measures approximately 3.1 cm. There are multiple small nonspecific mediastinal lymph nodes. Evaluation for hilar adenopathy is limited due to the lack circulating IV contrast and particularly right side due to significant atelectasis/infiltrate changes. LYMPH NODES: As above PLEURA: No apparent pneumothorax BONES: The thoracic vertebral bodies are intact without evidence of acute or chronic compression deformities or retropulsed fragments. . No significant degenerative spondylosis. OTHER FINDINGS: None. CT ABDOMEN AND PELVIS: LIVER: The liver is small with a nodular appearance consistent with cirrhosis. Very large amount of abdominal and pelvic ascites present with extension into a large inguinal hernia and fat into the right aspect of the scrotal sac. There is edema of the skin surface of the scrotal sac as well. GALLBLADDER AND BILE DUCTS: Gallbladder is physiologically distended. Intraluminal gallbladder calculi are present. PANCREAS: The pancreas is atrophic and fatty replaced. SPLEEN: Spleen is enlarged measuring approximately 14 cm in AP dimension. ADRENALS: Mildly enlarged adrenal glands. KIDNEYS AND URETERS: Kidneys are relatively symmetric in size. No evidence of nephrolithiasis or hydronephrosis. VASCULATURE: Abdominal aorta exhibits normal caliber. No evidence of abdominal aortic aneurysm. Mild calcified atherosclerotic plaque changes seen along the abdominal aorta and iliac arteries. Apparent in situ central venous line within the right iliac vein BOWEL: Evaluation of the bowel is limited due to the lack of oral contrast material as well as abdominal ascites. The stomach is distended with fluid and a small amount of air. No evidence of acute mechanical small bowel obstruction. There appears to be some mild wall thickening of the sigmoid colon and rectum which could be secondary to abdominal ascites. No gross free intraperitoneal air. APPENDIX: Appendix is not seen with certainty on this study. PERITONEUM: Large amount of ascites as described. Infiltration changes of the mesentery. There also appears to be some very minor anasarca. LYMPH NODES: Unremarkable. No enlarged lymph nodes. BLADDER: Urinary bladder is incompletely distended which may in part account for thick-walled appearance. Muscular hypertrophy may contribute. REPRODUCTIVE: Few small prostatic calcifications are present. BONES: Minor multilevel degenerative spondylosis of the lumbar spine. Osseous structures are otherwise intact. OTHER FINDINGS: None. IMPRESSION: Complete opacification right lower lobe likely representing some combination of infiltrate and atelectasis. Patchy infiltrate changes right upper lobe with multiple nodular opacities. In situ ETT as above. Several nodular opacities in the aerated portion of the anterior aspect right upper lobe. Several nodular opacities in the left lung base/lower lobe associated with mild left basilar atelectasis. There may also be some zone atelectasis/ scarring in the left lingular region. No evidence of pneumothorax. No significant effusion. In situ NGT, the tip of which lies within the distal stomach The liver is small with a nodular appearance consistent with cirrhosis. Splenomegaly. Very large amount of abdominal and pelvic ascites present with extension into a large inguinal hernia and fat into the right aspect of the scrotal sac. There is edema of the skin surface of the scrotal sac as well Wall thickening of the rectosigmoid possibly due to ascites.
--- NOTE | 2016-07-17 18:58 | US ---
COMPARISON: Correlation made with prior study 01/08/2015. Correlation also made with the concurrent CT scan of the abdomen pelvis which partially image the scrotum FINDINGS: Findings: Neither testicle visualized. On there is a large collection in the scrotal sac contains debris. Findings is consistent with large amount of ascites fluid extending from the intraperitoneal cavity through a large right inguinal hernia which is seen to much better advantage on concurrent CT scan of the abdomen and pelvis. Scrotal sac is edematous which may be due large amount of ascites fluid in the scrotal sac as well as anasarca and/or cellulitis. Impression: Neither testicle seen. There is a large amount of abdominal and pelvic ascites which extends through a right-sided inguinal hernia into the scrotal sac. These findings are seen to much better advantage on concurrent CT scan of the abdomen and pelvis. The the scrotal sac and scan are thickened and edematous possibly due to ascites fluid, edema related to anasarca and the possibly cellulitis
[2016-07-18] MEDS: Clindamycin 600 MG in Sodium Chloride 0.9% 100 ML IVPB SCH ×3 (00:44→16:29)
[2016-07-18 05:03] LABS: ABG ALLEN TEST YES; ABG MECHANICAL RATE 12; ARTERIAL BLOOD GAS HCO3 17.9 mmol/L (21-28); ARTERIAL BLOOD GAS MODE A/C; ARTERIAL BLOOD GAS O2 CAPACITY 11.3 mL/dL (16-24); ARTERIAL BLOOD GAS O2 CONTENT 11.4 ML/dL (15-23); ARTERIAL BLOOD GAS PH 7.27 (7.35-7.45); ARTERIAL BLOOD GAS PO2 94 mm/Hg (80-100); ARTERIAL BLOOD HGB O2 SAT 97.3 % (95.0-98.0); ATERIAL BLOOD GAS PEEP 5; CARBOXYHEMOGLOBIN 2.1 % (0.5-1.5); HHB -0.5 % (0.0-5.0); METHEMOGLOBIN 1.1 % (0.0-3.0)
[2016-07-18] MEDS: Sodium Bicarbonate 8.4% 150 MEQ in Dextrose 5%/0.9% NS 1,000 ML IV SCH (05:19)
[2016-07-18] MEDS: Insulin Regular 100 units/ml SC SCH ×4 (06:35→22:17)
--- NOTE | 2016-07-18 08:28 | CP.PCM.PN ---
Subjective - Date & Time of Evaluation Date of Evaluation: 07/18/16 Time of Evaluation: 08:29 - Subjective Subjective: pt remains vented w/o sedation. remains tachycardic ando n pressors. c/s gorwing gram positive cocci in clustres. son made pt DNR yesterday. fio on vent 60%, remains on neosynephrine and bicarb gtt. Objective - Vital Signs/Intake and Output Vital Signs (last 24 hours): Temp Pulse Resp BP Pulse Ox 97.6 F 124 H 28 H 103/57 L 96 07/18/16 08:00 07/18/16 08:00 07/18/16 08:00 07/18/16 08:00 07/18/16 08:00 Intake and Output: 07/18/16 07/18/16 06:59 18:59 Intake Total 2817 Balance 2817 - Medications Medications: Current Medications Dextrose (Dextrose 50% Inj) 0 ml IV STAT PRN; Protocol PRN Reason: Hyglycemia Protocol Dextrose (Glutose 15) 0 gm PO ONCE PRN; Protocol PRN Reason: Hypoglycemia Protocol Glucagon (Glucagen Diagnostic Kit) 0 mg IM STAT PRN; Protocol PRN Reason: Hypoglycemia Protocol Piperacillin Sod/Tazobactam (Sod 2.25 gm/ Sodium Chloride) 100 mls @ 100 mls/ hr IVPB Q6 [facility] Last Admin: 07/18/16 04:59 Dose: 100 mls/hr Clindamycin Phosphate 600 mg/ (Sodium Chloride) 104 mls @ 104 mls/hr IVPB Q8 [facility] Last Admin: 07/18/16 00:44 Dose: 104 mls/hr Vancomycin HCl 1 gm/ Sodium (Chloride) 250 mls @ 166.667 mls/hr IVPB DAILY [facility] Last Admin: 07/17/16 09:25 Dose: 166.667 mls/hr Phenylephrine HCl 10 mg/ (Sodium Chloride) 251 mls @ 30.12 mls/hr IV .Q8H20M [facility]; 20 MCG/MIN PRN Reason: Protocol Last Admin: 07/18/16 06:32 Dose: 40 mcg/min, 60.24 mls/hr Sodium Bicarbonate 150 meq/ (Dextrose/Sodium Chloride) 1,150 mls @ 150 mls/hr IV .Q7H40M [facility] Stop: 07/18/16 10:14 Last Admin: 07/18/16 05:19 Dose: 150 mls/hr Midazolam HCl 50 mg/ Sodium (Chloride) 100 mls @ 4 mls/hr IV .Q24H ONE; 2 MG/HR PRN Reason: Protocol Stop: 07/18/16 14:59 Insulin Detemir (Levemir) 10 units SC HS [facility] Last Admin: 07/17/16 22:37 Dose: Not Given Insulin Human Regular (Humulin R) 0 units SC ACHS [facility] PRN Reason: Protocol Last Admin: 07/18/16 06:35 Dose: 8 unit Lactulose (Enulose) 20 gm PO QID [facility] Last Admin: 07/17/16 22:51 Dose: 20 gm Lorazepam (Ativan) 1 mg IVP Q4 PRN PRN Reason: Agitation Morphine Sulfate (Morphine) 4 mg IVP Q4 PRN PRN Reason: Pain, Mild (1-3) Last Admin: 07/17/16 14:47 Dose: 4 mg Pantoprazole Sodium (Protonix Inj) 40 mg IVP DAILY [facility] Last Admin: 07/17/16 11:22 Dose: 40 mg - Labs Labs: 07/17/16 15:00 07/17/16 15:00 PT 25.9 SECONDS (9.6-11.2) H 07/17/16 06:32 INR 2.49 (0.92-1.08) H 07/17/16 06:32 APTT 45.3 SECONDS (23.3-32.5) H 07/17/16 06:32 - Constitutional Appears: No Acute Distress, Chronically Ill - Head Exam Head Exam: ATRAUMATIC, NORMAL INSPECTION, NORMOCEPHALIC - Eye Exam Eye Exam: Normal appearance, PERRL Pupil Exam: NORMAL ACCOMODATION, PERRL - ENT Exam ENT Exam: Mucous Membranes Moist, Normal Exam - Neck Exam Neck Exam: Full ROM, Normal Inspection. absent: Lymphadenopathy - Respiratory Exam Respiratory Exam: Clear to Ausculation Bilateral Additional comments: vented - Cardiovascular Exam Cardiovascular Exam: Tachycardia, REGULAR RHYTHM, RRR, +S1, +S2. absent: Murmur - GI/Abdominal Exam GI & Abdominal Exam: Soft, Normal Bowel Sounds. absent: Tenderness - Extremities Exam Extremities Exam: Full ROM, Normal Capillary Refill, Normal Inspection. absent : Joint Swelling, Pedal Edema - Back Exam Back Exam: NORMAL INSPECTION - Neurological Exam Neurological Exam: Abnormal Gait, Altered - Psychiatric Exam Psychiatric exam: Normal Affect, Normal Mood - Skin Skin Exam: Dry, Intact, Normal Color, Warm Additional comments: brusing like pattern to arms, torso Assessment and Plan (1) Toxic metabolic encephalopathy Status: Acute (2) VICENTE (acute kidney injury) Status: Acute (3) DVT prophylaxis Status: Acute (4) Diabetes type 2, uncontrolled Status: Acute (5) Hyperkalemia Status: Acute (6) Old cerebrovascular accident (CVA) without late effect Status: Chronic (7) Scrotal edema Status: Chronic - Assessment and Plan (Free Text) Assessment: (1) Toxic metabolic encephalopathy Assessment & Plan: icu care neuro regulate lytes vent support pt is comatose, son made pt dnr today supportive but aggressive care extensive discussion w/ icu team Status: Acute (2) VICENTE (acute kidney injury) Assessment & Plan: nephro ivf regulate acid/base balance ?? dialysis ca gluconate, insulin, dextrose given bicarb given for metabolic acidosis Status: Acute (3) DVT prophylaxis Assessment & Plan: scd and aehose ?? dic so hold anticoag Status: Acute (4) Diabetes type 2, uncontrolled Assessment & Plan: insulin gtt, pt in dka, glucose q1h. icu care Status: Acute (5) Hyperkalemia Status: Acute (6) Old cerebrovascular accident (CVA) without late effect Assessment & Plan: neuro ct head, neuro checks Status: Chronic (7) Scrotal edema Assessment & Plan: uro scrotal edema elevate testes Status: Chronic - Assessment and Plan (Free Text) Assessment: pt in serious condition. son aware of all. case d/c w/ consultants pt made dnr by son will follow closely. poor prognosis pending am labs
--- NOTE | 2016-07-18 08:45 | CP.CCUPN ---
CCU Subjective - Physician Review Events Since Last Encounter (Free Text): 07/18/16 08:43 Intubated, not responding , BP maintained on Neosynephrine, has been on bicarb infusion and BS has been high, CCU Objective - Vital Signs / Intake & Output Vital Signs (Last 4 hours): Vital Signs Temp Pulse Resp BP Pulse Ox 07/18/16 08:00 97.6 F 124 H 28 H 103/57 L 96 07/18/16 06:00 125 H 24 109/61 96 07/18/16 05:00 125 H 24 125/65 96 Intake and Output (Last 8hrs): Intake & Output 07/17/16 07/18/16 07/18/16 22:59 06:59 14:59 Intake Total 3587 1985 Balance 3587 1985 Intake: IV 2927 601 Intake, Piggyback 500 100 Tube Feeding 60 160 Blood Product 1125 Free Water Flush 100 Other: # Bowel Movements 2 1 - Physical Exam Narrative Physical Exam (Free Text): 07/18/16 08:44 P/E neck: No JVD lungs: rt lung, decreased breath sound Heat; No gallop Abdomen; soft, Ext; +1 edema Head: Positive for: Atraumatic, Normocephalic Mouth: Positive for: Dry Respiratory/Chest: Positive for: Other (B/L air entry present however markedly decreased in right lung doran, particuluarly right base. Occasional course breath sounds appreciated with no wheezes audbile. Abdominal breathing present.) . Negative for: Wheezes Cardiovascular: Positive for: Tachycardic, Other (Regular rhythm.). Negative for: Murmurs Abdomen: Positive for: Distention (Slightly distended), Normal Bowel Sounds, Other (Abdomen soft) Genitourinary Male: Positive for: Other (Marked scrotal edema present which is firm and erythematous. No signs of gangrene or skin breakdown present. Right groin TLC present with no erythema or signs of infection. ) Back: Positive for: Other (Multiple chronic ulcers in various stages of healing ) Upper Extremity: Negative for: Edema Lower Extremity: Positive for: Edema (2+ pitting edema present up to the knees b /l) - Medications Active Medications: Active Medications Generic Name Dose Route Start Last Admin Trade Name Freq PRN Reason Stop Dose Admin Dextrose 0 ml 05/11/17 22:09 Dextrose 50% Inj IV STAT PRN Hyglycemia Protocol Protocol Dextrose 0 gm 07/16/16 22:09 Glutose 15 PO ONCE PRN Hypoglycemia Protocol Protocol Glucagon 0 mg 07/16/16 22:09 Glucagen Diagnostic Kit IM STAT PRN Hypoglycemia Protocol Protocol Piperacillin Sod/Tazobactam 100 mls @ 100 mls/hr 07/16/16 04:00 07/18/16 04: 59 Sod 2.25 gm/ Sodium Chloride IVPB 100 mls/hr Q6 FAVIAN Administration Clindamycin Phosphate 600 mg/ 104 mls @ 104 mls/hr 07/16/16 17:00 07/18/16 00 :44 Sodium Chloride IVPB 104 mls/hr Q8 FAVIAN Administration Vancomycin HCl 1 gm/ Sodium 250 mls @ 166.667 mls/hr 07/16/16 13:45 07/17/16 09:25 Chloride IVPB 166.667 mls/hr DAILY FAVIAN Administration Phenylephrine HCl 10 mg/ 251 mls @ 30.12 mls/hr 07/17/16 00:45 07/18/16 06:32 Sodium Chloride IV 40 mcg/min .Q8H20M FAVIAN 60.24 mls/hr Protocol Administration 20 MCG/MIN Sodium Bicarbonate 150 meq/ 1,150 mls @ 150 mls/hr 07/17/16 10:15 07/18/16 05 :19 Dextrose/Sodium Chloride IV 07/18/16 10:14 150 mls/hr .Q7H40M FAVIAN Administration Midazolam HCl 50 mg/ Sodium 100 mls @ 4 mls/hr 07/17/16 15:00 Chloride IV 07/18/16 14:59 .Q24H ONE Protocol 2 MG/HR Insulin Detemir 10 units 07/17/16 15:45 07/17/16 22:37 Levemir SC Not Given HS FAVIAN Insulin Human Regular 0 units 07/17/16 16:30 07/18/16 06:35 Humulin R SC 8 unit ACHS FAVIAN Administration Protocol Lactulose 20 gm 07/17/16 13:00 07/17/16 22:51 Enulose PO 20 gm QID FAVIAN Administration Lorazepam 1 mg 07/16/16 09:00 Ativan IVP Q4 PRN Agitation Morphine Sulfate 4 mg 07/16/16 09:01 07/17/16 14:47 Morphine IVP 4 mg Q4 PRN Administration Pain, Mild (1-3) Pantoprazole Sodium 40 mg 07/16/16 09:00 07/17/16 11:22 Protonix Inj IVP 40 mg DAILY FAVAIN Administration - Patient Studies Lab Studies: Microbiology Studies 07/16/16 04:35 Blood Culture - Final Blood Gram Pos Cocci In Clusters Gram Stain - Final 07/16/16 04:35 S.aureus & Coag-Neg Staph PNA FISH - Final Blood Blood Culture - Preliminary Gram Positive Cocci Gram Stain - Final 07/16/16 10:00 MRSA Culture (Admit) - Final Naris MRSA NOT DETECTED 07/16/16 10:59 Gram Stain - Final Trachasp Sputum Culture - Preliminary Gram Positive Cocci 07/16/16 13:11 Gram Stain - Final Trachasp Sputum Culture - Preliminary Gram Positive Cocci Lab Studies 07/18/16 07/18/16 07/17/16 Range/Units 06:12 04:47 21:24 WBC (4.8-10.8) K/uL RBC (4.40-5.90) Mil/uL Hgb (12.0-18.0) g/dL Hct (35.0-51.0) % MCV (80.0-94.0) fl MCH (27.0-31.0) pg MCHC (33.0-37.0) g/dL RDW (11.5-14.5) % Plt Count (130-400) K/uL MPV (7.2-11.7) fl Neut % (Auto) (50.0-75.0) % Lymph % (Auto) (20.0-40.0) % [place] % (Auto) (0.0-10.0) % Eos % (Auto) (0.0-4.0) % Baso % (Auto) (0.0-2.0) % Neut # (1.8-7.0) K/uL Lymph # (1.0-4.3) K/uL [place] # (0.0-0.8) K/uL Eos # (0.0-0.7) K/uL Baso # (0.0-0.2) K/uL Neutrophils % (Manual) (42-75) % Band Neutrophils % (0-2) % Lymphocytes % (Manual) (20-50) % Monocytes % (Manual) (0-10) % Metamyelocytes % (0-0) % Platelet Estimate (NORMAL) Large Platelets Hypochromasia (manual) Poikilocytosis (manual Anisocytosis (manual) Microcytosis (manual) Macrocytosis (manual) Spherocytes Tear Drop Cells Michael Cells Schistocytes Retic Count (0.5-1.5) % Haptoglobin (43-212) mg/dL Fibrinogen (200-400) mg/dl D-Dimer, Quantitative (0-0.50) mg/L FEU pCO2 37 (35-45) mm/Hg pO2 94 (80-100) mm/Hg HCO3 17.9 L (21-28) mmol/L ABG pH 7.27 L (7.35-7.45) ABG Total CO2 18.1 L (22-28) mmol/L ABG O2 Saturation 100.5 H (95-98) % ABG O2 Content 11.4 L (15-23) ML/dL ABG Base Excess -9.1 L (-2.0-3.0) mmol/L ABG Hemoglobin 8.2 L (11.7-17.4) g/dL ABG Carboxyhemoglobin 2.1 H (0.5-1.5) % POC ABG HHb (Measured) -0.5 L (0.0-5.0) % ABG Methemoglobin 1.1 (0.0-3.0) % ABG O2 Capacity 11.3 L (16-24) mL/dL [place] Test Yes A-a O2 Difference 288.0 mm/Hg Hgb O2 Saturation 97.3 (95.0-98.0) % Vent Mode A/c Mechanical Rate 12 FiO2 60.0 % Tidal Volume 500 PEEP 5 Sodium (132-148) mmol/l Potassium (3.6-5.0) MMOL/L Chloride (98-107) mmol/L Carbon Dioxide (22-30) mmol/L Anion Gap (10-20) BUN (9-20) mg/dl Creatinine (0.8-1.5) mg/dL Est GFR ( Amer) Est GFR (Non-Af Amer) POC Glucose (mg/dL) 383 H 255 H (65-110) mg/dL Random Glucose (75-110) mg/dL Calcium (8.4-10.2) mg/dL Total Bilirubin (0.2-1.3) mg/dl AST (17-59) U/L ALT (21-72) U/L Alkaline Phosphatase (38-126) U/L Lactate Dehydrogenase (313-618) U/L Total Protein (6.3-8.2) G/DL Albumin (3.5-5.0) g/dL Globulin (2.2-3.9) gm/dL Albumin/Globulin Ratio (1.0-2.1) 07/17/16 07/17/16 07/17/16 Range/Units 18:04 15:49 15:35 WBC (4.8-10.8) K/uL RBC (4.40-5.90) Mil/uL Hgb (12.0-18.0) g/dL Hct (35.0-51.0) % MCV (80.0-94.0) fl MCH (27.0-31.0) pg MCHC (33.0-37.0) g/dL RDW (11.5-14.5) % Plt Count (130-400) K/uL MPV (7.2-11.7) fl Neut % (Auto) (50.0-75.0) % Lymph % (Auto) (20.0-40.0) % [place] % (Auto) (0.0-10.0) % Eos % (Auto) (0.0-4.0) % Baso % (Auto) (0.0-2.0) % Neut # (1.8-7.0) K/uL Lymph # (1.0-4.3) K/uL [place] # (0.0-0.8) K/uL Eos # (0.0-0.7) K/uL Baso # (0.0-0.2) K/uL Neutrophils % (Manual) (42-75) % Band Neutrophils % (0-2) % Lymphocytes % (Manual) (20-50) % Monocytes % (Manual) (0-10) % Metamyelocytes % (0-0) % Platelet Estimate (NORMAL) Large Platelets Hypochromasia (manual) Poikilocytosis (manual Anisocytosis (manual) Microcytosis (manual) Macrocytosis (manual) Spherocytes Tear Drop Cells Michael Cells Schistocytes Retic Count (0.5-1.5) % Haptoglobin (43-212) mg/dL Fibrinogen (200-400) mg/dl D-Dimer, Quantitative (0-0.50) mg/L FEU pCO2 32 L (35-45) mm/Hg pO2 109 H (80-100) mm/Hg HCO3 17.0 L (21-28) mmol/L ABG pH 7.29 L (7.35-7.45) ABG Total CO2 16.4 L (22-28) mmol/L ABG O2 Saturation 100.8 H (95-98) % ABG O2 Content 11.5 L (15-23) ML/dL ABG Base Excess -10.2 L (-2.0-3.0) mmol/L ABG Hemoglobin 8.2 L (11.7-17.4) g/dL ABG Carboxyhemoglobin 2.0 H (0.5-1.5) % POC ABG HHb (Measured) -0.8 L (0.0-5.0) % ABG Methemoglobin 1.1 (0.0-3.0) % ABG O2 Capacity 11.4 L (16-24) mL/dL [place] Test Yes A-a O2 Difference 279.0 mm/Hg Hgb O2 Saturation 97.7 (95.0-98.0) % Vent Mode A/c Mechanical Rate 12 FiO2 60.0 % Tidal Volume 500 PEEP 5 Sodium (132-148) mmol/l Potassium (3.6-5.0) MMOL/L Chloride (98-107) mmol/L Carbon Dioxide (22-30) mmol/L Anion Gap (10-20) BUN (9-20) mg/dl Creatinine (0.8-1.5) mg/dL Est GFR ( Amer) Est GFR (Non-Af Amer) POC Glucose (mg/dL) 272 H 244 H (65-110) mg/dL Random Glucose (75-110) mg/dL Calcium (8.4-10.2) mg/dL Total Bilirubin (0.2-1.3) mg/dl AST (17-59) U/L ALT (21-72) U/L Alkaline Phosphatase (38-126) U/L Lactate Dehydrogenase (313-618) U/L Total Protein (6.3-8.2) G/DL Albumin (3.5-5.0) g/dL Globulin (2.2-3.9) gm/dL Albumin/Globulin Ratio (1.0-2.1) 07/17/16 07/17/16 07/17/16 Range/Units 15:00 15:00 15:00 WBC (4.8-10.8) K/uL RBC (4.40-5.90) Mil/uL Hgb (12.0-18.0) g/dL Hct (35.0-51.0) % MCV (80.0-94.0) fl MCH (27.0-31.0) pg MCHC (33.0-37.0) g/dL RDW (11.5-14.5) % Plt Count (130-400) K/uL MPV (7.2-11.7) fl Neut % (Auto) (50.0-75.0) % Lymph % (Auto) (20.0-40.0) % Mobile % (Auto) (0.0-10.0) % Eos % (Auto) (0.0-4.0) % Baso % (Auto) (0.0-2.0) % Neut # (1.8-7.0) K/uL Lymph # (1.0-4.3) K/uL Mobile # (0.0-0.8) K/uL Eos # (0.0-0.7) K/uL Baso # (0.0-0.2) K/uL Neutrophils % (Manual) (42-75) % Band Neutrophils % (0-2) % Lymphocytes % (Manual) (20-50) % Monocytes % (Manual) (0-10) % Metamyelocytes % (0-0) % Platelet Estimate (NORMAL) Large Platelets Hypochromasia (manual) Poikilocytosis (manual Anisocytosis (manual) Microcytosis (manual) Macrocytosis (manual) Spherocytes Tear Drop Cells Michael Cells Schistocytes Retic Count (0.5-1.5) % Haptoglobin 115 (43-212) mg/dL Fibrinogen 137 L* (200-400) mg/dl D-Dimer, Quantitative 4.09 H (0-0.50) mg/L FEU pCO2 (35-45) mm/Hg pO2 (80-100) mm/Hg HCO3 (21-28) mmol/L ABG pH (7.35-7.45) ABG Total CO2 (22-28) mmol/L ABG O2 Saturation (95-98) % ABG O2 Content (15-23) ML/dL ABG Base Excess (-2.0-3.0) mmol/L ABG Hemoglobin (11.7-17.4) g/dL ABG Carboxyhemoglobin (0.5-1.5) % POC ABG HHb (Measured) (0.0-5.0) % ABG Methemoglobin (0.0-3.0) % ABG O2 Capacity (16-24) mL/dL [place] Test A-a O2 Difference mm/Hg Hgb O2 Saturation (95.0-98.0) % Vent Mode Mechanical Rate FiO2 % Tidal Volume PEEP Sodium 145 (132-148) mmol/l Potassium 4.9 (3.6-5.0) MMOL/L Chloride 114 H (98-107) mmol/L Carbon Dioxide 17 L (22-30) mmol/L Anion Gap 19 (10-20) BUN 82 H (9-20) mg/dl Creatinine 3.9 H (0.8-1.5) mg/dL Est GFR ( Amer) 19 Est GFR (Non-Af Amer) 16 POC Glucose (mg/dL) (65-110) mg/dL Random Glucose 221 H (75-110) mg/dL Calcium 7.9 L (8.4-10.2) mg/dL Total Bilirubin 2.2 H (0.2-1.3) mg/dl AST 116 H (17-59) U/L ALT 51 (21-72) U/L Alkaline Phosphatase 79 (38-126) U/L Lactate Dehydrogenase 1391 H (313-618) U/L Total Protein 5.0 L (6.3-8.2) G/DL Albumin 1.8 L (3.5-5.0) g/dL Globulin 3.2 (2.2-3.9) gm/dL Albumin/Globulin Ratio 0.6 L (1.0-2.1) 05/12/17 05/12/17 05/12/17 Range/Units 15:00 14:46 12:06 WBC 21.1 H (4.8-10.8) K/uL RBC 2.99 L (4.40-5.90) Mil/uL Hgb 7.9 L (12.0-18.0) g/dL Hct 25.7 L (35.0-51.0) % MCV 85.9 D (80.0-94.0) fl MCH 26.3 L (27.0-31.0) pg MCHC 30.6 L (33.0-37.0) g/dL RDW 24.5 H (11.5-14.5) % Plt Count 23 L* D (130-400) K/uL MPV 9.0 (7.2-11.7) fl Neut % (Auto) 92.4 H (50.0-75.0) % Lymph % (Auto) 2.7 L (20.0-40.0) % Mobile % (Auto) 4.8 (0.0-10.0) % Eos % (Auto) 0.0 (0.0-4.0) % Baso % (Auto) 0.1 (0.0-2.0) % Neut # 19.4 H (1.8-7.0) K/uL Lymph # 0.6 L (1.0-4.3) K/uL [place] # 1.0 H (0.0-0.8) K/uL Eos # 0.0 (0.0-0.7) K/uL Baso # 0.9 H (0.0-0.2) K/uL Neutrophils % (Manual) 73 (42-75) % Band Neutrophils % 18 H* (0-2) % Lymphocytes % (Manual) 5 L (20-50) % Monocytes % (Manual) 3 (0-10) % Metamyelocytes % 1 H (0-0) % Platelet Estimate Decreased L (NORMAL) Large Platelets Present Hypochromasia (manual) Slight Poikilocytosis (manual Moderate Anisocytosis (manual) Marked Microcytosis (manual) Macrocytosis (manual) Spherocytes Tear Drop Cells Slight [place] Cells Moderate Schistocytes Retic Count 1.8 H D (0.5-1.5) % Haptoglobin (43-212) mg/dL Fibrinogen (200-400) mg/dl D-Dimer, Quantitative (0-0.50) mg/L FEU pCO2 (35-45) mm/Hg pO2 (80-100) mm/Hg HCO3 (21-28) mmol/L ABG pH (7.35-7.45) ABG Total CO2 (22-28) mmol/L ABG O2 Saturation (95-98) % ABG O2 Content (15-23) ML/dL ABG Base Excess (-2.0-3.0) mmol/L ABG Hemoglobin (11.7-17.4) g/dL ABG Carboxyhemoglobin (0.5-1.5) % POC ABG HHb (Measured) (0.0-5.0) % ABG Methemoglobin (0.0-3.0) % ABG O2 Capacity (16-24) mL/dL [place] Test A-a O2 Difference mm/Hg Hgb O2 Saturation (95.0-98.0) % Vent Mode Mechanical Rate FiO2 % Tidal Volume PEEP Sodium (132-148) mmol/l Potassium (3.6-5.0) MMOL/L Chloride (98-107) mmol/L Carbon Dioxide (22-30) mmol/L Anion Gap (10-20) BUN (9-20) mg/dl Creatinine (0.8-1.5) mg/dL Est GFR ( Amer) Est GFR (Non-Af Amer) POC Glucose (mg/dL) 270 H 261 H (65-110) mg/dL Random Glucose (75-110) mg/dL Calcium (8.4-10.2) mg/dL Total Bilirubin (0.2-1.3) mg/dl AST (17-59) U/L ALT (21-72) U/L Alkaline Phosphatase (38-126) U/L Lactate Dehydrogenase (313-618) U/L Total Protein (6.3-8.2) G/DL Albumin (3.5-5.0) g/dL Globulin (2.2-3.9) gm/dL Albumin/Globulin Ratio (1.0-2.1) 07/17/16 07/17/16 Range/Units 10:06 06:32 WBC (4.8-10.8) K/uL RBC (4.40-5.90) Mil/uL Hgb (12.0-18.0) g/dL Hct (35.0-51.0) % MCV (80.0-94.0) fl MCH (27.0-31.0) pg MCHC (33.0-37.0) g/dL RDW (11.5-14.5) % Plt Count (130-400) K/uL MPV (7.2-11.7) fl Neut % (Auto) (50.0-75.0) % Lymph % (Auto) (20.0-40.0) % Mobile % (Auto) (0.0-10.0) % Eos % (Auto) (0.0-4.0) % Baso % (Auto) (0.0-2.0) % Neut # (1.8-7.0) K/uL Lymph # (1.0-4.3) K/uL [place] # (0.0-0.8) K/uL Eos # (0.0-0.7) K/uL Baso # (0.0-0.2) K/uL Neutrophils % (Manual) 70 (42-75) % Band Neutrophils % 20 H* (0-2) % Lymphocytes % (Manual) 1 L (20-50) % Monocytes % (Manual) 7 (0-10) % Metamyelocytes % 2 H (0-0) % Platelet Estimate Markedly decreased L (NORMAL) Large Platelets Present Hypochromasia (manual) Poikilocytosis (manual Moderate Anisocytosis (manual) Moderate Microcytosis (manual) Slight Macrocytosis (manual) Slight Spherocytes Slight Tear Drop Cells Slight [place] Cells Moderate Schistocytes Slight Retic Count (0.5-1.5) % Haptoglobin (43-212) mg/dL Fibrinogen (200-400) mg/dl D-Dimer, Quantitative (0-0.50) mg/L FEU pCO2 (35-45) mm/Hg pO2 (80-100) mm/Hg HCO3 (21-28) mmol/L ABG pH (7.35-7.45) ABG Total CO2 (22-28) mmol/L ABG O2 Saturation (95-98) % ABG O2 Content (15-23) ML/dL ABG Base Excess (-2.0-3.0) mmol/L ABG Hemoglobin (11.7-17.4) g/dL ABG Carboxyhemoglobin (0.5-1.5) % POC ABG HHb (Measured) (0.0-5.0) % ABG Methemoglobin (0.0-3.0) % ABG O2 Capacity (16-24) mL/dL [place] Test A-a O2 Difference mm/Hg Hgb O2 Saturation (95.0-98.0) % Vent Mode Mechanical Rate FiO2 % Tidal Volume PEEP Sodium (132-148) mmol/l Potassium (3.6-5.0) MMOL/L Chloride (98-107) mmol/L Carbon Dioxide (22-30) mmol/L Anion Gap (10-20) BUN (9-20) mg/dl Creatinine (0.8-1.5) mg/dL Est GFR ( Amer) Est GFR (Non-Af Amer) POC Glucose (mg/dL) 249 H (65-110) mg/dL Random Glucose (75-110) mg/dL Calcium (8.4-10.2) mg/dL Total Bilirubin (0.2-1.3) mg/dl AST (17-59) U/L ALT (21-72) U/L Alkaline Phosphatase (38-126) U/L Lactate Dehydrogenase (313-618) U/L Total Protein (6.3-8.2) G/DL Albumin (3.5-5.0) g/dL Globulin (2.2-3.9) gm/dL Albumin/Globulin Ratio (1.0-2.1) Laboratory Results - last 24 hr 07/17/16 07/17/16 07/17/16 06:32 10:06 12:06 WBC RBC Hgb Hct MCV MCH MCHC RDW Plt Count MPV Neut % (Auto) Lymph % (Auto) [place] % (Auto) Eos % (Auto) Baso % (Auto) Neut # Lymph # [place] # Eos # Baso # Neutrophils % (Manual) 70 Band Neutrophils % 20 H* Lymphocytes % (Manual) 1 L Monocytes % (Manual) 7 Metamyelocytes % 2 H Platelet Estimate Markedly decreased L Large Platelets Present Hypochromasia (manual) Poikilocytosis (manual Moderate Anisocytosis (manual) Moderate Microcytosis (manual) Slight Macrocytosis (manual) Slight Spherocytes Slight Tear Drop Cells Slight [place] Cells Moderate Schistocytes Slight Retic Count Haptoglobin Fibrinogen D-Dimer, Quantitative pCO2 pO2 HCO3 ABG pH ABG Total CO2 ABG O2 Saturation ABG O2 Content ABG Base Excess ABG Hemoglobin ABG Carboxyhemoglobin POC ABG HHb (Measured) ABG Methemoglobin ABG O2 Capacity [place] Test A-a O2 Difference Hgb O2 Saturation Vent Mode Mechanical Rate FiO2 Tidal Volume PEEP Sodium Potassium Chloride Carbon Dioxide Anion Gap BUN Creatinine Est GFR ( Amer) Est GFR (Non-Af Amer) POC Glucose (mg/dL) 249 H 261 H Random Glucose Calcium Total Bilirubin AST ALT Alkaline Phosphatase Lactate Dehydrogenase Total Protein Albumin Globulin Albumin/Globulin Ratio 07/17/16 07/17/16 07/17/16 14:46 15:00 15:00 WBC 21.1 H RBC 2.99 L Hgb 7.9 L Hct 25.7 L MCV 85.9 D MCH 26.3 L MCHC 30.6 L RDW 24.5 H Plt Count 23 L* D MPV 9.0 Neut % (Auto) 92.4 H Lymph % (Auto) 2.7 L [place] % (Auto) 4.8 Eos % (Auto) 0.0 Baso % (Auto) 0.1 Neut # 19.4 H Lymph # 0.6 L [place] # 1.0 H Eos # 0.0 Baso # 0.9 H Neutrophils % (Manual) 73 Band Neutrophils % 18 H* Lymphocytes % (Manual) 5 L Monocytes % (Manual) 3 Metamyelocytes % 1 H Platelet Estimate Decreased L Large Platelets Present Hypochromasia (manual) Slight Poikilocytosis (manual Moderate Anisocytosis (manual) Marked Microcytosis (manual) Macrocytosis (manual) Spherocytes Tear Drop Cells Slight [place] Cells Moderate Schistocytes Retic Count 1.8 H D Haptoglobin Fibrinogen 137 L* D-Dimer, Quantitative 4.09 H pCO2 pO2 HCO3 ABG pH ABG Total CO2 ABG O2 Saturation ABG O2 Content ABG Base Excess ABG Hemoglobin ABG Carboxyhemoglobin POC ABG HHb (Measured) ABG Methemoglobin ABG O2 Capacity [place] Test A-a O2 Difference Hgb O2 Saturation Vent Mode Mechanical Rate FiO2 Tidal Volume PEEP Sodium Potassium Chloride Carbon Dioxide Anion Gap BUN Creatinine Est GFR ( Amer) Est GFR (Non-Af Amer) POC Glucose (mg/dL) 270 H Random Glucose Calcium Total Bilirubin AST ALT Alkaline Phosphatase Lactate Dehydrogenase Total Protein Albumin Globulin Albumin/Globulin Ratio 07/17/16 07/17/16 07/17/16 15:00 15:00 15:35 WBC RBC Hgb Hct MCV MCH MCHC RDW Plt Count MPV Neut % (Auto) Lymph % (Auto) [place] % (Auto) Eos % (Auto) Baso % (Auto) Neut # Lymph # [place] # Eos # Baso # Neutrophils % (Manual) Band Neutrophils % Lymphocytes % (Manual) Monocytes % (Manual) Metamyelocytes % Platelet Estimate Large Platelets Hypochromasia (manual) Poikilocytosis (manual Anisocytosis (manual) Microcytosis (manual) Macrocytosis (manual) Spherocytes Tear Drop Cells Michael Cells Schistocytes Retic Count Haptoglobin 115 Fibrinogen D-Dimer, Quantitative pCO2 pO2 HCO3 ABG pH ABG Total CO2 ABG O2 Saturation ABG O2 Content ABG Base Excess ABG Hemoglobin ABG Carboxyhemoglobin POC ABG HHb (Measured) ABG Methemoglobin ABG O2 Capacity [place] Test A-a O2 Difference Hgb O2 Saturation Vent Mode Mechanical Rate FiO2 Tidal Volume PEEP Sodium 145 Potassium 4.9 Chloride 114 H Carbon Dioxide 17 L Anion Gap 19 BUN 82 H Creatinine 3.9 H Est GFR ( Amer) 19 Est GFR (Non-Af Amer) 16 POC Glucose (mg/dL) 244 H Random Glucose 221 H Calcium 7.9 L Total Bilirubin 2.2 H AST 116 H ALT 51 Alkaline Phosphatase 79 Lactate Dehydrogenase 1391 H Total Protein 5.0 L Albumin 1.8 L Globulin 3.2 Albumin/Globulin Ratio 0.6 L 07/17/16 07/17/16 07/17/16 15:49 18:04 21:24 WBC RBC Hgb Hct MCV MCH MCHC RDW Plt Count MPV Neut % (Auto) Lymph % (Auto) [place] % (Auto) Eos % (Auto) Baso % (Auto) Neut # Lymph # [place] # Eos # Baso # Neutrophils % (Manual) Band Neutrophils % Lymphocytes % (Manual) Monocytes % (Manual) Metamyelocytes % Platelet Estimate Large Platelets Hypochromasia (manual) Poikilocytosis (manual Anisocytosis (manual) Microcytosis (manual) Macrocytosis (manual) Spherocytes Tear Drop Cells Michael Cells Schistocytes Retic Count Haptoglobin Fibrinogen D-Dimer, Quantitative pCO2 32 L pO2 109 H HCO3 17.0 L ABG pH 7.29 L ABG Total CO2 16.4 L ABG O2 Saturation 100.8 H ABG O2 Content 11.5 L ABG Base Excess -10.2 L ABG Hemoglobin 8.2 L ABG Carboxyhemoglobin 2.0 H POC ABG HHb (Measured) -0.8 L ABG Methemoglobin 1.1 ABG O2 Capacity 11.4 L [place] Test Yes A-a O2 Difference 279.0 Hgb O2 Saturation 97.7 Vent Mode A/c Mechanical Rate 12 FiO2 60.0 Tidal Volume 500 PEEP 5 Sodium Potassium Chloride Carbon Dioxide Anion Gap BUN Creatinine Est GFR ( Amer) Est GFR (Non-Af Amer) POC Glucose (mg/dL) 272 H 255 H Random Glucose Calcium Total Bilirubin AST ALT Alkaline Phosphatase Lactate Dehydrogenase Total Protein Albumin Globulin Albumin/Globulin Ratio 07/18/16 07/18/16 04:47 06:12 WBC RBC Hgb Hct MCV MCH MCHC RDW Plt Count MPV Neut % (Auto) Lymph % (Auto) Mobile % (Auto) Eos % (Auto) Baso % (Auto) Neut # Lymph # Mobile # Eos # Baso # Neutrophils % (Manual) Band Neutrophils % Lymphocytes % (Manual) Monocytes % (Manual) Metamyelocytes % Platelet Estimate Large Platelets Hypochromasia (manual) Poikilocytosis (manual Anisocytosis (manual) Microcytosis (manual) Macrocytosis (manual) Spherocytes Tear Drop Cells [place] Cells Schistocytes Retic Count Haptoglobin Fibrinogen D-Dimer, Quantitative pCO2 37 pO2 94 HCO3 17.9 L ABG pH 7.27 L ABG Total CO2 18.1 L ABG O2 Saturation 100.5 H ABG O2 Content 11.4 L ABG Base Excess -9.1 L ABG Hemoglobin 8.2 L ABG Carboxyhemoglobin 2.1 H POC ABG HHb (Measured) -0.5 L ABG Methemoglobin 1.1 ABG O2 Capacity 11.3 L [place] Test Yes A-a O2 Difference 288.0 Hgb O2 Saturation 97.3 Vent Mode A/c Mechanical Rate 12 FiO2 60.0 Tidal Volume 500 PEEP 5 Sodium Potassium Chloride Carbon Dioxide Anion Gap BUN Creatinine Est GFR ( Amer) Est GFR (Non-Af Amer) POC Glucose (mg/dL) 383 H Random Glucose Calcium Total Bilirubin AST ALT Alkaline Phosphatase Lactate Dehydrogenase Total Protein Albumin Globulin Albumin/Globulin Ratio Fingerstick Blood Sugar Results: 383 Assessment/Plan - Assessment and Plan (Free Text) Assessment: Plan: Acute respiratory insufficiency -Respiratory distress secondary to hypoxia in the stting of extensive Right lower lung pneumonia , rt lung atelactasis -On mechanical ventilation, day 3 -Current settings RR: 12/TV: 500/PEEP: 5/FiO2: 60% -Tracheal aspirate sputum cultures: preliminary positive for gram positive cocci -CXR this morning re-demonstrates consolidations in right lung, worse Sepstic shock -Secondary to pneumonia/gram positive bacteremia -Lactate improving -Blood culture from 07/16/16 reveals preliminary Gram positive cocci in clusters -Continue Phenylephrine at 20mcg/min. Will titrate to a SBP of 110. -On empiric antibiotics: -Zosyn 2.25gm IV Q6h (Started 07/16, current day 2) -Vancomycin 1gm IV daily (Started 07/16, current day 2) DKA Improved, not on insulin drip Still has metabolic acidosis, due to sepsis and VICENTE Metabolic Acidosis; Due to sepsis, VICENTE, Bicarb , improving on bicarb infusion Will Change fo / NS with 100 meq bicarb at 75 cc/h, DC D5w, due to high bloos sugar. Hyperkalemia: Improved -Potassium 5.5 -Calcium gluconate, insulin, D5 administered -Will follow Altered Mental Status -Secondary to toxic metabolic encephalopathy vs recurrent cva vs occult seizure activity -Patient has history of previous left MCA stroke -Neurology consulted, recommends resuming keppra 250mg Q12h for seizure prophylaxis -Will repeat CT Head w/o contrast -Will consider EEG if no improvement Acute on chronic kidney disease -Sepsis induced VICENTE: ATN: h/o CKD-3: BUN/Cr: 81/3.8 -Continue bicarb infusion, antibiotics and pressors Chronic hepatic cirrhosis -With ascites, chronic coagulopathy and thrombocytopenia which has decreased further compared to baseline -Ammonia level 131 at admission -MELD score 32 -GI consulted, Dr Guzman -Recommended lactulose, xifaxin -Will consult heme/onc for progressive thrombocytopenia Pancytopenia: Due to sepsis, received, PRBcs, platlets and FFP, ladle mechanic following Will repeat CBC later this morning . Feeding -Will start feeds today via OGT -Suplena to start at 20ml/hr with a goal rate of 55ml/hr GI Prophylaxis -Protonix 40mg IV daily DVT Prophylaxis -SCDs <Wing Schmitz - Last Filed: 07/17/16 15:26>
[2016-07-18 08:56] LABS: HEMATOCRIT 26.6 % (35.0-51.0); MEAN CELL VOLUME 88.9 fl (80.0-94.0); MEAN CORPUSCULAR HEMOGLOBIN 26.3 pg (27.0-31.0); MEAN CORPUSCULAR HGB CONC 29.6 g/dL (33.0-37.0); RED CELL DISTRIBUTION WIDTH 23.5 % (11.5-14.5); WHITE BLOOD COUNT 16.9 K/uL (4.8-10.8)
[2016-07-18 09:18] LABS: PARTIAL THROMBOPLASTIN TIME 35.6 SECONDS (23.3-32.5)
[2016-07-18 09:28] LABS: POTASSIUM 4.7 MMOL/L (3.6-5.0)
--- NOTE | 2016-07-18 11:01 | RAD ---
HISTORY: ETT placement COMPARISON: 07/17/2016 FINDINGS: LUNGS: Re-demonstration of a right lung infiltrate with possible elevated right hemidiaphragm and/or pleural effusion. PLEURA: No significant pleural effusion identified, no pneumothorax apparent. CARDIOVASCULAR: Normal. OSSEOUS STRUCTURES: No significant abnormalities. VISUALIZED UPPER ABDOMEN: Normal. OTHER FINDINGS: ETT above the william. NGT below the diaphragm. IMPRESSION: Re-demonstration of a right lung infiltrate with possible elevated right hemidiaphragm and/or pleural effusion.
--- NOTE | 2016-07-18 11:35 | CP.PCM.PN ---
Subjective - Date & Time of Evaluation Date of Evaluation: 07/18/16 Time of Evaluation: 11:35 - Subjective Subjective: COMATOSE STILL INTUBATED AND BEING VENTILATED DNR PER FAMILY'S REQUEST WILL CONTINUE SUPPORTIVE CARE PROGNOSIS IS POOR Objective - Vital Signs/Intake and Output Vital Signs (last 24 hours): Temp Pulse Resp BP Pulse Ox 97.6 F 124 H 28 H 103/57 L 96 07/18/16 08:00 07/18/16 08:00 07/18/16 08:00 07/18/16 08:00 07/18/16 08:00 Intake and Output: 07/18/16 07/18/16 06:59 18:59 Intake Total 2817 Balance 2817 - Medications Medications: Current Medications Dextrose (Dextrose 50% Inj) 0 ml IV STAT PRN; Protocol PRN Reason: Hyglycemia Protocol Dextrose (Glutose 15) 0 gm PO ONCE PRN; Protocol PRN Reason: Hypoglycemia Protocol Glucagon (Glucagen Diagnostic Kit) 0 mg IM STAT PRN; Protocol PRN Reason: Hypoglycemia Protocol Piperacillin Sod/Tazobactam (Sod 2.25 gm/ Sodium Chloride) 100 mls @ 100 mls/ hr IVPB Q6 [facility] Last Admin: 07/18/16 10:09 Dose: 100 mls/hr Clindamycin Phosphate 600 mg/ (Sodium Chloride) 104 mls @ 104 mls/hr IVPB Q8 [facility] Last Admin: 07/18/16 10:11 Dose: 104 mls/hr Vancomycin HCl 1 gm/ Sodium (Chloride) 250 mls @ 166.667 mls/hr IVPB DAILY [facility] Last Admin: 07/18/16 10:11 Dose: 166.667 mls/hr Phenylephrine HCl 10 mg/ (Sodium Chloride) 251 mls @ 30.12 mls/hr IV .Q8H20M [facility]; 20 MCG/MIN PRN Reason: Protocol Last Admin: 07/18/16 06:32 Dose: 40 mcg/min, 60.24 mls/hr Midazolam HCl 50 mg/ Sodium (Chloride) 100 mls @ 4 mls/hr IV .Q24H ONE; 2 MG/HR PRN Reason: Protocol Stop: 07/18/16 14:59 Sodium Bicarbonate 100 meq/ (Sodium Chloride) 1,100 mls @ 75 mls/hr IV .[id number] [facility] Stop: 07/19/16 08:59 Last Admin: 07/18/16 10:09 Dose: 75 mls/hr Insulin Detemir (Levemir) 10 units SC HS [facility] Last Admin: 07/17/16 22:37 Dose: Not Given Insulin Human Regular (Humulin R) 0 units SC ACHS [facility] PRN Reason: Protocol Last Admin: 07/18/16 06:35 Dose: 8 unit Lactulose (Enulose) 20 gm PO QID [facility] Last Admin: 07/18/16 10:14 Dose: 20 gm Lorazepam (Ativan) 1 mg IVP Q4 PRN PRN Reason: Agitation Morphine Sulfate (Morphine) 4 mg IVP Q4 PRN PRN Reason: Pain, Mild (1-3) Last Admin: 07/17/16 14:47 Dose: 4 mg Pantoprazole Sodium (Protonix Inj) 40 mg IVP DAILY [facility] Last Admin: 07/18/16 10:15 Dose: 40 mg - Labs Labs: 07/18/16 08:53 07/18/16 08:53 PT 19.3 SECONDS (9.6-11.2) H D 07/18/16 08:53 INR 1.86 (0.92-1.08) H D 07/18/16 08:53 APTT 35.6 SECONDS (23.3-32.5) H D 07/18/16 08:53
--- NOTE | 2016-07-18 11:55 | CP.PCM.CON ---
History of Present Illness - History of Present Illness History of Present Illness: 60 yo with a pmhx of ESLD, CVA, DM, HTN, h/o pancreatitis, is admitted with septic shock, acute resp failure, dka, canelo, metabolic encephalopathy. I have been asked to see him for worsening renal function. hx is obtained from records as he is currently intubated and on pressor support. 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 Review of Systems - Review of Systems Systems not reviewed;Unavailable: Intubated Past Patient History - Infectious Disease Hx of Infectious Diseases: None - Past Medical History & Family History Past Medical History?: Yes - Past Social History Smoking Status: Unknown If Ever Smoked Chewing Tobacco Use: No Cigar Use: No - CARDIAC Hx Hypercholesterolemia: Yes Hx Hypertension: Yes - PULMONARY Hx Respiratory Disorders: No - NEUROLOGICAL Hx Neurological Disorder: Yes - HEENT Hx HEENT Problems: No - RENAL Hx Chronic Kidney Disease: Yes - ENDOCRINE/METABOLIC Hx Endocrine Disorders: Yes - HEMATOLOGICAL/ONCOLOGICAL Hx Anemia: Yes Hx Human Immunodeficiency Virus (HIV): No - INTEGUMENTARY Hx Dermatological Problems: No - MUSCULOSKELETAL/RHEUMATOLOGICAL Hx Falls: Yes - GASTROINTESTINAL Hx Pancreatitis: Yes - GENITOURINARY/GYNECOLOGICAL Hx Genitourinary Disorders: No - PSYCHIATRIC Hx Substance Use: No - SURGICAL HISTORY Hx Carotid Endarterectomy: Yes - ANESTHESIA Hx Anesthesia: Yes Hx Anesthesia Reactions: No Has any member of the family had a problem w/ anesthesia?: No Meds Allergies/Adverse Reactions: Allergies Allergy/AdvReac Type Severity Reaction Status Date / Time No Known Allergies Allergy Verified 07/15/16 23:10 - Medications Medications: Current Medications Dextrose (Dextrose 50% Inj) 0 ml IV STAT PRN; Protocol PRN Reason: Hyglycemia Protocol Dextrose (Glutose 15) 0 gm PO ONCE PRN; Protocol PRN Reason: Hypoglycemia Protocol Glucagon (Glucagen Diagnostic Kit) 0 mg IM STAT PRN; Protocol PRN Reason: Hypoglycemia Protocol Piperacillin Sod/Tazobactam (Sod 2.25 gm/ Sodium Chloride) 100 mls @ 100 mls/ hr IVPB Q6 [facility] Last Admin: 07/18/16 10:09 Dose: 100 mls/hr Clindamycin Phosphate 600 mg/ (Sodium Chloride) 104 mls @ 104 mls/hr IVPB Q8 [facility] Last Admin: 07/18/16 10:11 Dose: 104 mls/hr Vancomycin HCl 1 gm/ Sodium (Chloride) 250 mls @ 166.667 mls/hr IVPB DAILY [facility] Last Admin: 07/18/16 10:11 Dose: 166.667 mls/hr Phenylephrine HCl 10 mg/ (Sodium Chloride) 251 mls @ 30.12 mls/hr IV .Q8H20M [facility]; 20 MCG/MIN PRN Reason: Protocol Last Admin: 07/18/16 06:32 Dose: 40 mcg/min, 60.24 mls/hr Midazolam HCl 50 mg/ Sodium (Chloride) 100 mls @ 4 mls/hr IV .Q24H ONE; 2 MG/HR PRN Reason: Protocol Stop: 07/18/16 14:59 Sodium Bicarbonate 100 meq/ (Sodium Chloride) 1,100 mls @ 75 mls/hr IV .[id number] [facility] Stop: 07/19/16 08:59 Last Admin: 07/18/16 10:09 Dose: 75 mls/hr Insulin Detemir (Levemir) 10 units SC [facility] Last Admin: 07/17/16 22:37 Dose: Not Given Insulin Human Regular (Humulin R) 0 units SC ACHS [facility] PRN Reason: Protocol Last Admin: 07/18/16 11:37 Dose: 8 unit Lactulose (Enulose) 20 gm PO QID [facility] Last Admin: 07/18/16 10:14 Dose: 20 gm Lorazepam (Ativan) 1 mg IVP Q4 PRN PRN Reason: Agitation Morphine Sulfate (Morphine) 4 mg IVP Q4 PRN PRN Reason: Pain, Mild (1-3) Last Admin: 07/17/16 14:47 Dose: 4 mg Pantoprazole Sodium (Protonix Inj) 40 mg IVP DAILY [facility] Last Admin: 07/18/16 10:15 Dose: 40 mg Physical Exam - Constitutional Additional comments: intubated on pressor support heent normal ETT+ s1s2 present vent dependent abd soft, distended edema + ao times 0 skin intact grossly - Head Exam Head Exam: NORMAL INSPECTION - Eye Exam Eye Exam: Normal appearance - ENT Exam ENT Exam: Mucous Membranes Moist Additional comments: ett+ - Respiratory Exam Additional comments: vent dep - Cardiovascular Exam Cardiovascular Exam: +S1, +S2 - GI/Abdominal Exam GI & Abdominal Exam: Soft Results - Vital Signs Recent Vital Signs: Last Vital Signs Temp 97.6 F 07/18/16 08:00 Pulse 124 H 07/18/16 08:00 Resp 28 H 07/18/16 08:00 BP 103/57 L 07/18/16 08:00 Pulse Ox 96 07/18/16 08:00 - Labs Result Diagrams: 07/19/16 05:30 07/19/16 05:30 Labs: Laboratory Results - last 24 hr 07/17/16 07/17/16 07/17/16 12:06 14:46 15:00 WBC 21.1 H RBC 2.99 L Hgb 7.9 L Hct 25.7 L MCV 85.9 D MCH 26.3 L MCHC 30.6 L RDW 24.5 H Plt Count 23 L* D MPV 9.0 Neut % (Auto) 92.4 H Lymph % (Auto) 2.7 L [place] % (Auto) 4.8 Eos % (Auto) 0.0 Baso % (Auto) 0.1 Neut # 19.4 H Lymph # 0.6 L [place] # 1.0 H Eos # 0.0 Baso # 0.9 H Neutrophils % (Manual) 73 Band Neutrophils % 18 H* Lymphocytes % (Manual) 5 L Monocytes % (Manual) 3 Metamyelocytes % 1 H Platelet Estimate Decreased L Large Platelets Present Hypochromasia (manual) Slight Poikilocytosis (manual Moderate Anisocytosis (manual) Marked Tear Drop Cells Slight [place] Cells Moderate Retic Count 1.8 H D Haptoglobin PT INR APTT Fibrinogen D-Dimer, Quantitative pCO2 pO2 HCO3 ABG pH ABG Total CO2 ABG O2 Saturation ABG O2 Content ABG Base Excess ABG Hemoglobin ABG Carboxyhemoglobin POC ABG HHb (Measured) ABG Methemoglobin ABG O2 Capacity [place] Test A-a O2 Difference Hgb O2 Saturation Vent Mode Mechanical Rate FiO2 Tidal Volume PEEP Sodium Potassium Chloride Carbon Dioxide Anion Gap BUN Creatinine Est GFR ( Amer) Est GFR (Non-Af Amer) POC Glucose (mg/dL) 261 H 270 H Random Glucose Calcium Total Bilirubin AST ALT Alkaline Phosphatase Lactate Dehydrogenase Total Protein Albumin Globulin Albumin/Globulin Ratio 07/17/16 07/17/16 07/17/16 15:00 15:00 15:00 WBC RBC Hgb Hct MCV MCH MCHC RDW Plt Count MPV Neut % (Auto) Lymph % (Auto) [place] % (Auto) Eos % (Auto) Baso % (Auto) Neut # Lymph # [place] # Eos # Baso # Neutrophils % (Manual) Band Neutrophils % Lymphocytes % (Manual) Monocytes % (Manual) Metamyelocytes % Platelet Estimate Large Platelets Hypochromasia (manual) Poikilocytosis (manual Anisocytosis (manual) Tear Drop Cells [place] Cells Retic Count Haptoglobin 115 PT INR APTT Fibrinogen 137 L* D-Dimer, Quantitative 4.09 H pCO2 pO2 HCO3 ABG pH ABG Total CO2 ABG O2 Saturation ABG O2 Content ABG Base Excess ABG Hemoglobin ABG Carboxyhemoglobin POC ABG HHb (Measured) ABG Methemoglobin ABG O2 Capacity [place] Test A-a O2 Difference Hgb O2 Saturation Vent Mode Mechanical Rate FiO2 Tidal Volume PEEP Sodium 145 Potassium 4.9 Chloride 114 H Carbon Dioxide 17 L Anion Gap 19 BUN 82 H Creatinine 3.9 H Est GFR ( Amer) 19 Est GFR (Non-Af Amer) 16 POC Glucose (mg/dL) Random Glucose 221 H Calcium 7.9 L Total Bilirubin 2.2 H AST 116 H ALT 51 Alkaline Phosphatase 79 Lactate Dehydrogenase 1391 H Total Protein 5.0 L Albumin 1.8 L Globulin 3.2 Albumin/Globulin Ratio 0.6 L 07/17/16 07/17/16 07/17/16 15:35 15:49 18:04 WBC RBC Hgb Hct MCV MCH MCHC RDW Plt Count MPV Neut % (Auto) Lymph % (Auto) [place] % (Auto) Eos % (Auto) Baso % (Auto) Neut # Lymph # [place] # Eos # Baso # Neutrophils % (Manual) Band Neutrophils % Lymphocytes % (Manual) Monocytes % (Manual) Metamyelocytes % Platelet Estimate Large Platelets Hypochromasia (manual) Poikilocytosis (manual Anisocytosis (manual) Tear Drop Cells [place] Cells Retic Count Haptoglobin PT INR APTT Fibrinogen D-Dimer, Quantitative pCO2 32 L pO2 109 H HCO3 17.0 L ABG pH 7.29 L ABG Total CO2 16.4 L ABG O2 Saturation 100.8 H ABG O2 Content 11.5 L ABG Base Excess -10.2 L ABG Hemoglobin 8.2 L ABG Carboxyhemoglobin 2.0 H POC ABG HHb (Measured) -0.8 L ABG Methemoglobin 1.1 ABG O2 Capacity 11.4 L [place] Test Yes A-a O2 Difference 279.0 Hgb O2 Saturation 97.7 Vent Mode A/c Mechanical Rate 12 FiO2 60.0 Tidal Volume 500 PEEP 5 Sodium Potassium Chloride Carbon Dioxide Anion Gap BUN Creatinine Est GFR ( Amer) Est GFR (Non-Af Amer) POC Glucose (mg/dL) 244 H 272 H Random Glucose Calcium Total Bilirubin AST ALT Alkaline Phosphatase Lactate Dehydrogenase Total Protein Albumin Globulin Albumin/Globulin Ratio 07/17/16 07/18/16 07/18/16 21:24 04:47 06:12 WBC RBC Hgb Hct MCV MCH MCHC RDW Plt Count MPV Neut % (Auto) Lymph % (Auto) [place] % (Auto) Eos % (Auto) Baso % (Auto) Neut # Lymph # [place] # Eos # Baso # Neutrophils % (Manual) Band Neutrophils % Lymphocytes % (Manual) Monocytes % (Manual) Metamyelocytes % Platelet Estimate Large Platelets Hypochromasia (manual) Poikilocytosis (manual Anisocytosis (manual) Tear Drop Cells [place] Cells Retic Count Haptoglobin PT INR APTT Fibrinogen D-Dimer, Quantitative pCO2 37 pO2 94 HCO3 17.9 L ABG pH 7.27 L ABG Total CO2 18.1 L ABG O2 Saturation 100.5 H ABG O2 Content 11.4 L ABG Base Excess -9.1 L ABG Hemoglobin 8.2 L ABG Carboxyhemoglobin 2.1 H POC ABG HHb (Measured) -0.5 L ABG Methemoglobin 1.1 ABG O2 Capacity 11.3 L [place] Test Yes A-a O2 Difference 288.0 Hgb O2 Saturation 97.3 Vent Mode A/c Mechanical Rate 12 FiO2 60.0 Tidal Volume 500 PEEP 5 Sodium Potassium Chloride Carbon Dioxide Anion Gap BUN Creatinine Est GFR ( Amer) Est GFR (Non-Af Amer) POC Glucose (mg/dL) 255 H 383 H Random Glucose Calcium Total Bilirubin AST ALT Alkaline Phosphatase Lactate Dehydrogenase Total Protein Albumin Globulin Albumin/Globulin Ratio 07/18/16 07/18/16 07/18/16 08:53 08:53 08:53 WBC 16.9 H RBC 2.99 L Hgb 7.9 L Hct 26.6 L MCV 88.9 D MCH 26.3 L MCHC 29.6 L RDW 23.5 H Plt Count 51 L D MPV Neut % (Auto) Lymph % (Auto) [place] % (Auto) Eos % (Auto) Baso % (Auto) Neut # Lymph # [place] # Eos # Baso # Neutrophils % (Manual) Band Neutrophils % Lymphocytes % (Manual) Monocytes % (Manual) Metamyelocytes % Platelet Estimate Large Platelets Hypochromasia (manual) Poikilocytosis (manual Anisocytosis (manual) Tear Drop Cells [place] Cells Retic Count Haptoglobin PT 19.3 H D INR 1.86 H D APTT 35.6 H D Fibrinogen D-Dimer, Quantitative pCO2 pO2 HCO3 ABG pH ABG Total CO2 ABG O2 Saturation ABG O2 Content ABG Base Excess ABG Hemoglobin ABG Carboxyhemoglobin POC ABG HHb (Measured) ABG Methemoglobin ABG O2 Capacity [place] Test A-a O2 Difference Hgb O2 Saturation Vent Mode Mechanical Rate FiO2 Tidal Volume PEEP Sodium 151 H Potassium 4.7 Chloride 114 H Carbon Dioxide 18 L Anion Gap 24 H BUN 85 H Creatinine 4.4 H Est GFR ( Amer) 17 Est GFR (Non-Af Amer) 14 POC Glucose (mg/dL) Random Glucose 371 H Calcium 8.0 L Total Bilirubin AST ALT Alkaline Phosphatase Lactate Dehydrogenase Total Protein Albumin Globulin Albumin/Globulin Ratio 07/18/16 11:10 WBC RBC Hgb Hct MCV MCH MCHC RDW Plt Count MPV Neut % (Auto) Lymph % (Auto) [place] % (Auto) Eos % (Auto) Baso % (Auto) Neut # Lymph # [place] # Eos # Baso # Neutrophils % (Manual) Band Neutrophils % Lymphocytes % (Manual) Monocytes % (Manual) Metamyelocytes % Platelet Estimate Large Platelets Hypochromasia (manual) Poikilocytosis (manual Anisocytosis (manual) Tear Drop Cells [place] Cells Retic Count Haptoglobin PT INR APTT Fibrinogen D-Dimer, Quantitative pCO2 pO2 HCO3 ABG pH ABG Total CO2 ABG O2 Saturation ABG O2 Content ABG Base Excess ABG Hemoglobin ABG Carboxyhemoglobin POC ABG HHb (Measured) ABG Methemoglobin ABG O2 Capacity [place] Test A-a O2 Difference Hgb O2 Saturation Vent Mode Mechanical Rate FiO2 Tidal Volume PEEP Sodium Potassium Chloride Carbon Dioxide Anion Gap BUN Creatinine Est GFR ( Amer) Est GFR (Non-Af Amer) POC Glucose (mg/dL) 399 H Random Glucose Calcium Total Bilirubin AST ALT Alkaline Phosphatase Lactate Dehydrogenase Total Protein Albumin Globulin Albumin/Globulin Ratio Assessment & Plan - Assessment and Plan (Free Text) Plan: canelo/ckd/acidosis/hypernatremia/resp failure/septic shock/pnemonia/dka/esld canelo sec to ischemic atn, oliguric. 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
--- NOTE | 2016-07-18 12:12 | CON ---
DATE: 07/17/2016 CHIEF COMPLAINT: Scrotal swelling. HISTORY OF PRESENT ILLNESS: The patient is an end-stage liver disease patient who has had multiple a dmissions to [facility], is presently in the ICU, comatose, intubated and unresponsi ve. The patient has ascites. He has been noted to have significant scrotal swelling. No history is possible because the patient is comatose. The staff says there is no history of trauma. I have reviewed the laboratory data and the physical exam. This scrotal edema is due to his end-stag e liver disease. I would suggest a scrotal ultrasound to rule out intrascrotal pathology, elevate the scrotum with tow els. There is no therapy to be carried out at this time in an end-stage liver disease patient. Chencho Van MD cc: [id number] TT: 07/18/2016 12:12:28 Confirmation # [id number] Dictation # [id number] tn
[2016-07-18] MEDS: Insulin Detemir 100 Units/ml Inj SC SCH ×2 (12:43→22:20)
--- NOTE | 2016-07-18 17:26 | CP.PCM.CON ---
History of Present Illness - History of Present Illness History of Present Illness: 60 year old male with a history of HTN, DM, liver cirrhosis with portal hypertension, splenomegaly, admitted with septic shock, DKA, renal failure, pancytopenia. The patient is currently intubated for respiratory failure and I am unable to obtain further history from the patient. He did receive a platelet transfusion overnight and has no overt evidence of bleeding. Past medical, surgical, family, social history cannot be obtained from the patient. Allergies: NKA Review of systems cannot be obtained from the patient. Past Patient History - Infectious Disease Hx of Infectious Diseases: None - Past Medical History & Family History Past Medical History?: Yes Past Family History: Reviewed and not pertinent - Past Social History Smoking Status: Unknown If Ever Smoked Chewing Tobacco Use: No Cigar Use: No - CARDIAC Hx Hypercholesterolemia: Yes Hx Hypertension: Yes - PULMONARY Hx Respiratory Disorders: No - NEUROLOGICAL Hx Neurological Disorder: Yes - HEENT Hx HEENT Problems: No - RENAL Hx Chronic Kidney Disease: Yes - ENDOCRINE/METABOLIC Hx Endocrine Disorders: Yes - HEMATOLOGICAL/ONCOLOGICAL Hx Anemia: Yes Hx Human Immunodeficiency Virus (HIV): No - INTEGUMENTARY Hx Dermatological Problems: No - MUSCULOSKELETAL/RHEUMATOLOGICAL Hx Falls: Yes - GASTROINTESTINAL Hx Pancreatitis: Yes - GENITOURINARY/GYNECOLOGICAL Hx Genitourinary Disorders: No - PSYCHIATRIC Hx Substance Use: No - SURGICAL HISTORY Hx Carotid Endarterectomy: Yes - ANESTHESIA Hx Anesthesia: Yes Hx Anesthesia Reactions: No Has any member of the family had a problem w/ anesthesia?: No Meds Allergies/Adverse Reactions: Allergies Allergy/AdvReac Type Severity Reaction Status Date / Time No Known Allergies Allergy Verified 07/15/16 23:10 - Medications Medications: Current Medications Dextrose (Dextrose 50% Inj) 0 ml IV STAT PRN; Protocol PRN Reason: Hyglycemia Protocol Dextrose (Glutose 15) 0 gm PO ONCE PRN; Protocol PRN Reason: Hypoglycemia Protocol Glucagon (Glucagen Diagnostic Kit) 0 mg IM STAT PRN; Protocol PRN Reason: Hypoglycemia Protocol Piperacillin Sod/Tazobactam (Sod 2.25 gm/ Sodium Chloride) 100 mls @ 100 mls/ hr IVPB Q6 [facility] Last Admin: 07/18/16 16:29 Dose: 100 mls/hr Clindamycin Phosphate 600 mg/ (Sodium Chloride) 104 mls @ 104 mls/hr IVPB Q8 [facility] Last Admin: 07/18/16 16:29 Dose: 104 mls/hr Vancomycin HCl 1 gm/ Sodium (Chloride) 250 mls @ 166.667 mls/hr IVPB DAILY [facility] Last Admin: 07/18/16 10:11 Dose: 166.667 mls/hr Phenylephrine HCl 10 mg/ (Sodium Chloride) 251 mls @ 30.12 mls/hr IV .Q8H20M [facility]; 20 MCG/MIN PRN Reason: Protocol Last Admin: 07/18/16 13:51 Dose: 20 mcg/min, 30.12 mls/hr Sodium Bicarbonate 100 meq/ (Sodium Chloride) 1,100 mls @ 75 mls/hr IV .[id number] [facility] Stop: 07/19/16 08:59 Last Admin: 07/18/16 10:09 Dose: 75 mls/hr Insulin Detemir (Levemir) 30 units SC Q12 [facility] Last Admin: 07/18/16 12:43 Dose: 30 unit Insulin Human Regular (Humulin R) 0 units SC Q6 [facility] PRN Reason: Protocol Last Admin: 07/18/16 16:30 Dose: 8 units Lactulose (Enulose) 20 gm PO QID [facility] Last Admin: 07/18/16 16:30 Dose: 20 gm Lorazepam (Ativan) 1 mg IVP Q4 PRN PRN Reason: Agitation Morphine Sulfate (Morphine) 4 mg IVP Q4 PRN PRN Reason: Pain, Mild (1-3) Last Admin: 07/17/16 14:47 Dose: 4 mg Pantoprazole Sodium (Protonix Inj) 40 mg IVP DAILY [facility] Last Admin: 07/18/16 10:15 Dose: 40 mg Physical Exam - Head Exam Head Exam: ATRAUMATIC - Eye Exam Eye Exam: Normal appearance - ENT Exam ENT Exam: Mucous Membranes Dry - Respiratory Exam Respiratory Exam: NORMAL BREATHING PATTERN - Cardiovascular Exam Cardiovascular Exam: +S1, +S2 - GI/Abdominal Exam GI & Abdominal Exam: Normal Bowel Sounds - Extremities Exam Extremities exam: Positive for: pedal edema - Skin Skin Exam: Warm Results - Vital Signs Recent Vital Signs: Last Vital Signs Temp 99.1 F 07/18/16 12:00 Pulse 117 H 07/18/16 15:30 Resp 22 07/18/16 15:30 BP 107/57 L 07/18/16 15:30 Pulse Ox 100 07/18/16 15:30 - Labs Result Diagrams: 07/19/16 05:30 07/19/16 05:30 Labs: Laboratory Results - last 24 hr 07/17/16 07/17/16 07/17/16 15:00 18:04 21:24 WBC RBC Hgb Hct MCV MCH MCHC RDW Plt Count Haptoglobin 115 PT INR APTT pCO2 pO2 HCO3 ABG pH ABG Total CO2 ABG O2 Saturation ABG O2 Content ABG Base Excess ABG Hemoglobin ABG Carboxyhemoglobin POC ABG HHb (Measured) ABG Methemoglobin ABG O2 Capacity [place] Test A-a O2 Difference Hgb O2 Saturation Vent Mode Mechanical Rate FiO2 Tidal Volume PEEP Sodium Potassium Chloride Carbon Dioxide Anion Gap BUN Creatinine Est GFR ( Amer) Est GFR (Non-Af Amer) POC Glucose (mg/dL) 272 H 255 H Random Glucose Calcium 07/18/16 07/18/16 07/18/16 04:47 06:12 08:53 WBC 16.9 H RBC 2.99 L Hgb 7.9 L Hct 26.6 L MCV 88.9 D MCH 26.3 L MCHC 29.6 L RDW 23.5 H Plt Count 51 L D Haptoglobin PT INR APTT pCO2 37 pO2 94 HCO3 17.9 L ABG pH 7.27 L ABG Total CO2 18.1 L ABG O2 Saturation 100.5 H ABG O2 Content 11.4 L ABG Base Excess -9.1 L ABG Hemoglobin 8.2 L ABG Carboxyhemoglobin 2.1 H POC ABG HHb (Measured) -0.5 L ABG Methemoglobin 1.1 ABG O2 Capacity 11.3 L [place] Test Yes A-a O2 Difference 288.0 Hgb O2 Saturation 97.3 Vent Mode A/c Mechanical Rate 12 FiO2 60.0 Tidal Volume 500 PEEP 5 Sodium Potassium Chloride Carbon Dioxide Anion Gap BUN Creatinine Est GFR ( Amer) Est GFR (Non-Af Amer) POC Glucose (mg/dL) 383 H Random Glucose Calcium 07/18/16 07/18/16 07/18/16 08:53 08:53 11:10 WBC RBC Hgb Hct MCV MCH MCHC RDW Plt Count Haptoglobin PT 19.3 H D INR 1.86 H D APTT 35.6 H D pCO2 pO2 HCO3 ABG pH ABG Total CO2 ABG O2 Saturation ABG O2 Content ABG Base Excess ABG Hemoglobin ABG Carboxyhemoglobin POC ABG HHb (Measured) ABG Methemoglobin ABG O2 Capacity [place] Test A-a O2 Difference Hgb O2 Saturation Vent Mode Mechanical Rate FiO2 Tidal Volume PEEP Sodium 151 H Potassium 4.7 Chloride 114 H Carbon Dioxide 18 L Anion Gap 24 H BUN 85 H Creatinine 4.4 H Est GFR ( Amer) 17 Est GFR (Non-Af Amer) 14 POC Glucose (mg/dL) 399 H Random Glucose 371 H Calcium 8.0 L 07/18/16 15:24 WBC RBC Hgb Hct MCV MCH MCHC RDW Plt Count Haptoglobin PT INR APTT pCO2 pO2 HCO3 ABG pH ABG Total CO2 ABG O2 Saturation ABG O2 Content ABG Base Excess ABG Hemoglobin ABG Carboxyhemoglobin POC ABG HHb (Measured) ABG Methemoglobin ABG O2 Capacity [place] Test A-a O2 Difference Hgb O2 Saturation Vent Mode Mechanical Rate FiO2 Tidal Volume PEEP Sodium Potassium Chloride Carbon Dioxide Anion Gap BUN Creatinine Est GFR ( Amer) Est GFR (Non-Af Amer) POC Glucose (mg/dL) 390 H Random Glucose Calcium Assessment & Plan (1) Thrombocytopenia Assessment and Plan: secondary to liver cirrhosis with portal hypertension splenic sequestration from splenomegaly thrombopoietin dysregulation s/p plt transfusion Status: Acute (2) Anemia Assessment and Plan: will check ferritin, retic count, b12, folate to further characterize likely intermitted occult GI blood loss given portal hypertension Status: Acute (3) Coagulopathy Assessment and Plan: liver disease Status: Acute (4) Splenomegaly Assessment and Plan: secondary to portal hypertension from liver cirrhosis Status: Acute (5) Leukocytosis Assessment and Plan: on antibiotics Thank you for this interesting consult. Status: Acute
--- NOTE | 2016-07-18 22:10 | CON ---
DATE: 07/18/2016 ROOM: 435 HISTORY OF PRESENT ILLNESS: This is a 60-year-old male with known history of type 2 insulin-requirin g diabetes, presenting here to the Emergency Room with labored breathing and unresponsiveness and eric ntually endotracheally intubated with underlying acute respiratory failure and with septic shock and bacteremia as noted thereof. He was hypotensive and currently on IV pressor therapy as noted. He is being referred now for diabetic evaluation and management. PAST MEDICAL HISTORY: History of type 2 insulin-requiring diabetes on a variable insulin dose regime n at home with very poor adherence to his insulin dose regimen, history of hypertension and dyslipide yumi, history of liver cirrhosis with hepatic encephalopathy and portal hypertension and ascites, hist ory of chronic pancreatitis, also history of a previous cerebrovascular disease and supervening kidne y disease with progressive renal insufficiency, history of coronary artery disease with underlying pe ripheral arterial vasculopathy, history of a previous carotid endarterectomy for underlying carotid s tenosis. FAMILY HISTORY: Positive for hypertension and diabetes. SOCIAL HISTORY: The patient has supportive family with history of polysubstance abuse with chronic a lcoholism and nicotine dependence. REVIEW OF SYSTEMS: Not possible at this time, but the chart notes and the consultants' notes and man agement have been reviewed in detail. PHYSICAL EXAMINATION: GENERAL: This is an overweight male, currently unresponsive and sedated and also endotracheally intu bated, presenting here with acute respiratory failure and lactic acidosis and supervening septic shoc k, currently on IV pressor therapy with also biochemical evidence of diabetic ketoacidosis and dehydr ation. He also has diabetic microvascular complications of retinopathy, polyneuropathy, and nephropa thy with progressive renal insufficiency. He also has diabetic macrovascular complications of cerebr ovascular disease, coronary artery disease, peripheral arterial disease and vasculopathy. PLAN OF MANAGEMENT: As discussed with the nursing staff, we will continue the vigorous IV hydration and the intensive insulin therapy as given. He was initially on an insulin drip infusion, which was discontinued yesterday, and we will switch him over to an intensive glucose monitoring q. 6 hourly wi th a low dose insulin coverage scale using regular insulin as given. We will also add basal insulin with Levemir to be given as 30 units subQ every 12 hours at 10:00 a.m. and 10:00 p.m. daily as ordere d. We will titrate incrementally as indicated to optimize metabolic control. A hemoglobin A1c and l ipid panel and thyroid studies have been ordered. We will obtain serial chemistries and supplement a ccordingly as needed. We will follow. Amena Mendoza MD cc: [id number] TT: 07/18/2016 22:08:50 Confirmation # [id number] Dictation # [id number] mn
[2016-07-19] MEDS: Clindamycin 600 MG in Sodium Chloride 0.9% 100 ML IVPB SCH ×3 (01:54→16:38)
[2016-07-19 05:50] LABS: ABG ALLEN TEST YES; ABG MECHANICAL RATE 12; ARTERIAL BLOOD GAS HCO3 22.8 mmol/L (21-28); ARTERIAL BLOOD GAS MODE PRVC/AC; ARTERIAL BLOOD GAS O2 CONTENT 11.6 ML/dL (15-23); ARTERIAL BLOOD GAS PH 7.37 (7.35-7.45); ARTERIAL BLOOD GAS PO2 65 mm/Hg (80-100); ATERIAL BLOOD GAS PEEP 5; CARBOXYHEMOGLOBIN 2.2 % (0.5-1.5); HHB 3.4 % (0.0-5.0); METHEMOGLOBIN 1.3 % (0.0-3.0)
[2016-07-19 06:51] LABS: HEMATOCRIT 27.2 % (35.0-51.0); MEAN CELL VOLUME 86.7 fl (80.0-94.0); MEAN CORPUSCULAR HEMOGLOBIN 26.3 pg (27.0-31.0); MEAN CORPUSCULAR HGB CONC 30.3 g/dL (33.0-37.0); RED CELL DISTRIBUTION WIDTH 23.8 % (11.5-14.5); WHITE BLOOD COUNT 15.2 K/uL (4.8-10.8)
[2016-07-19 06:54] LABS: CALCIUM 8.1 mg/dL (8.4-10.2)
--- NOTE | 2016-07-19 08:11 | CP.CCUPN ---
CCU Subjective - Physician Review Events Since Last Encounter (Free Text): 07/19/16 08:07 Still unresponsive, on vent, off pressors, renal function is worsening, serum bicarb has improved on bicarb infusion but now has hypernatremia. Yesterday I discussed with reagent tender, classification and treatment director and heme-oncologist when they came to see the patient, all physicians agreed that in view of multiorgan failure, including resp failure, liver failure , renal failure, sepsis, anemia, thrombocytopenia, anoxic barin injury and recent cardiac arrest, prognosis is extremely poor and patient should be on palliative/comfortcare only. WIll talk to family regarding withdrawing the support. CCU Objective - Vital Signs / Intake & Output Vital Signs (Last 4 hours): Vital Signs Pulse Resp BP Pulse Ox 07/19/16 06:00 108 H 21 123/67 100 Intake and Output (Last 8hrs): Intake & Output 07/18/16 07/19/16 07/19/16 22:59 06:59 14:59 Intake Total 1250 350 Output Total 200 Balance 1050 350 Intake: IV 465 Intake, Piggyback 350 Tube Feeding 235 350 Free Water Flush 200 Output: Urine 200 Urine, Voided 200 Other: # Bowel Movements 1 1 - Physical Exam Narrative Physical Exam (Free Text): 07/19/16 08:11 P/E: Neck: No JVD Lungs: decreased breath sound, rt lung, Heart: no gallop Abdomen: soft, distended, BS =ve Scrotum: grossly edematous Neuro: unresponsive Head: Positive for: Atraumatic, Normocephalic Mouth: Positive for: Dry Respiratory/Chest: Positive for: Other (B/L air entry present however markedly decreased in right lung doran, particuluarly right base. Occasional course breath sounds appreciated with no wheezes audbile. Abdominal breathing present.) . Negative for: Wheezes Cardiovascular: Positive for: Tachycardic, Other (Regular rhythm.). Negative for: Murmurs Abdomen: Positive for: Distention (Slightly distended), Normal Bowel Sounds, Other (Abdomen soft) Genitourinary Male: Positive for: Other (Marked scrotal edema present which is firm and erythematous. No signs of gangrene or skin breakdown present. Right groin TLC present with no erythema or signs of infection. ) Back: Positive for: Other (Multiple chronic ulcers in various stages of healing ) Upper Extremity: Negative for: Edema Lower Extremity: Positive for: Edema (2+ pitting edema present up to the knees b /l) - Medications Active Medications: Active Medications Generic Name Dose Route Start Last Admin Trade Name Freq PRN Reason Stop Dose Admin Dextrose 0 ml 07/16/16 22:09 Dextrose 50% Inj IV STAT PRN Hyglycemia Protocol Protocol Dextrose 0 gm 07/16/16 22:09 Glutose 15 PO ONCE PRN Hypoglycemia Protocol Protocol Glucagon 0 mg 07/16/16 22:09 Glucagen Diagnostic Kit IM STAT PRN Hypoglycemia Protocol Protocol Piperacillin Sod/Tazobactam 100 mls @ 100 mls/hr 07/16/16 04:00 07/19/16 04: 27 Sod 2.25 gm/ Sodium Chloride IVPB 100 mls/hr Q6 FAVIAN Administration Clindamycin Phosphate 600 mg/ 104 mls @ 104 mls/hr 07/16/16 17:00 07/19/16 01 :54 Sodium Chloride IVPB 104 mls/hr Q8 FAVIAN Administration Vancomycin HCl 1 gm/ Sodium 250 mls @ 166.667 mls/hr 07/16/16 13:45 07/18/16 10:11 Chloride IVPB 166.667 mls/hr DAILY FAVIAN Administration Phenylephrine HCl 10 mg/ 251 mls @ 30.12 mls/hr 07/17/16 00:45 07/18/16 16:30 Sodium Chloride IV 10 mcg/min .[id number] FAVIAN 15.06 mls/hr Protocol Titration 20 MCG/MIN Sodium Bicarbonate 100 meq/ 1,100 mls @ 75 mls/hr 07/18/16 09:00 07/19/16 01: 55 Sodium Chloride IV 07/19/16 08:59 75 mls/hr .[id number] FAVIAN Administration Insulin Detemir 30 units 07/18/16 11:57 07/18/16 22:20 Levemir SC 30 unit Q12 FAVIAN Administration Insulin Human Regular 0 units 07/18/16 16:00 07/18/16 22:17 Humulin R SC 2 units Q6 FAVIAN Administration Protocol Lactulose 20 gm 07/17/16 13:00 07/18/16 22:17 Enulose PO 20 gm QID FAVIAN Administration Lorazepam 1 mg 07/16/16 09:00 Ativan IVP Q4 PRN Agitation Morphine Sulfate 4 mg 07/16/16 09:01 07/17/16 14:47 Morphine IVP 4 mg Q4 PRN Administration Pain, Mild (1-3) Pantoprazole Sodium 40 mg 07/16/16 09:00 07/18/16 10:15 Protonix Inj IVP 40 mg DAILY FAVIAN Administration - Patient Studies Lab Studies: Microbiology Studies 07/16/16 04:35 S.aureus & Coag-Neg Staph PNA FISH - Final Blood Blood Culture - Final Staphylococcus Aureus Gram Stain - Final 07/16/16 13:11 Gram Stain - Final Trachasp Sputum Culture - Final Staphylococcus Aureus 07/16/16 04:35 Blood Culture - Final Blood Gram Pos Cocci In Clusters Gram Stain - Final Lab Studies 07/19/16 07/19/16 07/19/16 Range/Units 05:53 05:35 05:30 WBC (4.8-10.8) K/uL RBC (4.40-5.90) Mil/uL Hgb (12.0-18.0) g/dL Hct (35.0-51.0) % MCV (80.0-94.0) fl MCH (27.0-31.0) pg MCHC (33.0-37.0) g/dL RDW (11.5-14.5) % Plt Count (130-400) K/uL PT (9.6-11.2) SECONDS INR (0.92-1.08) APTT (23.3-32.5) SECONDS pCO2 39 (35-45) mm/Hg pO2 65 L (80-100) mm/Hg HCO3 22.8 (21-28) mmol/L ABG pH 7.37 (7.35-7.45) ABG Total CO2 23.7 (22-28) mmol/L ABG O2 Saturation 96.5 (95-98) % ABG O2 Content 11.6 L (15-23) ML/dL ABG Base Excess -2.6 L (-2.0-3.0) mmol/L ABG Hemoglobin 8.8 L (11.7-17.4) g/dL ABG Carboxyhemoglobin 2.2 H (0.5-1.5) % POC ABG HHb (Measured) 3.4 (0.0-5.0) % ABG Methemoglobin 1.3 (0.0-3.0) % ABG O2 Capacity 12.0 L (16-24) mL/dL [place] Test Yes A-a O2 Difference 314.0 mm/Hg Hgb O2 Saturation 93.0 L (95.0-98.0) % Vent Mode Prvc/ac Mechanical Rate 12 FiO2 60.0 % Tidal Volume 500 PEEP 5 Sodium 154 H (132-148) mmol/l Potassium 4.0 (3.6-5.0) MMOL/L Chloride 114 H (98-107) mmol/L Carbon Dioxide 23 (22-30) mmol/L Anion Gap 21 H (10-20) BUN 102 H* (9-20) mg/dl Creatinine 4.7 H (0.8-1.5) mg/dL Est GFR ( Amer) 15 Est GFR (Non-Af Amer) 13 POC Glucose (mg/dL) 300 H (65-110) mg/dL Random Glucose 317 H (75-110) mg/dL Calcium 8.1 L (8.4-10.2) mg/dL 07/19/16 07/18/16 07/18/16 Range/Units 05:30 21:55 15:24 WBC 15.2 H (4.8-10.8) K/uL RBC 3.14 L (4.40-5.90) Mil/uL Hgb 8.2 L (12.0-18.0) g/dL Hct 27.2 L (35.0-51.0) % MCV 86.7 D (80.0-94.0) fl MCH 26.3 L (27.0-31.0) pg MCHC 30.3 L (33.0-37.0) g/dL RDW 23.8 H (11.5-14.5) % Plt Count 42 L (130-400) K/uL PT (9.6-11.2) SECONDS INR (0.92-1.08) APTT (23.3-32.5) SECONDS pCO2 (35-45) mm/Hg pO2 (80-100) mm/Hg HCO3 (21-28) mmol/L ABG pH (7.35-7.45) ABG Total CO2 (22-28) mmol/L ABG O2 Saturation (95-98) % ABG O2 Content (15-23) ML/dL ABG Base Excess (-2.0-3.0) mmol/L ABG Hemoglobin (11.7-17.4) g/dL ABG Carboxyhemoglobin (0.5-1.5) % POC ABG HHb (Measured) (0.0-5.0) % ABG Methemoglobin (0.0-3.0) % ABG O2 Capacity (16-24) mL/dL [place] Test A-a O2 Difference mm/Hg Hgb O2 Saturation (95.0-98.0) % Vent Mode Mechanical Rate FiO2 % Tidal Volume PEEP Sodium (132-148) mmol/l Potassium (3.6-5.0) MMOL/L Chloride (98-107) mmol/L Carbon Dioxide (22-30) mmol/L Anion Gap (10-20) BUN (9-20) mg/dl Creatinine (0.8-1.5) mg/dL Est GFR ( Amer) Est GFR (Non-Af Amer) POC Glucose (mg/dL) 303 H 390 H (65-110) mg/dL Random Glucose (75-110) mg/dL Calcium (8.4-10.2) mg/dL 07/18/16 07/18/16 07/18/16 Range/Units 11:10 08:53 08:53 WBC (4.8-10.8) K/uL RBC (4.40-5.90) Mil/uL Hgb (12.0-18.0) g/dL Hct (35.0-51.0) % MCV (80.0-94.0) fl MCH (27.0-31.0) pg MCHC (33.0-37.0) g/dL RDW (11.5-14.5) % Plt Count (130-400) K/uL PT 19.3 H D (9.6-11.2) SECONDS INR 1.86 H D (0.92-1.08) APTT 35.6 H D (23.3-32.5) SECONDS pCO2 (35-45) mm/Hg pO2 (80-100) mm/Hg HCO3 (21-28) mmol/L ABG pH (7.35-7.45) ABG Total CO2 (22-28) mmol/L ABG O2 Saturation (95-98) % ABG O2 Content (15-23) ML/dL ABG Base Excess (-2.0-3.0) mmol/L ABG Hemoglobin (11.7-17.4) g/dL ABG Carboxyhemoglobin (0.5-1.5) % POC ABG HHb (Measured) (0.0-5.0) % ABG Methemoglobin (0.0-3.0) % ABG O2 Capacity (16-24) mL/dL [place] Test A-a O2 Difference mm/Hg Hgb O2 Saturation (95.0-98.0) % Vent Mode Mechanical Rate FiO2 % Tidal Volume PEEP Sodium 151 H (132-148) mmol/l Potassium 4.7 (3.6-5.0) MMOL/L Chloride 114 H (98-107) mmol/L Carbon Dioxide 18 L (22-30) mmol/L Anion Gap 24 H (10-20) BUN 85 H (9-20) mg/dl Creatinine 4.4 H (0.8-1.5) mg/dL Est GFR ( Amer) 17 Est GFR (Non-Af Amer) 14 POC Glucose (mg/dL) 399 H (65-110) mg/dL Random Glucose 371 H (75-110) mg/dL Calcium 8.0 L (8.4-10.2) mg/dL 07/18/16 Range/Units 08:53 WBC 16.9 H (4.8-10.8) K/uL RBC 2.99 L (4.40-5.90) Mil/uL Hgb 7.9 L (12.0-18.0) g/dL Hct 26.6 L (35.0-51.0) % MCV 88.9 D (80.0-94.0) fl MCH 26.3 L (27.0-31.0) pg MCHC 29.6 L (33.0-37.0) g/dL RDW 23.5 H (11.5-14.5) % Plt Count 51 L D (130-400) K/uL PT (9.6-11.2) SECONDS INR (0.92-1.08) APTT (23.3-32.5) SECONDS pCO2 (35-45) mm/Hg pO2 (80-100) mm/Hg HCO3 (21-28) mmol/L ABG pH (7.35-7.45) ABG Total CO2 (22-28) mmol/L ABG O2 Saturation (95-98) % ABG O2 Content (15-23) ML/dL ABG Base Excess (-2.0-3.0) mmol/L ABG Hemoglobin (11.7-17.4) g/dL ABG Carboxyhemoglobin (0.5-1.5) % POC ABG HHb (Measured) (0.0-5.0) % ABG Methemoglobin (0.0-3.0) % ABG O2 Capacity (16-24) mL/dL [place] Test A-a O2 Difference mm/Hg Hgb O2 Saturation (95.0-98.0) % Vent Mode Mechanical Rate FiO2 % Tidal Volume PEEP Sodium (132-148) mmol/l Potassium (3.6-5.0) MMOL/L Chloride (98-107) mmol/L Carbon Dioxide (22-30) mmol/L Anion Gap (10-20) BUN (9-20) mg/dl Creatinine (0.8-1.5) mg/dL Est GFR ( Amer) Est GFR (Non-Af Amer) POC Glucose (mg/dL) (65-110) mg/dL Random Glucose (75-110) mg/dL Calcium (8.4-10.2) mg/dL Laboratory Results - last 24 hr 07/18/16 07/18/16 07/18/16 08:53 08:53 08:53 WBC 16.9 H RBC 2.99 L Hgb 7.9 L Hct 26.6 L MCV 88.9 D MCH 26.3 L MCHC 29.6 L RDW 23.5 H Plt Count 51 L D PT 19.3 H D INR 1.86 H D APTT 35.6 H D pCO2 pO2 HCO3 ABG pH ABG Total CO2 ABG O2 Saturation ABG O2 Content ABG Base Excess ABG Hemoglobin ABG Carboxyhemoglobin POC ABG HHb (Measured) ABG Methemoglobin ABG O2 Capacity [place] Test A-a O2 Difference Hgb O2 Saturation Vent Mode Mechanical Rate FiO2 Tidal Volume PEEP Sodium 151 H Potassium 4.7 Chloride 114 H Carbon Dioxide 18 L Anion Gap 24 H BUN 85 H Creatinine 4.4 H Est GFR ( Amer) 17 Est GFR (Non-Af Amer) 14 POC Glucose (mg/dL) Random Glucose 371 H Calcium 8.0 L 07/18/16 07/18/16 07/18/16 11:10 15:24 21:55 WBC RBC Hgb Hct MCV MCH MCHC RDW Plt Count PT INR APTT pCO2 pO2 HCO3 ABG pH ABG Total CO2 ABG O2 Saturation ABG O2 Content ABG Base Excess ABG Hemoglobin ABG Carboxyhemoglobin POC ABG HHb (Measured) ABG Methemoglobin ABG O2 Capacity [place] Test A-a O2 Difference Hgb O2 Saturation Vent Mode Mechanical Rate FiO2 Tidal Volume PEEP Sodium Potassium Chloride Carbon Dioxide Anion Gap BUN Creatinine Est GFR ( Amer) Est GFR (Non-Af Amer) POC Glucose (mg/dL) 399 H 390 H 303 H Random Glucose Calcium 07/19/16 07/19/16 07/19/16 05:30 05:30 05:35 WBC 15.2 H RBC 3.14 L Hgb 8.2 L Hct 27.2 L MCV 86.7 D MCH 26.3 L MCHC 30.3 L RDW 23.8 H Plt Count 42 L PT INR APTT pCO2 39 pO2 65 L HCO3 22.8 ABG pH 7.37 ABG Total CO2 23.7 ABG O2 Saturation 96.5 ABG O2 Content 11.6 L ABG Base Excess -2.6 L ABG Hemoglobin 8.8 L ABG Carboxyhemoglobin 2.2 H POC ABG HHb (Measured) 3.4 ABG Methemoglobin 1.3 ABG O2 Capacity 12.0 L [place] Test Yes A-a O2 Difference 314.0 Hgb O2 Saturation 93.0 L Vent Mode Prvc/ac Mechanical Rate 12 FiO2 60.0 Tidal Volume 500 PEEP 5 Sodium 154 H Potassium 4.0 Chloride 114 H Carbon Dioxide 23 Anion Gap 21 H BUN 102 H* Creatinine 4.7 H Est GFR ( Amer) 15 Est GFR (Non-Af Amer) 13 POC Glucose (mg/dL) Random Glucose 317 H Calcium 8.1 L 07/19/16 05:53 WBC RBC Hgb Hct MCV MCH MCHC RDW Plt Count PT INR APTT pCO2 pO2 HCO3 ABG pH ABG Total CO2 ABG O2 Saturation ABG O2 Content ABG Base Excess ABG Hemoglobin ABG Carboxyhemoglobin POC ABG HHb (Measured) ABG Methemoglobin ABG O2 Capacity [place] Test A-a O2 Difference Hgb O2 Saturation Vent Mode Mechanical Rate FiO2 Tidal Volume PEEP Sodium Potassium Chloride Carbon Dioxide Anion Gap BUN Creatinine Est GFR ( Amer) Est GFR (Non-Af Amer) POC Glucose (mg/dL) 300 H Random Glucose Calcium Fingerstick Blood Sugar Results: 303 Assessment/Plan - Assessment and Plan (Free Text) Assessment: Plan: Acute respiratory insufficiency -Respiratory distress secondary to hypoxia in the stting of extensive Right lower lung pneumonia , rt lung atelactasis -On mechanical ventilation, day 4 -Current settings RR: 12/TV: 500/PEEP: 5/FiO2: 80%, Fio increased to 80% due to low PO2 -Tracheal aspirate sputum cultures: preliminary positive for gram positive cocci -CXR this morning re-demonstrates consolidations in right lung, worse Sepstic shock -Secondary to pneumonia/gram positive bacteremia -Lactate stable 8.0 -Blood culture from 07/16/16 reveals preliminary Gram positive cocci in clusters -Off Phenylephrine now, PB stable -On empiric antibiotics: -Zosyn 2.25gm IV Q6h (Started 07/16, current day 2) -Vancomycin 1gm IV daily (Started 07/16, current day 2) DKA Improved, not on insulin drip Still has metabolic acidosis, due to sepsis and VICENTE Metabolic Acidosis; Due to sepsis, VICENTE, Bicarb , improving on bicarb infusion but now has hypernatremia, , will Dc bicab infusion and will start again D5w Altered Mental Status -Secondary to toxic metabolic encephalopathy , recurrent cva -Patient has history of previous left MCA stroke -Neurology consulted, recommends resuming keppra 250mg Q12h for seizure prophylaxis - Acute on chronic kidney disease -Sepsis induced VICENTE: ATN: h/o CKD-3: renal function worsening, its ATN : due to multiorgan failure -Continue bicarb infusion, antibiotics and pressors Chronic hepatic cirrhosis -With ascites, chronic coagulopathy and thrombocytopenia which is stable . 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
[2016-07-19] MEDS: Insulin Detemir 100 Units/ml Inj SC SCH ×2 (08:41→21:35)
--- NOTE | 2016-07-19 09:15 | RAD ---
HISTORY: Intubated. COMPARISON: 07/18/2016 FINDINGS: LUNGS: Re-demonstration of right lower lobe infiltrate and possible effusion. PLEURA: No significant pleural effusion identified, no pneumothorax apparent. CARDIOVASCULAR: Normal. OSSEOUS STRUCTURES: No significant abnormalities. VISUALIZED UPPER ABDOMEN: Normal. OTHER FINDINGS: None. IMPRESSION: Re-demonstration of right lower lobe infiltrate and possible effusion.
--- NOTE | 2016-07-19 10:43 | CP.PCM.CON ---
History of Present Illness - History of Present Illness History of Present Illness: 60 year old male seen at bedside for nail care at request of PMD. Pt was comatose upon arrival and on ventilator. Unresponsive to presence. No acute overnight events reported by overnight staff. Past Patient History - Infectious Disease Hx of Infectious Diseases: None - Past Medical History & Family History Past Medical History?: Yes Past Family History: Reviewed and not pertinent - Past Social History Smoking Status: Unknown If Ever Smoked Chewing Tobacco Use: No Cigar Use: No - CARDIAC Hx Hypercholesterolemia: Yes Hx Hypertension: Yes - PULMONARY Hx Respiratory Disorders: No - NEUROLOGICAL Hx Neurological Disorder: Yes - HEENT Hx HEENT Problems: No - RENAL Hx Chronic Kidney Disease: Yes - ENDOCRINE/METABOLIC Hx Endocrine Disorders: Yes - HEMATOLOGICAL/ONCOLOGICAL Hx Anemia: Yes Hx Human Immunodeficiency Virus (HIV): No - INTEGUMENTARY Hx Dermatological Problems: No - MUSCULOSKELETAL/RHEUMATOLOGICAL Hx Falls: Yes - GASTROINTESTINAL Hx Pancreatitis: Yes - GENITOURINARY/GYNECOLOGICAL Hx Genitourinary Disorders: No - PSYCHIATRIC Hx Substance Use: No - SURGICAL HISTORY Hx Carotid Endarterectomy: Yes - ANESTHESIA Hx Anesthesia: Yes Hx Anesthesia Reactions: No Has any member of the family had a problem w/ anesthesia?: No Meds Allergies/Adverse Reactions: Allergies Allergy/AdvReac Type Severity Reaction Status Date / Time No Known Allergies Allergy Verified 07/15/16 23:10 - Medications Medications: Current Medications Dextrose (Dextrose 50% Inj) 0 ml IV STAT PRN; Protocol PRN Reason: Hyglycemia Protocol Dextrose (Glutose 15) 0 gm PO ONCE PRN; Protocol PRN Reason: Hypoglycemia Protocol Glucagon (Glucagen Diagnostic Kit) 0 mg IM STAT PRN; Protocol PRN Reason: Hypoglycemia Protocol Piperacillin Sod/Tazobactam (Sod 2.25 gm/ Sodium Chloride) 100 mls @ 100 mls/ hr IVPB Q6 FAVIAN Last Admin: 07/19/16 04:27 Dose: 100 mls/hr Clindamycin Phosphate 600 mg/ (Sodium Chloride) 104 mls @ 104 mls/hr IVPB Q8 FAVIAN Last Admin: 07/19/16 08:39 Dose: 104 mls/hr Vancomycin HCl 1 gm/ Sodium (Chloride) 250 mls @ 166.667 mls/hr IVPB DAILY FAVIAN Last Admin: 07/19/16 08:42 Dose: 166.667 mls/hr Phenylephrine HCl 10 mg/ (Sodium Chloride) 251 mls @ 30.12 mls/hr IV .Q8H20M [facility]; 20 MCG/MIN PRN Reason: Protocol Last Titration: 07/18/16 16:30 Dose: 10 mcg/min, 15.06 mls/hr Dextrose (Dextrose 5% In Water 1000 Ml) 1,000 mls @ 60 mls/hr IV .[id number] [facility] Stop: 07/20/16 08:21 Last Admin: 07/19/16 08:40 Dose: 60 mls/hr Insulin Detemir (Levemir) 30 units SC Q12 [facility] Last Admin: 07/19/16 08:41 Dose: 30 unit Insulin Human Regular (Humulin R) 0 units SC Q6 FAVIAN PRN Reason: Protocol Last Admin: 07/18/16 22:17 Dose: 2 units Lactulose (Enulose) 20 gm PO QID [facility] Last Admin: 07/19/16 08:41 Dose: 20 gm Pantoprazole Sodium (Protonix Inj) 40 mg IVP DAILY [facility] Last Admin: 07/19/16 08:42 Dose: 40 mg Physical Exam - Extremities Exam Additional comments: Lower extremity focused. VASC: DP & PT pulses fully palpable bilaterally, graded 2/4 respectively. +2 pitting edema noted to dorsum of foot bilaterally. DERM: Elongated, dystrophic, brittle nails noted to all 10 nail plates. No open wounds lesion or macerations noted bilaterally. Diffuse plantar hyperkeratotic patches. Right leg shows one turgid serous filled vesicle and one de-roofed superficial bulla bed undergoing re-epithelialization. Plantar aspect of right foot along lateral botrder shows interrupted patches of ecchymosis or resolved hematogenous bulla, non-fluctuant. NEURO: Protective sensation to deep pain grossly intact. MUSCK: Lower leg and pedal muscle tone grossly intact. No gross deformites noted. Functional component deferred due to pts comatose state. Results - Vital Signs Recent Vital Signs: Last Vital Signs Temp 97.5 F L 07/19/16 08:00 Pulse 111 H 07/19/16 10:00 Resp 19 07/19/16 10:00 BP 122/73 07/19/16 10:00 Pulse Ox 99 07/19/16 10:00 - Labs Result Diagrams: 07/19/16 05:30 07/19/16 05:30 Labs: Laboratory Results - last 24 hr 07/18/16 07/18/16 07/18/16 11:10 15:24 21:55 WBC RBC Hgb Hct MCV MCH MCHC RDW Plt Count pCO2 pO2 HCO3 ABG pH ABG Total CO2 ABG O2 Saturation ABG O2 Content ABG Base Excess ABG Hemoglobin ABG Carboxyhemoglobin POC ABG HHb (Measured) ABG Methemoglobin ABG O2 Capacity [place] Test A-a O2 Difference Hgb O2 Saturation Vent Mode Mechanical Rate FiO2 Tidal Volume PEEP Sodium Potassium Chloride Carbon Dioxide Anion Gap BUN Creatinine Est GFR ( Amer) Est GFR (Non-Af Amer) POC Glucose (mg/dL) 399 H 390 H 303 H Random Glucose Calcium 07/19/16 07/19/16 07/19/16 05:30 05:30 05:35 WBC 15.2 H RBC 3.14 L Hgb 8.2 L Hct 27.2 L MCV 86.7 D MCH 26.3 L MCHC 30.3 L RDW 23.8 H Plt Count 42 L pCO2 39 pO2 65 L HCO3 22.8 ABG pH 7.37 ABG Total CO2 23.7 ABG O2 Saturation 96.5 ABG O2 Content 11.6 L ABG Base Excess -2.6 L ABG Hemoglobin 8.8 L ABG Carboxyhemoglobin 2.2 H POC ABG HHb (Measured) 3.4 ABG Methemoglobin 1.3 ABG O2 Capacity 12.0 L [place] Test Yes A-a O2 Difference 314.0 Hgb O2 Saturation 93.0 L Vent Mode Prvc/ac Mechanical Rate 12 FiO2 60.0 Tidal Volume 500 PEEP 5 Sodium 154 H Potassium 4.0 Chloride 114 H Carbon Dioxide 23 Anion Gap 21 H BUN 102 H* Creatinine 4.7 H Est GFR ( Amer) 15 Est GFR (Non-Af Amer) 13 POC Glucose (mg/dL) Random Glucose 317 H Calcium 8.1 L 07/19/16 05:53 WBC RBC Hgb Hct MCV MCH MCHC RDW Plt Count pCO2 pO2 HCO3 ABG pH ABG Total CO2 ABG O2 Saturation ABG O2 Content ABG Base Excess ABG Hemoglobin ABG Carboxyhemoglobin POC ABG HHb (Measured) ABG Methemoglobin ABG O2 Capacity [place] Test A-a O2 Difference Hgb O2 Saturation Vent Mode Mechanical Rate FiO2 Tidal Volume PEEP Sodium Potassium Chloride Carbon Dioxide Anion Gap BUN Creatinine Est GFR ( Amer) Est GFR (Non-Af Amer) POC Glucose (mg/dL) 300 H Random Glucose Calcium Assessment & Plan - Assessment and Plan (Free Text) Assessment: 60 year old unresponsive male with PMH of ESLD, CVA, DM, HTN, CKD seen for Diabetic nail care. Plan: Pt evaluated and treated. Charts, labs, and vitals reviewed. discussed with attending Dr. Timmons. Aseptic nail debridement performed, without incident, using nail nipper down to hygienic nail length. To continue using multi-podius boots while in bed. Pt stable from podiatric standpoint. Podiatry signing off. Re-consult as needed. Thank you for allowing podiatry service to partake in the care of this patient. - Date & Time Date: 07/19/16 Time: 10:55
--- NOTE | 2016-07-19 10:50 | CP.PCM.PN ---
Subjective - Date & Time of Evaluation Date of Evaluation: 07/19/16 Time of Evaluation: 10:51 - Subjective Subjective: COMATOSE STILL INTUBATED AND BEING VENTILATED Objective - Vital Signs/Intake and Output Vital Signs (last 24 hours): Temp Pulse Resp BP Pulse Ox 97.5 F L 111 H 19 122/73 99 07/19/16 08:00 07/19/16 10:00 07/19/16 10:00 07/19/16 10:00 07/19/16 10:00 Intake and Output: 07/19/16 07/19/16 06:59 18:59 Intake Total 785 450 Balance 785 450 - Medications Medications: Current Medications Dextrose (Dextrose 50% Inj) 0 ml IV STAT PRN; Protocol PRN Reason: Hyglycemia Protocol Dextrose (Glutose 15) 0 gm PO ONCE PRN; Protocol PRN Reason: Hypoglycemia Protocol Glucagon (Glucagen Diagnostic Kit) 0 mg IM STAT PRN; Protocol PRN Reason: Hypoglycemia Protocol Piperacillin Sod/Tazobactam (Sod 2.25 gm/ Sodium Chloride) 100 mls @ 100 mls/ hr IVPB Q6 [facility] Last Admin: 07/19/16 04:27 Dose: 100 mls/hr Clindamycin Phosphate 600 mg/ (Sodium Chloride) 104 mls @ 104 mls/hr IVPB Q8 [facility] Last Admin: 07/19/16 08:39 Dose: 104 mls/hr Vancomycin HCl 1 gm/ Sodium (Chloride) 250 mls @ 166.667 mls/hr IVPB DAILY [facility] Last Admin: 07/19/16 08:42 Dose: 166.667 mls/hr Phenylephrine HCl 10 mg/ (Sodium Chloride) 251 mls @ 30.12 mls/hr IV .Q8H20M [facility]; 20 MCG/MIN PRN Reason: Protocol Last Titration: 07/18/16 16:30 Dose: 10 mcg/min, 15.06 mls/hr Dextrose (Dextrose 5% In Water 1000 Ml) 1,000 mls @ 60 mls/hr IV .[id number] [facility] Stop: 07/20/16 08:21 Last Admin: 07/19/16 08:40 Dose: 60 mls/hr Insulin Detemir (Levemir) 30 units SC Q12 [facility] Last Admin: 07/19/16 08:41 Dose: 30 unit Insulin Human Regular (Humulin R) 0 units SC Q6 [facility] PRN Reason: Protocol Last Admin: 07/18/16 22:17 Dose: 2 units Lactulose (Enulose) 20 gm PO QID [facility] Last Admin: 07/19/16 08:41 Dose: 20 gm Pantoprazole Sodium (Protonix Inj) 40 mg IVP DAILY [facility] Last Admin: 07/19/16 08:42 Dose: 40 mg - Labs Labs: 07/19/16 05:30 07/19/16 05:30 PT 19.3 SECONDS (9.6-11.2) H D 07/18/16 08:53 INR 1.86 (0.92-1.08) H D 07/18/16 08:53 APTT 35.6 SECONDS (23.3-32.5) H D 07/18/16 08:53 - Constitutional Appears: Toxic - Head Exam Head Exam: ATRAUMATIC, NORMAL INSPECTION, NORMOCEPHALIC - Eye Exam Eye Exam: Scleral icterus - ENT Exam ENT Exam: Mucous Membranes Moist, Normal Exam - Neck Exam Neck Exam: Full ROM, Normal Inspection. absent: Lymphadenopathy - Respiratory Exam Respiratory Exam: Rales Additional comments: ON THE VENTILATOR - Cardiovascular Exam Cardiovascular Exam: REGULAR RHYTHM, +S1, +S2. absent: Murmur - GI/Abdominal Exam GI & Abdominal Exam: Distended. absent: Tenderness - Rectal Exam Rectal Exam: NORMAL INSPECTION - Extremities Exam Extremities Exam: Pedal Edema. absent: Joint Swelling - Back Exam Back Exam: NORMAL INSPECTION - Neurological Exam Neurological Exam: Alert, Awake, CN II-XII Intact, Normal Gait, Oriented x3 - Psychiatric Exam Psychiatric exam: Normal Affect, Normal Mood Assessment and Plan - Assessment and Plan (Free Text) Assessment: TOXIC METABOLIC ENCEPHALOPATHY RESPIRATORY FAILURE Plan: SUPPORTIVE CARE
--- NOTE | 2016-07-19 10:54 | CP.PCM.PN ---
Subjective - Date & Time of Evaluation Date of Evaluation: 07/19/16 Time of Evaluation: 10:53 - Subjective Subjective: no distress, remains off sedation and is nonresponsive on vent, multiorgan failure on present, c/s w/ MSSA in sputum/blood. son made pt dnr, is considering confort care. all consults appriciated. bw reviwed, kidney fialure worsening, hypenatremia noted, metabolic derrangement noted Objective - Vital Signs/Intake and Output Vital Signs (last 24 hours): Temp Pulse Resp BP Pulse Ox 97.5 F L 111 H 19 122/73 99 07/19/16 08:00 07/19/16 10:00 07/19/16 10:00 07/19/16 10:00 07/19/16 10:00 Intake and Output: 07/19/16 07/19/16 06:59 18:59 Intake Total 785 450 Balance 785 450 - Medications Medications: Current Medications Dextrose (Dextrose 50% Inj) 0 ml IV STAT PRN; Protocol PRN Reason: Hyglycemia Protocol Dextrose (Glutose 15) 0 gm PO ONCE PRN; Protocol PRN Reason: Hypoglycemia Protocol Glucagon (Glucagen Diagnostic Kit) 0 mg IM STAT PRN; Protocol PRN Reason: Hypoglycemia Protocol Piperacillin Sod/Tazobactam (Sod 2.25 gm/ Sodium Chloride) 100 mls @ 100 mls/ hr IVPB Q6 [facility] Last Admin: 07/19/16 04:27 Dose: 100 mls/hr Clindamycin Phosphate 600 mg/ (Sodium Chloride) 104 mls @ 104 mls/hr IVPB Q8 [facility] Last Admin: 07/19/16 08:39 Dose: 104 mls/hr Vancomycin HCl 1 gm/ Sodium (Chloride) 250 mls @ 166.667 mls/hr IVPB DAILY [facility] Last Admin: 07/19/16 08:42 Dose: 166.667 mls/hr Phenylephrine HCl 10 mg/ (Sodium Chloride) 251 mls @ 30.12 mls/hr IV .Q8H20M [facility]; 20 MCG/MIN PRN Reason: Protocol Last Titration: 07/18/16 16:30 Dose: 10 mcg/min, 15.06 mls/hr Dextrose (Dextrose 5% In Water 1000 Ml) 1,000 mls @ 60 mls/hr IV .[id number] [facility] Stop: 07/20/16 08:21 Last Admin: 07/19/16 08:40 Dose: 60 mls/hr Insulin Detemir (Levemir) 30 units SC Q12 [facility] Last Admin: 07/19/16 08:41 Dose: 30 unit Insulin Human Regular (Humulin R) 0 units SC Q6 [facility] PRN Reason: Protocol Last Admin: 07/18/16 22:17 Dose: 2 units Lactulose (Enulose) 20 gm PO QID [facility] Last Admin: 07/19/16 08:41 Dose: 20 gm Pantoprazole Sodium (Protonix Inj) 40 mg IVP DAILY [facility] Last Admin: 07/19/16 08:42 Dose: 40 mg - Labs Labs: 07/19/16 05:30 07/19/16 05:30 PT 19.3 SECONDS (9.6-11.2) H D 07/18/16 08:53 INR 1.86 (0.92-1.08) H D 07/18/16 08:53 APTT 35.6 SECONDS (23.3-32.5) H D 07/18/16 08:53 - Constitutional Appears: No Acute Distress, Chronically Ill - Head Exam Head Exam: ATRAUMATIC, NORMAL INSPECTION, NORMOCEPHALIC - Eye Exam Eye Exam: Normal appearance, PERRL Pupil Exam: NORMAL ACCOMODATION, PERRL - ENT Exam ENT Exam: Mucous Membranes Moist, Normal Exam - Neck Exam Neck Exam: Full ROM, Normal Inspection. absent: Lymphadenopathy - Respiratory Exam Respiratory Exam: Clear to Ausculation Bilateral Additional comments: vented - Cardiovascular Exam Cardiovascular Exam: Tachycardia, REGULAR RHYTHM, +S1, +S2. absent: Murmur - GI/Abdominal Exam GI & Abdominal Exam: Soft, Normal Bowel Sounds. absent: Tenderness - Rectal Exam Rectal Exam: NORMAL INSPECTION - Extremities Exam Extremities Exam: Full ROM, Normal Capillary Refill, Normal Inspection. absent : Joint Swelling, Pedal Edema - Back Exam Back Exam: NORMAL INSPECTION - Neurological Exam Neurological Exam: Abnormal Gait, Altered, CN II-XII Intact - Skin Skin Exam: Dry, Intact, Normal Color, Warm Additional comments: brusiing noted Assessment and Plan (1) Toxic metabolic encephalopathy Status: Acute (2) VICENTE (acute kidney injury) Status: Acute (3) DVT prophylaxis Status: Acute (4) Diabetes type 2, uncontrolled Status: Acute (5) Hyperkalemia Status: Acute (6) Old cerebrovascular accident (CVA) without late effect Status: Chronic (7) Scrotal edema Status: Chronic - Assessment and Plan (Free Text) Assessment: (1) Toxic metabolic encephalopathy Assessment & Plan: icu care neuro regulate lytes vent support pt is comatose, dnr supportive but aggressive care d/c w/ icu team Status: Acute (2) VICENTE (acute kidney injury) Assessment & Plan: nephro ivf regulate acid/base balance ?? dialysis worsening Status: Acute (3) DVT prophylaxis Assessment & Plan: scd and aehose ?? dic so hold anticoag Status: Acute (4) Diabetes type 2, uncontrolled Assessment & Plan: insulin gtt, pt in dka, glucose q1h. icu care Status: Acute (5) Hyperkalemia Status: Acute (6) Old cerebrovascular accident (CVA) without late effect Assessment & Plan: neuro ct head, neuro checks Status: Chronic (7) Scrotal edema Assessment & Plan: uro scrotal edema elevate testes Status: Chronic pt in serious condition. son aware of all. case d/c w/ consultants pt made dnr by son will follow closely. poor prognosis no corneal refelx. will d/c terminal extubation
--- NOTE | 2016-07-19 12:42 | PN ---
DATE: 07/19/2016 In ICU, room 435. This is a 60-year-old male with acute respiratory failure, currently endotracheally intubated and sed ated, and is now being followed closely for metabolic management. His glycemic levels are still fluctuating and glucose values are ranging from 300-303 and 390 mg/dL. His latest chemistries include a BUN of 102, sodium 154, potassium 4.0, chloride 114, CO2 is 23, glu cose is 317 and creatinine is 4.7. So at this time, we will increase once again his basal insulin with Levemir to be given at 50 units s ubQ every 12 hours at 10 a.m. and 10 p.m. daily as noted. We will titrate incrementally as indicated to optimize metabolic control. We will continue also the medium dose correction scale using regular insulin as given. We will also continue the IV hydration as given and ordered, and obtain serial ch emistries and supplement accordingly as needed. We will follow. Amena Mendoza MD cc: [id number] TT: 07/19/2016 12:42:00 Confirmation # [id number] Dictation # [id number] en
[2016-07-19] MEDS: Insulin Regular 100 units/ml SC SCH ×4 (13:42→21:41)
[2016-07-19] MEDS ORDERED: Insulin Regular 100 units/ml SC STA (13:54)
[2016-07-20] MEDS: Clindamycin 600 MG in Sodium Chloride 0.9% 100 ML IVPB SCH ×3 (00:49→16:24)
[2016-07-20] MEDS: Insulin Regular 100 units/ml SC SCH ×4 (04:10→22:01)
[2016-07-20 05:42] LABS: ABG ALLEN TEST YES; ABG MECHANICAL RATE 12; ARTERIAL BLOOD GAS HCO3 22.7 mmol/L (21-28); ARTERIAL BLOOD GAS MODE PRVC AC; ARTERIAL BLOOD GAS O2 CAPACITY 11.7 mL/dL (16-24); ARTERIAL BLOOD GAS O2 CONTENT 11.6 ML/dL (15-23); ARTERIAL BLOOD GAS PH 7.38 (7.35-7.45); ARTERIAL BLOOD GAS PO2 80 mm/Hg (80-100); ARTERIAL BLOOD HGB O2 SAT 95.8 % (95.0-98.0); ATERIAL BLOOD GAS PEEP 5; CARBOXYHEMOGLOBIN 1.9 % (0.5-1.5); HHB 0.8 % (0.0-5.0); METHEMOGLOBIN 1.5 % (0.0-3.0)
[2016-07-20 06:45] LABS: HEMATOCRIT 26.6 % (35.0-51.0); MEAN CELL VOLUME 86.1 fl (80.0-94.0); MEAN CORPUSCULAR HEMOGLOBIN 26.1 pg (27.0-31.0); MEAN CORPUSCULAR HGB CONC 30.3 g/dL (33.0-37.0); RED CELL DISTRIBUTION WIDTH 23.8 % (11.5-14.5); WHITE BLOOD COUNT 12.9 K/uL (4.8-10.8)
[2016-07-20 07:02] LABS: CALCIUM 7.8 mg/dL (8.4-10.2); POTASSIUM 3.8 MMOL/L (3.6-5.0)
--- NOTE | 2016-07-20 07:23 | CP.PCM.PN ---
Subjective - Date & Time of Evaluation Date of Evaluation: 07/20/16 Time of Evaluation: 07:23 - Subjective Subjective: pt remains w/ gcs 3-4. blinking w/ deep corneal reflex. no other stimuli elicited. bw noted. spoke w/ son who states that family will make decision regarding care wed 07/22/16. case d/c w/ rn and dr polanco-icu attending. Objective - Vital Signs/Intake and Output Vital Signs (last 24 hours): Temp Pulse Resp BP Pulse Ox 97.9 F 110 H 23 124/69 100 07/20/16 04:00 07/20/16 06:00 07/20/16 06:00 07/20/16 06:00 07/20/16 06:00 Intake and Output: 07/20/16 07/20/16 06:59 18:59 Intake Total 920 Output Total 800 Balance 120 - Medications Medications: Current Medications Dextrose (Dextrose 50% Inj) 0 ml IV STAT PRN; Protocol PRN Reason: Hyglycemia Protocol Dextrose (Glutose 15) 0 gm PO ONCE PRN; Protocol PRN Reason: Hypoglycemia Protocol Glucagon (Glucagen Diagnostic Kit) 0 mg IM STAT PRN; Protocol PRN Reason: Hypoglycemia Protocol Piperacillin Sod/Tazobactam (Sod 2.25 gm/ Sodium Chloride) 100 mls @ 100 mls/ hr IVPB Q6 [facility] Last Admin: 07/20/16 04:10 Dose: 100 mls/hr Clindamycin Phosphate 600 mg/ (Sodium Chloride) 104 mls @ 104 mls/hr IVPB Q8 [facility] Last Admin: 07/20/16 00:49 Dose: 104 mls/hr Vancomycin HCl 1 gm/ Sodium (Chloride) 250 mls @ 166.667 mls/hr IVPB DAILY [facility] Last Admin: 07/19/16 08:42 Dose: 166.667 mls/hr Phenylephrine HCl 10 mg/ (Sodium Chloride) 251 mls @ 30.12 mls/hr IV .Q8H20M [facility]; 20 MCG/MIN PRN Reason: Protocol Last Titration: 07/18/16 16:30 Dose: 10 mcg/min, 15.06 mls/hr Dextrose (Dextrose 5% In Water 1000 Ml) 1,000 mls @ 60 mls/hr IV .[id number] [facility] Stop: 07/20/16 08:21 Last Admin: 07/20/16 02:36 Dose: 60 mls/hr Insulin Detemir (Levemir) 50 units SC Q12 [facility] Last Admin: 07/19/16 21:35 Dose: 50 units Insulin Human Regular (Humulin R) 0 units SC Q6 [facility] PRN Reason: Protocol Last Admin: 07/20/16 04:10 Dose: 4 units Lactulose (Enulose) 20 gm PO QID [facility] Last Admin: 07/19/16 21:34 Dose: 20 gm Pantoprazole Sodium (Protonix Inj) 40 mg IVP DAILY [facility] Last Admin: 07/19/16 08:42 Dose: 40 mg - Labs Labs: 07/20/16 06:05 07/20/16 06:05 PT 19.3 SECONDS (9.6-11.2) H D 07/18/16 08:53 INR 1.86 (0.92-1.08) H D 07/18/16 08:53 APTT 35.6 SECONDS (23.3-32.5) H D 07/18/16 08:53 - Constitutional Appears: Non-toxic, Chronically Ill - Head Exam Head Exam: ATRAUMATIC, NORMAL INSPECTION, NORMOCEPHALIC - Eye Exam Eye Exam: Normal appearance, PERRL Pupil Exam: NORMAL ACCOMODATION, PERRL - ENT Exam ENT Exam: Mucous Membranes Moist, Normal Exam - Neck Exam Neck Exam: Full ROM, Normal Inspection. absent: Lymphadenopathy - Respiratory Exam Respiratory Exam: Wheezes Additional comments: vented - Cardiovascular Exam Cardiovascular Exam: Tachycardia, REGULAR RHYTHM, +S1, +S2. absent: Murmur - GI/Abdominal Exam GI & Abdominal Exam: Soft, Normal Bowel Sounds. absent: Tenderness - Extremities Exam Extremities Exam: Full ROM, Normal Capillary Refill, Normal Inspection. absent : Joint Swelling, Pedal Edema - Back Exam Back Exam: NORMAL INSPECTION - Neurological Exam Neurological Exam: Altered, CN II-XII Intact - Skin Skin Exam: Dry, Intact, Mottled, Pallor, Warm Assessment and Plan (1) Toxic metabolic encephalopathy Status: Acute (2) VICENTE (acute kidney injury) Status: Acute (3) DVT prophylaxis Status: Acute (4) Diabetes type 2, uncontrolled Status: Acute (5) Hyperkalemia Status: Acute (6) Old cerebrovascular accident (CVA) without late effect Status: Chronic (7) Scrotal edema Status: Chronic - Assessment and Plan (Free Text) Assessment: (1) Toxic metabolic encephalopathy Assessment & Plan: icu care neuro regulate lytes vent support pt is comatose, dnr supportive but aggressive care d/c w/ icu team Status: Acute (2) VICENTE (acute kidney injury) Assessment & Plan: nephro ivf regulate acid/base balance ?? dialysis worsening Status: Acute (3) DVT prophylaxis Assessment & Plan: scd and aehose ?? dic so hold anticoag Status: Acute (4) Diabetes type 2, uncontrolled Assessment & Plan: insulin gtt, pt in dka, glucose q1h. icu care Status: Acute (5) Hyperkalemia Status: Acute (6) Old cerebrovascular accident (CVA) without late effect Assessment & Plan: neuro ct head, neuro checks Status: Chronic (7) Scrotal edema Assessment & Plan: uro scrotal edema elevate testes Status: Chronic pt in serious condition. son aware of all. case d/c w/ consultants pt made dnr by son will follow closely. poor prognosis no corneal refelx. will d/c terminal extubation decicsion regarding terminal extubation wed 07/22/16 per son
[2016-07-20] MEDS: Insulin Detemir 100 Units/ml Inj SC SCH ×2 (08:41→22:02)
--- NOTE | 2016-07-20 13:10 | CP.PCM.PN ---
Subjective - Date & Time of Evaluation Date of Evaluation: 07/20/16 Time of Evaluation: 09:50 - Subjective Subjective: Follow up Nephrology Consultation Note Assessment: Oliguric Acute Kidney Injury likely due to ATN due to sepsis. Other possibility include hepatorenal syndrome considering advanced cirrhosis Chronic Kidney Disease Stage 3 with baseline creatinine 1.5-2.0 mg/dL without proteinuria Hypernatremia, Anemia, cirrhosis, portal hypertension, ascites, pancytopenia acute respi failure, sepsis, DM, HTN, hx of CVA Plan overall patient with grave prognosis and terminal extubation is being discussed with family. hence renal replacement therapy at this time will likely be futile free water via NGT can be given 250 mL q4-6 hour Monitor Input/Output, daily weights and renal function with basic metabolic panel will check urine analysis, urine Na and creat Dose meds/antibiotics for reduced GFR <10. Avoid fleets enema/magnesium based laxatives. Avoid nephrotoxins/NSAIDs/ iodinated contrast (unless needed emergently) Glycemic control Further work up for as per primary team. d/w ICU attending Thanks for allowing me to participate in care of your patient. Will follow patient with you. Please call if any Qs Dr Matt Duarte Office: [phone] Subjective: Noted events overnight. unable. pt intubated, unresponsive. Physical Examination: General Appearance: Comfortable, in no acute respiratory distress, overall very ill appearing. Vitals reviewed and noted as below Lungs: Breath sounds bilateral equal and clear anteriorly Heart: Increased rate. s1s2 normal. No rub or gallop. Extremities: 2+ edema. Neurological: Patient is unresponsive to commands or stimuli Skin: Warm and dry. Normal turgor. No rash. Palpitation: Normal elasticity for age Abdomen: Abdomen is soft. distended. There is no abdominal tenderness, no guarding/rigidity or organomegaly : kidney or bladder not palpable. has jimenez Labs/imaging reviewed. Past medical history, past surgical history, family history, social history, allergy reviewed and noted as below work up; Alb 1.8 LDH 1391 UA: neg for protein/blood 7.38/Bicarb 22/pCO2 37/99% o 60% FiO2 CT; ascites/cirrhosis with normal appearing kidneys and mild adrenal thickening Objective - Vital Signs/Intake and Output Vital Signs (last 24 hours): Temp Pulse Resp BP Pulse Ox 99 F 115 H 12 121/68 100 07/20/16 07:33 07/20/16 07:33 07/20/16 07:33 07/20/16 07:33 07/20/16 07:33 Intake and Output: 07/20/16 07/20/16 06:59 18:59 Intake Total 920 Output Total 800 Balance 120 - Medications Medications: Current Medications Dextrose (Dextrose 50% Inj) 0 ml IV STAT PRN; Protocol PRN Reason: Hyglycemia Protocol Dextrose (Glutose 15) 0 gm PO ONCE PRN; Protocol PRN Reason: Hypoglycemia Protocol Glucagon (Glucagen Diagnostic Kit) 0 mg IM STAT PRN; Protocol PRN Reason: Hypoglycemia Protocol Piperacillin Sod/Tazobactam (Sod 2.25 gm/ Sodium Chloride) 100 mls @ 100 mls/ hr IVPB Q6 [facility] Last Admin: 07/20/16 10:30 Dose: 100 mls/hr Clindamycin Phosphate 600 mg/ (Sodium Chloride) 104 mls @ 104 mls/hr IVPB Q8 [facility] Last Admin: 07/20/16 08:40 Dose: 104 mls/hr Vancomycin HCl 1 gm/ Sodium (Chloride) 250 mls @ 166.667 mls/hr IVPB DAILY [facility] Last Admin: 07/20/16 12:52 Dose: 166.667 mls/hr Phenylephrine HCl 10 mg/ (Sodium Chloride) 251 mls @ 30.12 mls/hr IV .Q8H20M [facility]; 20 MCG/MIN PRN Reason: Protocol Last Titration: 07/18/16 16:30 Dose: 10 mcg/min, 15.06 mls/hr Insulin Detemir (Levemir) 50 units SC Q12 [facility] Last Admin: 07/20/16 08:41 Dose: 50 units Insulin Human Regular (Humulin R) 0 units SC Q6 [facility] PRN Reason: Protocol Last Admin: 07/20/16 12:52 Dose: 4 units Lactulose (Enulose) 20 gm PO QID [facility] Last Admin: 07/20/16 08:43 Dose: 20 gm Pantoprazole Sodium (Protonix Inj) 40 mg IVP DAILY [facility] Last Admin: 07/20/16 12:52 Dose: 40 mg - Labs Labs: 07/20/16 06:05 07/20/16 06:05 PT 19.3 SECONDS (9.6-11.2) H D 07/18/16 08:53 INR 1.86 (0.92-1.08) H D 07/18/16 08:53 APTT 35.6 SECONDS (23.3-32.5) H D 07/18/16 08:53
--- NOTE | 2016-07-20 13:17 | CP.PCM.PN ---
Subjective - Date & Time of Evaluation Date of Evaluation: 07/20/16 Time of Evaluation: 13:15 - Subjective Subjective: no overnight events Objective - Vital Signs/Intake and Output Vital Signs (last 24 hours): Temp Pulse Resp BP Pulse Ox 99 F 115 H 12 121/68 100 07/20/16 07:33 07/20/16 07:33 07/20/16 07:33 07/20/16 07:33 07/20/16 07:33 Intake and Output: 07/20/16 07/20/16 06:59 18:59 Intake Total 920 Output Total 800 Balance 120 - Medications Medications: Current Medications Dextrose (Dextrose 50% Inj) 0 ml IV STAT PRN; Protocol PRN Reason: Hyglycemia Protocol Dextrose (Glutose 15) 0 gm PO ONCE PRN; Protocol PRN Reason: Hypoglycemia Protocol Glucagon (Glucagen Diagnostic Kit) 0 mg IM STAT PRN; Protocol PRN Reason: Hypoglycemia Protocol Piperacillin Sod/Tazobactam (Sod 2.25 gm/ Sodium Chloride) 100 mls @ 100 mls/ hr IVPB Q6 [facility] Last Admin: 07/20/16 10:30 Dose: 100 mls/hr Clindamycin Phosphate 600 mg/ (Sodium Chloride) 104 mls @ 104 mls/hr IVPB Q8 [facility] Last Admin: 07/20/16 08:40 Dose: 104 mls/hr Vancomycin HCl 1 gm/ Sodium (Chloride) 250 mls @ 166.667 mls/hr IVPB DAILY [facility] Last Admin: 07/20/16 12:52 Dose: 166.667 mls/hr Phenylephrine HCl 10 mg/ (Sodium Chloride) 251 mls @ 30.12 mls/hr IV .Q8H20M [facility]; 20 MCG/MIN PRN Reason: Protocol Last Titration: 07/18/16 16:30 Dose: 10 mcg/min, 15.06 mls/hr Insulin Detemir (Levemir) 60 units SC Q12@1000,2200 [facility] Insulin Human Regular (Humulin R) 0 units SC Q6 [facility] PRN Reason: Protocol Last Admin: 07/20/16 12:52 Dose: 4 units Lactulose (Enulose) 20 gm PO QID [facility] Last Admin: 07/20/16 08:43 Dose: 20 gm Pantoprazole Sodium (Protonix Inj) 40 mg IVP DAILY [facility] Last Admin: 07/20/16 12:52 Dose: 40 mg - Labs Labs: 07/20/16 06:05 07/20/16 06:05 PT 19.3 SECONDS (9.6-11.2) H D 07/18/16 08:53 INR 1.86 (0.92-1.08) H D 07/18/16 08:53 APTT 35.6 SECONDS (23.3-32.5) H D 07/18/16 08:53 - GI/Abdominal Exam GI & Abdominal Exam: Soft, Normal Bowel Sounds Assessment and Plan - Assessment and Plan (Free Text) Assessment: 50 yo male with sepsis unresponsive clarify goals of care prognosis poor
[2016-07-20 14:40] LABS: RBC URINE 3 /hpf (0-3); URINE BACTERIA RARE (<OCC); URINE BILIRUBIN NEGATIVE (NEGATIVE); URINE BLOOD SMALL (NEGATIVE); URINE COLOR AMBER (YELLOW); URINE GLUCOSE (UA) 50 mg/dL (Normal); URINE KETONE NEGATIVE (NEGATIVE); URINE LEUKOCYTE ESTERASE NEG Leu/uL (Negative); URINE PROTEIN 30 mg/dL (NEGATIVE); URINE UROBILINOGEN 0.2-1.0 mg/dL (0.2-1.0); WBC URINE 10 /hpf (0-5)
[2016-07-20 14:50] LABS: CREATININE, RANDOM URINE 131.9 mg/dL
--- NOTE | 2016-07-20 15:08 | RAD ---
HISTORY: Endotracheal tube placement. Portable upright study 04:15. COMPARISON: Multiple serial examinations preceding the most recent study: July 19, 2016. FINDINGS: LUNGS: Stable consolidative changes primarily right lower lobe. PLEURA: No significant interval change compared to the prior examination(s). CARDIOVASCULAR: No radiographic findings to suggest acute or significant cardiovascular disease. OSSEOUS STRUCTURES: No significant abnormalities. VISUALIZED UPPER ABDOMEN: Normal. OTHER FINDINGS: Stable position of support apparatus including endotracheal tube and nasogastric tube. IMPRESSION: No significant interval change compared to the prior examination(s).
--- NOTE | 2016-07-20 15:10 | PN ---
DATE: 07/20/2016 In ICU, room 435 This is a 60-year-old male with acute respiratory failure, currently endotracheally intubated, now be ing followed closely for metabolic management because of recent hyperglycemic accelerations as noted thereof. His glucose values are still fluctuating and today's glucose levels have ranged from 266-287 and 369 mg/dL. His latest chemistries include a BUN of 114, sodium 152, potassium 3.8, chloride 113, CO2 21, glucose 327 and creatinine 5.1. So at this time, we will modify once again his basal insulin and increase the Levemir to 60 units sub Q every 12 hours at 10 a.m. and 10 p.m. daily to start tonight as ordered. We will continue the low- dose correction scale using regular insulin as given. We will obtain serial chemistries and suppleme nt accordingly as needed. We will follow. Amena Mendoza MD cc: [id number] TT: 07/20/2016 15:09:53 Confirmation # [id number] Dictation # [id number] en
[2016-07-20] MEDS: Artificial Tears Opht Soln OU PRN (16:23)
[2016-07-21] MEDS: Clindamycin 600 MG in Sodium Chloride 0.9% 100 ML IVPB SCH ×3 (00:19→16:11)
[2016-07-21 05:15] LABS: HEMATOCRIT 28.6 % (35.0-51.0); MEAN CELL VOLUME 85.3 fl (80.0-94.0); MEAN CORPUSCULAR HEMOGLOBIN 26.3 pg (27.0-31.0); MEAN CORPUSCULAR HGB CONC 30.8 g/dL (33.0-37.0); RED CELL DISTRIBUTION WIDTH 24.3 % (11.5-14.5); WHITE BLOOD COUNT 13.5 K/uL (4.8-10.8)
[2016-07-21 05:26] LABS: ALB/GLOB RATIO 0.6 (1.0-2.1); BILIRUBIN,TOTAL 3.7 mg/dl (0.2-1.3); CALCIUM 7.9 mg/dL (8.4-10.2); POTASSIUM 4.2 MMOL/L (3.6-5.0); TOTAL PROTEIN 6.3 G/DL (6.3-8.2)
[2016-07-21] MEDS: Artificial Tears Opht Soln OU PRN ×2 (05:26→22:32)
[2016-07-21] MEDS: Insulin Regular 100 units/ml SC SCH ×4 (05:27→22:29)
--- NOTE | 2016-07-21 07:46 | CP.PCM.PN ---
Subjective - Date & Time of Evaluation Date of Evaluation: 07/21/16 Time of Evaluation: 07:46 - Subjective Subjective: pt remains as assessed, gcs 3, no corneal reflex, w/o sedation, off pressors, no bowel sounds, on vent. non responsive. penidng family consent for terminal extubation. bw noted. case d/c w/ icu attending. Objective - Vital Signs/Intake and Output Vital Signs (last 24 hours): Temp Pulse Resp BP Pulse Ox 97.5 F L 107 H 43 H 112/68 100 07/21/16 07:43 07/21/16 07:43 07/21/16 07:43 07/21/16 07:43 07/21/16 07:43 Intake and Output: 07/21/16 07/21/16 06:59 18:59 Intake Total 1280 Output Total 60 Balance 1220 - Medications Medications: Current Medications Artificial Tears (Artificial Tears) 2 drop OU Q6 PRN PRN Reason: Dry eyes Last Admin: 07/21/16 05:26 Dose: 2 drop Dextrose (Dextrose 50% Inj) 0 ml IV STAT PRN; Protocol PRN Reason: Hyglycemia Protocol Dextrose (Glutose 15) 0 gm PO ONCE PRN; Protocol PRN Reason: Hypoglycemia Protocol Glucagon (Glucagen Diagnostic Kit) 0 mg IM STAT PRN; Protocol PRN Reason: Hypoglycemia Protocol Clindamycin Phosphate 600 mg/ (Sodium Chloride) 104 mls @ 104 mls/hr IVPB Q8 [facility]IAN Last Admin: 07/21/16 00:19 Dose: 104 mls/hr Vancomycin HCl 1 gm/ Sodium (Chloride) 250 mls @ 166.667 mls/hr IVPB DAILY [facility] Last Admin: 07/20/16 12:52 Dose: 166.667 mls/hr Phenylephrine HCl 10 mg/ (Sodium Chloride) 251 mls @ 30.12 mls/hr IV .Q8H20M FAVIAN; 20 MCG/MIN PRN Reason: Protocol Last Titration: 07/18/16 16:30 Dose: 10 mcg/min, 15.06 mls/hr Insulin Detemir (Levemir) 60 units SC Q12@1000,2200 FAVIAN Last Admin: 07/20/16 22:02 Dose: 60 u Insulin Human Regular (Humulin R) 0 units SC Q6 FAVIAN PRN Reason: Protocol Last Admin: 07/21/16 05:27 Dose: 2 units Lactulose (Enulose) 20 gm PO QID [facility] Last Admin: 07/20/16 22:01 Dose: 20 gm Pantoprazole Sodium (Protonix Inj) 40 mg IVP DAILY [facility] Last Admin: 07/20/16 12:52 Dose: 40 mg - Labs Labs: 07/21/16 04:50 07/21/16 04:50 PT 19.3 SECONDS (9.6-11.2) H D 07/18/16 08:53 INR 1.86 (0.92-1.08) H D 07/18/16 08:53 APTT 35.6 SECONDS (23.3-32.5) H D 07/18/16 08:53 - Constitutional Appears: Non-toxic, Chronically Ill - Head Exam Head Exam: ATRAUMATIC, NORMAL INSPECTION, NORMOCEPHALIC - Eye Exam Eye Exam: Normal appearance, PERRL Pupil Exam: NORMAL ACCOMODATION, PERRL - ENT Exam ENT Exam: Mucous Membranes Moist, Normal Exam - Neck Exam Neck Exam: Full ROM, Normal Inspection. absent: Lymphadenopathy - Respiratory Exam Respiratory Exam: Wheezes Additional comments: vented - Cardiovascular Exam Cardiovascular Exam: REGULAR RHYTHM, +S1, +S2. absent: Murmur - GI/Abdominal Exam GI & Abdominal Exam: Soft, Diminished Bowel Sounds. absent: Tenderness - Extremities Exam Extremities Exam: Full ROM, Normal Capillary Refill, Normal Inspection. absent : Joint Swelling, Pedal Edema - Back Exam Back Exam: NORMAL INSPECTION - Neurological Exam Neurological Exam: Abnormal Gait, Altered - Skin Skin Exam: Dry, Intact, Normal Color, Pallor, Warm Assessment and Plan (1) Toxic metabolic encephalopathy Status: Acute (2) VICENTE (acute kidney injury) Status: Acute (3) DVT prophylaxis Status: Acute (4) Diabetes type 2, uncontrolled Status: Acute (5) Hyperkalemia Status: Acute (6) Old cerebrovascular accident (CVA) without late effect Status: Chronic (7) Scrotal edema Status: Chronic - Assessment and Plan (Free Text) Assessment: (1) Toxic metabolic encephalopathy Assessment & Plan: icu care neuro regulate lytes vent support pt is comatose, dnr supportive but aggressive care d/c w/ icu team Status: Acute (2) VICENTE (acute kidney injury) Assessment & Plan: nephro ivf regulate acid/base balance no dialysis as per nephro worsening Status: Acute (3) DVT prophylaxis Assessment & Plan: scd and aehose dic so hold anticoag Status: Acute (4) Diabetes type 2, uncontrolled Assessment & Plan: pt in dka, fsbg. icu care Status: Acute (5) Hyperkalemia Status: Acute (6) Old cerebrovascular accident (CVA) without late effect Assessment & Plan: neuro neuro checks Status: Chronic (7) Scrotal edema Assessment & Plan: uro scrotal edema elevate testes Status: Chronic pt in serious condition. son aware of all. case d/c w/ consultants poor prognosis no corneal refelx. will d/c terminal extubation decicsion regarding terminal extubation wed 07/22/16 per son
--- NOTE | 2016-07-21 08:31 | PN ---
DATE: 07/20/2016 LOCATION: The patient in ICU, bed 435. TIME SPENT: 35 minutes. The patient is seen and evaluated at the bedside. Discussed with PMD regarding the goal of care and also with nephrology consult. Events since admission reviewed. A 60-year-old male with history of alcohol dependence, alcohol-related liver cirrhosis, ascites pancreatitis, diabetes mellitus type 2, admitted after being found unresponsive. Intubated in ICU. Remains on mechanical ventilation on AC/ PRvC rate _14,, tidal volume 500, FiO2 of 60%, observed rate 27, minute ventilation 14.1 liters, saturating 98%. Peak airway pressure 30, end tidal CO2 of 21. Off pressors and sedation. Remains unresponsive to painful stimuli. No distress noted. Eyes patched. PHYSICAL EXAMINATION: VITAL SIGNS: Temperature 99, heart rate of 115,; respiratory rate 27, blood pressure 122/68, mean arterial pressure 86, end tidal CO2 of 22. HEAD, EYES, EARS, NOSE, THROAT: Pupils 3-4 mm, midline, poorly reactive. Sclerae are muddy. NECK: Supple. Endotracheal tube in place. No secretions noted. Carotid upstroke bilateral without bruit. CHEST: Reduced breath sounds. No audible wheeze. HEART: Rhythm regular, S1, S2 distant, no audible murmur. ABDOMEN: Distended, positive fluid thrill. GENITALIA: Marked scrotal edema. No palpable cord. SKIN: With ecchymosis. No sign of Chance's gangrene. Flaccid extremities. Skin with scattered ____ ecchymosis. LABORATORY DATA: WBC 12.9, hemoglobin 8.1, hematocrit 26.6, platelet count . PT 19.3, INR 1.86, PTT 35.6. ABG, pH of 7.38, pCO2 of 37, pO2 of 80, saturation 95.8% on AC 12, tidal volume of 560 with PEEP of 5. SMA-7: Sodium 152, potassium 3.8, chloride 103, CO2 of 21, blood urea nitrogen, creatinine 5.1. Random glucose 266. MICROBIOLOGY: Blood culture gram-positive cocci in clusters, identity of Staph aureus. Blood culture, sputum culture Staphylococcus aureus. IMPRESSION: Ventilator-dependent respiratory failure , status post code sepsis , Staphylococcus aureus bacteremia along with Staphylococcus aureus in the sputum. 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 Acute metabolic septic ,_ toxic encephalopathy. Prognosis remains guarded, currently DO NOT RESUSCITATE. after discussion with the family by PMD for terminal extubation as the prognosis remains grim. Continue current antibiotics, vancomycin 1 gram intravenous daily , Zosyn 2.25 grams intravenous q.6,. deep venous thrombosis prophylaxis 40 mg intravenous daily, lactulose 20 mg p.o. q.i.d., Accu-Chek with regular insulin coverage, insulin Levemir at 60 units per hour. Blood sugar is improved. Acute -on-chronic renal failure. The acute renal failure is due to prerenal and/or due to acute tubular necrosis secondary to ascites. As the prognosis remains poor, hemodialysis on hold. Continue supportive care including wound care for the unstageable decubitus wound, eye patches. oxygen saturation, maintain over _94%. Suction NG tube to lower suction to reduce gastric ileus. Ascites secondary to cirrhosis remains unchanged. Larry V Tai CARLIN cc: [id number] TT: 07/20/2016 15:22:00 Confirmation # [id number] Dictation # [id number] sn MTDD
--- NOTE | 2016-07-21 08:54 | CP.PCM.PN ---
Subjective - Date & Time of Evaluation Date of Evaluation: 07/21/16 Time of Evaluation: 08:55 - Subjective Subjective: CLINICALLY UNCHANGED COMATOSE STILL ON THE VENT NO NEW PULMONARY FINDINGS CASE DISCUSSED WITH JOHN HIGGINBOTHAM--WILL ADVISE SUPPORTIVE CARE MAY NEED TERMINAL EXTUBATION IF OK WITH FAMILY Objective - Vital Signs/Intake and Output Vital Signs (last 24 hours): Temp Pulse Resp BP Pulse Ox 97.5 F L 107 H 43 H 112/68 100 07/21/16 07:43 07/21/16 07:43 07/21/16 07:43 07/21/16 07:43 07/21/16 07:43 Intake and Output: 07/21/16 07/21/16 06:59 18:59 Intake Total 1280 120 Output Total 60 Balance 1220 120 - Medications Medications: Current Medications Artificial Tears (Artificial Tears) 2 drop OU Q6 PRN PRN Reason: Dry eyes Last Admin: 07/21/16 05:26 Dose: 2 drop Dextrose (Dextrose 50% Inj) 0 ml IV STAT PRN; Protocol PRN Reason: Hyglycemia Protocol Dextrose (Glutose 15) 0 gm PO ONCE PRN; Protocol PRN Reason: Hypoglycemia Protocol Glucagon (Glucagen Diagnostic Kit) 0 mg IM STAT PRN; Protocol PRN Reason: Hypoglycemia Protocol Clindamycin Phosphate 600 mg/ (Sodium Chloride) 104 mls @ 104 mls/hr IVPB Q8 [facility] Last Admin: 07/21/16 00:19 Dose: 104 mls/hr Vancomycin HCl 1 gm/ Sodium (Chloride) 250 mls @ 166.667 mls/hr IVPB DAILY [facility] Last Admin: 07/20/16 12:52 Dose: 166.667 mls/hr Phenylephrine HCl 10 mg/ (Sodium Chloride) 251 mls @ 30.12 mls/hr IV .Q8H20M FAVIAN; 20 MCG/MIN PRN Reason: Protocol Last Titration: 07/18/16 16:30 Dose: 10 mcg/min, 15.06 mls/hr Insulin Detemir (Levemir) 60 units SC Q12@1000,2200 [facility]IAN Last Admin: 07/20/16 22:02 Dose: 60 u Insulin Human Regular (Humulin R) 0 units SC Q6 [facility]IAN PRN Reason: Protocol Last Admin: 07/21/16 05:27 Dose: 2 units Lactulose (Enulose) 20 gm PO QID [facility] Last Admin: 07/20/16 22:01 Dose: 20 gm Pantoprazole Sodium (Protonix Inj) 40 mg IVP DAILY [facility] Last Admin: 07/20/16 12:52 Dose: 40 mg - Labs Labs: 07/21/16 04:50 07/21/16 04:50 PT 19.3 SECONDS (9.6-11.2) H D 07/18/16 08:53 INR 1.86 (0.92-1.08) H D 07/18/16 08:53 APTT 35.6 SECONDS (23.3-32.5) H D 07/18/16 08:53
[2016-07-21] MEDS: Insulin Detemir 100 Units/ml Inj SC SCH ×2 (09:21→22:30)
--- NOTE | 2016-07-21 10:18 | CP.CCUPN ---
<LazarusjacoboFunminathan - Last Filed: 07/21/16 16:09> CCU Subjective - Physician Review Subjective (Free Text): 07/21/16 10:39 Patient seen and examined at bedside with ICU attending during morning rounds. Patient remains intubated on mechanical ventilation. He has been unresponsive to verbal or painful stimuli and is not currently under sedation. Patient afebrile and not on pressors. Family is decided on DNR status but considering terminal extubation. CCU Objective - Vital Signs / Intake & Output Vital Signs (Last 4 hours): Vital Signs Temp Pulse Resp BP Pulse Ox 07/21/16 07:43 97.5 F L 107 H 43 H 112/68 100 Intake and Output (Last 8hrs): Intake & Output 07/20/16 07/21/16 07/21/16 22:59 06:59 14:59 Intake Total 1990 810 120 Output Total 85 50 Balance 1905 760 120 Weight 243 lb Intake: IV 840 360 120 Intake, Piggyback 650 200 Free Water Flush 500 250 Output: Gastric Amount 10 Stomach 10 Urine 75 50 Urine, Voided 75 50 Other: # Voids Urine, Voided 1 # Bowel Movements 1 1 - Physical Exam Head: Positive for: Atraumatic, Normocephalic Pupils: Positive for: Sluggish Conjunctiva: Positive for: Other (Corneal reflex present) Mouth: Positive for: Dry Respiratory/Chest: Positive for: Other (On mechanical ventilation. B/L air entry present but decreased at lung bases. No wheezes, rales or rhonchii audbile. Abdominal breathing present.). Negative for: Wheezes Cardiovascular: Positive for: Tachycardic, Other (Regular rhythm.). Negative for: Murmurs Abdomen: Positive for: Distention, Normal Bowel Sounds, Other (Abdomen soft) Genitourinary Male: Positive for: Other (Marked scrotal edema present, however improved from prior assessment. Superficial ulceration noted on scrotum measuring approximately 1cm however no signs of gangrene present. Right groin TLC present with no erythema or signs of infection. ) Upper Extremity: Positive for: Edema Lower Extremity: Positive for: Edema (3+ pitting edema present up to the knees b /l) Neurological: Positive for: Other (Unresponsive to verbal or painful stimuli. Pupils sluggish, corneal reflex present. ) Psychiatric: Negative for: Alert - Medications Active Medications: Active Medications Generic Name Dose Route Start Last Admin Trade Name Freq PRN Reason Stop Dose Admin Artificial Tears 2 drop 07/20/16 13:23 07/21/16 05:26 Artificial Tears OU 2 drop Q6 PRN Administration Dry eyes Dextrose 0 ml 07/16/16 22:09 Dextrose 50% Inj IV STAT PRN Hyglycemia Protocol Protocol Dextrose 0 gm 07/16/16 22:09 Glutose 15 PO ONCE PRN Hypoglycemia Protocol Protocol Glucagon 0 mg 07/16/16 22:09 Glucagen Diagnostic Kit IM STAT PRN Hypoglycemia Protocol Protocol Clindamycin Phosphate 600 mg/ 104 mls @ 104 mls/hr 07/16/16 17:00 07/21/16 09 :19 Sodium Chloride IVPB 104 mls/hr Q8 FAVIAN Administration Vancomycin HCl 1 gm/ Sodium 250 mls @ 166.667 mls/hr 07/16/16 13:45 07/21/16 09:21 Chloride IVPB 166.667 mls/hr DAILY FAVIAN Administration Phenylephrine HCl 10 mg/ 251 mls @ 30.12 mls/hr 07/17/16 00:45 07/18/16 16:30 Sodium Chloride IV 10 mcg/min .Q8H20M FAVIAN 15.06 mls/hr Protocol Titration 20 MCG/MIN Insulin Detemir 60 units 07/20/16 22:00 07/21/16 09:21 Levemir SC 60 u Q12@1000,2200 FAVIAN Administration Insulin Human Regular 0 units 07/18/16 16:00 07/21/16 09:23 Humulin R SC 2 units Q6 FAVIAN Administration Protocol Lactulose 20 gm 07/17/16 13:00 07/21/16 09:20 Enulose PO 20 gm QID FAVIAN Administration Pantoprazole Sodium 40 mg 07/16/16 09:00 07/21/16 09:25 Protonix Inj IVP 40 mg DAILY FAVIAN Administration - Patient Studies Lab Studies: Lab Studies 07/21/16 07/21/16 07/21/16 Range/Units 04:50 04:50 04:45 WBC 13.5 H (4.8-10.8) K/uL RBC 3.36 L (4.40-5.90) Mil/uL Hgb 8.8 L (12.0-18.0) g/dL Hct 28.6 L (35.0-51.0) % MCV 85.3 (80.0-94.0) fl MCH 26.3 L (27.0-31.0) pg MCHC 30.8 L (33.0-37.0) g/dL RDW 24.3 H (11.5-14.5) % Plt Count 21 L* D (130-400) K/uL Sodium 150 H (132-148) mmol/l Potassium 4.2 (3.6-5.0) MMOL/L Chloride 111 H (98-107) mmol/L Carbon Dioxide 20 L (22-30) mmol/L Anion Gap 23 H (10-20) BUN 130 H* (9-20) mg/dl Creatinine 5.6 H (0.8-1.5) mg/dL Est GFR ( Amer) 13 Est GFR (Non-Af Amer) 10 POC Glucose (mg/dL) (65-110) mg/dL Random Glucose 174 H (75-110) mg/dL Calcium 7.9 L (8.4-10.2) mg/dL Total Bilirubin 3.7 H (0.2-1.3) mg/dl AST 76 H D (17-59) U/L ALT 63 (21-72) U/L Alkaline Phosphatase 195 H D (38-126) U/L Ammonia 84 H D (16-60) umo/L Total Protein 6.3 (6.3-8.2) G/DL Albumin 2.4 L D (3.5-5.0) g/dL Globulin 3.9 (2.2-3.9) gm/dL Albumin/Globulin Ratio 0.6 L (1.0-2.1) Urine Color (YELLOW) Urine Clarity (Clear) Urine pH (5.0-8.0) Ur Specific [place] (1.003-1.030) Urine Protein (NEGATIVE) mg/dL Urine Glucose (UA) (Normal) mg/dL Urine Ketones (NEGATIVE) mg/dL Urine Blood (NEGATIVE) Urine Nitrate (NEGATIVE) Urine Bilirubin (NEGATIVE) Urine Urobilinogen (0.2-1.0) mg/dL Ur Leukocyte Esterase (Negative) Inna/uL Urine RBC (Auto) (0-3) /hpf Urine Microscopic WBC (0-5) /hpf Ur Squamous Epith Cells (0-5) /hpf Amorphous Sediment (<OCC) /ul Urine Bacteria (<OCC) Ur Random Creatinine mg/dL Ur Random Sodium mmol/L 07/21/16 07/20/16 07/20/16 Range/Units 04:39 21:34 16:02 WBC (4.8-10.8) K/uL RBC (4.40-5.90) Mil/uL Hgb (12.0-18.0) g/dL Hct (35.0-51.0) % MCV (80.0-94.0) fl MCH (27.0-31.0) pg MCHC (33.0-37.0) g/dL RDW (11.5-14.5) % Plt Count (130-400) K/uL Sodium (132-148) mmol/l Potassium (3.6-5.0) MMOL/L Chloride (98-107) mmol/L Carbon Dioxide (22-30) mmol/L Anion Gap (10-20) BUN (9-20) mg/dl Creatinine (0.8-1.5) mg/dL Est GFR ( Amer) Est GFR (Non-Af Amer) POC Glucose (mg/dL) 186 H 220 H 240 H (65-110) mg/dL Random Glucose (75-110) mg/dL Calcium (8.4-10.2) mg/dL Total Bilirubin (0.2-1.3) mg/dl AST (17-59) U/L ALT (21-72) U/L Alkaline Phosphatase (38-126) U/L Ammonia (16-60) umo/L Total Protein (6.3-8.2) G/DL Albumin (3.5-5.0) g/dL Globulin (2.2-3.9) gm/dL Albumin/Globulin Ratio (1.0-2.1) Urine Color (YELLOW) Urine Clarity (Clear) Urine pH (5.0-8.0) Ur Specific [place] (1.003-1.030) Urine Protein (NEGATIVE) mg/dL Urine Glucose (UA) (Normal) mg/dL Urine Ketones (NEGATIVE) mg/dL Urine Blood (NEGATIVE) Urine Nitrate (NEGATIVE) Urine Bilirubin (NEGATIVE) Urine Urobilinogen (0.2-1.0) mg/dL Ur Leukocyte Esterase (Negative) Inna/uL Urine RBC (Auto) (0-3) /hpf Urine Microscopic WBC (0-5) /hpf Ur Squamous Epith Cells (0-5) /hpf Amorphous Sediment (<OCC) /ul Urine Bacteria (<OCC) Ur Random Creatinine mg/dL Ur Random Sodium mmol/L 07/20/16 07/20/16 07/20/16 Range/Units 13:00 12:18 09:50 WBC (4.8-10.8) K/uL RBC (4.40-5.90) Mil/uL Hgb (12.0-18.0) g/dL Hct (35.0-51.0) % MCV (80.0-94.0) fl MCH (27.0-31.0) pg MCHC (33.0-37.0) g/dL RDW (11.5-14.5) % Plt Count (130-400) K/uL Sodium (132-148) mmol/l Potassium (3.6-5.0) MMOL/L Chloride (98-107) mmol/L Carbon Dioxide (22-30) mmol/L Anion Gap (10-20) BUN (9-20) mg/dl Creatinine (0.8-1.5) mg/dL Est GFR ( Amer) Est GFR (Non-Af Amer) POC Glucose (mg/dL) 266 H (65-110) mg/dL Random Glucose (75-110) mg/dL Calcium (8.4-10.2) mg/dL Total Bilirubin (0.2-1.3) mg/dl AST (17-59) U/L ALT (21-72) U/L Alkaline Phosphatase (38-126) U/L Ammonia (16-60) umo/L Total Protein (6.3-8.2) G/DL Albumin (3.5-5.0) g/dL Globulin (2.2-3.9) gm/dL Albumin/Globulin Ratio (1.0-2.1) Urine Color [place] (YELLOW) Urine Clarity Slighty-cloudy (Clear) Urine pH 5.0 (5.0-8.0) Ur Specific [place] 1.024 (1.003-1.030) Urine Protein 30 (NEGATIVE) mg/dL Urine Glucose (UA) 50 (Normal) mg/dL Urine Ketones Negative (NEGATIVE) mg/dL Urine Blood Small (NEGATIVE) Urine Nitrate Negative (NEGATIVE) Urine Bilirubin Negative (NEGATIVE) Urine Urobilinogen 0.2-1.0 (0.2-1.0) mg/dL Ur Leukocyte Esterase Neg (Negative) Inna/uL Urine RBC (Auto) 3 (0-3) /hpf Urine Microscopic WBC 10 H (0-5) /hpf Ur Squamous Epith Cells 3 (0-5) /hpf Amorphous Sediment Rare H (<OCC) /ul Urine Bacteria Rare (<OCC) Ur Random Creatinine 131.9 mg/dL Ur Random Sodium < 5 mmol/L Laboratory Results - last 24 hr 07/20/16 07/20/16 07/20/16 09:50 12:18 13:00 WBC RBC Hgb Hct MCV MCH MCHC RDW Plt Count Sodium Potassium Chloride Carbon Dioxide Anion Gap BUN Creatinine Est GFR ( Amer) Est GFR (Non-Af Amer) POC Glucose (mg/dL) 266 H Random Glucose Calcium Total Bilirubin AST ALT Alkaline Phosphatase Ammonia Total Protein Albumin Globulin Albumin/Globulin Ratio Urine Color [place] Urine Clarity Slighty-cloudy Urine pH 5.0 Ur Specific [place] 1.024 Urine Protein 30 Urine Glucose (UA) 50 Urine Ketones Negative Urine Blood Small Urine Nitrate Negative Urine Bilirubin Negative Urine Urobilinogen 0.2-1.0 Ur Leukocyte Esterase Neg Urine RBC (Auto) 3 Urine Microscopic WBC 10 H Ur Squamous Epith Cells 3 Amorphous Sediment Rare H Urine Bacteria Rare Ur Random Creatinine 131.9 Ur Random Sodium < 5 07/20/16 07/20/16 07/21/16 16:02 21:34 04:39 WBC RBC Hgb Hct MCV MCH MCHC RDW Plt Count Sodium Potassium Chloride Carbon Dioxide Anion Gap BUN Creatinine Est GFR ( Amer) Est GFR (Non-Af Amer) POC Glucose (mg/dL) 240 H 220 H 186 H Random Glucose Calcium Total Bilirubin AST ALT Alkaline Phosphatase Ammonia Total Protein Albumin Globulin Albumin/Globulin Ratio Urine Color Urine Clarity Urine pH Ur Specific [place] Urine Protein Urine Glucose (UA) Urine Ketones Urine Blood Urine Nitrate Urine Bilirubin Urine Urobilinogen Ur Leukocyte Esterase Urine RBC (Auto) Urine Microscopic WBC Ur Squamous Epith Cells Amorphous Sediment Urine Bacteria Ur Random Creatinine Ur Random Sodium 07/21/16 07/21/16 07/21/16 04:45 04:50 04:50 WBC 13.5 H RBC 3.36 L Hgb 8.8 L Hct 28.6 L MCV 85.3 MCH 26.3 L MCHC 30.8 L RDW 24.3 H Plt Count 21 L* D Sodium 150 H Potassium 4.2 Chloride 111 H Carbon Dioxide 20 L Anion Gap 23 H BUN 130 H* Creatinine 5.6 H Est GFR ( Amer) 13 Est GFR (Non-Af Amer) 10 POC Glucose (mg/dL) Random Glucose 174 H Calcium 7.9 L Total Bilirubin 3.7 H AST 76 H D ALT 63 Alkaline Phosphatase 195 H D Ammonia 84 H D Total Protein 6.3 Albumin 2.4 L D Globulin 3.9 Albumin/Globulin Ratio 0.6 L Urine Color Urine Clarity Urine pH Ur Specific [place] Urine Protein Urine Glucose (UA) Urine Ketones Urine Blood Urine Nitrate Urine Bilirubin Urine Urobilinogen Ur Leukocyte Esterase Urine RBC (Auto) Urine Microscopic WBC Ur Squamous Epith Cells Amorphous Sediment Urine Bacteria Ur Random Creatinine Ur Random Sodium Fingerstick Blood Sugar Results: 186 Review of Systems - Review of Systems Systems not reviewed;Unavailable: Intubated Assessment/Plan - Assessment and Plan (Free Text) Assessment: 60 y/o M with PMH of HTN, DM2, Hepatic cirrhosis secondary to ETOH abuse, CKD, CVA presented to ED after son found patient unresponsive at home with labored breathing. As per son, patient had preceding 2 days of AMS, where he had been sleeping most of the day. Patient found to be in DKA in ER with associated hypotension and an elevated lactate, so a code sepsis was called. He had associated elevations in serum ammonia and respiratory distress. Patient was intubated on 07/16/16 and admitted to ICU for further management. Currently patient is off of sedatives or pressors however remains unresponsive, on mechanical ventilation. Plan: Acute respiratory insufficiency -Respiratory distress secondary to hypoxia in the setting of extensive Right lower lung pneumonia with associated AMS -On mechanical ventilation, day 6 -Current settings RR: 12/TV: 500/PEEP: 5/FiO2: 60% -Tracheal aspirate sputum cultures from 07/16 returned positive for MSSA sensitive to oxacillin -CXR from 07/20 re-demonstrates stable consolidations in right lung -Pulmonary consulted, Dr Cain Sepsis -Secondary to pneumonia/gram positive bacteremia -Blood culture from 07/16/16 revealed MSSA sensitive to oxacillin -Afebrie, WBC: 21.1 > 13.5 -Procalcitonin 4.24 on 07/16. Will repeat -Off of pressors. -On empiric antibiotics: -Zosyn 2.25gm IV Q6h (Started 07/16, current day 6) -Vancomycin 1gm IV daily (Started 07/16, current day 6) -Clindamycin 600mg IV Q8h (Started 07/16, current day 6) -Will consider de-escalating abx treatment Altered Mental Status -Secondary to toxic metabolic encephalopathy vs recurrent cva vs occult seizure activity -Patient has history of previous left MCA stroke -There has been concern for epileptiform activity in the past -Will continue managing acute underlying metabolic/infectious processes -Neurology consulted, recommends resuming keppra 250mg Q12h for seizure prophylaxis -CT Head w/o contrast on 07/15 and 07/17 did not detect any acute intracranial hemorrhage. Study from 07/17 redemonstrates a large MCA territory infarct which also involves the lateral basal ganglia and subcortical white matter of the left frontal and posterior frontal lobes. Acute on chronic kidney disease -BUN/Cr: 130/5.6 -Baseline Cr between 1.7-2.0 -Nephrology consulted, Dr Puga Chronic hepatic cirrhosis -With ascites, chronic coagulopathy and thrombocytopenia which has decreased further compared to baseline -Ammonia level 131 at admission -MELD score 32 -GI consulted, Dr Guzman -Recommended lactulose, xifaxin Thrombocytopenia -Heme/onc consulted for progressive thrombocytopenia -Thombocytopenia secondary to liver cirrhosis with portal hypertension -Platelets: 21 Anemia of chronic disease -H/H stable at: 8.8/28.6 -Likely aggravated by intermittent occult GI blood loss given portal hypertension Scrotal swelling -Likely secondary to ascites. No signs of [place] gangrene. -Urology consulted, Dr Van -Scrotal U/S performed on 07/17 detects large amount of pelvic ascites extending through a right inguinal hernia. -Recommends elevating scrotum. No other therapy at this time. DKA (resolved) -Patient has been non-adherent to medical management as prescribed -Exacerbated by likely pneumonia, bacteremia Feeding -Feeds via OGT -Suplena at goal rate of 55ml/hr GI Prophylaxis -Protonix 40mg IV daily DVT Prophylaxis -SCDs <Wing Schmitz - Last Filed: 07/21/16 16:21> CCU Objective - Vital Signs / Intake & Output Vital Signs (Last 4 hours): Vital Signs Pulse BP Pulse Ox 07/21/16 14:21 78 L 07/21/16 14:00 107 H 128/74 Intake and Output (Last 8hrs): Intake & Output 07/21/16 07/21/16 07/21/16 06:59 14:59 22:59 Intake Total 810 710 Output Total 50 500 Balance 760 210 Weight 243 lb Intake: IV 360 360 Intake, Piggyback 200 350 Free Water Flush 250 Output: Urine 50 Urine, Voided 50 Stool 500 Other: # Voids Urine, Voided 1 # Bowel Movements 1 - Medications Active Medications: Active Medications Generic Name Dose Route Start Last Admin Trade Name Freq PRN Reason Stop Dose Admin Artificial Tears 2 drop 07/20/16 13:23 07/21/16 05:26 Artificial Tears OU 2 drop Q6 PRN Administration Dry eyes Dextrose 0 ml 07/16/16 22:09 Dextrose 50% Inj IV STAT PRN Hyglycemia Protocol Protocol Dextrose 0 gm 07/16/16 22:09 Glutose 15 PO ONCE PRN Hypoglycemia Protocol Protocol Glucagon 0 mg 07/16/16 22:09 Glucagen Diagnostic Kit IM STAT PRN Hypoglycemia Protocol Protocol Clindamycin Phosphate 600 mg/ 104 mls @ 104 mls/hr 07/16/16 17:00 07/21/16 16 :11 Sodium Chloride IVPB 104 mls/hr Q8 FAVIAN Administration Vancomycin HCl 1 gm/ Sodium 250 mls @ 166.667 mls/hr 07/16/16 13:45 07/21/16 09:21 Chloride IVPB 166.667 mls/hr DAILY FAVIAN Administration Insulin Detemir 60 units 07/20/16 22:00 07/21/16 09:21 Levemir SC 60 u Q12@1000,2200 FAVIAN Administration Insulin Human Regular 0 units 07/18/16 16:00 07/21/16 16:14 Humulin R SC Not Given Q6 FAVIAN Protocol Lactulose 20 gm 07/17/16 13:00 07/21/16 16:12 Enulose PO 20 gm QID FAVIAN Administration Pantoprazole Sodium 40 mg 07/16/16 09:00 07/21/16 09:25 Protonix Inj IVP 40 mg DAILY FAVIAN Administration - Patient Studies Lab Studies: Lab Studies 07/21/16 07/21/16 07/21/16 Range/Units 16:12 11:10 04:50 WBC (4.8-10.8) K/uL RBC (4.40-5.90) Mil/uL Hgb (12.0-18.0) g/dL Hct (35.0-51.0) % MCV (80.0-94.0) fl MCH (27.0-31.0) pg MCHC (33.0-37.0) g/dL RDW (11.5-14.5) % Plt Count (130-400) K/uL Sodium 150 H (132-148) mmol/l Potassium 4.2 (3.6-5.0) MMOL/L Chloride 111 H (98-107) mmol/L Carbon Dioxide 20 L (22-30) mmol/L Anion Gap 23 H (10-20) BUN 130 H* (9-20) mg/dl Creatinine 5.6 H (0.8-1.5) mg/dL Est GFR ( Amer) 13 Est GFR (Non-Af Amer) 10 POC Glucose (mg/dL) 132 H 168 H (65-110) mg/dL Random Glucose 174 H (75-110) mg/dL Calcium 7.9 L (8.4-10.2) mg/dL Total Bilirubin 3.7 H (0.2-1.3) mg/dl AST 76 H D (17-59) U/L ALT 63 (21-72) U/L Alkaline Phosphatase 195 H D (38-126) U/L Ammonia (16-60) umo/L Total Protein 6.3 (6.3-8.2) G/DL Albumin 2.4 L D (3.5-5.0) g/dL Globulin 3.9 (2.2-3.9) gm/dL Albumin/Globulin Ratio 0.6 L (1.0-2.1) 07/21/16 07/21/16 07/21/16 Range/Units 04:50 04:45 04:39 WBC 13.5 H (4.8-10.8) K/uL RBC 3.36 L (4.40-5.90) Mil/uL Hgb 8.8 L (12.0-18.0) g/dL Hct 28.6 L (35.0-51.0) % MCV 85.3 (80.0-94.0) fl MCH 26.3 L (27.0-31.0) pg MCHC 30.8 L (33.0-37.0) g/dL RDW 24.3 H (11.5-14.5) % Plt Count 21 L* D (130-400) K/uL Sodium (132-148) mmol/l Potassium (3.6-5.0) MMOL/L Chloride (98-107) mmol/L Carbon Dioxide (22-30) mmol/L Anion Gap (10-20) BUN (9-20) mg/dl Creatinine (0.8-1.5) mg/dL Est GFR ( Amer) Est GFR (Non-Af Amer) POC Glucose (mg/dL) 186 H (65-110) mg/dL Random Glucose (75-110) mg/dL Calcium (8.4-10.2) mg/dL Total Bilirubin (0.2-1.3) mg/dl AST (17-59) U/L ALT (21-72) U/L Alkaline Phosphatase (38-126) U/L Ammonia 84 H D (16-60) umo/L Total Protein (6.3-8.2) G/DL Albumin (3.5-5.0) g/dL Globulin (2.2-3.9) gm/dL Albumin/Globulin Ratio (1.0-2.1) 05/15/17 Range/Units 21:34 WBC (4.8-10.8) K/uL RBC (4.40-5.90) Mil/uL Hgb (12.0-18.0) g/dL Hct (35.0-51.0) % MCV (80.0-94.0) fl MCH (27.0-31.0) pg MCHC (33.0-37.0) g/dL RDW (11.5-14.5) % Plt Count (130-400) K/uL Sodium (132-148) mmol/l Potassium (3.6-5.0) MMOL/L Chloride (98-107) mmol/L Carbon Dioxide (22-30) mmol/L Anion Gap (10-20) BUN (9-20) mg/dl Creatinine (0.8-1.5) mg/dL Est GFR ( Amer) Est GFR (Non-Af Amer) POC Glucose (mg/dL) 220 H (65-110) mg/dL Random Glucose (75-110) mg/dL Calcium (8.4-10.2) mg/dL Total Bilirubin (0.2-1.3) mg/dl AST (17-59) U/L ALT (21-72) U/L Alkaline Phosphatase (38-126) U/L Ammonia (16-60) umo/L Total Protein (6.3-8.2) G/DL Albumin (3.5-5.0) g/dL Globulin (2.2-3.9) gm/dL Albumin/Globulin Ratio (1.0-2.1) Laboratory Results - last 24 hr 07/20/16 07/21/16 07/21/16 21:34 04:39 04:45 WBC RBC Hgb Hct MCV MCH MCHC RDW Plt Count Sodium Potassium Chloride Carbon Dioxide Anion Gap BUN Creatinine Est GFR ( Amer) Est GFR (Non-Af Amer) POC Glucose (mg/dL) 220 H 186 H Random Glucose Calcium Total Bilirubin AST ALT Alkaline Phosphatase Ammonia 84 H D Total Protein Albumin Globulin Albumin/Globulin Ratio 07/21/16 07/21/16 07/21/16 04:50 04:50 11:10 WBC 13.5 H RBC 3.36 L Hgb 8.8 L Hct 28.6 L MCV 85.3 MCH 26.3 L MCHC 30.8 L RDW 24.3 H Plt Count 21 L* D Sodium 150 H Potassium 4.2 Chloride 111 H Carbon Dioxide 20 L Anion Gap 23 H BUN 130 H* Creatinine 5.6 H Est GFR ( Amer) 13 Est GFR (Non-Af Amer) 10 POC Glucose (mg/dL) 168 H Random Glucose 174 H Calcium 7.9 L Total Bilirubin 3.7 H AST 76 H D ALT 63 Alkaline Phosphatase 195 H D Ammonia Total Protein 6.3 Albumin 2.4 L D Globulin 3.9 Albumin/Globulin Ratio 0.6 L 07/21/16 16:12 WBC RBC Hgb Hct MCV MCH MCHC RDW Plt Count Sodium Potassium Chloride Carbon Dioxide Anion Gap BUN Creatinine Est GFR ( Amer) Est GFR (Non-Af Amer) POC Glucose (mg/dL) 132 H Random Glucose Calcium Total Bilirubin AST ALT Alkaline Phosphatase Ammonia Total Protein Albumin Globulin Albumin/Globulin Ratio Attending/Attestation - Attestation I have personally seen and examined this patient.: Yes I have fully participated in the care of the patient.: Yes I have reviewed all pertinent clinical information: Yes Notes (Text): 07/21/16 16:21 Today: Thursday, July 21, 2016 The Patient was seen and examined at the bedside, Medical records reviewed, all clinical/lab/hemodynamic/radiographic data were reviewed and management issues were discussed and formulated, Events reviewed Pain issues, skin care, head of the bed elevation, GI/DVT prophylaxis, glycemic control were addressed. Agree with above treatment plans as transcribed in Dr. Palumbo note
--- NOTE | 2016-07-21 13:15 | CP.PCM.PN ---
Subjective - Date & Time of Evaluation Date of Evaluation: 07/21/16 Time of Evaluation: 13:15 - Subjective Subjective: no events overnight intubated + Objective - Vital Signs/Intake and Output Vital Signs (last 24 hours): Temp Pulse Resp BP Pulse Ox 97.7 F 98 H 29 H 114/70 100 07/21/16 12:00 07/21/16 12:00 07/21/16 12:00 07/21/16 12:00 07/21/16 12:00 Intake and Output: 07/21/16 07/21/16 06:59 18:59 Intake Total 1280 470 Output Total 60 Balance 1220 470 - Medications Medications: Current Medications Artificial Tears (Artificial Tears) 2 drop OU Q6 PRN PRN Reason: Dry eyes Last Admin: 07/21/16 05:26 Dose: 2 drop Dextrose (Dextrose 50% Inj) 0 ml IV STAT PRN; Protocol PRN Reason: Hyglycemia Protocol Dextrose (Glutose 15) 0 gm PO ONCE PRN; Protocol PRN Reason: Hypoglycemia Protocol Glucagon (Glucagen Diagnostic Kit) 0 mg IM STAT PRN; Protocol PRN Reason: Hypoglycemia Protocol Clindamycin Phosphate 600 mg/ (Sodium Chloride) 104 mls @ 104 mls/hr IVPB Q8 [facility] Last Admin: 07/21/16 09:19 Dose: 104 mls/hr Vancomycin HCl 1 gm/ Sodium (Chloride) 250 mls @ 166.667 mls/hr IVPB DAILY [facility] Last Admin: 07/21/16 09:21 Dose: 166.667 mls/hr Insulin Detemir (Levemir) 60 units SC Q12@1000,2200 [facility] Last Admin: 07/21/16 09:21 Dose: 60 u Insulin Human Regular (Humulin R) 0 units SC Q6 FAVIAN PRN Reason: Protocol Last Admin: 07/21/16 09:23 Dose: 2 units Lactulose (Enulose) 20 gm PO QID [facility] Last Admin: 07/21/16 09:20 Dose: 20 gm Pantoprazole Sodium (Protonix Inj) 40 mg IVP DAILY [facility] Last Admin: 07/21/16 09:25 Dose: 40 mg - Labs Labs: 07/21/16 04:50 07/21/16 04:50 PT 19.3 SECONDS (9.6-11.2) H D 07/18/16 08:53 INR 1.86 (0.92-1.08) H D 07/18/16 08:53 APTT 35.6 SECONDS (23.3-32.5) H D 07/18/16 08:53 - Constitutional Appears: Well, Non-toxic, No Acute Distress, Other (ett+ unresponsive ) - Head Exam Head Exam: NORMAL INSPECTION - Eye Exam Eye Exam: Normal appearance - ENT Exam ENT Exam: Mucous Membranes Moist - Respiratory Exam Respiratory Exam: NORMAL BREATHING PATTERN - Cardiovascular Exam Cardiovascular Exam: +S1, +S2 - GI/Abdominal Exam GI & Abdominal Exam: Soft - Neurological Exam Additional comments: AO times 0 Assessment and Plan - Assessment and Plan (Free Text) Plan: canelo/ckd/acidosis/hypernatremia/resp failure/septic shock/pnemonia/dka/esld canelo sec to ischemic atn, oliguric. with worsening renal function. tommy reviewed anemia stable poor urine output, however given overall prognosis will hold hd as may not be able tolerate it d/w icu attending
--- NOTE | 2016-07-21 15:31 | PN ---
DATE: 07/21/2016 ROOM: 435 This is a 60-year-old male with recent uncontrolled type 2 insulin-requiring diabetes who presented h ere with acute respiratory failure and is now being followed closely for metabolic management. His glycemic levels are much improved at this time as noted and the latest glucose levels have ranged from 168-186 mg/dL. The latest chemistries include a BUN of 130, sodium 150, potassium 4.2, chlorid e 111, CO2 20, glucose 174 and creatinine 5.6. So at this time, we will continue the same basal insulin which was modified last night at the higher dose of Levemir given as 60 units subQ every 12 hours at 10 a.m. and 10 p.m. daily as ordered. We wi ll continue the low-dose correction scale using regular insulin as given every 6 hours. We will titr ate incrementally as indicated to optimize metabolic control. We will follow. Amena Mendoza MD cc: [id number] TT: 07/21/2016 15:30:27 Confirmation # [id number] Dictation # [id number]
[2016-07-22] MEDS: Clindamycin 600 MG in Sodium Chloride 0.9% 100 ML IVPB SCH ×3 (01:00→17:20)
[2016-07-22] MEDS: Insulin Regular 100 units/ml SC SCH ×4 (05:56→21:18)
[2016-07-22] MEDS: Artificial Tears Opht Soln OU PRN ×2 (06:28→10:06)
--- NOTE | 2016-07-22 08:01 | CP.PCM.PN ---
Subjective - Date & Time of Evaluation Date of Evaluation: 07/22/16 Time of Evaluation: 08:01 - Subjective Subjective: no distress, gcs remains 3 w/o corneal reflex, breathing over vent approx 23, skin sloughin off, brusing noted, no corneal reflex, called son who asked to wait for for family to come for terminal extubation. red liquid in suction container. case d/c w/ icu md and nicu rn consults appriciated no further procedures anticiapted at this time Objective - Vital Signs/Intake and Output Vital Signs (last 24 hours): Temp Pulse Resp BP Pulse Ox 97.9 F 103 H 25 H 110/61 99 07/22/16 04:00 07/22/16 06:00 07/22/16 06:00 07/22/16 06:00 07/22/16 06:00 Intake and Output: 07/22/16 07/22/16 06:59 18:59 Intake Total 1080 Output Total 750 Balance 330 - Medications Medications: Current Medications Artificial Tears (Artificial Tears) 2 drop OU Q6 PRN PRN Reason: Dry eyes Last Admin: 07/22/16 06:28 Dose: 2 drop Dextrose (Dextrose 50% Inj) 0 ml IV STAT PRN; Protocol PRN Reason: Hyglycemia Protocol Dextrose (Glutose 15) 0 gm PO ONCE PRN; Protocol PRN Reason: Hypoglycemia Protocol Glucagon (Glucagen Diagnostic Kit) 0 mg IM STAT PRN; Protocol PRN Reason: Hypoglycemia Protocol Clindamycin Phosphate 600 mg/ (Sodium Chloride) 104 mls @ 104 mls/hr IVPB Q8 [facility] Last Admin: 07/22/16 01:00 Dose: 104 mls/hr Vancomycin HCl 1 gm/ Sodium (Chloride) 250 mls @ 166.667 mls/hr IVPB DAILY [facility] Last Admin: 07/21/16 09:21 Dose: 166.667 mls/hr Insulin Detemir (Levemir) 60 units SC Q12@1000,2200 [facility] Last Admin: 07/21/16 22:30 Dose: 60 u Insulin Human Regular (Humulin R) 0 units SC Q6 [facility] PRN Reason: Protocol Last Admin: 07/22/16 05:56 Dose: Not Given Lactulose (Enulose) 20 gm PO QID [facility] Last Admin: 07/21/16 22:30 Dose: 20 gm Pantoprazole Sodium (Protonix Inj) 40 mg IVP DAILY [facility] Last Admin: 07/21/16 09:25 Dose: 40 mg - Labs Labs: 07/21/16 04:50 07/21/16 04:50 PT 19.3 SECONDS (9.6-11.2) H D 07/18/16 08:53 INR 1.86 (0.92-1.08) H D 07/18/16 08:53 APTT 35.6 SECONDS (23.3-32.5) H D 07/18/16 08:53 - Constitutional Appears: Well, Non-toxic, No Acute Distress - Head Exam Head Exam: ATRAUMATIC, NORMAL INSPECTION, NORMOCEPHALIC - Eye Exam Eye Exam: EOMI, Normal appearance, PERRL Pupil Exam: NORMAL ACCOMODATION, PERRL - ENT Exam ENT Exam: Mucous Membranes Moist, Normal Exam - Neck Exam Neck Exam: Full ROM, Normal Inspection. absent: Lymphadenopathy - Respiratory Exam Additional comments: vented, breathing over vent, diminshed sounds - Cardiovascular Exam Cardiovascular Exam: REGULAR RHYTHM, RRR, +S1, +S2. absent: Murmur - GI/Abdominal Exam GI & Abdominal Exam: Distended, Soft, Diminished Bowel Sounds. absent: Tenderness - Extremities Exam Extremities Exam: Full ROM, Normal Capillary Refill, Normal Inspection. absent : Joint Swelling, Pedal Edema - Back Exam Back Exam: NORMAL INSPECTION - Neurological Exam Neurological Exam: Altered - Skin Skin Exam: Dry, Intact, Pallor, Petechiae, Warm Assessment and Plan (1) Toxic metabolic encephalopathy Status: Acute (2) VICENTE (acute kidney injury) Status: Acute (3) DVT prophylaxis Status: Acute (4) Diabetes type 2, uncontrolled Status: Acute (5) Hyperkalemia Status: Acute (6) Old cerebrovascular accident (CVA) without late effect Status: Chronic (7) Scrotal edema Status: Chronic - Assessment and Plan (Free Text) Assessment: (1) Toxic metabolic encephalopathy Assessment & Plan: icu care neuro regulate lytes vent support pt is comatose, dnr supportive but aggressive care d/c w/ icu team Status: Acute (2) VICENTE (acute kidney injury) Assessment & Plan: nephro ivf regulate acid/base balance dialysis is futile worsening Status: Acute (3) DVT prophylaxis Assessment & Plan: scd and aehose dic so hold anticoag Status: Acute (4) Diabetes type 2, uncontrolled Assessment & Plan: fsbg, ss Status: Acute (5) Hyperkalemia Status: Acute (6) Old cerebrovascular accident (CVA) without late effect Assessment & Plan: neuro ct head, neuro checks Status: Chronic (7) Scrotal edema Assessment & Plan: uro scrotal edema elevate testes imaging noted Status: Chronic pt in serious condition. son aware of all. case d/c w/ consultants-futile further attempts pt made dnr by son will follow closely. grave prognosis no corneal refelx. will d/c terminal extubation decicsion regarding terminal extubation fri 07/24/16 per son to wait for family
[2016-07-22] MEDS: Insulin Detemir 100 Units/ml Inj SC SCH ×2 (10:07→21:22)
--- NOTE | 2016-07-22 12:40 | CP.PCM.PN ---
Subjective - Date & Time of Evaluation Date of Evaluation: 07/21/16 Time of Evaluation: 18:00 - Subjective Subjective: Vented Objective - Vital Signs/Intake and Output Vital Signs (last 24 hours): Temp Pulse Resp BP Pulse Ox 97.7 F 102 H 12 105/59 L 100 07/22/16 08:20 07/22/16 09:00 07/22/16 09:00 07/22/16 08:20 07/22/16 09:00 Intake and Output: 07/22/16 07/22/16 06:59 18:59 Intake Total 1080 720 Output Total 750 Balance 330 720 - Medications Medications: Current Medications Artificial Tears (Artificial Tears) 2 drop OU Q6 PRN PRN Reason: Dry eyes Last Admin: 07/22/16 10:06 Dose: 2 drop Dextrose (Dextrose 50% Inj) 0 ml IV STAT PRN; Protocol PRN Reason: Hyglycemia Protocol Dextrose (Glutose 15) 0 gm PO ONCE PRN; Protocol PRN Reason: Hypoglycemia Protocol Glucagon (Glucagen Diagnostic Kit) 0 mg IM STAT PRN; Protocol PRN Reason: Hypoglycemia Protocol Clindamycin Phosphate 600 mg/ (Sodium Chloride) 104 mls @ 104 mls/hr IVPB Q8 [facility] Last Admin: 07/22/16 08:43 Dose: 104 mls/hr Vancomycin HCl 1 gm/ Sodium (Chloride) 250 mls @ 166.667 mls/hr IVPB DAILY [facility] Last Admin: 07/22/16 08:44 Dose: 166.667 mls/hr Insulin Detemir (Levemir) 60 units SC Q12@1000,2200 [facility] Last Admin: 07/22/16 10:07 Dose: Not Given Insulin Human Regular (Humulin R) 0 units SC Q6 [facility] PRN Reason: Protocol Last Admin: 07/22/16 10:06 Dose: Not Given Lactulose (Enulose) 20 gm PO QID [facility] Last Admin: 07/22/16 08:44 Dose: 20 gm Pantoprazole Sodium (Protonix Inj) 40 mg IVP DAILY [facility] Last Admin: 07/22/16 08:47 Dose: 40 mg - Labs Labs: 07/21/16 04:50 07/21/16 04:50 PT 19.3 SECONDS (9.6-11.2) H D 07/18/16 08:53 INR 1.86 (0.92-1.08) H D 07/18/16 08:53 APTT 35.6 SECONDS (23.3-32.5) H D 07/18/16 08:53 - Head Exam Head Exam: ATRAUMATIC - Eye Exam Eye Exam: Normal appearance - ENT Exam ENT Exam: Mucous Membranes Dry - Respiratory Exam Respiratory Exam: NORMAL BREATHING PATTERN - Cardiovascular Exam Cardiovascular Exam: +S1, +S2 - GI/Abdominal Exam GI & Abdominal Exam: Normal Bowel Sounds - Extremities Exam Extremities Exam: Pedal Edema Assessment and Plan (1) Thrombocytopenia Assessment & Plan: liver cirrhosis, splenic sequestration Status: Acute (2) Anemia Assessment & Plan: chronic disease and occult GI bloeeding from pHTN H/H fairly stable Status: Acute (3) Coagulopathy Assessment & Plan: liver disease low fibrinogen noted; unlikely DIC. Fibrinogen made in liver and low value secondary to compromised synthetic function of liver Status: Acute (4) Splenomegaly Assessment & Plan: secondary to pHTN Status: Acute (5) Leukocytosis Assessment & Plan: on antibiotics Status: Acute
--- NOTE | 2016-07-22 12:42 | CP.PCM.PN ---
Subjective - Date & Time of Evaluation Date of Evaluation: 07/22/16 Time of Evaluation: 11:00 - Subjective Subjective: Vented Objective - Vital Signs/Intake and Output Vital Signs (last 24 hours): Temp Pulse Resp BP Pulse Ox 97.7 F 102 H 12 105/59 L 100 07/22/16 08:20 07/22/16 09:00 07/22/16 09:00 07/22/16 08:20 07/22/16 09:00 Intake and Output: 07/22/16 07/22/16 06:59 18:59 Intake Total 1080 720 Output Total 750 Balance 330 720 - Medications Medications: Current Medications Artificial Tears (Artificial Tears) 2 drop OU Q6 PRN PRN Reason: Dry eyes Last Admin: 07/22/16 10:06 Dose: 2 drop Dextrose (Dextrose 50% Inj) 0 ml IV STAT PRN; Protocol PRN Reason: Hyglycemia Protocol Dextrose (Glutose 15) 0 gm PO ONCE PRN; Protocol PRN Reason: Hypoglycemia Protocol Glucagon (Glucagen Diagnostic Kit) 0 mg IM STAT PRN; Protocol PRN Reason: Hypoglycemia Protocol Clindamycin Phosphate 600 mg/ (Sodium Chloride) 104 mls @ 104 mls/hr IVPB Q8 [facility] Last Admin: 07/22/16 08:43 Dose: 104 mls/hr Vancomycin HCl 1 gm/ Sodium (Chloride) 250 mls @ 166.667 mls/hr IVPB DAILY [facility] Last Admin: 07/22/16 08:44 Dose: 166.667 mls/hr Insulin Detemir (Levemir) 60 units SC Q12@1000,2200 [facility] Last Admin: 07/22/16 10:07 Dose: Not Given Insulin Human Regular (Humulin R) 0 units SC Q6 [facility] PRN Reason: Protocol Last Admin: 07/22/16 10:06 Dose: Not Given Lactulose (Enulose) 20 gm PO QID [facility] Last Admin: 07/22/16 08:44 Dose: 20 gm Pantoprazole Sodium (Protonix Inj) 40 mg IVP DAILY [facility] Last Admin: 07/22/16 08:47 Dose: 40 mg - Labs Labs: 07/21/16 04:50 07/21/16 04:50 PT 19.3 SECONDS (9.6-11.2) H D 07/18/16 08:53 INR 1.86 (0.92-1.08) H D 07/18/16 08:53 APTT 35.6 SECONDS (23.3-32.5) H D 07/18/16 08:53 - Head Exam Head Exam: ATRAUMATIC - Eye Exam Eye Exam: Normal appearance - ENT Exam ENT Exam: Mucous Membranes Dry - Respiratory Exam Respiratory Exam: NORMAL BREATHING PATTERN - Cardiovascular Exam Cardiovascular Exam: +S1, +S2 - GI/Abdominal Exam GI & Abdominal Exam: Normal Bowel Sounds - Extremities Exam Extremities Exam: Pedal Edema Assessment and Plan (1) Thrombocytopenia Assessment & Plan: liver cirrhosis and pHTN with splenic sequestration from splenomegaly Status: Acute (2) Anemia Assessment & Plan: chronic disease occult GI blood loss from pHTN H/H fairly stable Status: Acute (3) Coagulopathy Assessment & Plan: liver disease unlikely DIC Status: Acute (4) Splenomegaly Assessment & Plan: secondary to pHTN Status: Acute (5) Leukocytosis Assessment & Plan: on antibiotics Status: Acute
--- NOTE | 2016-07-22 13:24 | CP.CCUPN ---
<Aixa Palumbo - Last Filed: 07/22/16 15:19> CCU Subjective - Physician Review Subjective (Free Text): 07/22/16 13:17 Patient seen and examined at bedside and was discussed with ICU attending during morning rounds. He remains intubated on mechanical ventilation. He has been unresponsive to verbal or painful stimuli. Corneal reflexes are present with sluggish pupillary response. GCS 3T ([id number]). Patient is afebrile and not on pressors. Family is currently decided on DNR status but wishes to defer extubation decisions at this time. CCU Objective - Vital Signs / Intake & Output Vital Signs (Last 4 hours): Vital Signs Temp Pulse Resp BP Pulse Ox 07/22/16 12:51 98.1 F 114 H 28 H 94/51 L 100 Intake and Output (Last 8hrs): Intake & Output 07/21/16 07/22/16 07/22/16 22:59 06:59 14:59 Intake Total 1030 770 720 Output Total 750 Balance 1030 20 720 Weight 245 lb Intake: IV 180 420 120 Intake, Piggyback 100 100 350 Free Water Flush 750 250 250 Output: Urine 150 Urine, Voided 150 Stool 600 - Physical Exam Head: Positive for: Atraumatic, Normocephalic Pupils: Positive for: Sluggish Conjunctiva: Positive for: Other (Corneal reflex present) Mouth: Positive for: Dry Respiratory/Chest: Positive for: Other (On mechanical ventilation. B/L air entry present but decreased at lung bases. No wheezes, rales or rhonchii audbile. Abdominal breathing present.). Negative for: Wheezes Cardiovascular: Positive for: Tachycardic (Regular rhythm). Negative for: Murmurs Abdomen: Positive for: Distention, Normal Bowel Sounds, Other (Abdomen soft, ascites present) Genitourinary Male: Positive for: Other (Marked scrotal edema present, however improved from prior assessment. Superficial ulceration noted on scrotum measuring approximately 1cm however no signs of gangrene present. Right groin TLC present with no erythema or signs of infection. ) Back: Positive for: Other (Multiple chronic ulcers in various stages of healing ) Upper Extremity: Positive for: Edema Lower Extremity: Positive for: Edema (3+ pitting edema present up to the knees b /l) Neurological: Positive for: Other (Unresponsive to verbal or painful stimuli. Pupils sluggish, corneal reflex present. ). Negative for: GCS=15 (GCS 3T ( [id number])) Psychiatric: Negative for: Alert - Medications Active Medications: Active Medications Generic Name Dose Route Start Last Admin Trade Name Freq PRN Reason Stop Dose Admin Artificial Tears 2 drop 07/20/16 13:23 07/22/16 10:06 Artificial Tears OU 2 drop Q6 PRN Administration Dry eyes Dextrose 0 ml 07/16/16 22:09 Dextrose 50% Inj IV STAT PRN Hyglycemia Protocol Protocol Dextrose 0 gm 07/16/16 22:09 Glutose 15 PO ONCE PRN Hypoglycemia Protocol Protocol Glucagon 0 mg 07/16/16 22:09 Glucagen Diagnostic Kit IM STAT PRN Hypoglycemia Protocol Protocol Clindamycin Phosphate 600 mg/ 104 mls @ 104 mls/hr 07/16/16 17:00 07/22/16 08 :43 Sodium Chloride IVPB 104 mls/hr Q8 [facility] Administration Vancomycin HCl 1 gm/ Sodium 250 mls @ 166.667 mls/hr 07/16/16 13:45 07/22/16 08:44 Chloride IVPB 166.667 mls/hr DAILY [facility] Administration Insulin Detemir 60 units 07/20/16 22:00 07/22/16 10:07 Levemir SC Not Given Q12@1000,2200 [facility] Insulin Human Regular 0 units 07/18/16 16:00 07/22/16 10:06 Humulin R SC Not Given Q6 [facility] Protocol Lactulose 20 gm 07/17/16 13:00 07/22/16 08:44 Enulose PO 20 gm QID [facility] Administration Pantoprazole Sodium 40 mg 07/16/16 09:00 07/22/16 08:47 Protonix Inj IVP 40 mg DAILY [facility] Administration - Patient Studies Lab Studies: Lab Studies 07/22/16 07/22/16 07/21/16 Range/Units 11:17 04:40 21:57 POC Glucose (mg/dL) 107 140 H 124 H (65-110) mg/dL 07/21/16 Range/Units 16:12 POC Glucose (mg/dL) 132 H (65-110) mg/dL Laboratory Results - last 24 hr 07/21/16 07/21/16 07/22/16 16:12 21:57 04:40 POC Glucose (mg/dL) 132 H 124 H 140 H 07/22/16 11:17 POC Glucose (mg/dL) 107 Fingerstick Blood Sugar Results: 132 Review of Systems - Review of Systems Systems not reviewed;Unavailable: Intubated Assessment/Plan - Assessment and Plan (Free Text) Assessment: 60 y/o M with PMH of HTN, DM2, Hepatic cirrhosis secondary to ETOH abuse, CKD, CVA presented to ED after son found patient unresponsive at home with labored breathing. As per son, patient had preceding 2 days of AMS, where he had been sleeping most of the day. Patient found to be in DKA in ER with associated hypotension and an elevated lactate, so a code sepsis was called. He had associated elevations in serum ammonia and respiratory distress. Patient was intubated on 07/16/16 and admitted to ICU for further management. Currently patient is off of sedatives or pressors however remains unresponsive, on mechanical ventilation. Family has decided on DNR status and does not wish for any invasive testing at this time but are undecided on terminal extubation. Plan: Acute respiratory insufficiency -Respiratory distress secondary to hypoxia in the setting of extensive Right lower lung pneumonia with associated AMS -On mechanical ventilation, day 7 -Current settings RR: 12/TV: 500/PEEP: 5/FiO2: 60% -Tracheal aspirate sputum cultures from 07/16 returned positive for MSSA sensitive to oxacillin -CXR from 07/20 re-demonstrates stable consolidations in right lung -Pulmonary consulted, Dr Cain Sepsis -Secondary to pneumonia/gram positive bacteremia -Blood culture from 07/16/16 revealed MSSA sensitive to oxacillin -Afebrie, WBC: 21.1 > 13.5 -Procalcitonin 4.24 on 07/16. Will repeat -Off of pressors. -On empiric antibiotics: -Zosyn 2.25gm IV Q6h (Started 07/16, current day 7) will continue and consider d/c after 10 days since patient remains on vent -Will complete 7 days of Vancomycin 1gm IV daily today and then d/c(07/16-07/22 ) -Will complete 7 days of Clindamycin 600mg IV Q8h today and then d/c(07/16-) Altered Mental Status -Secondary to toxic metabolic encephalopathy vs recurrent cva -Patient has history of previous left MCA stroke -CT Head w/o contrast on 07/15 and 07/17 did not detect any acute intracranial hemorrhage. Study from 07/17 redemonstrates a large MCA territory infarct which also involves the lateral basal ganglia and subcortical white matter of the left frontal and posterior frontal lobes. -Will continue managing acute underlying metabolic/infectious processes -Neurology consulted, recommended resuming keppra 250mg Q12h for seizure prophylaxis Acute on chronic kidney disease -BUN/Cr: 130/5.6 -Baseline Cr between 1.7-2.0 -Nephrology consulted, Dr Puga Chronic hepatic cirrhosis -With ascites, chronic coagulopathy and thrombocytopenia which has decreased further compared to baseline -Ammonia level 131 at admission -MELD score 32 -GI consulted, Dr Guzman -Recommended lactulose, xifaxin Thrombocytopenia -Heme/onc consulted for progressive thrombocytopenia -Thombocytopenia secondary to liver cirrhosis with portal hypertension -Platelets: 21 Anemia of chronic disease -H/H stable at: 8.8/28.6 -Likely aggravated by intermittent occult GI blood loss given portal hypertension Scrotal swelling -Likely secondary to ascites. No signs of Fourniers gangrene. -Urology consulted, Dr Van -Scrotal U/S performed on 07/17 detects large amount of pelvic ascites extending through a right inguinal hernia. -Recommends elevating scrotum. No other therapy at this time. DKA (resolved) -Patient had been non-adherent to medical management as prescribed -Exacerbated by likely pneumonia, bacteremia Feeding -Feeds via OGT -Suplena at goal rate of 55ml/hr GI Prophylaxis -Protonix 40mg IV daily DVT Prophylaxis -SCDs <Chuy Swanson - Last Filed: 07/22/16 18:55> CCU Subjective - Physician Review Subjective (Free Text): Attestation: Patient seen and examined at the bedside with Resident Dr. Brnadon Palumbo; and I agree with his outline of plans and management documented as discussed on AM rounds reflecting my review of all applicable clinical data, and participation in the care of the patient throughout the day in ICU; today, July 22, 2016.
--- NOTE | 2016-07-22 16:34 | PN ---
DATE: 07/22/2016 ROOM: ICU 435 SUBJECTIVE: This is a 60-year-old male with recent uncontrolled type 2 insulin-requiring diabetes, n ow being followed closely for metabolic management. He was actually initially referred for diabetic evaluation because of supervening hyperglycemic accelerations as noted thereof. His glucose values t nahum have improved overnight as noted and have ranged from 124-140 and 107 mg/dL. The latest chemist steroids analy include a BUN of , sodium 150, potassium 4.2, chloride 111, CO2 of 20, glucose 174, creatin ine 5.6. So, at this time, we will continue the same basal insulin given the high dose of Levemir at 60 units subQ every 12 hours at 10:00 a.m. and 10:00 p.m. daily as given. We will titrate increment ally as indicated to optimize metabolic control. We will also continue the low-dose correction scale using regular insulin every 6 hours as given. We will follow and advise accordingly. Amena Mendoza MD cc: [phone] TT: 07/22/2016 16:34:09 Confirmation # [id number] Dictation # [id number] ananth
--- NOTE | 2016-07-22 17:44 | CP.PCM.PN ---
Subjective - Date & Time of Evaluation Date of Evaluation: 07/22/16 Time of Evaluation: 05:25 - Subjective Subjective: Remains intubated . On mechanical ventilation Objective - Vital Signs/Intake and Output Vital Signs (last 24 hours): Temp Pulse Resp BP Pulse Ox 98.1 F 117 H 29 H 96/52 L 90 L 07/22/16 12:51 07/22/16 15:52 07/22/16 15:52 07/22/16 15:52 07/22/16 15:52 Intake and Output: 07/22/16 07/22/16 06:59 18:59 Intake Total 1080 1330 Output Total 750 Balance 330 1330 - Medications Medications: Current Medications Artificial Tears (Artificial Tears) 2 drop OU Q6 PRN PRN Reason: Dry eyes Last Admin: 07/22/16 10:06 Dose: 2 drop Dextrose (Dextrose 50% Inj) 0 ml IV STAT PRN; Protocol PRN Reason: Hyglycemia Protocol Dextrose (Glutose 15) 0 gm PO ONCE PRN; Protocol PRN Reason: Hypoglycemia Protocol Glucagon (Glucagen Diagnostic Kit) 0 mg IM STAT PRN; Protocol PRN Reason: Hypoglycemia Protocol Insulin Detemir (Levemir) 60 units SC Q12@1000,2200 [facility] Last Admin: 07/22/16 10:07 Dose: Not Given Insulin Human Regular (Humulin R) 0 units SC Q6 [facility] PRN Reason: Protocol Last Admin: 07/22/16 17:21 Dose: Not Given Lactulose (Enulose) 20 gm PO QID [facility] Last Admin: 07/22/16 17:20 Dose: 20 gm Pantoprazole Sodium (Protonix Inj) 40 mg IVP DAILY [facility] Last Admin: 07/22/16 08:47 Dose: 40 mg - Labs Labs: 07/21/16 04:50 07/21/16 04:50 PT 19.3 SECONDS (9.6-11.2) H D 07/18/16 08:53 INR 1.86 (0.92-1.08) H D 07/18/16 08:53 APTT 35.6 SECONDS (23.3-32.5) H D 07/18/16 08:53 - Respiratory Exam Additional comments: Lungs clear ant. - Cardiovascular Exam Cardiovascular Exam: Tachycardia, REGULAR RHYTHM - GI/Abdominal Exam Additional comments: ascitis - Extremities Exam Additional comments: 3+ b/l pedal edema Assessment and Plan - Assessment and Plan (Free Text) Assessment: Acute anuric renal falure no improvement in urine out put Respiratory failure, ventilator dependent Liver cihhosis with portal hypertension Sepsis Plan: Prognosis is poor. Terminal extubation was planned for today.Hence renal replacement therapy is deferred
[2016-07-22 18:06] LABS: BASO % 0.1 % (0.0-2.0); EOS # 0.2 K/uL (0.0-0.7); EOS % 0.7 % (0.0-4.0); HEMATOCRIT 28.6 % (35.0-51.0); LYMPH # 0.5 K/uL (1.0-4.3); LYMPH % 2.4 % (20.0-40.0); MEAN CELL VOLUME 86.3 fl (80.0-94.0); MEAN CORPUSCULAR HEMOGLOBIN 26.1 pg (27.0-31.0); MEAN CORPUSCULAR HGB CONC 30.2 g/dL (33.0-37.0); MEAN PLATELET VOLUME 15.2 fl (7.2-11.7); MONO % 4.6 % (0.0-10.0); NEUT # 20.7 K/uL (1.8-7.0); NEUT % 92.2 % (50.0-75.0); NRBC % 0.1 % (0.0-0.0); PLATELET COUNT 78 K/uL (130-400); RED CELL DISTRIBUTION WIDTH 24.9 % (11.5-14.5); WHITE BLOOD COUNT 22.4 K/uL (4.8-10.8)
[2016-07-22 18:18] LABS: ALB/GLOB RATIO 0.6 (1.0-2.1); BILIRUBIN,TOTAL 3.9 mg/dl (0.2-1.3); CALCIUM 7.5 mg/dL (8.4-10.2); POTASSIUM 4.7 MMOL/L (3.6-5.0); TOTAL PROTEIN 6.1 G/DL (6.3-8.2)
[2016-07-22 20:21] LABS: EOSINOPHIL 1 % (0-7); METAMYELOCYTE 1 % (0-0); NEUTROPHIL 68 % (42-75); TOTAL CELLS COUNTED 100
[2016-07-22 20:27] LABS: LARGE PLATELETS PRESENT
[2016-07-22] MEDS ORDERED: Sodium Chloride 0.9% 1,000 ML IV SCH (20:30)
[2016-07-22 23:19] VITALS: RESP 30; TEMP 98.7; O2SAT 94
[2016-07-22 23:20] VITALS: BP 86/43; PULSE 113
--- NOTE | 2016-07-24 07:13 | CP.PCM.DIS ---
Provider - Provider Date of Admission: 07/16/16 00:02 Attending physician: Helder Grace MD Time Spent in preparation of Discharge (in minutes): 20 Diagnosis - Discharge Diagnosis (1) Toxic metabolic encephalopathy Status: Acute Priority: High (2) VICENTE (acute kidney injury) Status: Acute (3) DVT prophylaxis Status: Acute (4) Diabetes type 2, uncontrolled Status: Acute (5) Hyperkalemia Status: Acute (6) Old cerebrovascular accident (CVA) without late effect Status: Chronic (7) Scrotal edema Status: Chronic Hospital Course - Lab Results Lab Results: Micro Results 07/16/16 10:59 Trachasp Gram Stain - Final 07/16/16 10:59 Trachasp Sputum Culture - Final Gram Positive Cocci 07/16/16 04:35 Blood S.aureus & Coag-Neg Staph PNA FISH - Final 07/16/16 04:35 Blood Blood Culture - Final Staphylococcus Aureus 07/16/16 04:35 Blood Gram Stain - Final 07/16/16 13:11 Trachasp Gram Stain - Final 07/16/16 13:11 Trachasp Sputum Culture - Final Staphylococcus Aureus 07/16/16 04:35 Blood Blood Culture - Final Gram Pos Cocci In Clusters 07/16/16 04:35 Blood Gram Stain - Final 07/16/16 10:00 Naris MRSA Culture (Admit) - Final MRSA NOT DETECTED Most Recent Lab Values WBC 22.4 K/uL (4.8-10.8) H D 07/22/16 17:30 RBC 3.32 Mil/uL (4.40-5.90) L 07/22/16 17:30 Hgb 8.6 g/dL (12.0-18.0) L 07/22/16 17:30 Hct 28.6 % (35.0-51.0) L 07/22/16 17:30 MCV 86.3 fl (80.0-94.0) 07/22/16 17:30 MCH 26.1 pg (27.0-31.0) L 07/22/16 17:30 MCHC 30.2 g/dL (33.0-37.0) L 07/22/16 17:30 RDW 24.9 % (11.5-14.5) H 07/22/16 17:30 Plt Count 78 K/uL (130-400) L D 07/22/16 17:30 MPV 15.2 fl (7.2-11.7) H 07/22/16 17:30 Neut % (Auto) 92.2 % (50.0-75.0) H 07/22/16 17:30 Lymph % (Auto) 2.4 % (20.0-40.0) L 07/22/16 17:30 Alfalfa % (Auto) 4.6 % (0.0-10.0) 07/22/16 17:30 Eos % (Auto) 0.7 % (0.0-4.0) 07/22/16 17:30 Baso % (Auto) 0.1 % (0.0-2.0) 07/22/16 17:30 Neut # 20.7 K/uL (1.8-7.0) H 07/22/16 17:30 Lymph # 0.5 K/uL (1.0-4.3) L 07/22/16 17:30 [place]a # 1.0 K/uL (0.0-0.8) H 07/22/16 17:30 Eos # 0.2 K/uL (0.0-0.7) 07/22/16 17:30 Baso # 0.0 K/uL (0.0-0.2) 07/22/16 17:30 Total Counted Cancelled 07/16/16 12:15 Neutrophils % (Manual) 68 % (42-75) 07/22/16 17:30 Band Neutrophils % 20 % (0-2) H* 07/22/16 17:30 Lymphocytes % (Manual) 6 % (20-50) L 07/22/16 17:30 Reactive Lymphs % Cancelled 07/16/16 12:15 Monocytes % (Manual) 4 % (0-10) 07/22/16 17:30 Eosinophils % (Manual) 1 % (0-7) 07/22/16 17:30 Basophils % (Manual) Cancelled 07/16/16 12:15 Metamyelocytes % 1 % (0-0) H 07/22/16 17:30 Myelocytes % 1 % (0-0) H 07/15/16 23:13 Promyelocytes % Cancelled 07/16/16 12:15 Blast Cells % Cancelled 07/16/16 12:15 Plasma Cell % (Manual) Cancelled 07/16/16 12:15 Nucleated RBC % Cancelled 07/16/16 12:15 Hypersegmented Polys Cancelled 07/16/16 12:15 Smudge Cells Cancelled 07/16/16 12:15 Toxic Granulation Cancelled 07/16/16 12:15 Dohle Bodies Cancelled 07/16/16 12:15 Moise Rods Cancelled 07/16/16 12:15 Platelet Estimate Decreased (NORMAL) L 07/22/16 17:30 Plt Clumps, EDTA Cancelled 07/16/16 12:15 Large Platelets Present 07/22/16 17:30 Giant Platelets Present 07/16/16 04:35 RBC Morphology Cancelled 07/16/16 12:15 Polychromasia Cancelled 07/16/16 12:15 Hypochromasia (manual) Slight 07/22/16 17:30 Poikilocytosis (manual Moderate 07/22/16 17:30 Basophilic Stippling Cancelled 07/16/16 12:15 Anisocytosis (manual) Marked 07/22/16 17:30 Microcytosis (manual) Slight 07/22/16 17:30 Macrocytosis (manual) Slight 07/17/16 06:32 Spherocytes Slight 07/17/16 06:32 Sickle Cells Cancelled 07/16/16 12:15 Target Cells Cancelled 07/16/16 12:15 Tear Drop Cells Slight 07/22/16 17:30 Ovalocytes Slight 07/15/16 23:13 Stomatocytes Cancelled 07/16/16 12:15 Helmet Cells Cancelled 07/16/16 12:15 Garcia-Christopher Bodies Cancelled 07/16/16 12:15 Michael Cells Slight 07/22/16 17:30 Acanthocytes (Spur) Slight 07/15/16 23:13 Rouleaux Cancelled 07/16/16 12:15 Schistocytes Slight 07/17/16 06:32 Retic Count 1.8 % (0.5-1.5) H D 07/17/16 15:00 Haptoglobin 115 mg/dL (43-212) 07/17/16 15:00 PT 19.3 SECONDS (9.6-11.2) H D 07/18/16 08:53 INR 1.86 (0.92-1.08) H D 07/18/16 08:53 APTT 35.6 SECONDS (23.3-32.5) H D 07/18/16 08:53 Fibrinogen 137 mg/dl (200-400) L* 07/17/16 15:00 D-Dimer, Quantitative 4.09 mg/L FEU (0-0.50) H 07/17/16 15:00 pCO2 37 mm/Hg (35-45) 07/20/16 05:27 pO2 80 mm/Hg (80-100) 07/20/16 05:27 HCO3 22.7 mmol/L (21-28) 07/20/16 05:27 ABG pH 7.38 (7.35-7.45) 07/20/16 05:27 ABG Total CO2 23.0 mmol/L (22-28) 07/20/16 05:27 ABG O2 Saturation 99.2 % (95-98) H 07/20/16 05:27 ABG O2 Content 11.6 ML/dL (15-23) L 07/20/16 05:27 ABG Base Excess -2.9 mmol/L (-2.0-3.0) L 07/20/16 05:27 ABG Hemoglobin 8.5 g/dL (11.7-17.4) L 07/20/16 05:27 ABG Carboxyhemoglobin 1.9 % (0.5-1.5) H 07/20/16 05:27 POC ABG HHb (Measured) 0.8 % (0.0-5.0) 07/20/16 05:27 ABG Methemoglobin 1.5 % (0.0-3.0) 07/20/16 05:27 ABG O2 Capacity 11.7 mL/dL (16-24) L 07/20/16 05:27 [place] Test Yes 07/20/16 05:27 ABG Potassium 5.7 mmol/L (3.6-5.2) H 07/17/16 05:32 VBG pH 7.13 (7.32-7.43) L* 07/16/16 05:40 VBG pCO2 30 mmHg (40-60) L 07/16/16 05:40 VBG HCO3 10.4 mmol/L 07/16/16 05:40 VBG Total CO2 10.9 mmol/L (22-28) L 07/16/16 05:40 VBG O2 Sat (Calc) 89.1 % (40-65) H 07/16/16 05:40 VBG Base Excess -17.9 mmol/L (0.0-2.0) L 07/16/16 05:40 VBG Potassium 5.3 mmol/L (3.6-5.2) H 07/16/16 05:40 A-a O2 Difference 302.0 mm/Hg 07/20/16 05:27 Hgb O2 Saturation 95.8 % (95.0-98.0) 07/20/16 05:27 Sodium 141.0 mmol/L (132-148) 07/17/16 05:32 Chloride 111.0 mmol/L (98-107) H 07/17/16 05:32 Glucose 182 mg/dL (75-110) H 07/17/16 05:32 Lactate 9.7 mmol/L (0.7-2.1) H* 07/17/16 05:32 Vent Mode Prvc ac 07/20/16 05:27 Mechanical Rate 12 07/20/16 05:27 FiO2 60.0 % 07/20/16 05:27 Tidal Volume 500 07/20/16 05:27 PEEP 5 07/20/16 05:27 Blood Gas Comments Lactate 13.6 07/15/16 22:23 Crit Value Called To Palma garcia rn 07/17/16 05:32 Crit Value Called By [id number] 07/17/16 05:32 Crit Value Read Back Y 07/17/16 05:32 Blood Gas Notified Time 535 07/17/16 05:32 Sodium 145 mmol/l (132-148) 07/22/16 17:30 Potassium 4.7 MMOL/L (3.6-5.0) 07/22/16 17:30 Chloride 108 mmol/L (98-107) H 07/22/16 17:30 Carbon Dioxide 16 mmol/L (22-30) L 07/22/16 17:30 Anion Gap 26 (10-20) H 07/22/16 17:30 BUN 144 mg/dl (9-20) H* 07/22/16 17:30 Creatinine 6.4 mg/dL (0.8-1.5) H 07/22/16 17:30 Est GFR ( Amer) 11 07/22/16 17:30 Est GFR (Non-Af Amer) 9 07/22/16 17:30 POC Glucose (mg/dL) 33 mg/dL (65-110) L* 07/23/16 04:25 Random Glucose 139 mg/dL (75-110) H 07/22/16 17:30 Hemoglobin A1c 9.8 % (4.2-6.5) H 07/16/16 12:15 Serum Osmolality 340 mosm/kg (272-300) H 07/17/16 06:32 Lactic Acid 7.9 MMOL/L (0.7-2.1) H* 07/16/16 12:15 Calcium 7.5 mg/dL (8.4-10.2) L 07/22/16 17:30 Phosphorus 5.2 mg/dl (2.5-4.5) H 07/16/16 04:35 Magnesium 2.4 MG/DL (1.6-2.3) H 07/16/16 04:35 Total Bilirubin 3.9 mg/dl (0.2-1.3) H 07/22/16 17:30 AST 63 U/L (17-59) H 07/22/16 17:30 ALT 51 U/L (21-72) 07/22/16 17:30 Alkaline Phosphatase 210 U/L (38-126) H 07/22/16 17:30 Ammonia 84 umo/L (16-60) H D 07/21/16 04:45 Lactate Dehydrogenase 1391 U/L (313-618) H 07/17/16 15:00 Total Creatine Kinase 53 U/L (55-170) L 07/16/16 12:15 Troponin I 0.0500 ng/mL (0.00-0.120) 07/16/16 04:35 NT-Pro-B Natriuret Pep 8390 pg/ml (0-900) H 07/15/16 23:13 Total Protein 6.1 G/DL (6.3-8.2) L 07/22/16 17:30 Albumin 2.2 g/dL (3.5-5.0) L 07/22/16 17:30 Globulin 3.8 gm/dL (2.2-3.9) 07/22/16 17:30 Albumin/Globulin Ratio 0.6 (1.0-2.1) L 07/22/16 17:30 Triglycerides 101 mg/DL (0-149) D 07/16/16 04:35 Cholesterol 52 mg/dL (0-199) 07/16/16 04:35 LDL Cholesterol Direct < 30 mg/dL (0-129) 07/16/16 04:35 HDL Cholesterol 11 MG/DL (30-70) L 07/16/16 04:35 Lipase 55 U/L (23-300) 07/15/16 23:13 Procalcitonin 4.24 NG/ML (0.19-0.49) H 07/16/16 12:15 Arterial Blood Potassium 5.7 mmol/L (3.6-5.2) H 07/17/16 05:32 Venous Blood Potassium 5.3 mmol/L (3.6-5.2) H 07/16/16 05:40 Urine Color Shraddha (YELLOW) 07/20/16 09:50 Urine Clarity Slighty-cloudy (Clear) 07/20/16 09:50 Urine pH 5.0 (5.0-8.0) 07/20/16 09:50 Ur Specific [place] 1.024 (1.003-1.030) 07/20/16 09:50 Urine Protein 30 mg/dL (NEGATIVE) 07/20/16 09:50 Urine Glucose (UA) 50 mg/dL (Normal) 07/20/16 09:50 Urine Ketones Negative mg/dL (NEGATIVE) 07/20/16 09:50 Urine Blood Small (NEGATIVE) 07/20/16 09:50 Urine Nitrate Negative (NEGATIVE) 07/20/16 09:50 Urine Bilirubin Negative (NEGATIVE) 07/20/16 09:50 Urine Urobilinogen 0.2-1.0 mg/dL (0.2-1.0) 07/20/16 09:50 Ur Leukocyte Esterase Neg Inna/uL (Negative) 07/20/16 09:50 Urine RBC (Auto) 3 /hpf (0-3) 07/20/16 09:50 Urine Microscopic WBC 10 /hpf (0-5) H 07/20/16 09:50 Ur Squamous Epith Cells 3 /hpf (0-5) 07/20/16 09:50 Amorphous Sediment Rare /ul (<OCC) H 07/20/16 09:50 Urine Bacteria Rare (<OCC) 07/20/16 09:50 Ur Random Creatinine 131.9 mg/dL 07/20/16 13:00 Ur Random Sodium < 5 mmol/L 07/20/16 13:00 Blood Type A POSITIVE 07/15/16 22:11 Antibody Screen Negative 07/15/16 22:11 Crossmatch See Detail 07/15/16 22:11 BBK History Checked Patient has bt 07/15/16 22:11 Discharge Exam - Head Exam Head Exam: ATRAUMATIC, NORMAL INSPECTION, NORMOCEPHALIC Discharge Plan - Follow Up Plan Condition: CRITICAL Disposition: WITH WITHOUT AUTOPSY Additional Instructions: final dx cardio pulm arrest pronoused by dr londono [id number] son at bedside-emotional support given
--- NOTE | 2016-07-24 09:30 | PN ---
DATE: 07/23/2016 The patient evaluated on the bedside. He was noted to be severely bradycardic in the upper 40s and agonal rhythm. The patient SBP70s to low 80s despite being vented on 100% oxygen. Blood pressure in the upper 50s, below 60s systolic despite being on Levophed. The patient's condition has been steadily deteriorating over the last few days in the hospital. Dr. Swanson and this provider discussed the patient's situation. Prognosis is overall fair. His son is at bedside who now is agreeable to terminal extubation. REVIEW OF SYSTEMS: The patient is unresponsive to any stimuli. GCS is 3. No urinary output. PHYSICAL EXAMINATION: GENERAL: Unresponsive. HEART: Agonal sounds heard. LUNGS: Lung sounds are b/l diminished. ABDOMEN: Soft, distended. no bowel sounds are . EXTREMITIES: Distal pulses are not palpated likely due to hypotension. DIAGNOSES AND PLAN: Toxic metabolic encephalopathy, septic shock, metabolic acidosis, hepatic encephalopathy. Son agrees to terminal extubation. Dr. Swanson and myself at the bedside. Dr. Swanson, ICU attending, ordered for endotracheal tube to be removed by Resp therapy. , 4 mg of IV morphine to be administered. The tube was removed at approximately 0720 this morning, and morphine was administered concurrently. The patient diedat approximately 0726 a.m. The patient was noted to beasystole. No heart sounds, palpable pulses, or breath sounds or corneal reflex. The patient pronounced by Dr. Swanson, the attending. emotional supported offered to son who refused social media editor or hospital supermarket manager. Jovany SERRANO cc: [id number] TT: 07/23/2016 09:05:57 Confirmation # [id number] Dictation # [id number] SADA
== END 2016-07-23 07:00 | DRG 870 ==
LOC: H.ER 21:52 → H.ERHOLD 07-16 00:02 → H.ICU/CCU 07-16 01:45
PROVIDERS: ADMIT Family Medicine; ATTEND Family Medicine
PROC: 0BH17EZ Insertion of Endotracheal Airway into Trachea, Via Natural or Artificial Opening (ICD-10-PCS; principal; 2016-07-16)
PROC: 5A1955Z Respiratory Ventilation, Greater than 96 Consecutive Hours (ICD-10-PCS; 2016-07-16)
PROC: 06HM33Z Insertion of Infusion Device into Right Femoral Vein, Percutaneous Approach (ICD-10-PCS; 2016-07-16)
PROC: 30233N1 Transfusion of Nonautologous Red Blood Cells into Peripheral Vein, Percutaneous Approach (ICD-10-PCS; 2016-07-18)
DX: A41.01 Sepsis due to Methicillin susceptible Staphylococcus aureus (principal); N17.0 Acute kidney failure with tubular necrosis; J96.01 Acute respiratory failure with hypoxia; G92 Toxic encephalopathy; R65.21 Severe sepsis with septic shock; E13.10 Other specified diabetes mellitus with ketoacidosis without coma; J18.9 Pneumonia, unspecified organism; G93.1 Anoxic brain damage, not elsewhere classified; L89.150 Pressure ulcer of sacral region, unstageable; Z99.11 Dependence on respirator [ventilator] status; D61.818 Other pancytopenia; D68.4 Acquired coagulation factor deficiency; E87.0 Hyperosmolality and hypernatremia; K76.6 Portal hypertension; J98.11 Atelectasis; I46.9 Cardiac arrest, cause unspecified; N18.3 Chronic kidney disease, stage 3 (moderate); D63.8 Anemia in other chronic diseases classified elsewhere; E11.22 Type 2 diabetes mellitus with diabetic chronic kidney disease; Z79.4 Long term (current) use of insulin; E78.00 Pure hypercholesterolemia, unspecified; E86.0 Dehydration; E87.5 Hyperkalemia; I12.9 Hypertensive chronic kidney disease with stage 1 through stage 4 chronic kidney disease, or unspecified chronic kidney disease; E11.319 Type 2 diabetes mellitus with unspecified diabetic retinopathy without macular edema; E11.42 Type 2 diabetes mellitus with diabetic polyneuropathy; E11.21 Type 2 diabetes mellitus with diabetic nephropathy; E11.51 Type 2 diabetes mellitus with diabetic peripheral angiopathy without gangrene; K70.31 Alcoholic cirrhosis of liver with ascites; N50.89 Other specified disorders of the male genital organs; Z66 Do not resuscitate; Z86.73 Personal history of transient ischemic attack (TIA), and cerebral infarction without residual deficits; K72.90 Hepatic failure, unspecified without coma; Z91.14 Patient's other noncompliance with medication regimen; Z51.5 Encounter for palliative care; R16.1 Splenomegaly, not elsewhere classified; D18.1 Lymphangioma, any site; F10.20 Alcohol dependence, uncomplicated; Y90.9 Presence of alcohol in blood, level not specified; E66.3 Overweight; Z68.30 Body mass index [BMI] 30.0-30.9, adult; R19.5 Other fecal abnormalities